=== PATIENT | male | born 1980 | race American Indian/Alaskan Native ===

== ENCOUNTER 2020-06-06 14:24 | Inpatient (IN) | payer OTHER ==
--- NOTE | 2020-06-06 15:40 | Event Note ---
ED Screening Note ED Screening Note: pt presents to the ED with c/o scrotal swelling x1 week +SOB hx of HTN and DM has not taken his meds in 3 months This initial assessment/diagnostic orders/clinical plan/treatment(s) is/are subject to change based on patients health status, clinical progression and re- assessment by fellow clinical providers in the ED. Further treatment and workup at subsequent clinical providers discretion. Patient/guardian urged not to elope from the ED as their condition may be serious if not clinically assessed and managed. 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
[2020-06-06] MEDS ORDERED: ACETAMINOPHEN 325 MG TAB PO ONE (15:41)
--- NOTE | 2020-06-06 16:45 | Ultrasound Report ---
ULTRASOUND SCROTUM INDICATION: severe scrotal swelling. COMPARISON None available. FINDINGS -- RIGHT TESTIS: Size: 3.7 x 2.3 x 2.9 cm. Echotexture: Normal. Color Doppler Flow: Normal. Lesions: None. EPIDIDYMIS: Size: Normal. Echotexture: Normal. Color Doppler Flow: Normal. Lesions: None. Hydrocele: None. Varicocele: None. Additional Findings: None. FINDINGS -- LEFT TESTIS: Size: 3.3 x 1.9 x 2.3 cm. Echotexture: Normal. Color Doppler Flow: Normal. Lesions: None. EPIDIDYMIS: Size: Normal. Echotexture: Normal. Color Doppler Flow: Normal. Lesions: None. Hydrocele: None. Varicocele: None. Additional Findings: None. The scrotal wall is diffusely thickened. In addition: Within the scrotal wall there are complex hypoe choic collections. Midline scrotal collection measures approximately 3.6 x 2.4 cm. Heterogeneous itzel ection lateral to the left testicle measures approximately 5.1 x 1.8 cm. IMPRESSION: 1. No testicular abnormality. 2. Diffuse scrotal wall edema with heterogeneously hypoechoic ill-defined collections. These findings are concerning for phlegmon/developing abscess. Sonographic follow-up is recommended after treatment . Signer Name: Venu Nesbitt MD Signed: 06/06/2020 4:40 PM Workstation Name: [id number]
[2020-06-06 16:57] LABS: Alanine Aminotransferase 157 units/L (7-56); BUN/Creatinine Ratio 8; Basophils % (Auto) 0.4 % (0.0-1.8); Blood Urea Nitrogen 10 mg/dL (9-20); Calcium 8.9 mg/dL (8.4-10.2); Hemolysis Index 0; Lymphocytes # (Auto) 0.6 K/mm3 (1.2-5.4); Lymphocytes % (Auto) 6.6 % (13.4-35.0); Mean Corpuscular HGB Conc 32 % (32-34); Mean Corpuscular Volume 91 fl (84-94); Monocytes # (Auto) 0.6 K/mm3 (0.0-0.8); Monocytes % (Auto) 5.8 % (0.0-7.3); Platelet Count 198 K/mm3 (140-440); Red Blood Count 4.86 M/mm3 (3.65-5.03); Red Cell Distribution Width 14.3 % (13.2-15.2)
--- NOTE | 2020-06-06 17:09 | XRay Report ---
CHEST PA AND LATERAL VIEWS INDICATION: SOB. COMPARISON: None. FINDINGS: Support devices: None. Heart: Within normal limits. Lungs/Pleura: There are rather diffuse predominantly perihilar bilateral pulmonary opacities. No pneu mothorax. IMPRESSION: 1. Rather diffuse predominantly perihilar pulmonary opacities are nonspecific. These could be infecti ous in etiology. Pulmonary edema could have this appearance. Radiographic follow-up is recommended. Signer Name: Venu Nesbitt MD Signed: 06/06/2020 5:05 PM Workstation Name: [id number]
[2020-06-06] MEDS ORDERED: FUROSEMIDE 40 MG/4 ML INJ IV ONE (17:43)
[2020-06-06] MEDS ORDERED: INSULIN REGULAR, HUMAN 100 UNITS/1 ML IV ONE (17:44)
--- NOTE | 2020-06-06 17:47 | Emergency Department Report ---
ED General Adult HPI - General Chief complaint: Urogenital-Male Stated complaint: SWELLING TESTICLES Time Seen by Provider: 06/06/20 15:32 Source: patient Mode of arrival: Wheelchair Limitations: No Limitations - History of Present Illness Initial comments: h/o htn, dm, morbid obesity, non compliant, present to ER with leg swelling, scrotal swelling, sob, easy fatiguability, for 1 week. Symptoms are progressively worsening since to the point where he can no longer ambulates but a couple of steps without getting severely tired and needing to rest. He denies any fever, chills or night sweats. Has not taken any meds for symptoms. -: Gradual, days(s) (7) Location: abdomen, pelvis, genitals, lower extremity Severity scale (0 -10): 9 Consistency: constant Improves with: none Worsens with: movement Associated Symptoms: cough, diaphoresis, shortness of breath, weakness Treatments Prior to Arrival: none - Related Data Allergies Allergy/AdvReac Type Severity Reaction Status Date / Time No Known Allergies Allergy Unverified 06/06/20 15:00 ED Review of Systems ROS: Stated complaint: SWELLING TESTICLES Other details as noted in HPI Comment: All other systems reviewed and negative Respiratory: orthopnea, shortness of breath, SOB with exertion Cardiovascular: dyspnea on exertion Gastrointestinal: nausea Musculoskeletal: denies: back pain Neurological: denies: headache Psychiatric: denies: anxiety ED Past Medical Hx - Past Medical History Hx Hypertension: Yes Hx Diabetes: Yes - Surgical History Past Surgical History?: No - Social History Smoking Status: Never Smoker Substance Use Type: None ED Physical Exam - General Limitations: No Limitations General appearance: lethargic - Head Head exam: Present: atraumatic, normocephalic - Eye Eye exam: Present: normal appearance Pupils: Present: normal accommodation - Neck Neck exam: Present: full ROM - Respiratory Respiratory exam: Present: rales, decreased breath sounds - Cardiovascular Cardiovascular Exam: Present: tachycardia - GI/Abdominal GI/Abdominal exam: Present: soft, normal bowel sounds. Absent: tenderness, guarding, rebound, rigid - exam: Present: scrotal swelling External exam: Present: swelling - Extremities Exam Extremities exam: Present: pedal edema (4 PLUS) - Neurological Exam Neurological exam: Present: alert, oriented X3, CN II-XII intact - Psychiatric Psychiatric exam: Present: normal affect, normal mood - Skin Skin exam: Present: warm ED Course Vital Signs 06/06/20 06/06/20 06/06/20 15:06 15:37 15:39 Temperature 98.1 F 98.1 F 101.6 F H Pulse Rate 113 H 113 H 117 H Respiratory 20 24 24 Rate Blood Pressure 139/95 Blood Pressure 139/95 [Left] O2 Sat by Pulse 82 L 90 Oximetry 06/06/20 06/06/20 06/06/20 18:06 18:16 18:30 Temperature Pulse Rate 110 H 113 H Respiratory 29 H 59 H Rate Blood Pressure Blood Pressure [Left] O2 Sat by Pulse 95 95 90 Oximetry 06/06/20 06/06/20 06/06/20 18:46 19:00 20:00 Temperature Pulse Rate 110 H 110 H 104 H Respiratory Rate Blood Pressure 121/85 Blood Pressure [Left] O2 Sat by Pulse 90 95 99 Oximetry 06/06/20 06/06/20 06/06/20 20:37 21:00 22:00 Temperature Pulse Rate 104 H 102 H Respiratory 18 Rate Blood Pressure 127/81 117/66 Blood Pressure [Left] O2 Sat by Pulse 100 88 95 Oximetry 06/06/20 23:00 Temperature Pulse Rate 98 H Respiratory Rate Blood Pressure 116/71 Blood Pressure [Left] O2 Sat by Pulse 97 Oximetry ED Medical Decision Making - Lab Data Result diagrams: 06/06/20 15:45 06/07/20 00:09 - EKG Data -: EKG Interpreted by Vt EKG shows normal: ST-T waves Rate: tachycardia (RATE 102) - EKG Data When compared to previous EKG there are: no significant change - Radiology Data Radiology results: report reviewed - Medical Decision Making Pt presents with sob, peripheral edema, labs high glucose, hyponatremia, dx: dka, chf exacerbation, needs admission for further txt. started on vancomycin for scrotal swelling, cellulitis, no abscess appreciated on exam. - Differential Diagnosis chf exacerbation, dka, cellulitis, ams, Critical Care Time: Yes Critical care time in (mins) excluding proc time.: 45 Critical care attestation.: If time is entered above; I have spent that time in minutes in the direct care of this critically ill patient, excluding procedure time. Critical Care Time: DKA: INSULIN DRIP STARTED ADMIT TO CCU ED Disposition Clinical Impression: DKA, type 2 Qualifiers: Diabetes mellitus complication detail: without coma Qualified Code(s): E11.10 - Type 2 diabetes mellitus with ketoacidosis without coma Acute exacerbation of CHF (congestive heart failure) Qualifiers: Heart failure type: systolic Qualified Code(s): I50.23 - Acute on chronic systolic (congestive) heart failure Disposition: OP ADMIT IP TO THIS HOSP Is pt being admited?: Yes Does the pt Need Aspirin: Yes Condition: Critical
[2020-06-06] MEDS ORDERED: VANCOMYCIN/NS 1 GM/250 ML 1 GM/250 ML BAG IV ONE (17:50)
[2020-06-06] MEDS ORDERED: ASPIRIN 81 MG TAB CHEW PO ONE (17:56)
[2020-06-06] MEDS ORDERED: DEXTROSE 50% IN WATER (25GM) 50 ML SYRINGE IV PRN (18:04)
[2020-06-06] MEDS ORDERED: INSULIN REGULAR, HUMAN 100 UNITS in SODIUM CHLORIDE 0.9% 99 ML IV SCH ×2 (19:00→23:45)
[2020-06-06 19:38] LABS: BUN/Creatinine Ratio 11; Blood Urea Nitrogen 12 mg/dL (9-20); Calcium 8.6 mg/dL (8.4-10.2); Hemolysis Index 86
[2020-06-06 19:39] LABS: Bacteria,Urine 1+ /HPF (Negative); Bilirubin,Urine NEG (Negative); Blood,Urine MOD (Negative); Color,Urine Yellow (Yellow); Mucus,Urine FEW /HPF; Urobilinogen,Urine < 2.0 mg/dL (<2.0)
[2020-06-06] MEDS: VANCOMYCIN 2,000 MG in SODIUM CHLORIDE 0.9% 500 ML 500 ML IV SCH (19:56)
[2020-06-06 20:12] LABS: BUN/Creatinine Ratio 10; Blood Urea Nitrogen 12 mg/dL (9-20); Calcium 8.4 mg/dL (8.4-10.2); Hemolysis Index 3
--- NOTE | 2020-06-06 23:17 | History and Physical Report ---
History of Present Illness Date of examination: 06/06/20 Date of admission: 06/06/20 18:29 Chief complaint: Swelling of both lower extremities including scrotum Increasing fatigability History of present illness: 29-year-old morbidly obese male with history of hypertension and CHF and diabetes comes in for increasing shortness of breath easy fatigability for 1 week. Patient has swelling of both the lower extremities and the also the swelling is involving the scrotum. Patient also has high blood glucose levels. Patient noncompliant with his medications. Orthopnea present. Patient is morbidly obese. - Past Medical History Hx Hypertension: Yes Hx Diabetes: Yes - Surgical History Past Surgical History?: No - Social History Smoking Status: Never Smoker Substance Use Type: None Family history. Hypertension Review of Systems ROS: Stated complaint: SWELLING TESTICLES Other details as noted in HPI Comment: All other systems reviewed and negative Respiratory: orthopnea, shortness of breath, SOB with exertion Cardiovascular: dyspnea on exertion Gastrointestinal: nausea Medications and Allergies Allergies Allergy/AdvReac Type Severity Reaction Status Date / Time No Known Allergies Allergy Unverified 06/06/20 15:00 Active Meds: Active Medications Dextrose (D50w (25gm) Syringe) 0 ml IV Q30MIN PRN; Protocol PRN Reason: Hypoglycemia Vancomycin HCl 2,000 mg/ (Sodium Chloride) 540 mls @ 250 mls/hr IV Q12H CAROLYN Last Admin: 06/06/20 19:56 Dose: 250 mls/hr Documented by: Insulin Human Regular 100 (units/ Sodium Chloride) 100 mls @ 1 mls/hr IV TITR CAROLYN; Protocol Last Titration: 06/06/20 22:13 Dose: 7 units/hr, 7 mls/hr Documented by: Exam - Constitutional Vitals: Temp Pulse Resp BP Pulse Ox 101.6 F H 104 H 18 121/85 100 06/06/20 15:39 06/06/20 20:00 06/06/20 20:37 06/06/20 20:00 06/06/20 20:37 General appearance: Present: mild distress, well-nourished - EENT Eyes: Present: PERRL ENT: hearing intact, clear oral mucosa - Neck Neck: Present: supple, normal ROM - Respiratory Respiratory effort: normal Respiratory: bilateral: CTA, rales - Cardiovascular Heart rate: 78 Heart Sounds: Present: S1 & S2. Absent: rub, click - Extremities Extremities: pulses symmetrical Extremity abnormal: edema (SEVERE pedal edema) Peripheral Pulses: within normal limits - Abdominal General gastrointestinal: Present: soft, non-tender, non-distended, normal bowel sounds Male genitourinary: Present: normal - Integumentary Integumentary: Present: clear, warm, dry - Musculoskeletal Musculoskeletal: gait normal, strength equal bilaterally - Psychiatric Psychiatric: appropriate mood/affect, intact judgment & insight - Neurologic Neurologic: CNII-XII intact, moves all extremities HEART Score - HEART Score History: Moderately suspicious Risk factors: > 3 risk factors or hx of atherosclerotic disease Troponin: Troponin T < 0.010 ng/mL (0.00-0.029) 06/06/20 15:45 - Critical Actions Critical Actions: >7 pts:50-65% risk of adverse cardiac event. Early invasive measures Results - Labs CBC & Chem 7: 06/06/20 15:45 06/07/20 07:48 Labs: Laboratory Last Values WBC 9.6 K/mm3 (4.5-11.0) 06/06/20 15:45 RBC 4.86 M/mm3 (3.65-5.03) 06/06/20 15:45 Hgb 14.0 gm/dl (11.8-15.2) 06/06/20 15:45 Hct 44.0 % (35.5-45.6) 06/06/20 15:45 MCV 91 fl (84-94) 06/06/20 15:45 MCH 29 pg (28-32) 06/06/20 15:45 MCHC 32 % (32-34) 06/06/20 15:45 RDW 14.3 % (13.2-15.2) 06/06/20 15:45 Plt Count 198 K/mm3 (140-440) 06/06/20 15:45 Lymph % (Auto) 6.6 % (13.4-35.0) L 06/06/20 15:45 Stevens % (Auto) 5.8 % (0.0-7.3) 06/06/20 15:45 Eos % (Auto) 0.0 % (0.0-4.3) 06/06/20 15:45 Baso % (Auto) 0.4 % (0.0-1.8) 06/06/20 15:45 Lymph # 0.6 K/mm3 (1.2-5.4) L 06/06/20 15:45 Stevens # 0.6 K/mm3 (0.0-0.8) 06/06/20 15:45 Eos # 0.0 K/mm3 (0.0-0.4) 06/06/20 15:45 Baso # 0.0 K/mm3 (0.0-0.1) 06/06/20 15:45 Seg Neutrophils % 87.2 % (40.0-70.0) H 06/06/20 15:45 Seg Neutrophils # 8.4 K/mm3 (1.8-7.7) H 06/06/20 15:45 VBG pH 7.300 (7.320-7.420) L 06/06/20 15:45 Sodium 131 mmol/L (137-145) L 06/06/20 19:36 Potassium 4.4 mmol/L (3.6-5.0) 06/06/20 19:36 Chloride 90.7 mmol/L (98-107) L 06/06/20 19:36 Carbon Dioxide 16 mmol/L (22-30) L 06/06/20 19:36 Anion Gap 29 mmol/L 06/06/20 19:36 BUN 12 mg/dL (9-20) 06/06/20 19:36 Creatinine 1.2 mg/dL (0.8-1.5) 06/06/20 19:36 Estimated GFR > 60 ml/min 06/06/20 19:36 BUN/Creatinine Ratio 10 % 06/06/20 19:36 Glucose 558 mg/dL (75-100) H* 06/06/20 19:36 POC Glucose 395 (70-105) H 06/06/20 22:26 Lactic Acid 1.90 mmol/L (0.7-2.0) 06/06/20 19:36 Calcium 8.4 mg/dL (8.4-10.2) 06/06/20 19:36 Phosphorus 2.80 mg/dL (2.5-4.5) 06/06/20 18:16 Magnesium 2.30 mg/dL (1.7-2.3) 06/06/20 18:16 Total Bilirubin 0.80 mg/dL (0.1-1.2) 06/06/20 15:45 AST 151 units/L (5-40) H 06/06/20 15:45 ALT 157 units/L (7-56) H 06/06/20 15:45 Alkaline Phosphatase 117 units/L (35-129) 06/06/20 15:45 Troponin T < 0.010 ng/mL (0.00-0.029) 06/06/20 15:45 NT-Pro-B Natriuret Pep 5086 pg/mL (0-450) H 06/06/20 15:45 Total Protein 8.1 g/dL (6.3-8.2) 06/06/20 15:45 Albumin 3.0 g/dL (3.9-5) L 06/06/20 15:45 Albumin/Globulin Ratio 0.6 % 06/06/20 15:45 Urine Color Yellow (Yellow) 06/06/20 18:42 Urine Turbidity Slightly-cloudy (Clear) 06/06/20 18:42 Urine pH 5.0 (5.0-7.0) 06/06/20 18:42 Ur Specific [place] 1.013 (1.003-1.030) 06/06/20 18:42 Urine Protein 100 mg/dl mg/dL (Negative) 06/06/20 18:42 Urine Glucose (UA) >=500 mg/dL (Negative) 06/06/20 18:42 Urine Ketones 20 mg/dL (Negative) 06/06/20 18:42 Urine Blood Mod (Negative) 06/06/20 18:42 Urine Nitrite Neg (Negative) 06/06/20 18:42 Urine Bilirubin Neg (Negative) 06/06/20 18:42 Urine Urobilinogen < 2.0 mg/dL (<2.0) 06/06/20 18:42 Ur Leukocyte Esterase Sm (Negative) 06/06/20 18:42 Urine WBC (Auto) 57.0 /HPF (0.0-6.0) H 06/06/20 18:42 Urine RBC (Auto) 9.0 /HPF (0.0-6.0) 06/06/20 18:42 U Epithel Cells (Auto) < 1.0 /HPF (0-13.0) 06/06/20 18:42 Urine Bacteria (Auto) 1+ /HPF (Negative) 06/06/20 18:42 Urine Mucus Few /HPF 06/06/20 18:42 Urine Yeast (Budding) 1+ /HPF 06/06/20 18:42 Short CBC 06/06/20 Range/Units 15:45 WBC 9.6 (4.5-11.0) K/mm3 Hgb 14.0 (11.8-15.2) gm/dl Hct 44.0 (35.5-45.6) % Plt Count 198 (140-440) K/mm3 BMP 06/06/20 06/06/20 06/06/20 15:45 18:16 19:36 Sodium 131 L 131 L 131 L Potassium 4.8 5.3 H 4.4 Chloride 89.8 L 90.7 L 90.7 L Carbon Dioxide 16 L 12 L 16 L BUN 10 12 12 Creatinine 1.2 1.1 1.2 Glucose 509 H* 525 H* 558 H* Calcium 8.9 8.6 8.4 06/07/20 06/07/20 06/07/20 00:09 03:19 07:48 Sodium 135 L 131 L 136 L Potassium 4.3 4.0 4.1 Chloride 95.7 L 92.2 L 98.4 Carbon Dioxide 24 D 25 25 BUN 15 15 17 Creatinine 1.3 1.3 1.2 Glucose 419 H 407 H 270 H Calcium 8.3 L 8.5 8.6 Cardiac Enzymes 06/06/20 Range/Units 15:45 Troponin T < 0.010 (0.00-0.029) ng/mL Liver Function 06/06/20 Range/Units 15:45 Total Bilirubin 0.80 (0.1-1.2) mg/dL AST 151 H (5-40) units/L ALT 157 H (7-56) units/L Alkaline Phosphatase 117 (35-129) units/L Albumin 3.0 L (3.9-5) g/dL Urine 06/06/20 Range/Units 18:42 Urine Color Yellow (Yellow) Urine pH 5.0 (5.0-7.0) Ur Specific [place] 1.013 (1.003-1.030) Urine Protein 100 mg/dl (Negative) mg/dL Urine Glucose (UA) >=500 (Negative) mg/dL Microbiology: Microbiology 06/06/20 15:49 Peripheral/Venous Blood Culture - Preliminary Culture in Progress 06/06/20 15:49 Peripheral/Venous Blood Culture - Preliminary Culture in Progress - Imaging and Cardiology EKG: report reviewed Chest x-ray: report reviewed Assessment and Plan Assessment and plan: The high probability OF a clinically significant sudden or life-threatening deterioration of the cardiorespiratory system and endocrine system required my full and direct attention, intervention and postoperative management. The aggregate critical care time was 40 minutes. The time is in addition to time spent performing reported procedures but includes the followin: Data review and interpretation 2: Patient assessment and monitoring of vital signs 3: Documentation 4:: Medication orders and management Advance Directives: Yes (Full code) VTE prophylaxis?: Chemical Plan of care discussed with patient/family: Yes - Patient Problems (1) DKA, type 2 Current Visit: Yes Status: Acute Qualifiers: Diabetes mellitus complication detail: without coma Qualified Code(s): E11. 10 - Type 2 diabetes mellitus with ketoacidosis without coma Plan to address problem: DKA protocol initiated IV insulin Management of electrolytes (2) Acute exacerbation of CHF (congestive heart failure) Current Visit: Yes Status: Acute Qualifiers: Heart failure type: combined systolic and diastolic Qualified Code(s): I50.43 - Acute on chronic combined systolic (congestive) and diastolic (congestive) heart failure Plan to address problem: Patient may have severe pulmonary hypertension causing bilateral leg swelling Cardiology consult Daily weights Intake output Echocardiogram for ejection fraction and valvular abnormalities and pulmonary hypertension (3) Hypertension Current Visit: Yes Status: Chronic Qualifiers: Hypertension type: essential hypertension Qualified Code(s): I10 - Essential (primary) hypertension Plan to address problem: Continue antihypertensives (4) Morbid obesity Current Visit: Yes Status: Chronic Plan to address problem: Patient needs counseling by primary team Bariatric surgery as outpatient (5) DVT prophylaxis Current Visit: Yes Status: Acute Plan to address problem: On heparin and GI prophylaxis
[2020-06-06] MEDS ORDERED: POTASSIUM CHLORIDE 10 MEQ 10 MEQ/100 ML BAG IV SCH (23:45)
[2020-06-07 00:33] LABS: BUN/Creatinine Ratio 12; Blood Urea Nitrogen 15 mg/dL (9-20); Calcium 8.3 mg/dL (8.4-10.2); Hemolysis Index 30
[2020-06-07 04:13] LABS: BUN/Creatinine Ratio 12; Blood Urea Nitrogen 15 mg/dL (9-20); Calcium 8.5 mg/dL (8.4-10.2); Hemolysis Index 117
[2020-06-07 09:02] LABS: BUN/Creatinine Ratio 14; Blood Urea Nitrogen 17 mg/dL (9-20); Calcium 8.6 mg/dL (8.4-10.2); Hemolysis Index 10
[2020-06-07] MEDS ORDERED: MORPHINE 2 MG/1 ML INJ IV PRN (09:34)
[2020-06-07] MEDS ORDERED: MORPHINE 2 MG/1 ML INJ ONE (09:45)
[2020-06-07] MEDS ORDERED: D5W/0.45% NACL/KCL 20 MEQ 20 MEQ/1,000 ML BAG IV ONE (11:10)
[2020-06-07] MEDS: D5W/0.45% NACL/KCL 20 MEQ 20 MEQ/1,000 ML BAG IV SCH (11:11)
--- NOTE | 2020-06-07 11:45 | Consultation ---
History of Present Illness Consult date: 06/07/20 Consult reason: congestive heart failure, shortness of breath History of present illness: The patient is a 39-year-old man with morbid obesity, diabetes, who presented to the hospital with shortness of breath, lower extremity edema and uncontrolled diabetes. His blood sugar on presentation was over 550. Chest x-ray in the emergency room demonstrated bilateral interstitial opacity, questionable infectious or pulmonary edema. Is also notable that he has a fever with a maximum temperature of 101.6 over the last 24 hours. Cardiology consultation was requested for work-up of "congestive heart failure". There is no recorded prior cardiac history, ECG is a mild sinus tachycardia with nonspecific T wave changes. Currently, patient is in the emergency room on facemask oxygen supplement. No complaints of chest pain or palpitations have been reported. Medications and Allergies Allergies Allergy/AdvReac Type Severity Reaction Status Date / Time No Known Allergies Allergy Unverified 06/06/20 15:00 Active Meds: Active Medications Dextrose (D50w (25gm) Syringe) 0 ml IV Q30MIN PRN; Protocol PRN Reason: Hypoglycemia Furosemide (Lasix) 40 mg IV 0600,1800 CAROLYN Vancomycin HCl 2,000 mg/ (Sodium Chloride) 540 mls @ 250 mls/hr IV Q12H CAROLYN Last Admin: 06/06/20 19:56 Dose: 250 mls/hr Documented by: Insulin Human Regular 100 (units/ Sodium Chloride) 100 mls @ 1 mls/hr IV TITR CAROLYN; Protocol Last Titration: 06/07/20 11:01 Dose: 6 units/hr, 6 mls/hr Documented by: Potassium Chloride/Dextrose/Sod Cl (D5w/0.45% Nacl/Kcl 20 Meq) 20 meq in 1,000 mls @ 125 mls/hr IV DIRECT CAROLYN Last Admin: 06/07/20 11:11 Dose: 125 mls/hr Documented by: Morphine Sulfate (Morphine) 2 mg IV Q4H PRN PRN Reason: Pain, Moderate (4-6) Potassium Chloride (K-Dur) 20 meq PO Q12H CAROLYN Review of Systems Cardiovascular: shortness of breath, no chest pain, no orthopnea, no palpitations, no rapid/irregular heart beat, no edema, no syncope, no lightheadedness Physical Examination Vital Signs Temp Pulse Resp BP Pulse Ox 98.1 F 113 H 20 139/95 82 L 07/06/20 15:06 06/06/20 15:06 06/06/20 15:06 06/06/20 15:06 06/06/20 15:06 Narrative exam: Full physical exam is deferred due to patient's potential COVID-19 status. Results 06/06/20 15:45 06/07/20 07:48 Cardiac Enzymes 06/06/20 Range/Units 15:45 AST 151 H (5-40) units/L CBC 06/06/20 Range/Units 15:45 WBC 9.6 (4.5-11.0) K/mm3 RBC 4.86 (3.65-5.03) M/mm3 Hgb 14.0 (11.8-15.2) gm/dl Hct 44.0 (35.5-45.6) % Plt Count 198 (140-440) K/mm3 Lymph # 0.6 L (1.2-5.4) K/mm3 Clinch # 0.6 (0.0-0.8) K/mm3 Eos # 0.0 (0.0-0.4) K/mm3 Baso # 0.0 (0.0-0.1) K/mm3 Comprehensive Metabolic Panel 06/06/20 06/06/20 06/06/20 Range/Units 15:45 18:16 19:36 Sodium 131 L 131 L 131 L (137-145) mmol/L Potassium 4.8 5.3 H 4.4 (3.6-5.0) mmol/L Chloride 89.8 L 90.7 L 90.7 L (98-107) mmol/L Carbon Dioxide 16 L 12 L 16 L (22-30) mmol/L BUN 10 12 12 (9-20) mg/dL Creatinine 1.2 1.1 1.2 (0.8-1.5) mg/dL Glucose 509 H* 525 H* 558 H* (75-100) mg/dL Calcium 8.9 8.6 8.4 (8.4-10.2) mg/dL AST 151 H (5-40) units/L ALT 157 H (7-56) units/L Alkaline Phosphatase 117 (35-129) units/L Total Protein 8.1 (6.3-8.2) g/dL Albumin 3.0 L (3.9-5) g/dL 06/07/20 06/07/20 06/07/20 Range/Units 00:09 03:19 07:48 Sodium 135 L 131 L 136 L (137-145) mmol/L Potassium 4.3 4.0 4.1 (3.6-5.0) mmol/L Chloride 95.7 L 92.2 L 98.4 (98-107) mmol/L Carbon Dioxide 24 D 25 25 (22-30) mmol/L BUN 15 15 17 (9-20) mg/dL Creatinine 1.3 1.3 1.2 (0.8-1.5) mg/dL Glucose 419 H 407 H 270 H (75-100) mg/dL Calcium 8.3 L 8.5 8.6 (8.4-10.2) mg/dL AST (5-40) units/L ALT (7-56) units/L Alkaline Phosphatase (35-129) units/L Total Protein (6.3-8.2) g/dL Albumin (3.9-5) g/dL EKG interpretations - Telemetry EKG Rhythm: Sinus Tachycardia Assessment and Plan - Patient Problems (1) Shortness of breath Current Visit: Yes Status: Acute Plan to address problem: The patient presents with diabetic ketoacidosis, shortness of breath with bilateral interstitial infiltrates. There is also a fever of 101.6. We recommend COVID-19 testing to rule out viral pneumonia. After COVID-19 evaluation, we will proceed with cardiac work-up as indicated including noninvasive LV function assessment.
--- NOTE | 2020-06-07 11:48 | Consultation ---
History of Present Illness Consult date: 06/07/20 Requesting physician: ISABEL SAMPSON Reason for consult: other (DKA) History of present illness: PULMONARY/CCM CONSULT NOTE (Full note dictated ) Please see dictated notes for full details - COVID-19 testing - airborne and contact isolation - LDH. D-Dimer, ferritin, CRP - ID consult - consider systemic steroids - remote telemetry ... further rec's dictated Medications and Allergies Allergies Allergy/AdvReac Type Severity Reaction Status Date / Time No Known Allergies Allergy Unverified 06/06/20 15:00 Active Meds: Active Medications Dextrose (D50w (25gm) Syringe) 0 ml IV Q30MIN PRN; Protocol PRN Reason: Hypoglycemia Furosemide (Lasix) 40 mg IV 0600,1800 CAROLYN Vancomycin HCl 2,000 mg/ (Sodium Chloride) 540 mls @ 250 mls/hr IV Q12H CAROLYN Last Admin: 06/06/20 19:56 Dose: 250 mls/hr Documented by: Insulin Human Regular 100 (units/ Sodium Chloride) 100 mls @ 1 mls/hr IV TITR CAROLYN; Protocol Last Titration: 06/07/20 11:01 Dose: 6 units/hr, 6 mls/hr Documented by: Potassium Chloride/Dextrose/Sod Cl (D5w/0.45% Nacl/Kcl 20 Meq) 20 meq in 1,000 mls @ 125 mls/hr IV DIRECT CAROLYN Last Admin: 06/07/20 11:11 Dose: 125 mls/hr Documented by: Morphine Sulfate (Morphine) 2 mg IV Q4H PRN PRN Reason: Pain, Moderate (4-6) Potassium Chloride (K-Dur) 20 meq PO Q12H CAROLYN Physical Examination Vital signs: Vital Signs Temp Pulse Resp BP Pulse Ox 98.1 F 113 H 20 139/95 82 L 06/06/20 15:06 06/06/20 15:06 06/06/20 15:06 06/06/20 15:06 06/06/20 15:06 Results - Laboratory Findings CBC and BMP: 06/06/20 15:45 06/07/20 07:48 Abnormal lab findings: Abnormal Labs 06/06/20 06/06/20 06/06/20 15:45 15:45 15:45 Lymph % (Auto) 6.6 L Lymph # 0.6 L Seg Neutrophils % 87.2 H Seg Neutrophils # 8.4 H VBG pH 7.300 L Sodium 131 L Potassium Chloride 89.8 L Carbon Dioxide 16 L Glucose 509 H* POC Glucose Hemoglobin A1c Lactic Acid Calcium Phosphorus AST 151 H ALT 157 H NT-Pro-B Natriuret Pep 5086 H Albumin 3.0 L Urine WBC (Auto) 06/06/20 06/06/20 06/06/20 17:02 18:01 18:16 Lymph % (Auto) Lymph # Seg Neutrophils % Seg Neutrophils # VBG pH Sodium Potassium Chloride Carbon Dioxide Glucose POC Glucose 450 H Hemoglobin A1c Lactic Acid 2.20 H* 2.30 H* Calcium Phosphorus AST ALT NT-Pro-B Natriuret Pep Albumin Urine WBC (Auto) 06/06/20 06/06/20 06/06/20 18:16 18:42 19:36 Lymph % (Auto) Lymph # Seg Neutrophils % Seg Neutrophils # VBG pH Sodium 131 L 131 L Potassium 5.3 H Chloride 90.7 L 90.7 L Carbon Dioxide 12 L 16 L Glucose 525 H* 558 H* POC Glucose Hemoglobin A1c Lactic Acid Calcium Phosphorus AST ALT NT-Pro-B Natriuret Pep Albumin Urine WBC (Auto) 57.0 H 06/06/20 06/06/20 06/06/20 21:21 22:26 23:33 Lymph % (Auto) Lymph # Seg Neutrophils % Seg Neutrophils # VBG pH Sodium Potassium Chloride Carbon Dioxide Glucose POC Glucose 411 H 395 H 390 H Hemoglobin A1c Lactic Acid Calcium Phosphorus AST ALT NT-Pro-B Natriuret Pep Albumin Urine WBC (Auto) 06/07/20 06/07/20 06/07/20 00:09 00:09 00:09 Lymph % (Auto) Lymph # Seg Neutrophils % Seg Neutrophils # VBG pH Sodium 135 L Potassium Chloride 95.7 L Carbon Dioxide Glucose 419 H POC Glucose Hemoglobin A1c 17.4 H Lactic Acid 2.30 H* Calcium 8.3 L Phosphorus AST ALT NT-Pro-B Natriuret Pep Albumin Urine WBC (Auto) 06/07/20 06/07/20 06/07/20 00:09 00:48 02:09 Lymph % (Auto) Lymph # Seg Neutrophils % Seg Neutrophils # VBG pH Sodium Potassium Chloride Carbon Dioxide Glucose POC Glucose 335 H 340 H Hemoglobin A1c Lactic Acid Calcium Phosphorus 1.90 L D AST ALT NT-Pro-B Natriuret Pep Albumin Urine WBC (Auto) 06/07/20 06/07/20 06/07/20 02:57 03:19 03:19 Lymph % (Auto) Lymph # Seg Neutrophils % Seg Neutrophils # VBG pH Sodium 131 L Potassium Chloride 92.2 L Carbon Dioxide Glucose 407 H POC Glucose 416 H Hemoglobin A1c Lactic Acid 3.50 H* Calcium Phosphorus AST ALT NT-Pro-B Natriuret Pep Albumin Urine WBC (Auto) 06/07/20 06/07/20 06/07/20 03:56 05:13 06:01 Lymph % (Auto) Lymph # Seg Neutrophils % Seg Neutrophils # VBG pH Sodium Potassium Chloride Carbon Dioxide Glucose POC Glucose 341 H 323 H 299 H Hemoglobin A1c Lactic Acid Calcium Phosphorus AST ALT NT-Pro-B Natriuret Pep Albumin Urine WBC (Auto) 06/07/20 06/07/20 06/07/20 07:07 07:48 07:48 Lymph % (Auto) Lymph # Seg Neutrophils % Seg Neutrophils # VBG pH Sodium 136 L Potassium Chloride Carbon Dioxide Glucose 270 H POC Glucose 276 H Hemoglobin A1c Lactic Acid 2.50 H* Calcium Phosphorus AST ALT NT-Pro-B Natriuret Pep Albumin Urine WBC (Auto) 06/07/20 06/07/20 06/07/20 08:11 09:12 10:11 Lymph % (Auto) Lymph # Seg Neutrophils % Seg Neutrophils # VBG pH Sodium Potassium Chloride Carbon Dioxide Glucose POC Glucose 245 H 208 H 186 H Hemoglobin A1c Lactic Acid Calcium Phosphorus AST ALT NT-Pro-B Natriuret Pep Albumin Urine WBC (Auto) 06/07/20 11:14 Lymph % (Auto) Lymph # Seg Neutrophils % Seg Neutrophils # VBG pH Sodium Potassium Chloride Carbon Dioxide Glucose POC Glucose 189 H Hemoglobin A1c Lactic Acid Calcium Phosphorus AST ALT NT-Pro-B Natriuret Pep Albumin Urine WBC (Auto)
[2020-06-07] MEDS ORDERED: DEXTROSE 50% IN WATER (25GM) 50 ML SYRINGE IV PRN (12:21)
[2020-06-07] MEDS ORDERED: POTASSIUM CHLORIDE ER 20 MEQ TAB PO ONE (14:53)
[2020-06-07] MEDS ORDERED: INSULIN LISPRO 100 UNIT/ML SUB-Q ONE ×3 (14:55→15:00)
--- NOTE | 2020-06-07 15:07 | Consultation ---
History of Present Illness - Reason for Consult Consult date: 06/07/20 COVID PUI Requesting physician: MISBAH GEORGE - History of Present Illness The patient is a 39-year-old male with morbid obesity, diabetes mellitus was admitted to the hospital with leg swelling, shortness of breath. He was noted to be in diabetic ketoacidosis. He has a history of noncompliance. Also with hypoxia and concern for CHF exacerbation. Patient then spiked a fever of 101.6 F, hence was made a COVID PUI. Infectious diseases was consulted. Review of Systems: reviewed in the chart, unable to obtain directly due to PPE shortage and preservation Medications and Allergies Allergies Allergy/AdvReac Type Severity Reaction Status Date / Time No Known Allergies Allergy Unverified 06/06/20 15:00 Active Meds: Active Medications Ascorbic Acid (Vitamin C) 500 mg PO BID CAROLYN Dextrose (D50w (25gm) Syringe) 0 ml IV Q30MIN PRN; Protocol PRN Reason: Hypoglycemia Famotidine (Pepcid) 20 mg PO QDAY CAROLYN Furosemide (Lasix) 40 mg IV 0600,1800 [facility] Heparin Sodium (Porcine) (Heparin) 5,000 unit SUB-Q Q8HR CAROLYN Vancomycin HCl 2,000 mg/ (Sodium Chloride) 540 mls @ 250 mls/hr IV Q12H CAROLYN Last Admin: 06/06/20 19:56 Dose: 250 mls/hr Documented by: Insulin Human Regular 100 (units/ Sodium Chloride) 100 mls @ 1 mls/hr IV TITR CAROLYN; Protocol Last Titration: 06/07/20 13:35 Dose: Infused Documented by: Potassium Chloride/Dextrose/Sod Cl (D5w/0.45% Nacl/Kcl 20 Meq) 20 meq in 1,000 mls @ 125 mls/hr IV DIRECT CAROLYN Last Admin: 06/07/20 11:11 Dose: 125 mls/hr Documented by: Ceftriaxone Sodium (Rocephin/Ns 2 Gm/100 Ml) 2 gm in 100 mls @ 200 mls/hr IV Q24H CAROLYN; Protocol Insulin Human Lispro (Humalog) 0 unit SUB-Q Q6HR CAROLYN; Protocol Morphine Sulfate (Morphine) 2 mg IV Q4H PRN PRN Reason: Pain, Moderate (4-6) Potassium Chloride (K-Dur) 20 meq PO Q12H CAROLYN Zinc Sulfate (Zinc Sulfate) 220 mg PO BID CAROLYN Physical Examination - Physical Exam Narrative exam: Physical Exam (reviewed in chart due to PPE conservation) Constitutional: limited due to PPE conservation strategy Head, Ears, Nose: limited due to PPE conservation strategy Eyes: limited due to PPE conservation strategy Neck: limited due to PPE conservation strategy Oral: limited due to PPE conservation strategy Cardiovascular: limited due to PPE conservation strategy Respiratory: limited due to PPE conservation strategy GI: limited due to PPE conservation strategy Musculoskeletal: limited due to PPE conservation strategy Skin: limited due to PPE conservation strategy Hem/Lymphatic: limited due to PPE conservation strategy Psych: limited due to PPE conservation strategy Neurological: limited due to PPE conservation strategy - Constitutional Vitals: Vital Signs Temp Pulse Resp BP Pulse Ox 101.6 F H 106 H 35 H 110/61 85 06/06/20 15:39 06/07/20 14:00 06/07/20 13:00 06/07/20 14:00 06/07/20 14:00 Temperature -Last 24 Hours Temperature 101.6 F Temperature 98.1 F Results - Labs CBC & Chem 7: 06/06/20 15:45 06/07/20 07:48 Labs: Abnormal lab results 06/06/20 06/06/20 06/06/20 Range/Units 15:45 15:45 15:45 Lymph % (Auto) 6.6 L (13.4-35.0) % Lymph # 0.6 L (1.2-5.4) K/mm3 Seg Neutrophils % 87.2 H (40.0-70.0) % Seg Neutrophils # 8.4 H (1.8-7.7) K/mm3 VBG pH 7.300 L (7.320-7.420) Sodium 131 L (137-145) mmol/L Potassium (3.6-5.0) mmol/L Chloride 89.8 L (98-107) mmol/L Carbon Dioxide 16 L (22-30) mmol/L Glucose 509 H* (75-100) mg/dL POC Glucose (70-105) Hemoglobin A1c (4-6) % Lactic Acid (0.7-2.0) mmol/L Calcium (8.4-10.2) mg/dL Phosphorus (2.5-4.5) mg/dL AST 151 H (5-40) units/L ALT 157 H (7-56) units/L NT-Pro-B Natriuret Pep 5086 H (0-450) pg/mL Albumin 3.0 L (3.9-5) g/dL Urine WBC (Auto) (0.0-6.0) /HPF 06/06/20 06/06/20 06/06/20 Range/Units 17:02 18:01 18:16 Lymph % (Auto) (13.4-35.0) % Lymph # (1.2-5.4) K/mm3 Seg Neutrophils % (40.0-70.0) % Seg Neutrophils # (1.8-7.7) K/mm3 VBG pH (7.320-7.420) Sodium (137-145) mmol/L Potassium (3.6-5.0) mmol/L Chloride (98-107) mmol/L Carbon Dioxide (22-30) mmol/L Glucose (75-100) mg/dL POC Glucose 450 H (70-105) Hemoglobin A1c (4-6) % Lactic Acid 2.20 H* 2.30 H* (0.7-2.0) mmol/L Calcium (8.4-10.2) mg/dL Phosphorus (2.5-4.5) mg/dL AST (5-40) units/L ALT (7-56) units/L NT-Pro-B Natriuret Pep (0-450) pg/mL Albumin (3.9-5) g/dL Urine WBC (Auto) (0.0-6.0) /HPF 06/06/20 06/06/20 06/06/20 Range/Units 18:16 18:42 19:36 Lymph % (Auto) (13.4-35.0) % Lymph # (1.2-5.4) K/mm3 Seg Neutrophils % (40.0-70.0) % Seg Neutrophils # (1.8-7.7) K/mm3 VBG pH (7.320-7.420) Sodium 131 L 131 L (137-145) mmol/L Potassium 5.3 H (3.6-5.0) mmol/L Chloride 90.7 L 90.7 L (98-107) mmol/L Carbon Dioxide 12 L 16 L (22-30) mmol/L Glucose 525 H* 558 H* (75-100) mg/dL POC Glucose (70-105) Hemoglobin A1c (4-6) % Lactic Acid (0.7-2.0) mmol/L Calcium (8.4-10.2) mg/dL Phosphorus (2.5-4.5) mg/dL AST (5-40) units/L ALT (7-56) units/L NT-Pro-B Natriuret Pep (0-450) pg/mL Albumin (3.9-5) g/dL Urine WBC (Auto) 57.0 H (0.0-6.0) /HPF 06/06/20 06/06/20 06/06/20 Range/Units 21:21 22:26 23:33 Lymph % (Auto) (13.4-35.0) % Lymph # (1.2-5.4) K/mm3 Seg Neutrophils % (40.0-70.0) % Seg Neutrophils # (1.8-7.7) K/mm3 VBG pH (7.320-7.420) Sodium (137-145) mmol/L Potassium (3.6-5.0) mmol/L Chloride (98-107) mmol/L Carbon Dioxide (22-30) mmol/L Glucose (75-100) mg/dL POC Glucose 411 H 395 H 390 H (70-105) Hemoglobin A1c (4-6) % Lactic Acid (0.7-2.0) mmol/L Calcium (8.4-10.2) mg/dL Phosphorus (2.5-4.5) mg/dL AST (5-40) units/L ALT (7-56) units/L NT-Pro-B Natriuret Pep (0-450) pg/mL Albumin (3.9-5) g/dL Urine WBC (Auto) (0.0-6.0) /HPF 06/07/20 06/07/20 06/07/20 Range/Units 00:09 00:09 00:09 Lymph % (Auto) (13.4-35.0) % Lymph # (1.2-5.4) K/mm3 Seg Neutrophils % (40.0-70.0) % Seg Neutrophils # (1.8-7.7) K/mm3 VBG pH (7.320-7.420) Sodium 135 L (137-145) mmol/L Potassium (3.6-5.0) mmol/L Chloride 95.7 L (98-107) mmol/L Carbon Dioxide (22-30) mmol/L Glucose 419 H (75-100) mg/dL POC Glucose (70-105) Hemoglobin A1c 17.4 H (4-6) % Lactic Acid 2.30 H* (0.7-2.0) mmol/L Calcium 8.3 L (8.4-10.2) mg/dL Phosphorus (2.5-4.5) mg/dL AST (5-40) units/L ALT (7-56) units/L NT-Pro-B Natriuret Pep (0-450) pg/mL Albumin (3.9-5) g/dL Urine WBC (Auto) (0.0-6.0) /HPF 06/07/20 06/07/20 06/07/20 Range/Units 00:09 00:48 02:09 Lymph % (Auto) (13.4-35.0) % Lymph # (1.2-5.4) K/mm3 Seg Neutrophils % (40.0-70.0) % Seg Neutrophils # (1.8-7.7) K/mm3 VBG pH (7.320-7.420) Sodium (137-145) mmol/L Potassium (3.6-5.0) mmol/L Chloride (98-107) mmol/L Carbon Dioxide (22-30) mmol/L Glucose (75-100) mg/dL POC Glucose 335 H 340 H (70-105) Hemoglobin A1c (4-6) % Lactic Acid (0.7-2.0) mmol/L Calcium (8.4-10.2) mg/dL Phosphorus 1.90 L D (2.5-4.5) mg/dL AST (5-40) units/L ALT (7-56) units/L NT-Pro-B Natriuret Pep (0-450) pg/mL Albumin (3.9-5) g/dL Urine WBC (Auto) (0.0-6.0) /HPF 06/07/20 06/07/20 06/07/20 Range/Units 02:57 03:19 03:19 Lymph % (Auto) (13.4-35.0) % Lymph # (1.2-5.4) K/mm3 Seg Neutrophils % (40.0-70.0) % Seg Neutrophils # (1.8-7.7) K/mm3 VBG pH (7.320-7.420) Sodium 131 L (137-145) mmol/L Potassium (3.6-5.0) mmol/L Chloride 92.2 L (98-107) mmol/L Carbon Dioxide (22-30) mmol/L Glucose 407 H (75-100) mg/dL POC Glucose 416 H (70-105) Hemoglobin A1c (4-6) % Lactic Acid 3.50 H* (0.7-2.0) mmol/L Calcium (8.4-10.2) mg/dL Phosphorus (2.5-4.5) mg/dL AST (5-40) units/L ALT (7-56) units/L NT-Pro-B Natriuret Pep (0-450) pg/mL Albumin (3.9-5) g/dL Urine WBC (Auto) (0.0-6.0) /HPF 06/07/20 06/07/20 06/07/20 Range/Units 03:56 05:13 06:01 Lymph % (Auto) (13.4-35.0) % Lymph # (1.2-5.4) K/mm3 Seg Neutrophils % (40.0-70.0) % Seg Neutrophils # (1.8-7.7) K/mm3 VBG pH (7.320-7.420) Sodium (137-145) mmol/L Potassium (3.6-5.0) mmol/L Chloride (98-107) mmol/L Carbon Dioxide (22-30) mmol/L Glucose (75-100) mg/dL POC Glucose 341 H 323 H 299 H (70-105) Hemoglobin A1c (4-6) % Lactic Acid (0.7-2.0) mmol/L Calcium (8.4-10.2) mg/dL Phosphorus (2.5-4.5) mg/dL AST (5-40) units/L ALT (7-56) units/L NT-Pro-B Natriuret Pep (0-450) pg/mL Albumin (3.9-5) g/dL Urine WBC (Auto) (0.0-6.0) /HPF 07/06/2006/07/20 06/07/20 Range/Units 07:07 07:48 07:48 Lymph % (Auto) (13.4-35.0) % Lymph # (1.2-5.4) K/mm3 Seg Neutrophils % (40.0-70.0) % Seg Neutrophils # (1.8-7.7) K/mm3 VBG pH (7.320-7.420) Sodium 136 L (137-145) mmol/L Potassium (3.6-5.0) mmol/L Chloride (98-107) mmol/L Carbon Dioxide (22-30) mmol/L Glucose 270 H (75-100) mg/dL POC Glucose 276 H (70-105) Hemoglobin A1c (4-6) % Lactic Acid 2.50 H* (0.7-2.0) mmol/L Calcium (8.4-10.2) mg/dL Phosphorus (2.5-4.5) mg/dL AST (5-40) units/L ALT (7-56) units/L NT-Pro-B Natriuret Pep (0-450) pg/mL Albumin (3.9-5) g/dL Urine WBC (Auto) (0.0-6.0) /HPF 06/07/20 06/07/20 06/07/20 Range/Units 08:11 09:12 10:11 Lymph % (Auto) (13.4-35.0) % Lymph # (1.2-5.4) K/mm3 Seg Neutrophils % (40.0-70.0) % Seg Neutrophils # (1.8-7.7) K/mm3 VBG pH (7.320-7.420) Sodium (137-145) mmol/L Potassium (3.6-5.0) mmol/L Chloride (98-107) mmol/L Carbon Dioxide (22-30) mmol/L Glucose (75-100) mg/dL POC Glucose 245 H 208 H 186 H (70-105) Hemoglobin A1c (4-6) % Lactic Acid (0.7-2.0) mmol/L Calcium (8.4-10.2) mg/dL Phosphorus (2.5-4.5) mg/dL AST (5-40) units/L ALT (7-56) units/L NT-Pro-B Natriuret Pep (0-450) pg/mL Albumin (3.9-5) g/dL Urine WBC (Auto) (0.0-6.0) /HPF 06/07/20 06/07/20 06/07/20 Range/Units 11:14 13:40 14:50 Lymph % (Auto) (13.4-35.0) % Lymph # (1.2-5.4) K/mm3 Seg Neutrophils % (40.0-70.0) % Seg Neutrophils # (1.8-7.7) K/mm3 VBG pH (7.320-7.420) Sodium (137-145) mmol/L Potassium (3.6-5.0) mmol/L Chloride (98-107) mmol/L Carbon Dioxide (22-30) mmol/L Glucose (75-100) mg/dL POC Glucose 189 H 223 H 194 H (70-105) Hemoglobin A1c (4-6) % Lactic Acid (0.7-2.0) mmol/L Calcium (8.4-10.2) mg/dL Phosphorus (2.5-4.5) mg/dL AST (5-40) units/L ALT (7-56) units/L NT-Pro-B Natriuret Pep (0-450) pg/mL Albumin (3.9-5) g/dL Urine WBC (Auto) (0.0-6.0) /HPF - Imaging and Cardiology Chest x-ray: report reviewed, image reviewed Assessment and Plan Cultures: Blood culture: in process A/P: #Fever, bilateral pneumonia: #Acute hypoxic respiratory failure: #Congestive heart failure #DKA #Morbid obesity Recs: Agree with COVID PUI, if positive, would start steroids Also check COVID related inflammatory markers Follow-up blood cultures Empiric ceftriaxone and azithromycin ordered Mahin Golden MD, FACP [facility] ([facility] C: [phone] O: [phone] F: [phone]
--- NOTE | 2020-06-07 15:09 | Consultation ---
PULMONARY CRITICAL CARE CONSULTATION NOTE CONSULTING PHYSICIAN: Dr. Sagastume. REASON FOR CONSULTATION: Diabetic ketoacidosis. CHIEF COMPLAINT AND HISTORY OF PRESENT ILLNESS: The patient is a now 39-year-old morbidly obese -Serbian male with past medical history significant amongst other things for diagnoses of CHF and diabetes, came in with increased shortness of breath, easy fatigability, it has been going on about a week. He complained of increasing swelling to lower extremities and swelling of the scrotum, admits to being out of his medications for about a month. In the ER, he was evaluated and diagnosed with diabetic ketoacidosis. We are asked to assist with management and transferred to the intensive care unit. When I stopped by to see him, he remained on an insulin drip going at about 5 units per hour at that time. However, he was also desaturating into the mid 80s. He denied nausea, vomiting, or overt aspiration. He did admit to some chest pain, felt like there might be a little pleuritic component to it. Denied fevers or chills. Denied sick contacts. Denied contact with anybody with known COVID-19 infection. Denied travel out of the [facility]. This really is much of the history of presentation as I have. PAST MEDICAL HISTORY: Again, significant for hypertension, diabetes, morbid obesity, congestive heart failure. PAST SURGICAL HISTORY: He had denied. MEDICATIONS: He was on at the time I stopped by to see him were reviewed, pertinent medications include the following: Lasix 40 mg IV b.i.d., insulin drip was going at 5 units per hour, morphine sulfate 2 mg IV q.4 hours p.r.n. moderate pain, potassium chloride 20 mEq p.o. q.12 hours, vancomycin 2 g IV q.12 hours. ALLERGIES: No known drug allergies. DIET: Morbidly obese. Denies significant weight loss or gain preceding few weeks to months. FAMILY AND SOCIAL HISTORY: Lives in the community. Denies alcohol, tobacco, or illicit drug use or abuse. Family history is otherwise unknown. REVIEW OF SYSTEMS: No loss of consciousness. No new onset seizures. No new onset focal weakness. Denies gross hematochezia or melena. Denies gross hematuria or dysuria. Denied hematemesis, denied hemoptysis. He denied with periods of unexplained sadness and/or elation as may be consistent with psychiatric type disorders. He denies heat or cold intolerance. He denies polydipsia or polyuria. Complete 13-system review of systems obtained. Pertinent positives and/or negatives as in body of history above, otherwise noncontributory. PHYSICAL EXAMINATION: VITAL SIGNS: At presentation, he was afebrile, temperature 98.1 degrees Fahrenheit, pulse of 113, respiratory rate of 20, blood pressure 139/95, O2 sats were 86% at the time I saw him and that seemed to be on a 28% Ventimask. GENERAL: Morbidly obese young -Serbian male. Normocephalic, atraumatic, talking to me with mildly increased respiratory effort at rest. HEAD, EYES, EARS, NOSE AND THROAT: Anicteric. No conjunctival erythema. Oropharynx is moist. Mallampati #4 oropharynx. No gross jugular venous distention. Large neck circumference. Grossly, there were no palpable lymph nodes in the supraclavicular or submandibular lymph node chains. LUNGS: Auscultation of both lung root, actually revealed scattered rhonchi, no active wheezing. HEART: Heart sounds 1 and 2 are heard at the time of my evaluation, regular in rate and rhythm without overt rubs or murmurs. ABDOMEN: Soft, full, protuberant. Bowel sounds are positive, nontender, no palpable hepatosplenomegaly. EXTREMITIES: Without overt digital clubbing or cyanosis. He has about 1+ bipedal pitting edema. Pedal pulses were about 2+ bilaterally. NEUROLOGIC: Pupils are equal, round, about 4 mm, reactive to light. Extraocular muscle movements were intact. He moved all 4 extremities spontaneously. SKIN: Poor turgor. He had a stasis dermatitis type rash to the lower extremities; however, without overt cellulitis or rash in the areas I examined. Please see the registered nurse and wound care nurses' notes for full description of his screen. PSYCHIATRIC: Mood was normal. Affect was appropriate. LABORATORY DATA: From my review, admission white cell count 9600, hemoglobin 14.0, hematocrit 44.0, platelet count 198. Venous blood gas showed a pH of 7.30. Serum sodium was 131, potassium 4.8, chloride 90, bicarbonate 16, BUN 10, creatinine 1.2, glucose was 509. Lactic acid within normal limits. Phosphorus and mag within normal limits. AST elevated at 151, ALT up at 157. BNP was elevated at 5086. Urinalysis showed moderate blood, small leukocyte esterase, 57 white cells per high power field. His lactic acid level is up to 2.5 this morning, actually trending down, it go to a high of 3.5. The anion gap has closed at this point. Two sets of blood cultures, no growth to date. Chest x-ray has been reviewed, which shows essentially gross cardiomegaly, mild interstitial edema. I cannot rule out a small left pleural effusion, no gross pneumothorax, no gross bony fractures that I can see, but he also had some perihilar infiltrates. He had an ultrasound of the testicles also and no testicular abnormality reported. ASSESSMENT: We have a young gentleman here in with what appears to be diabetic ketoacidosis, but as always the answer is what is causing this presentation. From an Endocrine standpoint, we will keep him on the insulin drip. We will follow the DKA protocol. He seems like he is a candidate for transitioning to long-acting insulin at this point with sliding scale insulin to go along. His serum glucose should be targeted for about 140 to 180 mg/dL acutely. I am more bothered about the overall presentation. Since he has been in the Emergency Room, he has had a T-max of about 101.6. He is complaining of some chest pain. He has pulmonary infiltrates bilaterally. It certainly could well be a pulmonary edema, but he is obese. He has risk factors for coronavirus infection and I think we need to rule him out for coronavirus. I will order a coronavirus PCR test. I will recommend airborne and contact isolation in the short-time. We will continue gentle diuresis. I will begin vitamin C and zinc supplementation. Infectious Disease consultation will be placed to see if he will benefit from initiation of systemic steroids and further anti-diego virus therapy. In the meantime, he will be placed on GI prophylaxis as well as DVT prophylaxis. Oxygen will be weaned to keep sats greater than or equal to about 92% empirically. Bilevel positive airway pressure ventilation therapy will be offered on a p.r.n. basis. In the meantime, we will go with high flow nasal cannula via the Vapotherm system. Flu and pneumonia vaccination will be addressed per protocol. He is critically ill on life-sustain interventions including the IV insulin therapy. I should mention bilateral lower extremity Dopplers will also be ordered plus or minus for the venosus thromboembolic disorder workup. A D-dimer level will be ordered. A serum ferritin will be ordered. LDH will be ordered and other inflammatory markers as well as a CRP and procalcitonin and trended as necessary to aid in management. Thank you for the consult. We will follow along and will make further recommendations as picture progresses/becomes clearer. He should be watched closely and if he is transferred to the floor, needs to be on telemetry. JOB# [id number] HEVER/LYN
[2020-06-07] MEDS: INSULIN LISPRO 100 UNIT/ML SUB-Q SCH ×2 (15:20→18:41)
[2020-06-07] MEDS: POTASSIUM CHLORIDE ER 20 MEQ TAB PO SCH ×2 (15:20→22:06)
[2020-06-07] MEDS: VANCOMYCIN 2,000 MG in SODIUM CHLORIDE 0.9% 500 ML 500 ML IV SCH (15:20)
[2020-06-07 15:26] LABS: Calcium 8.6 mg/dL (8.4-10.2)
--- NOTE | 2020-06-07 15:46 | Vascular Lab Report ---
DUPLEX DOPPLER LOWER EXTREMITY VEINS, BILATERAL INDICATION / CLINICAL INFORMATION: swelling. TECHNIQUE: Duplex doppler imaging was performed through the veins of both lower extremities using venous win amy and other maneuvers. COMPARISON: None available. FINDINGS: RIGHT COMMON FEMORAL VEIN: Negative. RIGHT FEMORAL VEIN: Negative. RIGHT POPLITEAL VEIN: Negative. RIGHT CALF VEINS: Negative. LEFT COMMON FEMORAL VEIN: Negative. LEFT FEMORAL VEIN: Negative. LEFT POPLITEAL VEIN: Negative. LEFT CALF VEINS: Negative. ADDITIONAL FINDINGS: None. IMPRESSION: 1. No sonographic evidence for DVT in either lower extremity. Signer Name: Robert Ruiz MD Signed: 06/07/2020 3:41 PM Workstation Name: [id number]
[2020-06-07] MEDS: HEPARIN 5,000 UNIT/1 ML VIAL SUB-Q SCH ×2 (17:48→22:07)
[2020-06-07] MEDS: FUROSEMIDE 40 MG/4 ML INJ IV SCH (17:48)
[2020-06-07] MEDS: AZITHROMYCIN 250 MG TAB PO SCH (17:48)
[2020-06-07 20:34] LABS: Calcium 8.2 mg/dL (8.4-10.2)
--- NOTE | 2020-06-07 20:44 | Progress Note ---
Assessment and Plan - Patient Problems (1) Suspected 2019 novel coronavirus infection Current Visit: Yes Status: Acute Plan to address problem: Infectious disease consulted, COVID-19 protocol initiated. Coronavirus PCR is pending. (2) Urinary tract infection Current Visit: Yes Status: Acute Qualifiers: Encounter type: initial encounter Plan to address problem: IV antibiotic therapy, supportive care, repeat CBC. (3) Uncontrolled diabetes mellitus Current Visit: Yes Status: Acute Plan to address problem: Sliding scale insulin therapy, Accu-Chek, consistent carbohydrate diet, hypoglycemia protocol (4) Obesity hypoventilation syndrome Current Visit: Yes Status: Acute Plan to address problem: Supplemental oxygen, nebulizer therapy, noninvasive positive pressure ventilation as clinically indicated, outpatient sleep study, pulmonary toilet, prone positioning while in bed, early ambulation, out of bed to chair 3 times daily and PRN. (5) DVT prophylaxis Current Visit: Yes Status: Acute Plan to address problem: SCD to bilateral lower extremities while in bed, prophylactic heparin History Interval history: 39 YO Male HD #2 with UTI, Obesity Hypoventilation Syndrome, Uncontrolled DM, MO, COVID PUI. Pt is lethargic today. Patient resting in bed. Patient acknowledges persistent shortness of breath. Patient denies pain. Hospitalist Physical - Constitutional Vitals: Temp Pulse Resp BP Pulse Ox 101.6 F H 113 H 35 H 100/65 93 06/06/20 15:39 06/07/20 15:00 06/07/20 13:00 06/07/20 15:00 06/07/20 15:00 General appearance: Present: mild distress, well-nourished, obese - EENT Eyes: Present: PERRL, EOM intact - Neck Neck: Present: supple - Respiratory Respiratory effort: labored, accessory muscle use Respiratory: bilateral: diminished - Cardiovascular Rhythm: regular Heart Sounds: Present: S1 & S2 - Extremities Extremities: no ischemia - Abdominal General gastrointestinal: soft, non-tender, non-distended - Integumentary Integumentary: Present: clear, dry (He has a very) - Psychiatric Psychiatric: appropriate mood/affect, cooperative - Neurologic Neurologic: CNII-XII intact (Okay I have no idea of what her numbers about) HEART Score - HEART Score Risk factors: > 3 risk factors or hx of atherosclerotic disease Troponin: Troponin T < 0.010 ng/mL (0.00-0.029) 06/06/20 15:45 - Critical Actions Critical Actions: >7 pts:50-65% risk of adverse cardiac event. Early invasive measures Results - Labs CBC & Chem 7: 06/06/20 15:45 06/07/20 23:22 Labs: Laboratory Last Values WBC 9.6 K/mm3 (4.5-11.0) 06/06/20 15:45 RBC 4.86 M/mm3 (3.65-5.03) 06/06/20 15:45 Hgb 14.0 gm/dl (11.8-15.2) 06/06/20 15:45 Hct 44.0 % (35.5-45.6) 06/06/20 15:45 MCV 91 fl (84-94) 06/06/20 15:45 MCH 29 pg (28-32) 06/06/20 15:45 MCHC 32 % (32-34) 06/06/20 15:45 RDW 14.3 % (13.2-15.2) 06/06/20 15:45 Plt Count 198 K/mm3 (140-440) 06/06/20 15:45 Lymph % (Auto) 6.6 % (13.4-35.0) L 06/06/20 15:45 [place] % (Auto) 5.8 % (0.0-7.3) 06/06/20 15:45 Eos % (Auto) 0.0 % (0.0-4.3) 06/06/20 15:45 Baso % (Auto) 0.4 % (0.0-1.8) 06/06/20 15:45 Lymph # 0.6 K/mm3 (1.2-5.4) L 06/06/20 15:45 [place] # 0.6 K/mm3 (0.0-0.8) 06/06/20 15:45 Eos # 0.0 K/mm3 (0.0-0.4) 06/06/20 15:45 Baso # 0.0 K/mm3 (0.0-0.1) 06/06/20 15:45 Seg Neutrophils % 87.2 % (40.0-70.0) H 06/06/20 15:45 Seg Neutrophils # 8.4 K/mm3 (1.8-7.7) H 06/06/20 15:45 D-Dimer 975.20 ng/mlDDU (0-234) H 06/07/20 14:53 VBG pH 7.300 (7.320-7.420) L 06/06/20 15:45 Sodium 137 mmol/L (137-145) 06/07/20 14:53 Potassium 4.1 mmol/L (3.6-5.0) 06/07/20 14:53 Chloride 100.6 mmol/L (98-107) 06/07/20 14:53 Carbon Dioxide 25 mmol/L (22-30) 06/07/20 14:53 Anion Gap 16 mmol/L 06/07/20 14:53 BUN 20 mg/dL (9-20) 06/07/20 14:53 Creatinine 1.6 mg/dL (0.8-1.5) H 06/07/20 14:53 Estimated GFR 45 ml/min 06/07/20 19:44 BUN/Creatinine Ratio 13 % 06/07/20 19:44 Glucose 192 mg/dL (75-100) H 06/07/20 14:53 POC Glucose 309 (70-105) H 06/07/20 18:18 Hemoglobin A1c 17.4 % (4-6) H 06/07/20 00:09 Lactic Acid 2.20 mmol/L (0.7-2.0) H* 06/07/20 14:53 Calcium 8.6 mg/dL (8.4-10.2) 06/07/20 14:53 Phosphorus 1.90 mg/dL (2.5-4.5) L D 06/07/20 00:09 Magnesium 2.20 mg/dL (1.7-2.3) 06/07/20 00:09 Total Bilirubin 0.80 mg/dL (0.1-1.2) 06/06/20 15:45 AST 151 units/L (5-40) H 06/06/20 15:45 ALT 157 units/L (7-56) H 06/06/20 15:45 Alkaline Phosphatase 117 units/L (35-129) 06/06/20 15:45 Lactate Dehydrogenase 517 units/L (91-180) H 06/07/20 14:53 Troponin T < 0.010 ng/mL (0.00-0.029) 06/06/20 15:45 C-Reactive Protein 46.00 mg/dL (0.00-1.30) H 06/07/20 14:53 NT-Pro-B Natriuret Pep 5086 pg/mL (0-450) H 06/06/20 15:45 Total Protein 8.1 g/dL (6.3-8.2) 06/06/20 15:45 Albumin 3.0 g/dL (3.9-5) L 06/06/20 15:45 Albumin/Globulin Ratio 0.6 % 06/06/20 15:45 Urine Color Yellow (Yellow) 06/06/20 18:42 Urine Turbidity Slightly-cloudy (Clear) 06/06/20 18:42 Urine pH 5.0 (5.0-7.0) 06/06/20 18:42 Ur Specific [place] 1.013 (1.003-1.030) 06/06/20 18:42 Urine Protein 100 mg/dl mg/dL (Negative) 06/06/20 18:42 Urine Glucose (UA) >=500 mg/dL (Negative) 06/06/20 18:42 Urine Ketones 20 mg/dL (Negative) 06/06/20 18:42 Urine Blood Mod (Negative) 06/06/20 18:42 Urine Nitrite Neg (Negative) 06/06/20 18:42 Urine Bilirubin Neg (Negative) 06/06/20 18:42 Urine Urobilinogen < 2.0 mg/dL (<2.0) 06/06/20 18:42 Ur Leukocyte Esterase Sm (Negative) 06/06/20 18:42 Urine WBC (Auto) 57.0 /HPF (0.0-6.0) H 06/06/20 18:42 Urine RBC (Auto) 9.0 /HPF (0.0-6.0) 06/06/20 18:42 U Epithel Cells (Auto) < 1.0 /HPF (0-13.0) 06/06/20 18:42 Urine Bacteria (Auto) 1+ /HPF (Negative) 06/06/20 18:42 Urine Mucus Few /HPF 06/06/20 18:42 Urine Yeast (Budding) 1+ /HPF 06/06/20 18:42 Microbiology: Microbiology 06/06/20 15:49 Peripheral/Venous Blood Culture - Preliminary NO GROWTH AFTER 24 HOURS 06/06/20 15:49 Peripheral/Venous Blood Culture - Preliminary NO GROWTH AFTER 24 HOURS Active Medications - Current Medications Current Medications: Generic Name Dose Route Start Last Admin Trade Name Freq PRN Reason Stop Dose Admin Ascorbic Acid 500 mg 06/07/20 22:00 Vitamin C PO BID CAROLYN Azithromycin 500 mg 06/07/20 16:00 06/07/20 17:48 Zithromax PO 500 mg QDAY CAROLYN Administration Dextrose 0 ml 06/06/20 18:04 D50w (25gm) Syringe IV Q30MIN PRN Hypoglycemia Protocol Famotidine 20 mg 06/08/20 10:00 Pepcid PO QDAY CAROLYN Furosemide 40 mg 06/07/20 18:00 06/07/20 17:48 Lasix IV 40 mg 0600,1800 CAROLYN Administration Heparin Sodium (Porcine) 5,000 unit 06/07/20 15:00 06/07/20 17:48 Heparin SUB-Q 5,000 unit Q8HR CAROLYN Administration Insulin Human Regular 100 100 mls @ 1 mls/hr 06/06/20 23:45 06/07/20 13:35 units/ Sodium Chloride IV Infused TITR CAROLYN Titration Protocol 1 UNITS/HR Potassium Chloride/Dextrose/Sod Cl 20 meq in 1,000 mls @ 125 mls/hr 06/06/20 23:45 06/07/20 11:11 D5w/0.45% Nacl/Kcl 20 Meq IV 125 mls/hr DIRECT CAROLYN Administration Ceftriaxone Sodium 2 gm in 100 mls @ 200 mls/hr 06/07/20 15:00 Rocephin/Ns 2 Gm/100 Ml IV Q24H CAROLYN Protocol Insulin Human Lispro 0 unit 06/07/20 12:30 06/07/20 18:41 Humalog SUB-Q 12 unit Q6HR CAROLYN Administration Protocol Morphine Sulfate 2 mg 06/07/20 09:34 Morphine IV Q4H PRN Pain, Moderate (4-6) Potassium Chloride 20 meq 06/07/20 10:00 06/07/20 15:20 K-Dur PO 20 meq Q12H CAROLYN Administration Zinc Sulfate 220 mg 06/07/20 22:00 Zinc Sulfate PO BID CAROLYN Nutrition/Malnutrition Assess - Dietary Evaluation Nutrition/Malnutrition Findings: Nutrition Notes Start: 06/07/20 08:57 Freq: Status: Active Protocol: Document 06/07/20 08:57 LM (Rec: 06/07/20 08:58 LM [id number]) Nutrition Notes Need for Assessment generated from: MD Order Initial or Follow up Brief Note Current Diagnosis Diabetes,Hypertension,Heart Failure Other Pertinent Diagnosis DKA Labs/Tests POC glu 245 A1C 17.4 Subjective/Other Information MD consult for DM education. Pt in ED. Nutrition Intervention Follow-Up By: 06/08/20 Additional Comments F/U for DM diet education
[2020-06-07] MEDS: ZINC SULFATE 220 MG CAP PO SCH (22:06)
[2020-06-07] MEDS: ASCORBIC ACID 500 MG TAB PO SCH (22:07)
[2020-06-08] MEDS: D5W/0.45% NACL/KCL 20 MEQ 20 MEQ/1,000 ML BAG IV SCH (01:11)
[2020-06-08] MEDS: INSULIN LISPRO 100 UNIT/ML SUB-Q SCH ×5 (01:11→23:31)
[2020-06-08] MEDS ORDERED: SODIUM CHLORIDE 0.9% 500 ML 500 ML IV ONE (06:16)
[2020-06-08] MEDS: SODIUM CHLORIDE 0.9% 1000 ML 1,000 ML IV SCH ×3 (06:25→23:24)
[2020-06-08] MEDS: FUROSEMIDE 40 MG/4 ML INJ IV SCH ×2 (06:26→17:25)
[2020-06-08] MEDS: HEPARIN 5,000 UNIT/1 ML VIAL SUB-Q SCH ×3 (06:26→23:15)
[2020-06-08] MEDS ORDERED: INSULIN LISPRO 100 UNIT/ML SUB-Q ONE ×5 (10:00)
[2020-06-08] MEDS: FAMOTIDINE 20 MG TAB PO SCH (10:17)
[2020-06-08] MEDS: ASCORBIC ACID 500 MG TAB PO SCH ×2 (10:17→23:15)
[2020-06-08] MEDS: ZINC SULFATE 220 MG CAP PO SCH ×2 (10:17→23:16)
[2020-06-08] MEDS: AZITHROMYCIN 250 MG TAB PO SCH (10:18)
--- NOTE | 2020-06-08 11:50 | Progress Note ---
Assessment and Plan Shortness of breath with bilateral interstitial infiltrates and fever Diabetic ketoacidosis Acute renal failure An echocardiogram showed a severely decreased systolic function, ejection fraction 15-20%. The duration of this cardiomyopathy is uncertain. Recommendations COVID-19 testing to rule out viral pneumonia. Sodium and fluid restriction. Medical therapy for dilated cardiomyopathy. Subjective Date of service: 06/08/20 Interval history: No cardiac issues reported. Still with fever Objective Vital Signs Temp Pulse Resp BP Pulse Ox 06/08/20 04:42 100.3 F H 16 06/08/20 04:38 100.3 F H 120 H 16 129/29 84 06/07/20 22:25 97.6 F 116 H 16 122/75 85 06/07/20 21:17 93 06/07/20 18:05 98.0 F 108 H 22 111/71 90 06/07/20 16:21 100/65 06/07/20 16:17 23 L 100/65 06/07/20 15:31 111 H 38 H 100/65 87 06/07/20 15:00 113 H 100/65 93 06/07/20 14:00 106 H 110/61 85 06/07/20 13:00 109 H 35 H 116/73 92 06/07/20 12:00 106 H 37 H 104/62 90 - Physical Examination Narrative exam: Deferred due to coronavirus isolation protocol - Labs and Meds Cardiac Enzymes 06/07/20 Range/Units 14:53 Lactate Dehydrogenase 517 H (91-180) units/L Comprehensive Metabolic Panel 06/07/20 06/07/20 06/07/20 Range/Units 14:53 19:44 23:22 Sodium 137 133 L 131 L (137-145) mmol/L Potassium 4.1 4.3 5.5 H D (3.6-5.0) mmol/L Chloride 100.6 95.5 L 92.6 L (98-107) mmol/L Carbon Dioxide 25 20 L 21 L (22-30) mmol/L BUN 20 25 H 28 H (9-20) mg/dL Creatinine 1.6 H 2.0 H 2.3 H (0.8-1.5) mg/dL Glucose 192 H 379 H 494 H (75-100) mg/dL Calcium 8.6 8.2 L 8.0 L (8.4-10.2) mg/dL - Imaging and Cardiology EKG: report reviewed
--- NOTE | 2020-06-08 11:55 | Progress Note ---
Assessment and Plan - Patient Problems (1) Suspected 2019 novel coronavirus infection Current Visit: Yes Status: Acute Plan to address problem: Infectious disease consulted, COVID-19 protocol initiated. Coronavirus PCR is pending. (2) CHF (congestive heart failure) Current Visit: Yes Status: Acute Qualifiers: Heart failure type: systolic Heart failure chronicity: acute Qualified Code(s): I50.21 - Acute systolic (congestive) heart failure Plan to address problem: Echocardiogram reveals ejection fraction of 15%, cardiology team consulted, strict I's/O, daily weight, monitor urine output every shift, afterload reduction, supportive care. (3) Urinary tract infection Current Visit: Yes Status: Acute Qualifiers: Encounter type: initial encounter Plan to address problem: IV antibiotic therapy, supportive care, repeat CBC. (4) Uncontrolled diabetes mellitus Current Visit: Yes Status: Acute Plan to address problem: Sliding scale insulin therapy, Accu-Chek, consistent carbohydrate diet, hypoglycemia protocol (5) Obesity hypoventilation syndrome Current Visit: Yes Status: Acute Plan to address problem: Supplemental oxygen, nebulizer therapy, noninvasive positive pressure ventilation as clinically indicated, outpatient sleep study, pulmonary toilet, prone positioning while in bed, early ambulation, out of bed to chair 3 times daily and PRN. (6) DVT prophylaxis Current Visit: Yes Status: Acute Plan to address problem: SCD to bilateral lower extremities while in bed, prophylactic heparin History Interval history: 39 YO Male HD #3 with UTI, Obesity Hypoventilation Syndrome, Uncontrolled DM, MO, COVID PUI.Systolic CHF. Echo reveals EF of 15%. Pt is lying in bed. Patient is moving all extremities well. Patient acknowledges persistent shortness of breath. Patient denies pain. No reported nursing events. Hospitalist Physical - Constitutional Vitals: Temp Pulse Resp BP Pulse Ox 100.3 F H 120 H 16 129/29 84 06/08/20 04:42 06/08/20 04:38 06/08/20 04:42 06/08/20 04:38 06/08/20 04:38 General appearance: Present: mild distress, well-nourished, obese - EENT Eyes: Present: PERRL ENT: hearing intact - Neck Neck: Present: supple - Respiratory Respiratory: bilateral: diminished - Cardiovascular Rhythm: regular Heart Sounds: Present: S1 & S2 - Extremities Extremity abnormal: edema Peripheral Pulses: within normal limits - Abdominal General gastrointestinal: soft, non-tender, non-distended - Integumentary Integumentary: Present: clear, dry - Psychiatric Psychiatric: appropriate mood/affect, cooperative - Neurologic Neurologic: CNII-XII intact HEART Score - HEART Score Risk factors: > 3 risk factors or hx of atherosclerotic disease Troponin: Troponin T < 0.010 ng/mL (0.00-0.029) 06/06/20 15:45 - Critical Actions Critical Actions: >7 pts:50-65% risk of adverse cardiac event. Early invasive measures Results - Labs CBC & Chem 7: 06/06/20 15:45 06/07/20 23:22 Labs: Laboratory Last Values WBC 9.6 K/mm3 (4.5-11.0) 06/06/20 15:45 RBC 4.86 M/mm3 (3.65-5.03) 06/06/20 15:45 Hgb 14.0 gm/dl (11.8-15.2) 06/06/20 15:45 Hct 44.0 % (35.5-45.6) 06/06/20 15:45 MCV 91 fl (84-94) 06/06/20 15:45 MCH 29 pg (28-32) 06/06/20 15:45 MCHC 32 % (32-34) 06/06/20 15:45 RDW 14.3 % (13.2-15.2) 06/06/20 15:45 Plt Count 198 K/mm3 (140-440) 06/06/20 15:45 Lymph % (Auto) 6.6 % (13.4-35.0) L 06/06/20 15:45 [place] % (Auto) 5.8 % (0.0-7.3) 06/06/20 15:45 Eos % (Auto) 0.0 % (0.0-4.3) 06/06/20 15:45 Baso % (Auto) 0.4 % (0.0-1.8) 06/06/20 15:45 Lymph # 0.6 K/mm3 (1.2-5.4) L 06/06/20 15:45 [place] # 0.6 K/mm3 (0.0-0.8) 06/06/20 15:45 Eos # 0.0 K/mm3 (0.0-0.4) 06/06/20 15:45 Baso # 0.0 K/mm3 (0.0-0.1) 06/06/20 15:45 Seg Neutrophils % 87.2 % (40.0-70.0) H 06/06/20 15:45 Seg Neutrophils # 8.4 K/mm3 (1.8-7.7) H 06/06/20 15:45 D-Dimer 975.20 ng/mlDDU (0-234) H 06/07/20 14:53 VBG pH 7.300 (7.320-7.420) L 06/06/20 15:45 Sodium 131 mmol/L (137-145) L 06/07/20 23:22 Potassium 5.5 mmol/L (3.6-5.0) H D 06/07/20 23:22 Chloride 92.6 mmol/L (98-107) L 06/07/20 23:22 Carbon Dioxide 21 mmol/L (22-30) L 06/07/20 23:22 Anion Gap 23 mmol/L 06/07/20 23:22 BUN 28 mg/dL (9-20) H 06/07/20 23:22 Creatinine 2.3 mg/dL (0.8-1.5) H 06/07/20 23:22 Estimated GFR 38 ml/min 06/07/20 23:22 BUN/Creatinine Ratio 12 % 06/07/20 23:22 Glucose 494 mg/dL (75-100) H 06/07/20 23:22 POC Glucose 389 (70-105) H 06/08/20 10:56 Hemoglobin A1c 17.4 % (4-6) H 06/07/20 00:09 Lactic Acid 2.20 mmol/L (0.7-2.0) H* 06/07/20 14:53 Calcium 8.0 mg/dL (8.4-10.2) L 06/07/20 23:22 Phosphorus 1.90 mg/dL (2.5-4.5) L D 06/07/20 00:09 Magnesium 2.20 mg/dL (1.7-2.3) 06/07/20 00:09 Total Bilirubin 0.80 mg/dL (0.1-1.2) 06/06/20 15:45 AST 151 units/L (5-40) H 06/06/20 15:45 ALT 157 units/L (7-56) H 06/06/20 15:45 Alkaline Phosphatase 117 units/L (35-129) 06/06/20 15:45 Lactate Dehydrogenase 517 units/L (91-180) H 06/07/20 14:53 Troponin T < 0.010 ng/mL (0.00-0.029) 06/06/20 15:45 C-Reactive Protein 46.00 mg/dL (0.00-1.30) H 06/07/20 14:53 NT-Pro-B Natriuret Pep 5086 pg/mL (0-450) H 06/06/20 15:45 Total Protein 8.1 g/dL (6.3-8.2) 06/06/20 15:45 Albumin 3.0 g/dL (3.9-5) L 06/06/20 15:45 Albumin/Globulin Ratio 0.6 % 06/06/20 15:45 Procalcitonin 5.49 ng/mL (<0.15) 06/07/20 14:53 Urine Color Yellow (Yellow) 06/06/20 18:42 Urine Turbidity Slightly-cloudy (Clear) 06/06/20 18:42 Urine pH 5.0 (5.0-7.0) 06/06/20 18:42 Ur Specific [place] 1.013 (1.003-1.030) 06/06/20 18:42 Urine Protein 100 mg/dl mg/dL (Negative) 06/06/20 18:42 Urine Glucose (UA) >=500 mg/dL (Negative) 06/06/20 18:42 Urine Ketones 20 mg/dL (Negative) 06/06/20 18:42 Urine Blood Mod (Negative) 06/06/20 18:42 Urine Nitrite Neg (Negative) 06/06/20 18:42 Urine Bilirubin Neg (Negative) 06/06/20 18:42 Urine Urobilinogen < 2.0 mg/dL (<2.0) 06/06/20 18:42 Ur Leukocyte Esterase Sm (Negative) 06/06/20 18:42 Urine WBC (Auto) 57.0 /HPF (0.0-6.0) H 06/06/20 18:42 Urine RBC (Auto) 9.0 /HPF (0.0-6.0) 06/06/20 18:42 U Epithel Cells (Auto) < 1.0 /HPF (0-13.0) 06/06/20 18:42 Urine Bacteria (Auto) 1+ /HPF (Negative) 06/06/20 18:42 Urine Mucus Few /HPF 06/06/20 18:42 Urine Yeast (Budding) 1+ /HPF 06/06/20 18:42 Microbiology: Microbiology 06/06/20 18:42 Urine,Clean Catch Urine Culture - Preliminary 06/06/20 15:49 Peripheral/Venous Blood Culture - Preliminary NO GROWTH AFTER 24 HOURS 06/06/20 15:49 Peripheral/Venous Blood Culture - Preliminary NO GROWTH AFTER 24 HOURS - Diagnostic Impressions Diagnostic Impressions: Echocardiogram 06/07/20 09:27 Transthoracic Echocardiogram Indication: SOB BP: 111/75 HR: 108 Conclusions *The left ventricular chamber size is severely dilated. *Mild concentric left ventricular hypertrophy is observed. *Global left ventricular systolic function is severely decreased. *The estimated ejection fraction is 15-20%. *The left atrium is moderately dilated. *There is mild to moderate mitral regurgitation. *There is trace-mild tricuspid regurgitation. *There is evidence of borderline pulmonary hypertension. Findings Left Ventricle: The left ventricular chamber size is severely dilated. Mild concentric left ventricular hypertrophy is observed. Global left ventricular systolic function is severely decreased. The estimated ejection fraction is 15-20%. Left Atrium: The left atrium is moderately dilated. Right Ventricle: The right ventricle is slightly dilated. The right ventricular global systolic function is normal. Right Atrium: The right atrium is mildly dilated. Aortic Valve: The aortic valve is trileaflet. The aortic valve leaflets are mildly thickened. There is no evidence of aortic regurgitation. There is no evidence of aortic stenosis. Mitral Valve: The mitral valve leaflets are mildly thickened. There is mild to moderate mitral regurgitation. There is no evidence of mitral stenosis. Tricuspid Valve: There is trace tricuspid regurgitation. The right ventricular systolic pressure is calculated at 25 mmHg. There is evidence of borderline pulmonary hypertension. Pulmonic Valve: There is mild pulmonic regurgitation. Pericardium: There is no pericardial effusion. Aorta: There is no dilatation of the ascending aorta. There is no dilatation of the aortic root. Venous: The inferior vena cava appears normal in size. Measurements Chambers 2D Name Value Normal Range IVSd (2D) 1.29 cm (0.6 - 1.1) LVPWd (2D) 1.26 cm (0.6 - 1.1) LVIDd (2D) 6.03 cm (3.7 - 5.6) LVIDs (2D) 5.02 cm (2 - 3.8) LV FS (2D) 16.83 % - EF Teichholz (2D) 34.6 % - Ao root diameter (2D) 3.06 cm (2 - 3.7) Volumes/Mass Name Value Normal Range LA ESV SP 4CH (A/L) 56.08 ml - LA ESV SP 2CH (A/L) 57.68 ml - LA ESV BP (A/L) 58.34 ml - LA ESV BP (A/L) index 20.19 ml/m2 - LA ESV SP 4CH (MOD) 50.86 ml - LA ESV SP 2CH (MOD) 55.46 ml - LA ESV BP (MOD) 54.34 ml - LA ESV BP (MOD) index 18.8 ml/m2 - Diastolic/Systolic Function Name Value Normal Range MV E-wave Vmax 0.64 m/sec - MV deceleration time 166.65 msec - MV A-wave Vmax 0.56 m/sec - MV E:A ratio 1.15 ratio - Aortic Valve Name Value Normal Range AV Vmax 1.37 m/sec - AV VTI 17.93 cm - AV peak gradient 7.55 mmHg - AV mean gradient 4.66 mmHg - LVOT diameter 2.06 cm - LVOT Vmax 1.24 m/sec - LVOT VTI 16.7 cm - LVOT peak gradient 6.17 mmHg - LVOT mean gradient 3.55 mmHg - SV LVOT 55.69 ml - CLAUDINE (continuity Vmax) 3.02 cm2 - CLAUDINE (continuity VTI) 3.11 cm2 - Ascending Ao 3.12 cm - Mitral Valve Name Value Normal Range MR Vmax 2.69 m/sec - Tricuspid Valve Name Value Normal Range TR Vmax 2.35 m/sec - TR peak gradient 22 mmHg - RAP 3 mmHg - RVSP 25 mmHg - IVC diameter 1.87 cm (1.2 - 2.3) Pulmonic Valve/Qp:Qs Name Value Normal Range PV Vmax 1.15 m/sec - PV peak gradient 5.32 mmHg - MO end-diastolic Vmax 1.19 m/sec - PV acceleration time 125.59 msec - [place]/IV: Voiding Method Indwelling Catheter IV Catheter Type [Right Peripheral IV Forearm] Active Medications - Current Medications Current Medications: Generic Name Dose Route Start Last Admin Trade Name Freq PRN Reason Stop Dose Admin Ascorbic Acid 500 mg 06/07/20 22:00 06/08/20 10:17 Vitamin C PO 500 mg BID CAROLYN Administration Azithromycin 500 mg 06/07/20 16:00 06/08/20 10:18 Zithromax PO 500 mg QDAY CAROLYN Administration Dextrose 0 ml 06/06/20 18:04 D50w (25gm) Syringe IV Q30MIN PRN Hypoglycemia Protocol Famotidine 20 mg 06/08/20 10:00 06/08/20 10:17 Pepcid PO 20 mg QDAY CAROLYN Administration Furosemide 40 mg 06/07/20 18:00 06/08/20 06:26 Lasix IV 40 mg 0600,1800 CAROLYN Administration Heparin Sodium (Porcine) 5,000 unit 06/07/20 15:00 06/08/20 06:26 Heparin SUB-Q 5,000 unit Q8HR CAROLYN Administration Ceftriaxone Sodium 2 gm in 100 mls @ 200 mls/hr 06/07/20 15:00 Rocephin/Ns 2 Gm/100 Ml IV Q24H CAROLYN Protocol Sodium Chloride 1,000 mls @ 125 mls/hr 06/08/20 06:30 06/08/20 06:25 Nacl 0.9% 1000 Ml IV 125 mls/hr DIRECT CAROLYN Administration Insulin Human Lispro 0 unit 06/07/20 12:30 06/08/20 06:59 Humalog SUB-Q 15 unit Q6HR CAROLYN Administration Protocol Morphine Sulfate 2 mg 06/07/20 09:34 06/08/20 06:26 Morphine IV 2 mg Q4H PRN Administration Pain, Moderate (4-6) Zinc Sulfate 220 mg 06/07/20 22:00 06/08/20 10:17 Zinc Sulfate PO 220 mg BID CAROLYN Administration Nutrition/Malnutrition Assess - Dietary Evaluation Nutrition/Malnutrition Findings: Nutrition Notes Start: 06/07/20 08:57 Freq: Status: Active Protocol: Document 06/08/20 11:37 LP (Rec: 06/08/20 11:45 LP [id number]) Nutrition Notes Initial or Follow up Brief Note Subjective/Other Information Pt did not answer phone. Pt noted with venti mask. Nutrition Intervention Follow-Up By: 06/09/20 Additional Comments Follow for diet education
--- NOTE | 2020-06-08 12:58 | Progress Note ---
Assessment and Plan 9-year-old morbidly obese male with history of hypertension and CHF and diabetes comes in for increasing shortness of breath easy fatigability for 1 week. Patient has swelling of both the lower extremities and the also the swelling is involving the scrotum. Patient also has high blood glucose levels. Patient noncompliant with his medications. Orthopnea present. Patient is morbidly obese. Patient sleepy and not able to give history. Denies smoking,alcohol or drug abuse. Patient not using his O2. He is on room air. chest xray 06/06/20 reported There are rather diffuse predominantly perihilar bilateral pulmonary opacities. No pneumothorax. Venous doppler studies 06/07/20 No sonographic evidence for DVT in either lower extremity. - Patient Problems (1) Obesity hypoventilation syndrome Current Visit: Yes Status: Acute Plan to address problem: BIPAP during night time and PRN for sleepiness during day time O2 2 litres via nasal canula when he is not on BIPAP. Recommend to loose weight. ABGs on room air. (2) Suspected 2019 novel coronavirus infection Current Visit: Yes Status: Acute Plan to address problem: COVID 19 test result still pending. (3) Acute exacerbation of CHF (congestive heart failure) Current Visit: Yes Status: Acute Qualifiers: Heart failure type: combined systolic and diastolic Qualified Code(s): I50.43 - Acute on chronic combined systolic (congestive) and diastolic (congestive) heart failure Plan to address problem: Management as per cardiology. (4) DKA, type 2 Current Visit: Yes Status: Acute Qualifiers: Diabetes mellitus complication detail: without coma Qualified Code(s): E11.10 - Type 2 diabetes mellitus with ketoacidosis without coma Plan to address problem: Management as per primary care. (5) Hypertension Current Visit: Yes Status: Chronic Qualifiers: Hypertension type: essential hypertension Qualified Code(s): I10 - Essential (primary) hypertension Plan to address problem: Management as per primary care. (6) Morbid obesity Current Visit: Yes Status: Chronic Plan to address problem: BIPAP during night time and PRN for sleepiness during day time O2 2 litres via nasal canula when he is not on BIPAP. Recommend to loose weight. ABGs on room air. Subjective Date of service: 06/08/20 Interval history: 29-year-old morbidly obese male with history of hypertension and CHF and diabetes comes in for increasing shortness of breath easy fatigability for 1 week. Patient has swelling of both the lower extremities and the also the swelling is involving the scrotum. Patient also has high blood glucose levels. Patient noncompliant with his medications. Orthopnea present. Patient is morbidly obese. Patient sleepy and not able to give history. Denies smoking,alcohol or drug abuse. Patient not using his O2. He is on room air. O2 saturation 90%. chest xray 06/06/20 reported There are rather diffuse predominantly perihilar bilateral pulmonary opacities. No pneumothorax. Venous doppler studies 06/07/20 No sonographic evidence for DVT in either lower extremity. Objective Vital Signs - 12hr 06/08/20 06/08/20 04:38 04:42 Temperature 100.3 F H 100.3 F H Pulse Rate 120 H Respiratory 16 16 Rate Blood Pressure 129/29 O2 Sat by Pulse 84 Oximetry Constitutional: no acute distress, asleep, other (Morbidly Obese.) Eyes: non-icteric ENT: oropharynx moist Neck: supple, no lymphadenopathy Effort: mildly labored Ascultation: Bilateral: diminished breath sounds Cardiovascular: regular rate and rhythm Gastrointestinal: normoactive bowel sounds, soft, non-tender Integumentary: other (Stasis dermatitis both lower legs.) Extremities: edema Neurologic: unable to assess Psychiatric: other (Patient sleepy.) CBC and BMP: 06/06/20 15:45 06/07/20 23:22 ABG, PT/INR, D-dimer: PT/INR, D-dimer D-Dimer 975.20 ng/mlDDU (0-234) H 06/07/20 14:53 Abnormal lab findings: Abnormal Labs 06/06/20 06/06/20 06/06/20 15:45 15:45 15:45 Lymph % (Auto) 6.6 L Lymph # 0.6 L Seg Neutrophils % 87.2 H Seg Neutrophils # 8.4 H D-Dimer VBG pH 7.300 L Sodium 131 L Potassium Chloride 89.8 L Carbon Dioxide 16 L BUN Creatinine Glucose 509 H* POC Glucose Hemoglobin A1c Lactic Acid Calcium Phosphorus AST 151 H ALT 157 H Lactate Dehydrogenase C-Reactive Protein NT-Pro-B Natriuret Pep 5086 H Albumin 3.0 L Urine WBC (Auto) 06/06/20 06/06/2020 17:02 18:01 18:16 Lymph % (Auto) Lymph # Seg Neutrophils % Seg Neutrophils # D-Dimer VBG pH Sodium Potassium Chloride Carbon Dioxide BUN Creatinine Glucose POC Glucose 450 H Hemoglobin A1c Lactic Acid 2.20 H* 2.30 H* Calcium Phosphorus AST ALT Lactate Dehydrogenase C-Reactive Protein NT-Pro-B Natriuret Pep Albumin Urine WBC (Auto) 06/06/20 06/06/20 06/06/20 18:16 18:42 19:36 Lymph % (Auto) Lymph # Seg Neutrophils % Seg Neutrophils # D-Dimer VBG pH Sodium 131 L 131 L Potassium 5.3 H Chloride 90.7 L 90.7 L Carbon Dioxide 12 L 16 L BUN Creatinine Glucose 525 H* 558 H* POC Glucose Hemoglobin A1c Lactic Acid Calcium Phosphorus AST ALT Lactate Dehydrogenase C-Reactive Protein NT-Pro-B Natriuret Pep Albumin Urine WBC (Auto) 57.0 H 06/06/20 06/06/20 06/06/20 21:21 22:26 23:33 Lymph % (Auto) Lymph # Seg Neutrophils % Seg Neutrophils # D-Dimer VBG pH Sodium Potassium Chloride Carbon Dioxide BUN Creatinine Glucose POC Glucose 411 H 395 H 390 H Hemoglobin A1c Lactic Acid Calcium Phosphorus AST ALT Lactate Dehydrogenase C-Reactive Protein NT-Pro-B Natriuret Pep Albumin Urine WBC (Auto) 06/07/20 06/07/20 06/07/20 00:09 00:09 00:09 Lymph % (Auto) Lymph # Seg Neutrophils % Seg Neutrophils # D-Dimer VBG pH Sodium 135 L Potassium Chloride 95.7 L Carbon Dioxide BUN Creatinine Glucose 419 H POC Glucose Hemoglobin A1c 17.4 H Lactic Acid 2.30 H* Calcium 8.3 L Phosphorus AST ALT Lactate Dehydrogenase C-Reactive Protein NT-Pro-B Natriuret Pep Albumin Urine WBC (Auto) 06/07/20 06/07/20 06/07/20 00:09 00:48 02:09 Lymph % (Auto) Lymph # Seg Neutrophils % Seg Neutrophils # D-Dimer VBG pH Sodium Potassium Chloride Carbon Dioxide BUN Creatinine Glucose POC Glucose 335 H 340 H Hemoglobin A1c Lactic Acid Calcium Phosphorus 1.90 L D AST ALT Lactate Dehydrogenase C-Reactive Protein NT-Pro-B Natriuret Pep Albumin Urine WBC (Auto) 06/07/20 06/07/20 06/07/20 02:57 03:19 03:19 Lymph % (Auto) Lymph # Seg Neutrophils % Seg Neutrophils # D-Dimer VBG pH Sodium 131 L Potassium Chloride 92.2 L Carbon Dioxide BUN Creatinine Glucose 407 H POC Glucose 416 H Hemoglobin A1c Lactic Acid 3.50 H* Calcium Phosphorus AST ALT Lactate Dehydrogenase C-Reactive Protein NT-Pro-B Natriuret Pep Albumin Urine WBC (Auto) 06/07/20 06/07/20 06/07/20 03:56 05:13 06:01 Lymph % (Auto) Lymph # Seg Neutrophils % Seg Neutrophils # D-Dimer VBG pH Sodium Potassium Chloride Carbon Dioxide BUN Creatinine Glucose POC Glucose 341 H 323 H 299 H Hemoglobin A1c Lactic Acid Calcium Phosphorus AST ALT Lactate Dehydrogenase C-Reactive Protein NT-Pro-B Natriuret Pep Albumin Urine WBC (Auto) 06/07/20 06/07/20 06/07/20 07:07 07:48 07:48 Lymph % (Auto) Lymph # Seg Neutrophils % Seg Neutrophils # D-Dimer VBG pH Sodium 136 L Potassium Chloride Carbon Dioxide BUN Creatinine Glucose 270 H POC Glucose 276 H Hemoglobin A1c Lactic Acid 2.50 H* Calcium Phosphorus AST ALT Lactate Dehydrogenase C-Reactive Protein NT-Pro-B Natriuret Pep Albumin Urine WBC (Auto) 06/07/20 06/07/20 06/07/20 08:11 09:12 10:11 Lymph % (Auto) Lymph # Seg Neutrophils % Seg Neutrophils # D-Dimer VBG pH Sodium Potassium Chloride Carbon Dioxide BUN Creatinine Glucose POC Glucose 245 H 208 H 186 H Hemoglobin A1c Lactic Acid Calcium Phosphorus AST ALT Lactate Dehydrogenase C-Reactive Protein NT-Pro-B Natriuret Pep Albumin Urine WBC (Auto) 06/07/20 06/07/20 06/07/20 11:14 13:40 14:50 Lymph % (Auto) Lymph # Seg Neutrophils % Seg Neutrophils # D-Dimer VBG pH Sodium Potassium Chloride Carbon Dioxide BUN Creatinine Glucose POC Glucose 189 H 223 H 194 H Hemoglobin A1c Lactic Acid Calcium Phosphorus AST ALT Lactate Dehydrogenase C-Reactive Protein NT-Pro-B Natriuret Pep Albumin Urine WBC (Auto) 06/07/20 06/07/20 06/07/20 14:53 14:53 14:53 Lymph % (Auto) Lymph # Seg Neutrophils % Seg Neutrophils # D-Dimer 975.20 H VBG pH Sodium Potassium Chloride Carbon Dioxide BUN Creatinine 1.6 H Glucose 192 H POC Glucose Hemoglobin A1c Lactic Acid 2.20 H* Calcium Phosphorus AST ALT Lactate Dehydrogenase C-Reactive Protein NT-Pro-B Natriuret Pep Albumin Urine WBC (Auto) 06/07/20 06/07/20 06/07/20 14:53 18:18 19:44 Lymph % (Auto) Lymph # Seg Neutrophils % Seg Neutrophils # D-Dimer VBG pH Sodium 133 L Potassium Chloride 95.5 L Carbon Dioxide 20 L BUN 25 H Creatinine 2.0 H Glucose 379 H POC Glucose 309 H Hemoglobin A1c Lactic Acid Calcium 8.2 L Phosphorus AST ALT Lactate Dehydrogenase 517 H C-Reactive Protein 46.00 H NT-Pro-B Natriuret Pep Albumin Urine WBC (Auto) 06/07/20 06/07/20 06/08/20 22:46 23:22 06:08 Lymph % (Auto) Lymph # Seg Neutrophils % Seg Neutrophils # D-Dimer VBG pH Sodium 131 L Potassium 5.5 H D Chloride 92.6 L Carbon Dioxide 21 L BUN 28 H Creatinine 2.3 H Glucose 494 H POC Glucose 368 H 437 H Hemoglobin A1c Lactic Acid Calcium 8.0 L Phosphorus AST ALT Lactate Dehydrogenase C-Reactive Protein NT-Pro-B Natriuret Pep Albumin Urine WBC (Auto) 06/08/20 10:56 Lymph % (Auto) Lymph # Seg Neutrophils % Seg Neutrophils # D-Dimer VBG pH Sodium Potassium Chloride Carbon Dioxide BUN Creatinine Glucose POC Glucose 389 H Hemoglobin A1c Lactic Acid Calcium Phosphorus AST ALT Lactate Dehydrogenase C-Reactive Protein NT-Pro-B Natriuret Pep Albumin Urine WBC (Auto) Chest x-ray: report reviewed, image reviewed Prior PFT's, U/S of legs: report reviewed, image reviewed Additional Studies: CHEST PA AND LATERAL VIEWS 06/06/20 INDICATION: SOB. COMPARISON: None. FINDINGS: Support devices: None. Heart: Within normal limits. Lungs/Pleura: There are rather diffuse predominantly perihilar bilateral pulmonary opacities. No pneumothorax. IMPRESSION: 1. Rather diffuse predominantly perihilar pulmonary opacities are nonspecific. These could be infectious in etiology. Pulmonary edema could have this appearance. Radiographic follow-up is recommended. DUPLEX DOPPLER LOWER EXTREMITY VEINS, BILATERAL 06/07/20 INDICATION / CLINICAL INFORMATION: swelling. TECHNIQUE: Duplex doppler imaging was performed through the veins of both lower extremities using venous compression and other maneuvers. COMPARISON: None available. FINDINGS: RIGHT COMMON FEMORAL VEIN: Negative. RIGHT FEMORAL VEIN: Negative. RIGHT POPLITEAL VEIN: Negative. RIGHT CALF VEINS: Negative. LEFT COMMON FEMORAL VEIN: Negative. LEFT FEMORAL VEIN: Negative. LEFT POPLITEAL VEIN: Negative. LEFT CALF VEINS: Negative. ADDITIONAL FINDINGS: None. IMPRESSION: 1. No sonographic evidence for DVT in either lower extremity.
[2020-06-08] MEDS: ASPIRIN EC 81 MG TAB PO SCH (12:59)
[2020-06-08] MEDS: carvediloL 6.25 MG TAB PO SCH (12:59)
--- NOTE | 2020-06-08 14:45 | Progress Note ---
Assessment and Plan Cultures: Blood culture: no growth A/P: #Fever, bilateral pneumonia: #Acute hypoxic respiratory failure: #Congestive heart failure #DKA #Morbid obesity Recs: Agree with AMAN PUPatricio, test results still pending, since he is on oxygen, would start steroids PO Dexamethasone 8 mg daily Also check COVID related inflammatory markers Follow-up blood cultures continue Empiric ceftriaxone and azithromycin Mahin Golden MD, FACP [facility] C: [phone] O: [phone] F: [phone] Subjective Date of service: 06/08/20 Interval history: Febrile. Patient on 3 L oxygen. COVID-19 test is still pending Objective - Exam Narrative Exam: Physical Exam (reviewed in chart due to PPE conservation) Constitutional: limited due to PPE conservation strategy Head, Ears, Nose: limited due to PPE conservation strategy Eyes: limited due to PPE conservation strategy Neck: limited due to PPE conservation strategy Oral: limited due to PPE conservation strategy Cardiovascular: limited due to PPE conservation strategy Respiratory: limited due to PPE conservation strategy GI: limited due to PPE conservation strategy Musculoskeletal: limited due to PPE conservation strategy Skin: limited due to PPE conservation strategy Hem/Lymphatic: limited due to PPE conservation strategy Psych: limited due to PPE conservation strategy Neurological: limited due to PPE conservation strategy - Constitutional Vitals: Vital Signs Temp Pulse Resp BP Pulse Ox 98.5 F 107 H 24 117/68 90 06/08/20 10:48 06/08/20 10:48 06/08/20 10:48 06/08/20 10:48 06/08/20 10:48 Temperature -Last 24 Hours Temperature 98.5 F Temperature 100.3 F Temperature 100.3 F Temperature 97.6 F Temperature 98.0 F - Labs CBC & Chem 7: 06/06/20 15:45 06/07/20 23:22 Labs: Abnormal lab results 06/07/20 06/07/20 06/07/20 Range/Units 14:53 14:53 14:53 D-Dimer 975.20 H (0-234) ng/mlDDU Sodium (137-145) mmol/L Potassium (3.6-5.0) mmol/L Chloride (98-107) mmol/L Carbon Dioxide (22-30) mmol/L BUN (9-20) mg/dL Creatinine 1.6 H (0.8-1.5) mg/dL Glucose 192 H (75-100) mg/dL POC Glucose (70-105) Lactic Acid 2.20 H* (0.7-2.0) mmol/L Calcium (8.4-10.2) mg/dL Lactate Dehydrogenase (91-180) units/L C-Reactive Protein (0.00-1.30) mg/dL 06/07/20 06/07/20 06/07/20 Range/Units 14:53 18:18 19:44 D-Dimer (0-234) ng/mlDDU Sodium 133 L (137-145) mmol/L Potassium (3.6-5.0) mmol/L Chloride 95.5 L (98-107) mmol/L Carbon Dioxide 20 L (22-30) mmol/L BUN 25 H (9-20) mg/dL Creatinine 2.0 H (0.8-1.5) mg/dL Glucose 379 H (75-100) mg/dL POC Glucose 309 H (70-105) Lactic Acid (0.7-2.0) mmol/L Calcium 8.2 L (8.4-10.2) mg/dL Lactate Dehydrogenase 517 H (91-180) units/L C-Reactive Protein 46.00 H (0.00-1.30) mg/dL 06/07/20 06/07/20 06/08/20 Range/Units 22:46 23:22 06:08 D-Dimer (0-234) ng/mlDDU Sodium 131 L (137-145) mmol/L Potassium 5.5 H D (3.6-5.0) mmol/L Chloride 92.6 L (98-107) mmol/L Carbon Dioxide 21 L (22-30) mmol/L BUN 28 H (9-20) mg/dL Creatinine 2.3 H (0.8-1.5) mg/dL Glucose 494 H (75-100) mg/dL POC Glucose 368 H 437 H (70-105) Lactic Acid (0.7-2.0) mmol/L Calcium 8.0 L (8.4-10.2) mg/dL Lactate Dehydrogenase (91-180) units/L C-Reactive Protein (0.00-1.30) mg/dL 06/08/20 Range/Units 10:56 D-Dimer (0-234) ng/mlDDU Sodium (137-145) mmol/L Potassium (3.6-5.0) mmol/L Chloride (98-107) mmol/L Carbon Dioxide (22-30) mmol/L BUN (9-20) mg/dL Creatinine (0.8-1.5) mg/dL Glucose (75-100) mg/dL POC Glucose 389 H (70-105) Lactic Acid (0.7-2.0) mmol/L Calcium (8.4-10.2) mg/dL Lactate Dehydrogenase (91-180) units/L C-Reactive Protein (0.00-1.30) mg/dL
[2020-06-08] MEDS: ISOSORBIDE DINITRATE 20 MG TAB PO SCH (17:08)
[2020-06-08] MEDS: DEXAMETHASONE 4 MG TAB PO SCH (17:08)
[2020-06-08] MEDS: cefTRIAXone/NS 2 GM/100 ML 2 GM/100 ML BAG IV SCH ×2 (17:25→18:41)
[2020-06-08] MEDS: ACETAMINOPHEN 325 MG TAB PO PRN (18:20)
[2020-06-09] MEDS: hydrALAZINE 25 MG TAB PO SCH ×3 (06:35→22:27)
[2020-06-09] MEDS: carvediloL 6.25 MG TAB PO SCH ×3 (06:35→22:26)
[2020-06-09] MEDS: ISOSORBIDE DINITRATE 20 MG TAB PO SCH ×3 (06:36→22:26)
[2020-06-09] MEDS: INSULIN LISPRO 100 UNIT/ML SUB-Q SCH ×3 (06:38→18:32)
[2020-06-09] MEDS: HEPARIN 5,000 UNIT/1 ML VIAL SUB-Q SCH ×3 (06:38→22:25)
[2020-06-09] MEDS: FUROSEMIDE 40 MG/4 ML INJ IV SCH ×2 (06:40→18:33)
[2020-06-09] MEDS: ACETAMINOPHEN 325 MG TAB PO PRN ×2 (07:56→22:27)
--- NOTE | 2020-06-09 09:45 | Progress Note ---
Assessment and Plan Systolic heart failure An echocardiogram showed a severely decreased systolic function, ejection fraction 15-20%. The duration of this cardiomyopathy is uncertain. COVID 19 viral pneumonia Diabetic ketoacidosis Acute renal failure Recommendations Sodium and fluid restriction. Continue medical therapy for dilated cardiomyopathy as tolerated. Subjective Date of service: 06/09/20 Interval history: No cardiac issues reported. Stable sinus rhythm on telemetry. Objective Vital Signs Temp Pulse Pulse Resp Resp BP Pulse Ox 06/09/20 09:31 94 06/09/20 06:24 78 06/09/20 05:45 98.2 F 20 120/80 95 06/09/20 04:00 94 06/08/20 22:27 99.3 F 96 H 20 103/73 93 06/08/20 22:00 110 H 30 H 18 93 06/08/20 20:37 98.2 F 97 H 36 H 118/69 91 06/08/20 16:58 101.3 F H 112 H 24 148/89 91 06/08/20 11:16 92 06/08/20 10:48 98.5 F 107 H 24 117/68 90 - Physical Examination Narrative exam: Deferred due to coronavirus isolation protocol
[2020-06-09] MEDS ORDERED: INSULIN LISPRO 100 UNIT/ML SUB-Q ONE ×3 (10:00→12:30)
[2020-06-09] MEDS ORDERED: SPIRONOLACTONE 25 MG TAB PO SCH (10:00)
[2020-06-09] MEDS: ASCORBIC ACID 500 MG TAB PO SCH ×2 (10:11→22:25)
[2020-06-09] MEDS: ASPIRIN EC 81 MG TAB PO SCH (10:11)
[2020-06-09] MEDS: ZINC SULFATE 220 MG CAP PO SCH ×2 (10:16→22:25)
[2020-06-09] MEDS: FAMOTIDINE 20 MG TAB PO SCH (10:16)
[2020-06-09] MEDS: DEXAMETHASONE 4 MG TAB PO SCH (10:37)
[2020-06-09] MEDS ORDERED: DEXTROSE 50% IN WATER (25GM) 50 ML SYRINGE IV PRN (11:57)
--- NOTE | 2020-06-09 11:59 | Progress Note ---
Assessment and Plan - Patient Problems (1) Suspected 2019 novel coronavirus infection Current Visit: Yes Status: Acute Plan to address problem: Infectious disease consulted, COVID-19 protocol initiated. Coronavirus Positive . (2) CHF (congestive heart failure) Current Visit: Yes Status: Acute Qualifiers: Heart failure type: systolic Heart failure chronicity: acute Qualified Code(s): I50.21 - Acute systolic (congestive) heart failure Plan to address problem: Echocardiogram reveals ejection fraction of 15%, cardiology team consulted, strict I's/O, daily weight, monitor urine output every shift, afterload reduction, supportive care. (3) Urinary tract infection Current Visit: Yes Status: Acute Qualifiers: Encounter type: initial encounter Plan to address problem: IV antibiotic therapy, supportive care, repeat CBC. (4) Uncontrolled diabetes mellitus Current Visit: Yes Status: Acute Plan to address problem: Sliding scale insulin therapy, Accu-Chek, consistent carbohydrate diet, hypoglycemia protocol (5) Obesity hypoventilation syndrome Current Visit: Yes Status: Acute Plan to address problem: Supplemental oxygen, nebulizer therapy, noninvasive positive pressure ventilation as clinically indicated, outpatient sleep study, pulmonary toilet, prone positioning while in bed, early ambulation, out of bed to chair 3 times daily and PRN. (6) DVT prophylaxis Current Visit: Yes Status: Acute Plan to address problem: SCD to bilateral lower extremities while in bed, prophylactic heparin History Interval history: 39 YO Male HD #4 with UTI, Obesity Hypoventilation Syndrome, Uncontrolled DM, MO, COVID 19.Systolic CHF. Echo reveals EF of 15%. Pt is lying in bed. Patient is moving all extremities well. Patient acknowledges persistent shortness of breath. Patient denies pain. No reported nursing events. Hospitalist Physical - Constitutional Vitals: Temp Pulse Resp BP Pulse Ox 98.2 F 78 20 120/80 94 06/09/20 05:45 06/09/20 06:24 06/09/20 05:45 06/09/20 05:45 06/09/20 09:31 General appearance: Present: mild distress, well-nourished, obese - EENT Eyes: Present: PERRL, EOM intact - Neck Neck: Present: supple - Respiratory Respiratory effort: labored Respiratory: bilateral: diminished, rhonchi - Cardiovascular Rhythm: regular Heart Sounds: Present: S1 & S2 - Extremities Extremities: no ischemia Peripheral Pulses: within normal limits - Abdominal General gastrointestinal: soft, non-tender, non-distended - Integumentary Integumentary: Present: clear, warm - Psychiatric Psychiatric: appropriate mood/affect, cooperative - Neurologic Neurologic: CNII-XII intact HEART Score - HEART Score Risk factors: > 3 risk factors or hx of atherosclerotic disease Troponin: Troponin T < 0.010 ng/mL (0.00-0.029) 06/06/20 15:45 - Critical Actions Critical Actions: >7 pts:50-65% risk of adverse cardiac event. Early invasive measures Results - Labs CBC & Chem 7: 06/06/20 15:45 06/07/20 23:22 Labs: Laboratory Last Values WBC 9.6 K/mm3 (4.5-11.0) 06/06/20 15:45 RBC 4.86 M/mm3 (3.65-5.03) 06/06/20 15:45 Hgb 14.0 gm/dl (11.8-15.2) 06/06/20 15:45 Hct 44.0 % (35.5-45.6) 06/06/20 15:45 MCV 91 fl (84-94) 06/06/20 15:45 MCH 29 pg (28-32) 06/06/20 15:45 MCHC 32 % (32-34) 06/06/20 15:45 RDW 14.3 % (13.2-15.2) 06/06/20 15:45 Plt Count 198 K/mm3 (140-440) 06/06/20 15:45 Lymph % (Auto) 6.6 % (13.4-35.0) L 06/06/20 15:45 [place] % (Auto) 5.8 % (0.0-7.3) 06/06/20 15:45 Eos % (Auto) 0.0 % (0.0-4.3) 06/06/20 15:45 Baso % (Auto) 0.4 % (0.0-1.8) 06/06/20 15:45 Lymph # 0.6 K/mm3 (1.2-5.4) L 06/06/20 15:45 [place] # 0.6 K/mm3 (0.0-0.8) 06/06/20 15:45 Eos # 0.0 K/mm3 (0.0-0.4) 06/06/20 15:45 Baso # 0.0 K/mm3 (0.0-0.1) 06/06/20 15:45 Seg Neutrophils % 87.2 % (40.0-70.0) H 06/06/20 15:45 Seg Neutrophils # 8.4 K/mm3 (1.8-7.7) H 06/06/20 15:45 D-Dimer 975.20 ng/mlDDU (0-234) H 06/07/20 14:53 VBG pH 7.300 (7.320-7.420) L 06/06/20 15:45 Sodium 131 mmol/L (137-145) L 06/07/20 23:22 Potassium 5.5 mmol/L (3.6-5.0) H D 06/07/20 23:22 Chloride 92.6 mmol/L (98-107) L 06/07/20 23:22 Carbon Dioxide 21 mmol/L (22-30) L 06/07/20 23:22 Anion Gap 23 mmol/L 06/07/20 23:22 BUN 28 mg/dL (9-20) H 06/07/20 23:22 Creatinine 2.3 mg/dL (0.8-1.5) H 06/07/20 23:22 Estimated GFR 38 ml/min 06/07/20 23:22 BUN/Creatinine Ratio 12 % 06/07/20 23:22 Glucose 494 mg/dL (75-100) H 06/07/20 23:22 POC Glucose 455 (70-105) H 06/09/20 05:57 Hemoglobin A1c 17.4 % (4-6) H 06/07/20 00:09 Lactic Acid 2.20 mmol/L (0.7-2.0) H* 06/07/20 14:53 Calcium 8.0 mg/dL (8.4-10.2) L 06/07/20 23:22 Phosphorus 1.90 mg/dL (2.5-4.5) L D 06/07/20 00:09 Magnesium 2.20 mg/dL (1.7-2.3) 06/07/20 00:09 Ferritin > 2000.0 ng/mL (13.0-400.0) H 06/07/20 14:53 Total Bilirubin 0.80 mg/dL (0.1-1.2) 06/06/20 15:45 AST 151 units/L (5-40) H 06/06/20 15:45 ALT 157 units/L (7-56) H 06/06/20 15:45 Alkaline Phosphatase 117 units/L (35-129) 06/06/20 15:45 Lactate Dehydrogenase 517 units/L (91-180) H 06/07/20 14:53 Troponin T < 0.010 ng/mL (0.00-0.029) 06/06/20 15:45 C-Reactive Protein 46.00 mg/dL (0.00-1.30) H 06/07/20 14:53 NT-Pro-B Natriuret Pep 5086 pg/mL (0-450) H 06/06/20 15:45 Total Protein 8.1 g/dL (6.3-8.2) 06/06/20 15:45 Albumin 3.0 g/dL (3.9-5) L 06/06/20 15:45 Albumin/Globulin Ratio 0.6 % 06/06/20 15:45 Procalcitonin 5.49 ng/mL (<0.15) 06/07/20 14:53 Urine Color Yellow (Yellow) 06/06/20 18:42 Urine Turbidity Slightly-cloudy (Clear) 06/06/20 18:42 Urine pH 5.0 (5.0-7.0) 06/06/20 18:42 Ur Specific [place] 1.013 (1.003-1.030) 06/06/20 18:42 Urine Protein 100 mg/dl mg/dL (Negative) 06/06/20 18:42 Urine Glucose (UA) >=500 mg/dL (Negative) 06/06/20 18:42 Urine Ketones 20 mg/dL (Negative) 06/06/20 18:42 Urine Blood Mod (Negative) 06/06/20 18:42 Urine Nitrite Neg (Negative) 06/06/20 18:42 Urine Bilirubin Neg (Negative) 06/06/20 18:42 Urine Urobilinogen < 2.0 mg/dL (<2.0) 06/06/20 18:42 Ur Leukocyte Esterase Sm (Negative) 06/06/20 18:42 Urine WBC (Auto) 57.0 /HPF (0.0-6.0) H 06/06/20 18:42 Urine RBC (Auto) 9.0 /HPF (0.0-6.0) 06/06/20 18:42 U Epithel Cells (Auto) < 1.0 /HPF (0-13.0) 06/06/20 18:42 Urine Bacteria (Auto) 1+ /HPF (Negative) 06/06/20 18:42 Urine Mucus Few /HPF 06/06/20 18:42 Urine Yeast (Budding) 1+ /HPF 06/06/20 18:42 Coronavirus (PCR) Positive (Negative) A 06/07/20 Unknown Microbiology: Microbiology 06/06/20 18:42 Urine,Clean Catch Urine Culture - Final 06/06/20 15:49 Peripheral/Venous Blood Culture - Preliminary NO GROWTH AFTER 48 HOURS 06/06/20 15:49 Peripheral/Venous Blood Culture - Preliminary NO GROWTH AFTER 48 HOURS - Diagnostic Impressions Diagnostic Impressions: Echocardiogram 06/07/20 09:27 Transthoracic Echocardiogram Indication: SOB BP: 111/75 HR: 108 Conclusions *The left ventricular chamber size is severely dilated. *Mild concentric left ventricular hypertrophy is observed. *Global left ventricular systolic function is severely decreased. *The estimated ejection fraction is 15-20%. *The left atrium is moderately dilated. *There is mild to moderate mitral regurgitation. *There is trace-mild tricuspid regurgitation. *There is evidence of borderline pulmonary hypertension. Findings Left Ventricle: The left ventricular chamber size is severely dilated. Mild concentric left ventricular hypertrophy is observed. Global left ventricular systolic function is severely decreased. The estimated ejection fraction is 15-20%. Left Atrium: The left atrium is moderately dilated. Right Ventricle: The right ventricle is slightly dilated. The right ventricular global systolic function is normal. Right Atrium: The right atrium is mildly dilated. Aortic Valve: The aortic valve is trileaflet. The aortic valve leaflets are mildly thickened. There is no evidence of aortic regurgitation. There is no evidence of aortic stenosis. Mitral Valve: The mitral valve leaflets are mildly thickened. There is mild to moderate mitral regurgitation. There is no evidence of mitral stenosis. Tricuspid Valve: There is trace tricuspid regurgitation. The right ventricular systolic pressure is calculated at 25 mmHg. There is evidence of borderline pulmonary hypertension. Pulmonic Valve: There is mild pulmonic regurgitation. Pericardium: There is no pericardial effusion. Aorta: There is no dilatation of the ascending aorta. There is no dilatation of the aortic root. Venous: The inferior vena cava appears normal in size. Measurements Chambers 2D Name Value Normal Range IVSd (2D) 1.29 cm (0.6 - 1.1) LVPWd (2D) 1.26 cm (0.6 - 1.1) LVIDd (2D) 6.03 cm (3.7 - 5.6) LVIDs (2D) 5.02 cm (2 - 3.8) LV FS (2D) 16.83 % - EF Teichholz (2D) 34.6 % - Ao root diameter (2D) 3.06 cm (2 - 3.7) Volumes/Mass Name Value Normal Range LA ESV SP 4CH (A/L) 56.08 ml - LA ESV SP 2CH (A/L) 57.68 ml - LA ESV BP (A/L) 58.34 ml - LA ESV BP (A/L) index 20.19 ml/m2 - LA ESV SP 4CH (MOD) 50.86 ml - LA ESV SP 2CH (MOD) 55.46 ml - LA ESV BP (MOD) 54.34 ml - LA ESV BP (MOD) index 18.8 ml/m2 - Diastolic/Systolic Function Name Value Normal Range MV E-wave Vmax 0.64 m/sec - MV deceleration time 166.65 msec - MV A-wave Vmax 0.56 m/sec - MV E:A ratio 1.15 ratio - Aortic Valve Name Value Normal Range AV Vmax 1.37 m/sec - AV VTI 17.93 cm - AV peak gradient 7.55 mmHg - AV mean gradient 4.66 mmHg - LVOT diameter 2.06 cm - LVOT Vmax 1.24 m/sec - LVOT VTI 16.7 cm - LVOT peak gradient 6.17 mmHg - LVOT mean gradient 3.55 mmHg - SV LVOT 55.69 ml - CLAUDINE (continuity Vmax) 3.02 cm2 - CLAUDINE (continuity VTI) 3.11 cm2 - Ascending Ao 3.12 cm - Mitral Valve Name Value Normal Range MR Vmax 2.69 m/sec - Tricuspid Valve Name Value Normal Range TR Vmax 2.35 m/sec - TR peak gradient 22 mmHg - RAP 3 mmHg - RVSP 25 mmHg - IVC diameter 1.87 cm (1.2 - 2.3) Pulmonic Valve/Qp:Qs Name Value Normal Range PV Vmax 1.15 m/sec - PV peak gradient 5.32 mmHg - CO end-diastolic Vmax 1.19 m/sec - PV acceleration time 125.59 msec - Le[place]/IV: Voiding Method Indwelling Catheter IV Catheter Type [Right Peripheral IV Forearm] Active Medications - Current Medications Current Medications: Generic Name Dose Route Start Last Admin Trade Name Freq PRN Reason Stop Dose Admin Acetaminophen 650 mg 06/08/20 18:13 06/09/20 07:56 Tylenol PO 650 mg Q6H PRN Administration Pain, Mild (1-3) Ascorbic Acid 500 mg 06/07/20 22:00 06/09/20 10:11 Vitamin C PO 500 mg BID CAROLYN Administration Aspirin 81 mg 06/08/20 13:00 06/09/20 10:11 Halfprin Ec PO 81 mg QDAY CAROLYN Administration Azithromycin 500 mg 06/07/20 16:00 06/08/20 10:18 Zithromax PO 500 mg QDAY CAROLYN Administration Carvedilol 6.25 mg 06/08/20 12:00 06/09/20 06:35 Coreg PO Not Given BID CAROLYN Dexamethasone 8 mg 06/08/20 15:00 06/08/20 17:08 Decadron PO 8 mg DAILY CAROLYN Administration Dextrose 0 ml 06/06/20 18:04 D50w (25gm) Syringe IV Q30MIN PRN Hypoglycemia Protocol Famotidine 20 mg 06/08/20 10:00 06/09/20 10:16 Pepcid PO 20 mg QDAY CAROLYN Administration Furosemide 40 mg 06/07/20 18:00 06/09/20 06:40 Lasix IV 40 mg 0600,1800 CAROLYN Administration Heparin Sodium (Porcine) 5,000 unit 06/07/20 15:00 06/09/20 06:38 Heparin SUB-Q 5,000 unit Q8HR CAROLYN Administration Hydralazine HCl 25 mg 06/08/20 22:00 06/09/20 06:35 Apresoline PO Not Given Q12HR CAROLYN Ceftriaxone Sodium 2 gm in 100 mls @ 200 mls/hr 06/07/20 15:00 06/08/20 18:41 Rocephin/Ns 2 Gm/100 Ml IV 200 mls/hr Q24H CAROLYN Administration Protocol Sodium Chloride 1,000 mls @ 125 mls/hr 06/08/20 06:30 06/08/20 23:24 Nacl 0.9% 1000 Ml IV 125 mls/hr DIRECT CAROLYN Administration Insulin Human Lispro 0 unit 06/07/20 12:30 06/09/20 06:38 Humalog SUB-Q 15 unit Q6HR CAROLYN Administration Protocol Isosorbide Dinitrate 20 mg 06/08/20 13:00 06/09/20 06:36 Isordil PO Not Given BID CAROLYN Morphine Sulfate 2 mg 06/07/20 09:34 06/08/20 06:26 Morphine IV 2 mg Q4H PRN Administration Pain, Moderate (4-6) Zinc Sulfate 220 mg 06/07/20 22:00 06/09/20 10:16 Zinc Sulfate PO 220 mg BID CAROLYN Administration Nutrition/Malnutrition Assess - Dietary Evaluation Nutrition/Malnutrition Findings: Nutrition Notes Start: 06/07/20 08:57 Freq: Status: Active Protocol: Document 06/08/20 11:37 LP (Rec: 06/08/20 11:45 LP [id number]) Nutrition Notes Initial or Follow up Brief Note Subjective/Other Information Pt did not answer phone. Pt noted with venti mask. Nutrition Intervention Follow-Up By: 06/09/20 Additional Comments Follow for diet education
[2020-06-09] MEDS: SODIUM CHLORIDE 0.9% 1000 ML 1,000 ML IV SCH ×2 (12:38→22:30)
--- NOTE | 2020-06-09 13:21 | Progress Note ---
Assessment and Plan Acute hypoxemic respiratory failure COVID infection Fevers, bilateral Pneumonia Acute on chronic systolic heart failure, left ventricular ejection fraction 15 to 20%. Morbid obesity Type 2 DM with hyperglycemia NA -ABG in am, CXR in am - Wean supplemental oxygen for target O2 sats > 92% - Awake Proning per facility protocol and Lateral decubitus positioning -Fluid conservative measures as tolerated by hemodynamics and renal function - Bronchodilators with pulmonary hygiene per RT - Accuchecks with glycemic control per SSI (Target blood glucose of 140-180 mg/dL; avoid hypoglycemia) - Avoid benzodiazepines, reduce the possibility of delirium - prn analgesia per CPOT score - Maintenance of sleep-wake cycle, avoid delirium -Avoid nephrotoxins, closely monitor renal function --Empiric antibiotics( Ceftriaxone and Azithromycin for CAP ) -Heart failure measures - Stress ulcer & VTE prophylaxis ( Heparin, Famotidine) - Mobility protocol, off loading and skin assessment for pressure ulcer prevention - Monitor hemodynamics closely -Supportive transfusions as indicated to keep HgB >7g/dL -Home oxygen evaluation -Out patient evaluation for sleep apnea -Life style modifications and weight loss COVID SPECIFIC INTERVENTIONS -Airborne, contact isolation for COVID per facility protocols -Patient has renal impairment butGFR >30 ,trial of Remdesivir while monitoring closely for toxicities - On IV dexamethsone initiated yesterday -Markers also significantly elevated and with high flow oxygen, Actemra ordered by ID service - Continue to trend inflammatory markers per facility protocol -Start weight based Enoxaparin -Continue all supportive care -Contact tracing and testing of his contacts Life threatening condition- COVID 19 infection with acute hypoxemic respiratory failure Mortality/Morbidity- High secondary to comorbid conditions Complexity of medical decision making- High CONDITION: CRITICAL PROGNOSIS: GUARDED CODE STATUS: FULL CODE The high probability of a clinically significant, sudden or life-threatening deterioration of the [respiratory & cardiovascular, renal] system(s) required my full and direct attention, intervention and personal management. The aggregate critical care time was [31] minutes without overlap. Time includes spent on; [x] Data Review and interpretation [x] Patient assessment and monitoring of vital signs [x] Documentation [x] Medication orders and management Subjective Date of service: 06/09/20 Interval history: Follow up for acute hypoxemic respiratory failure; COVID infection; Bilateral Pneumonia; Morbid obesity Seen and examined. Vitals, labs, medications, chart and imaging reviewed. Respiratory and nursing staff consulted. On going shortness of breath, no chest pain, no diarrhea or vomiting. Had fevers yesterday, none today Objective Vital Signs - 12hr 06/09/20 06/09/20 06/09/20 04:00 05:45 06:24 Temperature 98.2 F Pulse Rate 78 Respiratory 20 Rate Blood Pressure 120/80 O2 Sat by Pulse 94 95 Oximetry 06/09/20 09:31 Temperature Pulse Rate Respiratory Rate Blood Pressure O2 Sat by Pulse 94 Oximetry Constitutional: asleep, other (Morbidly Obese on high flow oxygen in mild distress) Eyes: non-icteric ENT: oropharynx moist Neck: supple, no lymphadenopathy Effort: mildly labored Ascultation: Bilateral: diminished breath sounds, rales (basilar) Cardiovascular: regular rate and rhythm Gastrointestinal: normoactive bowel sounds, soft, non-tender, non-distended, other (León catheter in place, drainig clear urine) Integumentary: other (Stasis dermatitis both lower legs.) Extremities: edema, other (hyperpigmentation opf lower extremities) Neurologic: normal mental status, non-focal exam, pupils equal and round, unable to assess Psychiatric: anxious CBC and BMP: 06/06/20 15:45 06/10/20 10:27 ABG, PT/INR, D-dimer: PT/INR, D-dimer D-Dimer 975.20 ng/mlDDU (0-234) H 06/07/20 14:53 Abnormal lab findings: Abnormal Labs 06/06/20 06/06/20 06/06/20 15:45 15:45 15:45 Lymph % (Auto) 6.6 L Lymph # 0.6 L Seg Neutrophils % 87.2 H Seg Neutrophils # 8.4 H D-Dimer VBG pH 7.300 L Sodium 131 L Potassium Chloride 89.8 L Carbon Dioxide 16 L BUN Creatinine Glucose 509 H* POC Glucose Hemoglobin A1c Lactic Acid Calcium Phosphorus Ferritin AST 151 H ALT 157 H Lactate Dehydrogenase C-Reactive Protein NT-Pro-B Natriuret Pep 5086 H Albumin 3.0 L Urine WBC (Auto) Coronavirus (PCR) 06/06/20 06/06/20 06/06/20 17:02 18:01 18:16 Lymph % (Auto) Lymph # Seg Neutrophils % Seg Neutrophils # D-Dimer VBG pH Sodium Potassium Chloride Carbon Dioxide BUN Creatinine Glucose POC Glucose 450 H Hemoglobin A1c Lactic Acid 2.20 H* 2.30 H* Calcium Phosphorus Ferritin AST ALT Lactate Dehydrogenase C-Reactive Protein NT-Pro-B Natriuret Pep Albumin Urine WBC (Auto) Coronavirus (PCR) 06/06/20 06/06/20 06/06/20 18:16 18:42 19:36 Lymph % (Auto) Lymph # Seg Neutrophils % Seg Neutrophils # D-Dimer VBG pH Sodium 131 L 131 L Potassium 5.3 H Chloride 90.7 L 90.7 L Carbon Dioxide 12 L 16 L BUN Creatinine Glucose 525 H* 558 H* POC Glucose Hemoglobin A1c Lactic Acid Calcium Phosphorus Ferritin AST ALT Lactate Dehydrogenase C-Reactive Protein NT-Pro-B Natriuret Pep Albumin Urine WBC (Auto) 57.0 H Coronavirus (PCR) 06/06/20 06/06/20 06/06/20 21:21 22:26 23:33 Lymph % (Auto) Lymph # Seg Neutrophils % Seg Neutrophils # D-Dimer VBG pH Sodium Potassium Chloride Carbon Dioxide BUN Creatinine Glucose POC Glucose 411 H 395 H 390 H Hemoglobin A1c Lactic Acid Calcium Phosphorus Ferritin AST ALT Lactate Dehydrogenase C-Reactive Protein NT-Pro-B Natriuret Pep Albumin Urine WBC (Auto) Coronavirus (PCR) 06/07/20 06/07/20 06/07/20 00:09 00:09 00:09 Lymph % (Auto) Lymph # Seg Neutrophils % Seg Neutrophils # D-Dimer VBG pH Sodium 135 L Potassium Chloride 95.7 L Carbon Dioxide BUN Creatinine Glucose 419 H POC Glucose Hemoglobin A1c 17.4 H Lactic Acid 2.30 H* Calcium 8.3 L Phosphorus Ferritin AST ALT Lactate Dehydrogenase C-Reactive Protein NT-Pro-B Natriuret Pep Albumin Urine WBC (Auto) Coronavirus (PCR) 06/07/20 06/07/20 06/07/20 00:09 00:48 02:09 Lymph % (Auto) Lymph # Seg Neutrophils % Seg Neutrophils # D-Dimer VBG pH Sodium Potassium Chloride Carbon Dioxide BUN Creatinine Glucose POC Glucose 335 H 340 H Hemoglobin A1c Lactic Acid Calcium Phosphorus 1.90 L D Ferritin AST ALT Lactate Dehydrogenase C-Reactive Protein NT-Pro-B Natriuret Pep Albumin Urine WBC (Auto) Coronavirus (PCR) 06/07/20 06/07/20 06/07/20 02:57 03:19 03:19 Lymph % (Auto) Lymph # Seg Neutrophils % Seg Neutrophils # D-Dimer VBG pH Sodium 131 L Potassium Chloride 92.2 L Carbon Dioxide BUN Creatinine Glucose 407 H POC Glucose 416 H Hemoglobin A1c Lactic Acid 3.50 H* Calcium Phosphorus Ferritin AST ALT Lactate Dehydrogenase C-Reactive Protein NT-Pro-B Natriuret Pep Albumin Urine WBC (Auto) Coronavirus (PCR) 06/07/20 06/07/20 06/07/20 03:56 05:13 06:01 Lymph % (Auto) Lymph # Seg Neutrophils % Seg Neutrophils # D-Dimer VBG pH Sodium Potassium Chloride Carbon Dioxide BUN Creatinine Glucose POC Glucose 341 H 323 H 299 H Hemoglobin A1c Lactic Acid Calcium Phosphorus Ferritin AST ALT Lactate Dehydrogenase C-Reactive Protein NT-Pro-B Natriuret Pep Albumin Urine WBC (Auto) Coronavirus (PCR) 06/07/20 06/07/20 06/07/20 07:07 07:48 07:48 Lymph % (Auto) Lymph # Seg Neutrophils % Seg Neutrophils # D-Dimer VBG pH Sodium 136 L Potassium Chloride Carbon Dioxide BUN Creatinine Glucose 270 H POC Glucose 276 H Hemoglobin A1c Lactic Acid 2.50 H* Calcium Phosphorus Ferritin AST ALT Lactate Dehydrogenase C-Reactive Protein NT-Pro-B Natriuret Pep Albumin Urine WBC (Auto) Coronavirus (PCR) 06/07/20 06/07/20 06/07/20 08:11 09:12 10:11 Lymph % (Auto) Lymph # Seg Neutrophils % Seg Neutrophils # D-Dimer VBG pH Sodium Potassium Chloride Carbon Dioxide BUN Creatinine Glucose POC Glucose 245 H 208 H 186 H Hemoglobin A1c Lactic Acid Calcium Phosphorus Ferritin AST ALT Lactate Dehydrogenase C-Reactive Protein NT-Pro-B Natriuret Pep Albumin Urine WBC (Auto) Coronavirus (PCR) 06/07/20 06/07/20 06/07/20 11:14 13:40 14:50 Lymph % (Auto) Lymph # Seg Neutrophils % Seg Neutrophils # D-Dimer VBG pH Sodium Potassium Chloride Carbon Dioxide BUN Creatinine Glucose POC Glucose 189 H 223 H 194 H Hemoglobin A1c Lactic Acid Calcium Phosphorus Ferritin AST ALT Lactate Dehydrogenase C-Reactive Protein NT-Pro-B Natriuret Pep Albumin Urine WBC (Auto) Coronavirus (PCR) 06/07/20 06/07/20 06/07/20 14:53 14:53 14:53 Lymph % (Auto) Lymph # Seg Neutrophils % Seg Neutrophils # D-Dimer 975.20 H VBG pH Sodium Potassium Chloride Carbon Dioxide BUN Creatinine 1.6 H Glucose 192 H POC Glucose Hemoglobin A1c Lactic Acid 2.20 H* Calcium Phosphorus Ferritin AST ALT Lactate Dehydrogenase C-Reactive Protein NT-Pro-B Natriuret Pep Albumin Urine WBC (Auto) Coronavirus (PCR) 06/07/20 06/07/20 06/07/20 14:53 14:53 18:18 Lymph % (Auto) Lymph # Seg Neutrophils % Seg Neutrophils # D-Dimer VBG pH Sodium Potassium Chloride Carbon Dioxide BUN Creatinine Glucose POC Glucose 309 H Hemoglobin A1c Lactic Acid Calcium Phosphorus Ferritin > 2000.0 H AST ALT Lactate Dehydrogenase 517 H C-Reactive Protein 46.00 H NT-Pro-B Natriuret Pep Albumin Urine WBC (Auto) Coronavirus (PCR) 06/07/20 06/07/20 06/07/20 19:44 22:46 23:22 Lymph % (Auto) Lymph # Seg Neutrophils % Seg Neutrophils # D-Dimer VBG pH Sodium 133 L 131 L Potassium 5.5 H D Chloride 95.5 L 92.6 L Carbon Dioxide 20 L 21 L BUN 25 H 28 H Creatinine 2.0 H 2.3 H Glucose 379 H 494 H POC Glucose 368 H Hemoglobin A1c Lactic Acid Calcium 8.2 L 8.0 L Phosphorus Ferritin AST ALT Lactate Dehydrogenase C-Reactive Protein NT-Pro-B Natriuret Pep Albumin Urine WBC (Auto) Coronavirus (PCR) 06/07/20 06/08/20 06/08/20 Unknown 06:08 10:56 Lymph % (Auto) Lymph # Seg Neutrophils % Seg Neutrophils # D-Dimer VBG pH Sodium Potassium Chloride Carbon Dioxide BUN Creatinine Glucose POC Glucose 437 H 389 H Hemoglobin A1c Lactic Acid Calcium Phosphorus Ferritin AST ALT Lactate Dehydrogenase C-Reactive Protein NT-Pro-B Natriuret Pep Albumin Urine WBC (Auto) Coronavirus (PCR) Positive A 06/08/20 06/08/20 06/08/20 17:07 20:37 22:46 Lymph % (Auto) Lymph # Seg Neutrophils % Seg Neutrophils # D-Dimer VBG pH Sodium Potassium Chloride Carbon Dioxide BUN Creatinine Glucose POC Glucose 395 H 394 H 394 H Hemoglobin A1c Lactic Acid Calcium Phosphorus Ferritin AST ALT Lactate Dehydrogenase C-Reactive Protein NT-Pro-B Natriuret Pep Albumin Urine WBC (Auto) Coronavirus (PCR) 06/09/20 06/09/20 05:57 11:42 Lymph % (Auto) Lymph # Seg Neutrophils % Seg Neutrophils # D-Dimer VBG pH Sodium Potassium Chloride Carbon Dioxide BUN Creatinine Glucose POC Glucose 455 H 396 H Hemoglobin A1c Lactic Acid Calcium Phosphorus Ferritin AST ALT Lactate Dehydrogenase C-Reactive Protein NT-Pro-B Natriuret Pep Albumin Urine WBC (Auto) Coronavirus (PCR)
[2020-06-09] MEDS: AZITHROMYCIN 250 MG TAB PO SCH (13:23)
[2020-06-09] MEDS: cefTRIAXone/NS 2 GM/100 ML 2 GM/100 ML BAG IV SCH (16:18)
--- NOTE | 2020-06-09 16:39 | Progress Note ---
Assessment and Plan Cultures: Blood culture: no growth COVID-19: Positive A/P: 39-year-old male with morbid obesity, diabetes mellitus: #Fever, bilateral pneumonia: secondary to COVID #Acute hypoxic respiratory failure: #Congestive heart failure #DKA #Morbid obesity Recs: Creatinine now elevated, but EGFR is 38, will start IV Remdesivir, might have to stop if creatinine continues to increase Markers also significantly elevated and with high flow oxygen, will order Actemra Continue steroids Tight glycemic control monitor COVID related inflammatory biomarkers continue Empiric ceftriaxone and azithromycin Mahin Golden MD, FACP [facility] ([facility] C: [phone] O: [phone] F: [phone] Subjective Date of service: 06/09/20 Interval history: Fever yesterday. On high flow oxygen. COVID-19 test is positive. Glucose significantly elevated. Objective - Exam Narrative Exam: Physical Exam (reviewed in chart due to PPE conservation) Constitutional: limited due to PPE conservation strategy Head, Ears, Nose: limited due to PPE conservation strategy Eyes: limited due to PPE conservation strategy Neck: limited due to PPE conservation strategy Oral: limited due to PPE conservation strategy Cardiovascular: limited due to PPE conservation strategy Respiratory: limited due to PPE conservation strategy GI: limited due to PPE conservation strategy Musculoskeletal: limited due to PPE conservation strategy Skin: limited due to PPE conservation strategy Hem/Lymphatic: limited due to PPE conservation strategy Psych: limited due to PPE conservation strategy Neurological: limited due to PPE conservation strategy - Constitutional Vitals: Vital Signs Temp Pulse Resp BP Pulse Ox 98.2 F 71 24 156/63 93 06/09/20 11:30 06/09/20 13:20 06/09/20 11:30 06/09/20 13:20 06/09/20 11:30 Temperature -Last 24 Hours Temperature 98.2 F Temperature 98.2 F Temperature 99.3 F Temperature 98.2 F Temperature 101.3 F - Labs CBC & Chem 7: 06/06/20 15:45 06/07/20 23:22 Labs: Abnormal lab results 06/07/20 06/08/20 06/08/20 Range/Units 14:53 17:07 20:37 POC Glucose 395 H 394 H (70-105) Ferritin > 2000.0 H (13.0-400.0) ng/mL 06/08/20 06/09/20 06/09/20 Range/Units 22:46 05:57 11:42 POC Glucose 394 H 455 H 396 H (70-105) Ferritin (13.0-400.0) ng/mL
[2020-06-09] MEDS ORDERED: TOCILIZUMAB 800 MG in SODIUM CHLORIDE 0.9% 100 ML IV ONE (16:41)
[2020-06-09] MEDS ORDERED: REMDESIVIR 200 MG in SODIUM CHLORIDE 0.9% 250ML 250 ML IV ONE (16:41)
[2020-06-09] MEDS ORDERED: TOCILIZUMAB 400 MG in SODIUM CHLORIDE 0.9% 100 ML IV ONE (17:00)
[2020-06-09] MEDS: SODIUM CHLORIDE 0.9% 50 ML IVPB IV SCH (22:06)
[2020-06-10] MEDS ORDERED: INSULIN LISPRO 100 UNIT/ML SUB-Q ONE ×4 (00:07)
[2020-06-10] MEDS: INSULIN LISPRO 100 UNIT/ML SUB-Q SCH ×4 (00:07→18:25)
[2020-06-10] MEDS: FUROSEMIDE 40 MG/4 ML INJ IV SCH ×2 (06:36→18:49)
[2020-06-10] MEDS: HEPARIN 5,000 UNIT/1 ML VIAL SUB-Q SCH ×3 (06:37→22:38)
[2020-06-10] MEDS: ISOSORBIDE DINITRATE 20 MG TAB PO SCH ×2 (10:17→22:38)
[2020-06-10] MEDS: DEXAMETHASONE 4 MG TAB PO SCH (10:17)
[2020-06-10] MEDS: FAMOTIDINE 20 MG TAB PO SCH (10:18)
[2020-06-10] MEDS: hydrALAZINE 25 MG TAB PO SCH ×2 (10:18→22:38)
[2020-06-10] MEDS: carvediloL 6.25 MG TAB PO SCH ×2 (10:18→22:39)
[2020-06-10] MEDS: AZITHROMYCIN 250 MG TAB PO SCH (10:18)
[2020-06-10] MEDS: ASPIRIN EC 81 MG TAB PO SCH (10:18)
[2020-06-10] MEDS: ZINC SULFATE 220 MG CAP PO SCH ×2 (10:18→22:39)
[2020-06-10] MEDS: ASCORBIC ACID 500 MG TAB PO SCH ×2 (10:18→22:38)
[2020-06-10] MEDS: SODIUM CHLORIDE 0.9% 1000 ML 1,000 ML IV SCH (10:28)
--- NOTE | 2020-06-10 10:28 | Progress Note ---
Assessment and Plan Systolic heart failure An echocardiogram showed a severely decreased systolic function, ejection fraction 15-20%. The duration of this cardiomyopathy is uncertain. COVID 19 viral pneumonia Diabetic ketoacidosis Acute renal failure Recommendations: Sodium and fluid restriction. Continue medical therapy for acute on chronic dilated cardiomyopathy as tolerated. Subjective Date of service: 06/10/20 Interval history: No cardiac issues reported. Stable sinus rhythm on telemetry. Objective Vital Signs Temp Pulse Resp Resp BP Pulse Ox 06/10/20 08:53 91 06/10/20 05:03 97.4 F L 84 20 115/75 94 06/10/20 02:43 81 06/09/20 23:27 20 06/09/20 22:27 20 06/09/20 22:26 88 110/69 06/09/20 22:00 20 06/09/20 21:32 99.0 F 89 20 119/77 92 06/09/20 17:25 98.9 F 88 24 110/69 86 06/09/20 16:00 89 06/09/20 13:20 71 156/63 06/09/20 13:19 71 156/63 06/09/20 11:30 98.2 F 99 H 24 126/89 93 - Physical Examination Narrative exam: Deferred due to coronavirus isolation protocol - Imaging and Cardiology EKG: report reviewed
[2020-06-10 11:38] LABS: Calcium 8.1 mg/dL (8.4-10.2)
[2020-06-10] MEDS ORDERED: INSULIN GLARGINE 100 UNITS/ML SUB-Q ONE (12:00)
--- NOTE | 2020-06-10 12:01 | Progress Note ---
Assessment and Plan Acute hypoxemic respiratory failure COVID infection Fevers, bilateral Pneumonia Acute on chronic systolic heart failure, left ventricular ejection fraction 15 to 20%. Morbid obesity Type 2 DM with hyperglycemia NA -ABG in am, CXR in am - Wean supplemental oxygen for target O2 sats > 92% - Awake Proning per facility protocol and Lateral decubitus positioning -Fluid conservative measures as tolerated by hemodynamics and renal function - Bronchodilators with pulmonary hygiene per RT - Accuchecks with glycemic control per SSI (Target blood glucose of 140-180 mg/dL; avoid hypoglycemia) - Avoid benzodiazepines, reduce the possibility of delirium - prn analgesia per CPOT score - Maintenance of sleep-wake cycle, avoid delirium -Avoid nephrotoxins, closely monitor renal function --Empiric antibiotics( Ceftriaxone and Azithromycin for CAP ) -Heart failure measures - Stress ulcer & VTE prophylaxis ( Heparin, Famotidine) - Mobility protocol, off loading and skin assessment for pressure ulcer prevention - Monitor hemodynamics closely -Supportive transfusions as indicated to keep HgB >7g/dL -Home oxygen evaluation -Out patient evaluation for sleep apnea -Life style modifications and weight loss COVID SPECIFIC INTERVENTIONS -Airborne, contact isolation for COVID per facility protocols -Patient has renal impairment butGFR >30 ,trial of Remdesivir while monitoring closely for toxicities - On IV dexamethsone initiated yesterday -Markers also significantly elevated and with high flow oxygen, Actemra ordered by ID service - Continue to trend inflammatory markers per facility protocol -Start weight based Enoxaparin -Continue all supportive care -Contact tracing and testing of his contacts Life threatening condition- COVID 19 infection with acute hypoxemic respiratory failure Mortality/Morbidity- High secondary to comorbid conditions Complexity of medical decision making- High CONDITION: CRITICAL PROGNOSIS: GUARDED CODE STATUS: FULL CODE The high probability of a clinically significant, sudden or life-threatening deterioration of the [respiratory & cardiovascular, renal] system(s) required my full and direct attention, intervention and personal management. The aggregate critical care time was [31] minutes without overlap. Time includes spent on; [x] Data Review and interpretation [x] Patient assessment and monitoring of vital signs [x] Documentation [x] Medication orders and management Subjective Date of service: 06/10/20 Interval history: Follow up for acute hypoxemic respiratory failure; COVID infection; Bilateral Pneumonia; Morbid obesity Seen and examined. Vitals, labs, medications, chart and imaging reviewed. Respiratory and nursing staff consulted. On going shortness of breath, no chest pain, no diarrhea or vomiting. Wants to go home. On supplemental oxygen via a Venturi mask at 50% Objective Vital Signs - 12hr 06/10/20 06/10/20 06/10/20 02:43 05:03 08:53 Temperature 97.4 F L Pulse Rate 81 84 Respiratory 20 Rate Blood Pressure 115/75 O2 Sat by Pulse 94 91 Oximetry 06/10/20 11:29 Temperature 97.3 F L Pulse Rate 90 Respiratory 22 Rate Blood Pressure 96/51 O2 Sat by Pulse 91 Oximetry Constitutional: alert, other (Morbidly Obese on oxygen via venturi mask in mild distress) Eyes: non-icteric ENT: oropharynx moist Neck: supple, no lymphadenopathy Effort: mildly labored Ascultation: Bilateral: diminished breath sounds, rales (basilar) Cardiovascular: regular rate and rhythm Gastrointestinal: normoactive bowel sounds, soft, non-tender, non-distended, other (León catheter in place, drainig clear urine) Integumentary: other (Stasis dermatitis both lower legs.) Extremities: edema, other (hyperpigmentation opf lower extremities) Neurologic: normal mental status, non-focal exam, pupils equal and round, unable to assess Psychiatric: anxious CBC and BMP: 06/06/20 15:45 06/10/20 10:27 ABG, PT/INR, D-dimer: PT/INR, D-dimer D-Dimer 975.20 ng/mlDDU (0-234) H 06/07/20 14:53 Abnormal lab findings: Abnormal Labs 06/06/20 06/06/20 06/06/20 15:45 15:45 15:45 Lymph % (Auto) 6.6 L Lymph # 0.6 L Seg Neutrophils % 87.2 H Seg Neutrophils # 8.4 H D-Dimer VBG pH 7.300 L Sodium 131 L Potassium Chloride 89.8 L Carbon Dioxide 16 L BUN Creatinine Glucose 509 H* POC Glucose Hemoglobin A1c Lactic Acid Calcium Phosphorus Ferritin AST 151 H ALT 157 H Lactate Dehydrogenase C-Reactive Protein NT-Pro-B Natriuret Pep 5086 H Albumin 3.0 L Urine WBC (Auto) Coronavirus (PCR) 06/06/20 06/06/20 06/06/20 17:02 18:01 18:16 Lymph % (Auto) Lymph # Seg Neutrophils % Seg Neutrophils # D-Dimer VBG pH Sodium Potassium Chloride Carbon Dioxide BUN Creatinine Glucose POC Glucose 450 H Hemoglobin A1c Lactic Acid 2.20 H* 2.30 H* Calcium Phosphorus Ferritin AST ALT Lactate Dehydrogenase C-Reactive Protein NT-Pro-B Natriuret Pep Albumin Urine WBC (Auto) Coronavirus (PCR) 06/06/20 06/06/20 06/06/20 18:16 18:42 19:36 Lymph % (Auto) Lymph # Seg Neutrophils % Seg Neutrophils # D-Dimer VBG pH Sodium 131 L 131 L Potassium 5.3 H Chloride 90.7 L 90.7 L Carbon Dioxide 12 L 16 L BUN Creatinine Glucose 525 H* 558 H* POC Glucose Hemoglobin A1c Lactic Acid Calcium Phosphorus Ferritin AST ALT Lactate Dehydrogenase C-Reactive Protein NT-Pro-B Natriuret Pep Albumin Urine WBC (Auto) 57.0 H Coronavirus (PCR) 06/06/20 06/06/20 06/06/20 21:21 22:26 23:33 Lymph % (Auto) Lymph # Seg Neutrophils % Seg Neutrophils # D-Dimer VBG pH Sodium Potassium Chloride Carbon Dioxide BUN Creatinine Glucose POC Glucose 411 H 395 H 390 H Hemoglobin A1c Lactic Acid Calcium Phosphorus Ferritin AST ALT Lactate Dehydrogenase C-Reactive Protein NT-Pro-B Natriuret Pep Albumin Urine WBC (Auto) Coronavirus (PCR) 06/07/20 06/07/20 06/07/20 00:09 00:09 00:09 Lymph % (Auto) Lymph # Seg Neutrophils % Seg Neutrophils # D-Dimer VBG pH Sodium 135 L Potassium Chloride 95.7 L Carbon Dioxide BUN Creatinine Glucose 419 H POC Glucose Hemoglobin A1c 17.4 H Lactic Acid 2.30 H* Calcium 8.3 L Phosphorus Ferritin AST ALT Lactate Dehydrogenase C-Reactive Protein NT-Pro-B Natriuret Pep Albumin Urine WBC (Auto) Coronavirus (PCR) 06/07/20 06/07/20 06/07/20 00:09 00:48 02:09 Lymph % (Auto) Lymph # Seg Neutrophils % Seg Neutrophils # D-Dimer VBG pH Sodium Potassium Chloride Carbon Dioxide BUN Creatinine Glucose POC Glucose 335 H 340 H Hemoglobin A1c Lactic Acid Calcium Phosphorus 1.90 L D Ferritin AST ALT Lactate Dehydrogenase C-Reactive Protein NT-Pro-B Natriuret Pep Albumin Urine WBC (Auto) Coronavirus (PCR) 06/07/20 06/07/20 06/07/20 02:57 03:19 03:19 Lymph % (Auto) Lymph # Seg Neutrophils % Seg Neutrophils # D-Dimer VBG pH Sodium 131 L Potassium Chloride 92.2 L Carbon Dioxide BUN Creatinine Glucose 407 H POC Glucose 416 H Hemoglobin A1c Lactic Acid 3.50 H* Calcium Phosphorus Ferritin AST ALT Lactate Dehydrogenase C-Reactive Protein NT-Pro-B Natriuret Pep Albumin Urine WBC (Auto) Coronavirus (PCR) 06/07/20 06/07/20 06/07/20 03:56 05:13 06:01 Lymph % (Auto) Lymph # Seg Neutrophils % Seg Neutrophils # D-Dimer VBG pH Sodium Potassium Chloride Carbon Dioxide BUN Creatinine Glucose POC Glucose 341 H 323 H 299 H Hemoglobin A1c Lactic Acid Calcium Phosphorus Ferritin AST ALT Lactate Dehydrogenase C-Reactive Protein NT-Pro-B Natriuret Pep Albumin Urine WBC (Auto) Coronavirus (PCR) 06/07/20 06/07/20 06/07/20 07:07 07:48 07:48 Lymph % (Auto) Lymph # Seg Neutrophils % Seg Neutrophils # D-Dimer VBG pH Sodium 136 L Potassium Chloride Carbon Dioxide BUN Creatinine Glucose 270 H POC Glucose 276 H Hemoglobin A1c Lactic Acid 2.50 H* Calcium Phosphorus Ferritin AST ALT Lactate Dehydrogenase C-Reactive Protein NT-Pro-B Natriuret Pep Albumin Urine WBC (Auto) Coronavirus (PCR) 06/07/20 06/07/20 06/07/20 08:11 09:12 10:11 Lymph % (Auto) Lymph # Seg Neutrophils % Seg Neutrophils # D-Dimer VBG pH Sodium Potassium Chloride Carbon Dioxide BUN Creatinine Glucose POC Glucose 245 H 208 H 186 H Hemoglobin A1c Lactic Acid Calcium Phosphorus Ferritin AST ALT Lactate Dehydrogenase C-Reactive Protein NT-Pro-B Natriuret Pep Albumin Urine WBC (Auto) Coronavirus (PCR) 06/07/20 06/07/20 06/07/20 11:14 13:40 14:50 Lymph % (Auto) Lymph # Seg Neutrophils % Seg Neutrophils # D-Dimer VBG pH Sodium Potassium Chloride Carbon Dioxide BUN Creatinine Glucose POC Glucose 189 H 223 H 194 H Hemoglobin A1c Lactic Acid Calcium Phosphorus Ferritin AST ALT Lactate Dehydrogenase C-Reactive Protein NT-Pro-B Natriuret Pep Albumin Urine WBC (Auto) Coronavirus (PCR) 06/07/20 06/07/20 06/07/20 14:53 14:53 14:53 Lymph % (Auto) Lymph # Seg Neutrophils % Seg Neutrophils # D-Dimer 975.20 H VBG pH Sodium Potassium Chloride Carbon Dioxide BUN Creatinine 1.6 H Glucose 192 H POC Glucose Hemoglobin A1c Lactic Acid 2.20 H* Calcium Phosphorus Ferritin AST ALT Lactate Dehydrogenase C-Reactive Protein NT-Pro-B Natriuret Pep Albumin Urine WBC (Auto) Coronavirus (PCR) 06/07/20 06/07/20 06/07/20 14:53 14:53 18:18 Lymph % (Auto) Lymph # Seg Neutrophils % Seg Neutrophils # D-Dimer VBG pH Sodium Potassium Chloride Carbon Dioxide BUN Creatinine Glucose POC Glucose 309 H Hemoglobin A1c Lactic Acid Calcium Phosphorus Ferritin > 2000.0 H AST ALT Lactate Dehydrogenase 517 H C-Reactive Protein 46.00 H NT-Pro-B Natriuret Pep Albumin Urine WBC (Auto) Coronavirus (PCR) 06/07/20 06/07/20 06/07/20 19:44 22:46 23:22 Lymph % (Auto) Lymph # Seg Neutrophils % Seg Neutrophils # D-Dimer VBG pH Sodium 133 L 131 L Potassium 5.5 H D Chloride 95.5 L 92.6 L Carbon Dioxide 20 L 21 L BUN 25 H 28 H Creatinine 2.0 H 2.3 H Glucose 379 H 494 H POC Glucose 368 H Hemoglobin A1c Lactic Acid Calcium 8.2 L 8.0 L Phosphorus Ferritin AST ALT Lactate Dehydrogenase C-Reactive Protein NT-Pro-B Natriuret Pep Albumin Urine WBC (Auto) Coronavirus (PCR) 06/07/20 06/08/20 06/08/20 Unknown 06:08 10:56 Lymph % (Auto) Lymph # Seg Neutrophils % Seg Neutrophils # D-Dimer VBG pH Sodium Potassium Chloride Carbon Dioxide BUN Creatinine Glucose POC Glucose 437 H 389 H Hemoglobin A1c Lactic Acid Calcium Phosphorus Ferritin AST ALT Lactate Dehydrogenase C-Reactive Protein NT-Pro-B Natriuret Pep Albumin Urine WBC (Auto) Coronavirus (PCR) Positive A 06/08/20 06/08/20 06/08/20 17:07 20:37 22:46 Lymph % (Auto) Lymph # Seg Neutrophils % Seg Neutrophils # D-Dimer VBG pH Sodium Potassium Chloride Carbon Dioxide BUN Creatinine Glucose POC Glucose 395 H 394 H 394 H Hemoglobin A1c Lactic Acid Calcium Phosphorus Ferritin AST ALT Lactate Dehydrogenase C-Reactive Protein NT-Pro-B Natriuret Pep Albumin Urine WBC (Auto) Coronavirus (PCR) 06/09/20 06/09/20 06/09/20 05:57 11:42 17:32 Lymph % (Auto) Lymph # Seg Neutrophils % Seg Neutrophils # D-Dimer VBG pH Sodium Potassium Chloride Carbon Dioxide BUN Creatinine Glucose POC Glucose 455 H 396 H 457 H Hemoglobin A1c Lactic Acid Calcium Phosphorus Ferritin AST ALT Lactate Dehydrogenase C-Reactive Protein NT-Pro-B Natriuret Pep Albumin Urine WBC (Auto) Coronavirus (PCR) 06/09/20 06/10/20 06/10/20 23:50 05:20 10:27 Lymph % (Auto) Lymph # Seg Neutrophils % Seg Neutrophils # D-Dimer VBG pH Sodium 130 L Potassium Chloride Carbon Dioxide 17 L BUN 55 H Creatinine 2.7 H Glucose 452 H POC Glucose 428 H 405 H Hemoglobin A1c Lactic Acid Calcium 8.1 L Phosphorus Ferritin AST ALT Lactate Dehydrogenase C-Reactive Protein NT-Pro-B Natriuret Pep Albumin Urine WBC (Auto) Coronavirus (PCR) Allied health notes reviewed: RT
--- NOTE | 2020-06-10 13:01 | XRay Report ---
CHEST 1 VIEW INDICATION / CLINICAL INFORMATION: Acute hypoxemic resp failure; COVID pneumonia. COMPARISON: 06/06/2020 FINDINGS: SUPPORT DEVICES: None. HEART / MEDIASTINUM: Unchanged LUNGS / PLEURA: Bilateral pulmonary opacities mildly improved.. No pneumothorax. ADDITIONAL FINDINGS: No significant additional findings. IMPRESSION: 1. Mild improvement in bilateral pulmonary opacities. Signer Name: Seamus Oviedo MD Signed: 06/10/2020 12:57 PM Workstation Name: [id number]
--- NOTE | 2020-06-10 13:23 | Progress Note ---
Assessment and Plan - Patient Problems (1) Suspected 2019 novel coronavirus infection Current Visit: Yes Status: Acute Plan to address problem: Infectious disease consulted, COVID-19 protocol initiated. Coronavirus Positive . (2) CHF (congestive heart failure) Current Visit: Yes Status: Acute Qualifiers: Heart failure type: systolic Heart failure chronicity: acute Qualified Code(s): I50.21 - Acute systolic (congestive) heart failure Plan to address problem: Echocardiogram reveals ejection fraction of 15%, cardiology team consulted, strict I's/O, daily weight, monitor urine output every shift, afterload reduction, supportive care. (3) Urinary tract infection Current Visit: Yes Status: Acute Qualifiers: Encounter type: initial encounter Plan to address problem: IV antibiotic therapy, supportive care, repeat CBC. (4) Uncontrolled diabetes mellitus Current Visit: Yes Status: Acute Plan to address problem: Sliding scale insulin therapy, Accu-Chek, consistent carbohydrate diet, hypoglycemia protocol, Lantus QHS (5) Excoriation Current Visit: Yes Status: Acute Plan to address problem: Perineum: wound care consulted, absorbtive dressing as per wound care. Home Health/Wound care at discharge. (6) Obesity hypoventilation syndrome Current Visit: Yes Status: Acute Plan to address problem: Supplemental oxygen, nebulizer therapy, noninvasive positive pressure ventilation as clinically indicated, outpatient sleep study, pulmonary toilet, prone positioning while in bed, early ambulation, out of bed to chair 3 times daily and PRN. (7) DVT prophylaxis Current Visit: Yes Status: Acute Plan to address problem: SCD to bilateral lower extremities while in bed, prophylactic heparin History Interval history: 39 YO Male HD #4 with UTI, Obesity Hypoventilation Syndrome, Uncontrolled DM, MO, COVID 19, Systolic CHF, Excoriation of skin to perineum. Echo reveals EF of 15%. Pt is lying in bed. Patient is moving all extremities well. Patient acknowledges persistent shortness of breath. Patient denies pain. No reported nursing events. wound care daily. Hospitalist Physical - Constitutional Vitals: Temp Pulse Resp BP Pulse Ox 97.3 F L 90 22 96/51 91 06/10/20 11:29 06/10/20 11:29 06/10/20 11:29 06/10/20 11:29 06/10/20 11:29 General appearance: Present: mild distress, well-nourished, obese - EENT Eyes: Present: PERRL - Neck Neck: Present: supple - Respiratory Respiratory: bilateral: diminished - Cardiovascular Rhythm: regular Heart Sounds: Present: S1 & S2 - Extremities Extremities: no ischemia Extremity abnormal: edema - Abdominal General gastrointestinal: soft, non-tender, non-distended - Integumentary Integumentary: Present: dry, erythema (Scrotal excoriation, wound care consulted, recommend absorptive dressing daily.) - Psychiatric Psychiatric: appropriate mood/affect, cooperative - Neurologic Neurologic: CNII-XII intact HEART Score - HEART Score Risk factors: > 3 risk factors or hx of atherosclerotic disease Troponin: Troponin T < 0.010 ng/mL (0.00-0.029) 06/06/20 15:45 - Critical Actions Critical Actions: >7 pts:50-65% risk of adverse cardiac event. Early invasive measures Results - Labs CBC & Chem 7: 06/06/20 15:45 06/10/20 10:27 Labs: Laboratory Last Values WBC 9.6 K/mm3 (4.5-11.0) 06/06/20 15:45 RBC 4.86 M/mm3 (3.65-5.03) 06/06/20 15:45 Hgb 14.0 gm/dl (11.8-15.2) 06/06/20 15:45 Hct 44.0 % (35.5-45.6) 06/06/20 15:45 MCV 91 fl (84-94) 06/06/20 15:45 MCH 29 pg (28-32) 06/06/20 15:45 MCHC 32 % (32-34) 06/06/20 15:45 RDW 14.3 % (13.2-15.2) 06/06/20 15:45 Plt Count 198 K/mm3 (140-440) 06/06/20 15:45 Lymph % (Auto) 6.6 % (13.4-35.0) L 06/06/20 15:45 Haskell % (Auto) 5.8 % (0.0-7.3) 06/06/20 15:45 Eos % (Auto) 0.0 % (0.0-4.3) 06/06/20 15:45 Baso % (Auto) 0.4 % (0.0-1.8) 06/06/20 15:45 Lymph # 0.6 K/mm3 (1.2-5.4) L 06/06/20 15:45 Haskell # 0.6 K/mm3 (0.0-0.8) 06/06/20 15:45 Eos # 0.0 K/mm3 (0.0-0.4) 06/06/20 15:45 Baso # 0.0 K/mm3 (0.0-0.1) 06/06/20 15:45 Seg Neutrophils % 87.2 % (40.0-70.0) H 06/06/20 15:45 Seg Neutrophils # 8.4 K/mm3 (1.8-7.7) H 06/06/20 15:45 D-Dimer 975.20 ng/mlDDU (0-234) H 06/07/20 14:53 VBG pH 7.300 (7.320-7.420) L 06/06/20 15:45 Sodium 130 mmol/L (137-145) L 06/10/20 10:27 Potassium 4.5 mmol/L (3.6-5.0) 06/10/20 10:27 Chloride 99.5 mmol/L (98-107) 06/10/20 10:27 Carbon Dioxide 17 mmol/L (22-30) L 06/10/20 10:27 Anion Gap 18 mmol/L 06/10/20 10:27 BUN 55 mg/dL (9-20) H 06/10/20 10:27 Creatinine 2.7 mg/dL (0.8-1.5) H 06/10/20 10:27 Estimated GFR 32 ml/min 06/10/20 10:27 BUN/Creatinine Ratio 20 % 06/10/20 10:27 Glucose 452 mg/dL (75-100) H 06/10/20 10:27 POC Glucose 391 (70-105) H 06/10/20 11:49 Hemoglobin A1c 17.4 % (4-6) H 06/07/20 00:09 Lactic Acid 2.20 mmol/L (0.7-2.0) H* 06/07/20 14:53 Calcium 8.1 mg/dL (8.4-10.2) L 06/10/20 10:27 Phosphorus 1.90 mg/dL (2.5-4.5) L D 06/07/20 00:09 Magnesium 2.20 mg/dL (1.7-2.3) 06/07/20 00:09 Ferritin > 2000.0 ng/mL (13.0-400.0) H 06/07/20 14:53 Total Bilirubin 0.80 mg/dL (0.1-1.2) 06/06/20 15:45 AST 151 units/L (5-40) H 06/06/20 15:45 ALT 157 units/L (7-56) H 06/06/20 15:45 Alkaline Phosphatase 117 units/L (35-129) 06/06/20 15:45 Lactate Dehydrogenase 517 units/L (91-180) H 06/07/20 14:53 Troponin T < 0.010 ng/mL (0.00-0.029) 06/06/20 15:45 C-Reactive Protein 46.00 mg/dL (0.00-1.30) H 06/07/20 14:53 NT-Pro-B Natriuret Pep 5086 pg/mL (0-450) H 06/06/20 15:45 Total Protein 8.1 g/dL (6.3-8.2) 06/06/20 15:45 Albumin 3.0 g/dL (3.9-5) L 06/06/20 15:45 Albumin/Globulin Ratio 0.6 % 06/06/20 15:45 Procalcitonin 5.49 ng/mL (<0.15) 06/07/20 14:53 Urine Color Yellow (Yellow) 06/06/20 18:42 Urine Turbidity Slightly-cloudy (Clear) 06/06/20 18:42 Urine pH 5.0 (5.0-7.0) 06/06/20 18:42 Ur Specific [place] 1.013 (1.003-1.030) 06/06/20 18:42 Urine Protein 100 mg/dl mg/dL (Negative) 06/06/20 18:42 Urine Glucose (UA) >=500 mg/dL (Negative) 06/06/20 18:42 Urine Ketones 20 mg/dL (Negative) 06/06/20 18:42 Urine Blood Mod (Negative) 06/06/20 18:42 Urine Nitrite Neg (Negative) 06/06/20 18:42 Urine Bilirubin Neg (Negative) 06/06/20 18:42 Urine Urobilinogen < 2.0 mg/dL (<2.0) 06/06/20 18:42 Ur Leukocyte Esterase Sm (Negative) 06/06/20 18:42 Urine WBC (Auto) 57.0 /HPF (0.0-6.0) H 06/06/20 18:42 Urine RBC (Auto) 9.0 /HPF (0.0-6.0) 06/06/20 18:42 U Epithel Cells (Auto) < 1.0 /HPF (0-13.0) 06/06/20 18:42 Urine Bacteria (Auto) 1+ /HPF (Negative) 06/06/20 18:42 Urine Mucus Few /HPF 06/06/20 18:42 Urine Yeast (Budding) 1+ /HPF 06/06/20 18:42 Coronavirus (PCR) Positive (Negative) A 06/07/20 Unknown Microbiology: Microbiology 06/06/20 15:49 Peripheral/Venous Blood Culture - Preliminary NO GROWTH AFTER 72 HOURS 06/06/20 15:49 Peripheral/Venous Blood Culture - Preliminary NO GROWTH AFTER 72 HOURS - Diagnostic Impressions Diagnostic Impressions: Echocardiogram 06/07/20 09:27 Transthoracic Echocardiogram Indication: SOB BP: 111/75 HR: 108 Conclusions *The left ventricular chamber size is severely dilated. *Mild concentric left ventricular hypertrophy is observed. *Global left ventricular systolic function is severely decreased. *The estimated ejection fraction is 15-20%. *The left atrium is moderately dilated. *There is mild to moderate mitral regurgitation. *There is trace-mild tricuspid regurgitation. *There is evidence of borderline pulmonary hypertension. Findings Left Ventricle: The left ventricular chamber size is severely dilated. Mild concentric left ventricular hypertrophy is observed. Global left ventricular systolic function is severely decreased. The estimated ejection fraction is 15-20%. Left Atrium: The left atrium is moderately dilated. Right Ventricle: The right ventricle is slightly dilated. The right ventricular global systolic function is normal. Right Atrium: The right atrium is mildly dilated. Aortic Valve: The aortic valve is trileaflet. The aortic valve leaflets are mildly thickened. There is no evidence of aortic regurgitation. There is no evidence of aortic stenosis. Mitral Valve: The mitral valve leaflets are mildly thickened. There is mild to moderate mitral regurgitation. There is no evidence of mitral stenosis. Tricuspid Valve: There is trace tricuspid regurgitation. The right ventricular systolic pressure is calculated at 25 mmHg. There is evidence of borderline pulmonary hypertension. Pulmonic Valve: There is mild pulmonic regurgitation. Pericardium: There is no pericardial effusion. Aorta: There is no dilatation of the ascending aorta. There is no dilatation of the aortic root. Venous: The inferior vena cava appears normal in size. Measurements Chambers 2D Name Value Normal Range IVSd (2D) 1.29 cm (0.6 - 1.1) LVPWd (2D) 1.26 cm (0.6 - 1.1) LVIDd (2D) 6.03 cm (3.7 - 5.6) LVIDs (2D) 5.02 cm (2 - 3.8) LV FS (2D) 16.83 % - EF Teichholz (2D) 34.6 % - Ao root diameter (2D) 3.06 cm (2 - 3.7) Volumes/Mass Name Value Normal Range LA ESV SP 4CH (A/L) 56.08 ml - LA ESV SP 2CH (A/L) 57.68 ml - LA ESV BP (A/L) 58.34 ml - LA ESV BP (A/L) index 20.19 ml/m2 - LA ESV SP 4CH (MOD) 50.86 ml - LA ESV SP 2CH (MOD) 55.46 ml - LA ESV BP (MOD) 54.34 ml - LA ESV BP (MOD) index 18.8 ml/m2 - Diastolic/Systolic Function Name Value Normal Range MV E-wave Vmax 0.64 m/sec - MV deceleration time 166.65 msec - MV A-wave Vmax 0.56 m/sec - MV E:A ratio 1.15 ratio - Aortic Valve Name Value Normal Range AV Vmax 1.37 m/sec - AV VTI 17.93 cm - AV peak gradient 7.55 mmHg - AV mean gradient 4.66 mmHg - LVOT diameter 2.06 cm - LVOT Vmax 1.24 m/sec - LVOT VTI 16.7 cm - LVOT peak gradient 6.17 mmHg - LVOT mean gradient 3.55 mmHg - SV LVOT 55.69 ml - CLAUDINE (continuity Vmax) 3.02 cm2 - CLAUDINE (continuity VTI) 3.11 cm2 - Ascending Ao 3.12 cm - Mitral Valve Name Value Normal Range MR Vmax 2.69 m/sec - Tricuspid Valve Name Value Normal Range TR Vmax 2.35 m/sec - TR peak gradient 22 mmHg - RAP 3 mmHg - RVSP 25 mmHg - IVC diameter 1.87 cm (1.2 - 2.3) Pulmonic Valve/Qp:Qs Name Value Normal Range PV Vmax 1.15 m/sec - PV peak gradient 5.32 mmHg - NH end-diastolic Vmax 1.19 m/sec - PV acceleration time 125.59 msec - León/IV: Voiding Method Indwelling Catheter IV Catheter Type [Left Hand] Peripheral IV IV Catheter Type [Right INT / Saline Lock Forearm] Active Medications - Current Medications Current Medications: Generic Name Dose Route Start Last Admin Trade Name Freq PRN Reason Stop Dose Admin Acetaminophen 650 mg 06/08/20 18:13 06/09/20 22:27 Tylenol PO 650 mg Q6H PRN Administration Pain, Mild (1-3) Ascorbic Acid 500 mg 06/07/20 22:00 06/10/20 10:18 Vitamin C PO 500 mg BID CAROLYN Administration Aspirin 81 mg 06/08/20 13:00 06/10/20 10:18 Halfprin Ec PO 81 mg QDAY CAROLYN Administration Azithromycin 500 mg 06/07/20 16:00 06/10/20 10:18 Zithromax PO 500 mg QDAY CAROLYN Administration Carvedilol 6.25 mg 06/08/20 12:00 06/10/20 10:18 Coreg PO 6.25 mg BID CAROLYN Administration Dexamethasone 8 mg 06/08/20 15:00 06/10/20 10:17 Decadron PO 8 mg DAILY CAROLYN Administration Dextrose 50 ml 06/09/20 11:57 D50w (25gm) Syringe IV Q30MIN PRN Hypoglycemia Protocol Famotidine 20 mg 06/08/20 10:00 06/10/20 10:18 Pepcid PO 20 mg QDAY CAROLYN Administration Furosemide 40 mg 06/07/20 18:00 06/10/20 06:36 Lasix IV 40 mg 0600,1800 CAROLYN Administration Heparin Sodium (Porcine) 5,000 unit 06/07/20 15:00 06/10/20 06:37 Heparin SUB-Q 5,000 unit Q8HR CAROLYN Administration Hydralazine HCl 25 mg 06/08/20 22:00 06/10/20 10:18 Apresoline PO 25 mg Q12HR CAROLYN Administration Ceftriaxone Sodium 2 gm in 100 mls @ 200 mls/hr 06/07/20 15:00 06/09/20 16:55 Rocephin/Ns 2 Gm/100 Ml IV Infused Q24H CAROLYN Infusion Protocol Sodium Chloride 1,000 mls @ 125 mls/hr 06/08/20 06:30 06/10/20 10:28 Nacl 0.9% 1000 Ml IV 125 mls/hr DIRECT CAROLYN Administration REMDESIVIR 100 mg/ Sodium 250 mls @ 500 mls/hr 06/10/20 17:00 Chloride IV 06/13/20 17:29 Q24H CAROLYN Insulin Glargine 10 units 06/10/20 22:00 Lantus SUB-Q QHS CAROLYN Insulin Human Lispro 0 unit 06/07/20 12:30 06/10/20 06:36 Humalog SUB-Q 17 unit Q6HR CAROLYN Administration Protocol Isosorbide Dinitrate 20 mg 06/08/20 13:00 06/10/20 10:17 Isordil PO 20 mg BID CAROLYN Administration Morphine Sulfate 2 mg 06/07/20 09:34 06/08/20 06:26 Morphine IV 2 mg Q4H PRN Administration Pain, Moderate (4-6) Sodium Chloride 50 ml 06/09/20 17:00 06/09/20 22:06 Nacl 0.9% IV 06/13/20 17:01 50 ml Q24H CAROLYN Administration Zinc Sulfate 220 mg 06/07/20 22:00 06/10/20 10:18 Zinc Sulfate PO 220 mg BID CAROLYN Administration Nutrition/Malnutrition Assess - Dietary Evaluation Nutrition/Malnutrition Findings: Nutrition Notes Start: 06/07/20 08:57 Freq: Status: Active Protocol: Document 06/09/20 14:17 LM (Rec: 06/09/20 14:40 LM [email or web address]) Nutrition Notes Initial or Follow up Brief Note Current Diagnosis Acute Kidney Injury,Diabetes, Hypertension,Heart Failure Other Pertinent Diagnosis DKA, COVID-19 Current Diet consistent CHO Labs/Tests POC glu 396 Pertinent Medications Lasix Vitamin C Humalog Height 6 ft 1 in Weight 168.5 kg [place] Body Weight (kg) 83.63 BMI 49.0 Subjective/Other Information Pt stated he is eating well and unaware of wt loss. Provided pt with DM diet education. Pt is on fluid/Na restriction. Pt with 75% intakes in chart. #1 Nutrition Diagnosis Food and nutrition-related knowledge deficit Etiology pt with limited prior DM diet education As Evidenced by Signs and Symptoms POC glu 396 Nutrition Intervention Teaching Recipient Patient Learning Readiness Good Teaching Methods Discussion,Handout Response to Teaching Verbalize understanding, Reinforcement needed Education Handouts Provided Carbohydrate Counting for People with DM Barriers to Learning No Barriers RD phone number provided Yes Patient aware of follow up options Yes Revisit per MD consult or patient Sign Off request:
[2020-06-10] MEDS: cefTRIAXone/NS 2 GM/100 ML 2 GM/100 ML BAG IV SCH (15:47)
[2020-06-10] MEDS: REMDESIVIR 100 MG in SODIUM CHLORIDE 0.9% 250ML 250 ML IV SCH (17:05)
[2020-06-10] MEDS: SODIUM CHLORIDE 0.9% 50 ML IVPB IV SCH (18:00)
--- NOTE | 2020-06-10 18:04 | Progress Note ---
Assessment and Plan Cultures: Blood culture: no growth COVID-19: Positive A/P: 39-year-old male with morbid obesity, diabetes mellitus: #Fever, bilateral pneumonia: secondary to COVID: s/p Actemra 06/09/2020 #Acute hypoxic respiratory failure: oxygen being weaned #Congestive heart failure #DKA #Morbid obesity #NA: monitor creatinine. Recs: Creatinine now elevated, but EGFR is 32, will contine IV Remdesivir D2 of 5, might have to stop if creatinine continues to increase Continue steroids x 10 days Tight glycemic control monitor COVID related inflammatory biomarkers continue empiric ceftriaxone and azithromycin for now Mahin Golden MD, FACP [facility] C: [phone] O: [phone] F: [phone] Subjective Date of service: 06/10/20 Interval history: No fever. Oxygen being weaned. Objective - Exam Narrative Exam: Physical Exam (reviewed in chart due to PPE conservation) Constitutional: limited due to PPE conservation strategy Head, Ears, Nose: limited due to PPE conservation strategy Eyes: limited due to PPE conservation strategy Neck: limited due to PPE conservation strategy Oral: limited due to PPE conservation strategy Cardiovascular: limited due to PPE conservation strategy Respiratory: limited due to PPE conservation strategy GI: limited due to PPE conservation strategy Musculoskeletal: limited due to PPE conservation strategy Skin: limited due to PPE conservation strategy Hem/Lymphatic: limited due to PPE conservation strategy Psych: limited due to PPE conservation strategy Neurological: limited due to PPE conservation strategy - Constitutional Vitals: Vital Signs Temp Pulse Resp BP Pulse Ox 97.3 F L 90 22 96/51 91 06/10/20 11:29 06/10/20 11:29 06/10/20 11:29 06/10/20 11:29 06/10/20 11:29 Temperature -Last 24 Hours Temperature 97.3 F Temperature 97.4 F Temperature 99.0 F - Labs CBC & Chem 7: 06/06/20 15:45 06/10/20 10:27 Labs: Abnormal lab results 06/09/20 06/09/20 06/10/20 Range/Units 17:32 23:50 05:20 Sodium (137-145) mmol/L Carbon Dioxide (22-30) mmol/L BUN (9-20) mg/dL Creatinine (0.8-1.5) mg/dL Glucose (75-100) mg/dL POC Glucose 457 H 428 H 405 H (70-105) Calcium (8.4-10.2) mg/dL 06/10/20 06/10/20 06/10/20 Range/Units 10:27 11:49 16:25 Sodium 130 L (137-145) mmol/L Carbon Dioxide 17 L (22-30) mmol/L BUN 55 H (9-20) mg/dL Creatinine 2.7 H (0.8-1.5) mg/dL Glucose 452 H (75-100) mg/dL POC Glucose 391 H 432 H (70-105) Calcium 8.1 L (8.4-10.2) mg/dL
[2020-06-10] MEDS: INSULIN GLARGINE 100 UNITS/ML SUB-Q SCH (22:50)
[2020-06-11] MEDS ORDERED: INSULIN LISPRO 100 UNIT/ML SUB-Q ONE ×4 (00:04)
[2020-06-11] MEDS: INSULIN LISPRO 100 UNIT/ML SUB-Q SCH ×5 (00:04→23:55)
[2020-06-11] MEDS: FUROSEMIDE 40 MG/4 ML INJ IV SCH ×2 (05:26→18:01)
[2020-06-11] MEDS: HEPARIN 5,000 UNIT/1 ML VIAL SUB-Q SCH ×3 (05:26→21:45)
--- NOTE | 2020-06-11 09:08 | Progress Note ---
Assessment and Plan 1. Chronic combined systolic and diastolic heart failure 2. Dilated cardiomyopathy 3. Type 2 diabetes mellitus with complicating diabetic ketoacidosis 4. Acute renal failure 5. Essential hypertension 6. COVID-19 positive Plan Monitor input and output closely patient currently in a negative fluid balance management of COVID 19 viral infection as per infectious disease and hospitalist. Subjective Date of service: 06/18/20 Interval history: No cardiac symptoms Objective Vital Signs Temp Pulse Pulse Resp BP BP Pulse Ox 06/11/20 05:29 98.6 F 20 121/76 93 06/11/20 03:34 80 90 06/11/20 02:02 98.4 F 80 20 108/66 88 06/10/20 23:18 88 108/66 83 L 06/10/20 22:38 86 135/89 06/10/20 22:00 80 20 88 06/10/20 16:08 98.9 F 70 121/57 96 06/10/20 11:29 97.3 F L 90 22 96/51 91 - Physical Examination General: Appears Well, No Apparent Distress HEENT: Positive: Normocephaly, Mucus Membranes Moist Neck: Positive: neck supple. Negative: JVD/HJR Cardiac: Positive: Regular Rate, S1/S2, S3, PMI, Dilated, Laterally Displaced Lungs: Positive: Rhonchi Neuro: Positive: Grossly Intact Abdomen: Positive: Unremarkable, Active Bowel Sounds Extremities: Absent: edema - Labs and Meds Comprehensive Metabolic Panel 06/10/20 Range/Units 10:27 Sodium 130 L (137-145) mmol/L Potassium 4.5 (3.6-5.0) mmol/L Chloride 99.5 (98-107) mmol/L Carbon Dioxide 17 L (22-30) mmol/L BUN 55 H (9-20) mg/dL Creatinine 2.7 H (0.8-1.5) mg/dL Glucose 452 H (75-100) mg/dL Calcium 8.1 L (8.4-10.2) mg/dL - Imaging and Cardiology EKG: report reviewed - Allied health notes Allied health notes reviewed: RT
[2020-06-11] MEDS: ASPIRIN EC 81 MG TAB PO SCH (10:22)
[2020-06-11] MEDS: FAMOTIDINE 20 MG TAB PO SCH (10:22)
[2020-06-11] MEDS: DEXAMETHASONE 4 MG TAB PO SCH (10:22)
[2020-06-11] MEDS: hydrALAZINE 25 MG TAB PO SCH ×2 (10:23→22:36)
[2020-06-11] MEDS: AZITHROMYCIN 250 MG TAB PO SCH (10:23)
[2020-06-11] MEDS: carvediloL 6.25 MG TAB PO SCH ×2 (10:24→22:35)
[2020-06-11] MEDS: ZINC SULFATE 220 MG CAP PO SCH ×2 (10:25→21:45)
[2020-06-11] MEDS: ASCORBIC ACID 500 MG TAB PO SCH ×2 (10:25→21:45)
[2020-06-11] MEDS: ISOSORBIDE DINITRATE 20 MG TAB PO SCH ×2 (10:25→22:35)
--- NOTE | 2020-06-11 11:10 | Progress Note ---
Assessment and Plan - Patient Problems (1) Pneumonia due to 2019-nCoV Current Visit: Yes Status: Acute Plan to address problem: -ID consult and recommendations appreciated - s/p Acetemra 06/09 - On Remdesiver day 2, azithromycin and cefepime - On IV Decadron day 03/11 - At risk for decompensation 2/2 of OHS and noncompliance with supplemental oxygen - Supplemental oxygen for SpO2> 95 - Prone to sleep - PRN dounebs - Pulmonary hygiene - Continue supportive care (2) Acute exacerbation of CHF (congestive heart failure) Current Visit: Yes Status: Acute Qualifiers: Heart failure type: combined systolic and diastolic Qualified Code(s): I50.43 - Acute on chronic combined systolic (congestive) and diastolic (congestive) heart failure Plan to address problem: - Cardiology following - EF 15% - Continue management per cardiology team - Receiving Coreg, Lasix, Hydralazine, and Isordil - Continue supportive care - Cardiac diet with fluid restriction (3) Obesity hypoventilation syndrome Current Visit: Yes Status: Acute Plan to address problem: - Supplemental oxygen to optimize SP02 - Pulmonary hygiene - NIPPV use if needed (4) Excoriation Current Visit: Yes Status: Acute Plan to address problem: - Wound care following - Wound care per nursing (5) Urinary tract infection Current Visit: Yes Status: Acute Qualifiers: Indwelling urinary catheter type: indwelling urethral catheter Encounter type: initial encounter Plan to address problem: - IV antibiotics - remove kendall and place condom catheter as excoriation is on scrotum and not penile shaft (6) Uncontrolled diabetes mellitus Current Visit: Yes Status: Acute Plan to address problem: - SSI and Lantus but remains hyperglycemic - Change Lantus to 7 Units BID - In light of steroids, infection and stressors may be multifactored (7) Hypertension Current Visit: Yes Status: Chronic Qualifiers: Hypertension type: essential hypertension Qualified Code(s): I10 - Adelina goodman (primary) hypertension Plan to address problem: - Continue management with antihypertensives - Cardiology following - BP monitoring per protocol (8) Morbid obesity Current Visit: Yes Status: Chronic Plan to address problem: - Cardiac diet - Nutrition and physical activity counseling (9) DVT prophylaxis Current Visit: Yes Status: Acute Plan to address problem: - Subq Heparin - SCDS while in bed History Interval history: Patient continues to be hyperglycemic despite changes in long acting insulin. He continues to be noncompliant with supplemental oxygen via venturi mask and proning to sleep. He states he is still experiencing SOB at rest and exertion. Hospitalist Physical - Constitutional Vitals: Temp Pulse Resp BP Pulse Ox 98.6 F 77 20 102/65 90 06/11/20 05:29 06/11/20 10:25 06/11/20 09:26 06/11/20 10:25 06/11/20 09:26 General appearance: Present: mild distress, well-nourished, obese - EENT Eyes: Present: PERRL ENT: hearing intact - Neck Neck: Present: normal ROM - Respiratory Respiratory effort: labored Respiratory: bilateral: diminished - Cardiovascular Rhythm: regular - Extremities Extremities: pulses intact, pulses symmetrical, No edema - Abdominal General gastrointestinal: soft, non-tender - Integumentary Integumentary: Present: warm, dry - Psychiatric Psychiatric: depressed - Neurologic Neurologic: moves all extremities - Allied Health Allied health notes reviewed: nursing HEART Score - HEART Score Risk factors: > 3 risk factors or hx of atherosclerotic disease Troponin: Troponin T < 0.010 ng/mL (0.00-0.029) 06/06/20 15:45 - Critical Actions Critical Actions: >7 pts:50-65% risk of adverse cardiac event. Early invasive measures Results - Labs CBC & Chem 7: 06/06/20 15:45 06/10/20 10:27 Labs: Laboratory Last Values WBC 9.6 K/mm3 (4.5-11.0) 06/06/20 15:45 RBC 4.86 M/mm3 (3.65-5.03) 06/06/20 15:45 Hgb 14.0 gm/dl (11.8-15.2) 06/06/20 15:45 Hct 44.0 % (35.5-45.6) 06/06/20 15:45 MCV 91 fl (84-94) 06/06/20 15:45 MCH 29 pg (28-32) 06/06/20 15:45 MCHC 32 % (32-34) 06/06/20 15:45 RDW 14.3 % (13.2-15.2) 06/06/20 15:45 Plt Count 198 K/mm3 (140-440) 06/06/20 15:45 Lymph % (Auto) 6.6 % (13.4-35.0) L 06/06/20 15:45 [place] % (Auto) 5.8 % (0.0-7.3) 06/06/20 15:45 Eos % (Auto) 0.0 % (0.0-4.3) 06/06/20 15:45 Baso % (Auto) 0.4 % (0.0-1.8) 06/06/20 15:45 Lymph # 0.6 K/mm3 (1.2-5.4) L 06/06/20 15:45 [place] # 0.6 K/mm3 (0.0-0.8) 06/06/20 15:45 Eos # 0.0 K/mm3 (0.0-0.4) 06/06/20 15:45 Baso # 0.0 K/mm3 (0.0-0.1) 06/06/20 15:45 Seg Neutrophils % 87.2 % (40.0-70.0) H 06/06/20 15:45 Seg Neutrophils # 8.4 K/mm3 (1.8-7.7) H 06/06/20 15:45 D-Dimer 975.20 ng/mlDDU (0-234) H 06/07/20 14:53 VBG pH 7.300 (7.320-7.420) L 06/06/20 15:45 Sodium 130 mmol/L (137-145) L 06/10/20 10:27 Potassium 4.5 mmol/L (3.6-5.0) 06/10/20 10:27 Chloride 99.5 mmol/L (98-107) 06/10/20 10:27 Carbon Dioxide 17 mmol/L (22-30) L 06/10/20 10:27 Anion Gap 18 mmol/L 06/10/20 10:27 BUN 55 mg/dL (9-20) H 06/10/20 10:27 Creatinine 2.7 mg/dL (0.8-1.5) H 06/10/20 10:27 Estimated GFR 32 ml/min 06/10/20 10:27 BUN/Creatinine Ratio 20 % 06/10/20 10:27 Glucose 452 mg/dL (75-100) H 06/10/20 10:27 POC Glucose 438 (70-105) H 06/11/20 06:39 Hemoglobin A1c 17.4 % (4-6) H 06/07/20 00:09 Lactic Acid 2.20 mmol/L (0.7-2.0) H* 06/07/20 14:53 Calcium 8.1 mg/dL (8.4-10.2) L 06/10/20 10:27 Phosphorus 1.90 mg/dL (2.5-4.5) L D 06/07/20 00:09 Magnesium 2.20 mg/dL (1.7-2.3) 06/07/20 00:09 Ferritin > 2000.0 ng/mL (13.0-400.0) H 06/07/20 14:53 Total Bilirubin 0.80 mg/dL (0.1-1.2) 06/06/20 15:45 AST 151 units/L (5-40) H 06/06/20 15:45 ALT 157 units/L (7-56) H 06/06/20 15:45 Alkaline Phosphatase 117 units/L (35-129) 06/06/20 15:45 Lactate Dehydrogenase 517 units/L (91-180) H 06/07/20 14:53 Troponin T < 0.010 ng/mL (0.00-0.029) 06/06/20 15:45 C-Reactive Protein 46.00 mg/dL (0.00-1.30) H 06/07/20 14:53 NT-Pro-B Natriuret Pep 5086 pg/mL (0-450) H 06/06/20 15:45 Total Protein 8.1 g/dL (6.3-8.2) 06/06/20 15:45 Albumin 3.0 g/dL (3.9-5) L 06/06/20 15:45 Albumin/Globulin Ratio 0.6 % 06/06/20 15:45 Procalcitonin 5.49 ng/mL (<0.15) 06/07/20 14:53 Urine Color Yellow (Yellow) 06/06/20 18:42 Urine Turbidity Slightly-cloudy (Clear) 06/06/20 18:42 Urine pH 5.0 (5.0-7.0) 06/06/20 18:42 Ur Specific [place] 1.013 (1.003-1.030) 06/06/20 18:42 Urine Protein 100 mg/dl mg/dL (Negative) 06/06/20 18:42 Urine Glucose (UA) >=500 mg/dL (Negative) 06/06/20 18:42 Urine Ketones 20 mg/dL (Negative) 06/06/20 18:42 Urine Blood Mod (Negative) 06/06/20 18:42 Urine Nitrite Neg (Negative) 06/06/20 18:42 Urine Bilirubin Neg (Negative) 06/06/20 18:42 Urine Urobilinogen < 2.0 mg/dL (<2.0) 06/06/20 18:42 Ur Leukocyte Esterase Sm (Negative) 06/06/20 18:42 Urine WBC (Auto) 57.0 /HPF (0.0-6.0) H 06/06/20 18:42 Urine RBC (Auto) 9.0 /HPF (0.0-6.0) 06/06/20 18:42 U Epithel Cells (Auto) < 1.0 /HPF (0-13.0) 06/06/20 18:42 Urine Bacteria (Auto) 1+ /HPF (Negative) 06/06/20 18:42 Urine Mucus Few /HPF 06/06/20 18:42 Urine Yeast (Budding) 1+ /HPF 06/06/20 18:42 Coronavirus (PCR) Positive (Negative) A 06/07/20 Unknown Microbiology: Microbiology 06/06/20 15:49 Peripheral/Venous Blood Culture - Preliminary NO GROWTH AFTER 4 DAYS 06/06/20 15:49 Peripheral/Venous Blood Culture - Preliminary NO GROWTH AFTER 4 DAYS - Diagnostic Impressions Diagnostic Impressions: Echocardiogram 06/07/20 09:27 Transthoracic Echocardiogram Indication: SOB BP: 111/75 HR: 108 Conclusions *The left ventricular chamber size is severely dilated. *Mild concentric left ventricular hypertrophy is observed. *Global left ventricular systolic function is severely decreased. *The estimated ejection fraction is 15-20%. *The left atrium is moderately dilated. *There is mild to moderate mitral regurgitation. *There is trace-mild tricuspid regurgitation. *There is evidence of borderline pulmonary hypertension. Findings Left Ventricle: The left ventricular chamber size is severely dilated. Mild concentric left ventricular hypertrophy is observed. Global left ventricular systolic function is severely decreased. The estimated ejection fraction is 15-20%. Left Atrium: The left atrium is moderately dilated. Right Ventricle: The right ventricle is slightly dilated. The right ventricular global systolic function is normal. Right Atrium: The right atrium is mildly dilated. Aortic Valve: The aortic valve is trileaflet. The aortic valve leaflets are mildly thickened. There is no evidence of aortic regurgitation. There is no evidence of aortic stenosis. Mitral Valve: The mitral valve leaflets are mildly thickened. There is mild to moderate mitral regurgitation. There is no evidence of mitral stenosis. Tricuspid Valve: There is trace tricuspid regurgitation. The right ventricular systolic pressure is calculated at 25 mmHg. There is evidence of borderline pulmonary hypertension. Pulmonic Valve: There is mild pulmonic regurgitation. Pericardium: There is no pericardial effusion. Aorta: There is no dilatation of the ascending aorta. There is no dilatation of the aortic root. Venous: The inferior vena cava appears normal in size. Measurements Chambers 2D Name Value Normal Range IVSd (2D) 1.29 cm (0.6 - 1.1) LVPWd (2D) 1.26 cm (0.6 - 1.1) LVIDd (2D) 6.03 cm (3.7 - 5.6) LVIDs (2D) 5.02 cm (2 - 3.8) LV FS (2D) 16.83 % - EF Teichholz (2D) 34.6 % - Ao root diameter (2D) 3.06 cm (2 - 3.7) Volumes/Mass Name Value Normal Range LA ESV SP 4CH (A/L) 56.08 ml - LA ESV SP 2CH (A/L) 57.68 ml - LA ESV BP (A/L) 58.34 ml - LA ESV BP (A/L) index 20.19 ml/m2 - LA ESV SP 4CH (MOD) 50.86 ml - LA ESV SP 2CH (MOD) 55.46 ml - LA ESV BP (MOD) 54.34 ml - LA ESV BP (MOD) index 18.8 ml/m2 - Diastolic/Systolic Function Name Value Normal Range MV E-wave Vmax 0.64 m/sec - MV deceleration time 166.65 msec - MV A-wave Vmax 0.56 m/sec - MV E:A ratio 1.15 ratio - Aortic Valve Name Value Normal Range AV Vmax 1.37 m/sec - AV VTI 17.93 cm - AV peak gradient 7.55 mmHg - AV mean gradient 4.66 mmHg - LVOT diameter 2.06 cm - LVOT Vmax 1.24 m/sec - LVOT VTI 16.7 cm - LVOT peak gradient 6.17 mmHg - LVOT mean gradient 3.55 mmHg - SV LVOT 55.69 ml - CLAUDINE (continuity Vmax) 3.02 cm2 - CLAUDINE (continuity VTI) 3.11 cm2 - Ascending Ao 3.12 cm - Mitral Valve Name Value Normal Range MR Vmax 2.69 m/sec - Tricuspid Valve Name Value Normal Range TR Vmax 2.35 m/sec - TR peak gradient 22 mmHg - RAP 3 mmHg - RVSP 25 mmHg - IVC diameter 1.87 cm (1.2 - 2.3) Pulmonic Valve/Qp:Qs Name Value Normal Range PV Vmax 1.15 m/sec - PV peak gradient 5.32 mmHg - NC end-diastolic Vmax 1.19 m/sec - PV acceleration time 125.59 msec - Kendall/IV: Voiding Method Condom Catheter IV Catheter Type [Right Hand] INT / Saline Lock IV Catheter Type [Left Hand] Peripheral IV IV Catheter Type [Right INT / Saline Lock Forearm] Active Medications - Current Medications Current Medications: Generic Name Dose Route Start Last Admin Trade Name [place] PRN Reason Stop Dose Admin Acetaminophen 650 mg 06/08/20 18:13 06/09/20 22:27 Tylenol PO 650 mg Q6H PRN Administration Pain, Mild (1-3) Ascorbic Acid 500 mg 06/07/20 22:00 06/11/20 10:25 Vitamin C PO 500 mg BID CAROLYN Administration Aspirin 81 mg 06/08/20 13:00 06/11/20 10:22 Halfprin Ec PO 81 mg QDAY CAROLYN Administration Azithromycin 500 mg 06/07/20 16:00 06/11/20 10:23 Zithromax PO 500 mg QDAY CAROLYN Administration Carvedilol 6.25 mg 06/08/20 12:00 06/11/20 10:24 Coreg PO Not Given BID CAROLYN Dexamethasone 8 mg 06/08/20 15:00 06/11/20 10:22 Decadron PO 8 mg DAILY CAROLYN Administration Dextrose 50 ml 06/09/20 11:57 D50w (25gm) Syringe IV Q30MIN PRN Hypoglycemia Protocol Famotidine 20 mg 06/08/20 10:00 06/11/20 10:22 Pepcid PO 20 mg QDAY CAROLYN Administration Furosemide 40 mg 06/07/20 18:00 06/11/20 05:26 Lasix IV 40 mg 0600,1800 CAROLYN Administration Heparin Sodium (Porcine) 5,000 unit 06/07/20 15:00 06/11/20 05:26 Heparin SUB-Q 5,000 unit Q8HR CAROLYN Administration Hydralazine HCl 25 mg 06/08/20 22:00 06/11/20 10:23 Apresoline PO Not Given Q12HR CAROLYN Ceftriaxone Sodium 2 gm in 100 mls @ 200 mls/hr 06/07/20 15:00 06/10/20 15:47 Rocephin/Ns 2 Gm/100 Ml IV 200 mls/hr Q24H CAROLYN Administration Protocol Sodium Chloride 1,000 mls @ 125 mls/hr 06/08/20 06:30 06/10/20 10:28 Nacl 0.9% 1000 Ml IV 125 mls/hr DIRECT CAROLYN Administration REMDESIVIR 100 mg/ Sodium 250 mls @ 500 mls/hr 06/10/20 17:00 06/10/20 17:05 Chloride IV 06/13/20 17:29 500 mls/hr Q24H CAROLYN Administration Insulin Glargine 10 units 06/10/20 22:00 06/10/20 22:50 Lantus SUB-Q 10 units QHS CAROLYN Administration Insulin Human Lispro 0 unit 06/07/20 12:30 06/11/20 06:28 Humalog SUB-Q 17 unit Q6HR CAROLYN Administration Protocol Isosorbide Dinitrate 20 mg 06/08/20 13:00 06/11/20 10:25 Isordil PO Not Given BID CAROLYN Morphine Sulfate 2 mg 06/07/20 09:34 06/08/20 06:26 Morphine IV 2 mg Q4H PRN Administration Pain, Moderate (4-6) Sodium Chloride 50 ml 06/09/20 17:00 06/10/20 18:00 Nacl 0.9% IV 06/13/20 17:01 50 ml Q24H CAROLYN Administration Zinc Sulfate 220 mg 06/07/20 22:00 06/10/20 22:39 Zinc Sulfate PO 220 mg BID CAROLYN Administration Nutrition/Malnutrition Assess - Dietary Evaluation Nutrition/Malnutrition Findings: Nutrition Notes Start: 06/07/20 08:57 Freq: Status: Active Protocol: Document 06/09/20 14:17 LM (Rec: 06/09/20 14:40 LM [id number]) Nutrition Notes Initial or Follow up Brief Note Current Diagnosis Acute Kidney Injury,Diabetes, Hypertension,Heart Failure Other Pertinent Diagnosis DKA, COVID-19 Current Diet consistent CHO Labs/Tests POC glu 396 Pertinent Medications Lasix Vitamin C Humalog Height 6 ft 1 in Weight 168.5 kg [place] Body Weight (kg) 83.63 BMI 49.0 Subjective/Other Information Pt stated he is eating well and unaware of wt loss. Provided pt with DM diet education. Pt is on fluid/Na restriction. Pt with 75% intakes in chart. #1 Nutrition Diagnosis Food and nutrition-related knowledge deficit Etiology pt with limited prior DM diet education As Evidenced by Signs and Symptoms POC glu 396 Nutrition Intervention Teaching Recipient Patient Learning Readiness Good Teaching Methods Discussion,Handout Response to Teaching Verbalize understanding, Reinforcement needed Education Handouts Provided Carbohydrate Counting for People with DM Barriers to Learning No Barriers RD phone number provided Yes Patient aware of follow up options Yes Revisit per MD consult or patient Sign Off request:
--- NOTE | 2020-06-11 12:14 | Progress Note ---
Assessment and Plan - Patient Problems (1) Suspected 2019 novel coronavirus infection Current Visit: Yes Status: Acute Plan to address problem: Infectious disease consulted, COVID-19 protocol initiated. Coronavirus Positive, Remdesivir Day 3 of 5 . (2) CHF (congestive heart failure) Current Visit: Yes Status: Acute Qualifiers: Heart failure type: systolic Heart failure chronicity: acute Qualified Code(s): I50.21 - Acute systolic (congestive) heart failure Plan to address problem: Echocardiogram reveals ejection fraction of 15%, cardiology team consulted, strict I's/O, daily weight, monitor urine output every shift, afterload reduction, supportive care. (3) Urinary tract infection Current Visit: Yes Status: Acute Qualifiers: Encounter type: initial encounter Plan to address problem: IV antibiotic therapy, supportive care, repeat CBC. (4) Uncontrolled diabetes mellitus Current Visit: Yes Status: Acute Plan to address problem: Sliding scale insulin therapy, Accu-Chek, consistent carbohydrate diet, hypoglycemia protocol, Lantus QHS (5) Excoriation Current Visit: Yes Status: Acute Plan to address problem: Perineum: wound care consulted, absorbtive dressing as per wound care. Home Health/Wound care at discharge. (6) Obesity hypoventilation syndrome Current Visit: Yes Status: Acute Plan to address problem: Supplemental oxygen, nebulizer therapy, noninvasive positive pressure ventilation as clinically indicated, outpatient sleep study, pulmonary toilet, prone positioning while in bed, early ambulation, out of bed to chair 3 times daily and PRN. (7) DVT prophylaxis Current Visit: Yes Status: Acute Plan to address problem: SCD to bilateral lower extremities while in bed, prophylactic heparin History Interval history: 39 YO Male HD #5 with UTI, Obesity Hypoventilation Syndrome, Uncontrolled DM, [place] , COVID 19 on Remdesivir Day 3 of 5, Systolic CHF, Excoriation of skin to perineum. Echo reveals EF of 15%. Pt is lying in bed. Patient is moving all extremities well. Patient acknowledges persistent shortness of breath. Patient denies pain. No reported nursing events. wound care daily. Hospitalist Physical - Constitutional Vitals: Temp Pulse Resp BP Pulse Ox 98.6 F 77 20 102/65 90 06/11/20 05:29 06/11/20 10:25 06/11/20 09:26 06/11/20 10:25 06/11/20 09:26 General appearance: Present: mild distress, well-nourished, obese - EENT Eyes: Present: PERRL, EOM intact ENT: hearing intact - Neck Neck: Present: supple - Respiratory Respiratory effort: labored Respiratory: bilateral: diminished - Cardiovascular Rhythm: regular Heart Sounds: Present: S1 & S2 - Extremities Extremities: no ischemia Peripheral Pulses: within normal limits - Abdominal General gastrointestinal: soft, non-tender, non-distended - Integumentary Integumentary: Present: clear, dry - Psychiatric Psychiatric: appropriate mood/affect, cooperative - Neurologic Neurologic: CNII-XII intact HEART Score - HEART Score Risk factors: > 3 risk factors or hx of atherosclerotic disease Troponin: Troponin T < 0.010 ng/mL (0.00-0.029) 06/06/20 15:45 - Critical Actions Critical Actions: >7 pts:50-65% risk of adverse cardiac event. Early invasive measures Results - Labs CBC & Chem 7: 06/06/20 15:45 06/10/20 10:27 Labs: Laboratory Last Values WBC 9.6 K/mm3 (4.5-11.0) 06/06/20 15:45 RBC 4.86 M/mm3 (3.65-5.03) 06/06/20 15:45 Hgb 14.0 gm/dl (11.8-15.2) 06/06/20 15:45 Hct 44.0 % (35.5-45.6) 06/06/20 15:45 MCV 91 fl (84-94) 06/06/20 15:45 MCH 29 pg (28-32) 06/06/20 15:45 MCHC 32 % (32-34) 06/06/20 15:45 RDW 14.3 % (13.2-15.2) 06/06/20 15:45 Plt Count 198 K/mm3 (140-440) 06/06/20 15:45 Lymph % (Auto) 6.6 % (13.4-35.0) L 06/06/20 15:45 [place] % (Auto) 5.8 % (0.0-7.3) 06/06/20 15:45 Eos % (Auto) 0.0 % (0.0-4.3) 06/06/20 15:45 Baso % (Auto) 0.4 % (0.0-1.8) 06/06/20 15:45 Lymph # 0.6 K/mm3 (1.2-5.4) L 06/06/20 15:45 [place]iken # 0.6 K/mm3 (0.0-0.8) 06/06/20 15:45 Eos # 0.0 K/mm3 (0.0-0.4) 06/06/20 15:45 Baso # 0.0 K/mm3 (0.0-0.1) 06/06/20 15:45 Seg Neutrophils % 87.2 % (40.0-70.0) H 06/06/20 15:45 Seg Neutrophils # 8.4 K/mm3 (1.8-7.7) H 06/06/20 15:45 D-Dimer 975.20 ng/mlDDU (0-234) H 06/07/20 14:53 VBG pH 7.300 (7.320-7.420) L 06/06/20 15:45 Sodium 130 mmol/L (137-145) L 06/10/20 10:27 Potassium 4.5 mmol/L (3.6-5.0) 06/10/20 10:27 Chloride 99.5 mmol/L (98-107) 06/10/20 10:27 Carbon Dioxide 17 mmol/L (22-30) L 06/10/20 10:27 Anion Gap 18 mmol/L 06/10/20 10:27 BUN 55 mg/dL (9-20) H 06/10/20 10:27 Creatinine 2.7 mg/dL (0.8-1.5) H 06/10/20 10:27 Estimated GFR 32 ml/min 06/10/20 10:27 BUN/Creatinine Ratio 20 % 06/10/20 10:27 Glucose 452 mg/dL (75-100) H 06/10/20 10:27 POC Glucose 338 (70-105) H 06/11/20 11:35 Hemoglobin A1c 17.4 % (4-6) H 06/07/20 00:09 Lactic Acid 2.20 mmol/L (0.7-2.0) H* 06/07/20 14:53 Calcium 8.1 mg/dL (8.4-10.2) L 06/10/20 10:27 Phosphorus 1.90 mg/dL (2.5-4.5) L D 06/07/20 00:09 Magnesium 2.20 mg/dL (1.7-2.3) 06/07/20 00:09 Ferritin > 2000.0 ng/mL (13.0-400.0) H 06/07/20 14:53 Total Bilirubin 0.80 mg/dL (0.1-1.2) 06/06/20 15:45 AST 151 units/L (5-40) H 06/06/20 15:45 ALT 157 units/L (7-56) H 06/06/20 15:45 Alkaline Phosphatase 117 units/L (35-129) 06/06/20 15:45 Lactate Dehydrogenase 517 units/L (91-180) H 06/07/20 14:53 Troponin T < 0.010 ng/mL (0.00-0.029) 06/06/20 15:45 C-Reactive Protein 46.00 mg/dL (0.00-1.30) H 06/07/20 14:53 NT-Pro-B Natriuret Pep 5086 pg/mL (0-450) H 06/06/20 15:45 Total Protein 8.1 g/dL (6.3-8.2) 06/06/20 15:45 Albumin 3.0 g/dL (3.9-5) L 06/06/20 15:45 Albumin/Globulin Ratio 0.6 % 06/06/20 15:45 Procalcitonin 5.49 ng/mL (<0.15) 06/07/20 14:53 Urine Color Yellow (Yellow) 06/06/20 18:42 Urine Turbidity Slightly-cloudy (Clear) 06/06/20 18:42 Urine pH 5.0 (5.0-7.0) 06/06/20 18:42 Ur Specific Roxana 1.013 (1.003-1.030) 06/06/20 18:42 Urine Protein 100 mg/dl mg/dL (Negative) 06/06/20 18:42 Urine Glucose (UA) >=500 mg/dL (Negative) 06/06/20 18:42 Urine Ketones 20 mg/dL (Negative) 06/06/20 18:42 Urine Blood Mod (Negative) 06/06/20 18:42 Urine Nitrite Neg (Negative) 06/06/20 18:42 Urine Bilirubin Neg (Negative) 06/06/20 18:42 Urine Urobilinogen < 2.0 mg/dL (<2.0) 06/06/20 18:42 Ur Leukocyte Esterase Sm (Negative) 06/06/20 18:42 Urine WBC (Auto) 57.0 /HPF (0.0-6.0) H 06/06/20 18:42 Urine RBC (Auto) 9.0 /HPF (0.0-6.0) 06/06/20 18:42 U Epithel Cells (Auto) < 1.0 /HPF (0-13.0) 06/06/20 18:42 Urine Bacteria (Auto) 1+ /HPF (Negative) 06/06/20 18:42 Urine Mucus Few /HPF 06/06/20 18:42 Urine Yeast (Budding) 1+ /HPF 06/06/20 18:42 Coronavirus (PCR) Positive (Negative) A 06/07/20 Unknown Microbiology: Microbiology 06/06/20 15:49 Peripheral/Venous Blood Culture - Preliminary NO GROWTH AFTER 4 DAYS 06/06/20 15:49 Peripheral/Venous Blood Culture - Preliminary NO GROWTH AFTER 4 DAYS - Diagnostic Impressions Diagnostic Impressions: Echocardiogram 06/07/20 09:27 Transthoracic Echocardiogram Indication: SOB BP: 111/75 HR: 108 Conclusions *The left ventricular chamber size is severely dilated. *Mild concentric left ventricular hypertrophy is observed. *Global left ventricular systolic function is severely decreased. *The estimated ejection fraction is 15-20%. *The left atrium is moderately dilated. *There is mild to moderate mitral regurgitation. *There is trace-mild tricuspid regurgitation. *There is evidence of borderline pulmonary hypertension. Findings Left Ventricle: The left ventricular chamber size is severely dilated. Mild concentric left ventricular hypertrophy is observed. Global left ventricular systolic function is severely decreased. The estimated ejection fraction is 15-20%. Left Atrium: The left atrium is moderately dilated. Right Ventricle: The right ventricle is slightly dilated. The right ventricular global systolic function is normal. Right Atrium: The right atrium is mildly dilated. Aortic Valve: The aortic valve is trileaflet. The aortic valve leaflets are mildly thickened. There is no evidence of aortic regurgitation. There is no evidence of aortic stenosis. Mitral Valve: The mitral valve leaflets are mildly thickened. There is mild to moderate mitral regurgitation. There is no evidence of mitral stenosis. Tricuspid Valve: There is trace tricuspid regurgitation. The right ventricular systolic pressure is calculated at 25 mmHg. There is evidence of borderline pulmonary hypertension. Pulmonic Valve: There is mild pulmonic regurgitation. Pericardium: There is no pericardial effusion. Aorta: There is no dilatation of the ascending aorta. There is no dilatation of the aortic root. Venous: The inferior vena cava appears normal in size. Measurements Chambers 2D Name Value Normal Range IVSd (2D) 1.29 cm (0.6 - 1.1) LVPWd (2D) 1.26 cm (0.6 - 1.1) LVIDd (2D) 6.03 cm (3.7 - 5.6) LVIDs (2D) 5.02 cm (2 - 3.8) LV FS (2D) 16.83 % - EF Teichholz (2D) 34.6 % - Ao root diameter (2D) 3.06 cm (2 - 3.7) Volumes/Mass Name Value Normal Range LA ESV SP 4CH (A/L) 56.08 ml - LA ESV SP 2CH (A/L) 57.68 ml - LA ESV BP (A/L) 58.34 ml - LA ESV BP (A/L) index 20.19 ml/m2 - LA ESV SP 4CH (MOD) 50.86 ml - LA ESV SP 2CH (MOD) 55.46 ml - LA ESV BP (MOD) 54.34 ml - LA ESV BP (MOD) index 18.8 ml/m2 - Diastolic/Systolic Function Name Value Normal Range MV E-wave Vmax 0.64 m/sec - MV deceleration time 166.65 msec - MV A-wave Vmax 0.56 m/sec - MV E:A ratio 1.15 ratio - Aortic Valve Name Value Normal Range AV Vmax 1.37 m/sec - AV VTI 17.93 cm - AV peak gradient 7.55 mmHg - AV mean gradient 4.66 mmHg - LVOT diameter 2.06 cm - LVOT Vmax 1.24 m/sec - LVOT VTI 16.7 cm - LVOT peak gradient 6.17 mmHg - LVOT mean gradient 3.55 mmHg - SV LVOT 55.69 ml - CLAUDINE (continuity Vmax) 3.02 cm2 - CLAUDINE (continuity VTI) 3.11 cm2 - Ascending Ao 3.12 cm - Mitral Valve Name Value Normal Range MR Vmax 2.69 m/sec - Tricuspid Valve Name Value Normal Range TR Vmax 2.35 m/sec - TR peak gradient 22 mmHg - RAP 3 mmHg - RVSP 25 mmHg - IVC diameter 1.87 cm (1.2 - 2.3) Pulmonic Valve/Qp:Qs Name Value Normal Range PV Vmax 1.15 m/sec - PV peak gradient 5.32 mmHg - IL end-diastolic Vmax 1.19 m/sec - PV acceleration time 125.59 msec - León/IV: Voiding Method Condom Catheter IV Catheter Type [Right Hand] INT / Saline Lock IV Catheter Type [Left Hand] Peripheral IV IV Catheter Type [Right INT / Saline Lock Forearm] Active Medications - Current Medications Current Medications: Generic Name Dose Route Start Last Admin Trade Name Freq PRN Reason Stop Dose Admin Acetaminophen 650 mg 06/08/20 18:13 06/09/20 22:27 Tylenol PO 650 mg Q6H PRN Administration Pain, Mild (1-3) Ascorbic Acid 500 mg 06/07/20 22:00 06/11/20 10:25 Vitamin C PO 500 mg BID CAROLYN Administration Aspirin 81 mg 06/08/20 13:00 06/11/20 10:22 Halfprin Ec PO 81 mg QDAY CAROLYN Administration Azithromycin 500 mg 06/07/20 16:00 06/11/20 10:23 Zithromax PO 500 mg QDAY CAROLYN Administration Carvedilol 6.25 mg 06/08/20 12:00 06/11/20 10:24 Coreg PO Not Given BID CAROLYN Dexamethasone 8 mg 06/08/20 15:00 06/11/20 10:22 Decadron PO 8 mg DAILY CAROLYN Administration Dextrose 50 ml 06/09/20 11:57 D50w (25gm) Syringe IV Q30MIN PRN Hypoglycemia Protocol Famotidine 20 mg 06/08/20 10:00 06/11/20 10:22 Pepcid PO 20 mg QDAY CAROLYN Administration Furosemide 40 mg 06/07/20 18:00 06/11/20 05:26 Lasix IV 40 mg 0600,1800 CAROLYN Administration Heparin Sodium (Porcine) 5,000 unit 06/07/20 15:00 06/11/20 05:26 Heparin SUB-Q 5,000 unit Q8HR CAROLYN Administration Hydralazine HCl 25 mg 06/08/20 22:00 06/11/20 10:23 Apresoline PO Not Given Q12HR CAROLYN Ceftriaxone Sodium 2 gm in 100 mls @ 200 mls/hr 06/07/20 15:00 06/10/20 15:47 Rocephin/Ns 2 Gm/100 Ml IV 200 mls/hr Q24H CAROLYN Administration Protocol Sodium Chloride 1,000 mls @ 125 mls/hr 06/08/20 06:30 06/10/20 10:28 Nacl 0.9% 1000 Ml IV 125 mls/hr DIRECT CAROLYN Administration REMDESIVIR 100 mg/ Sodium 250 mls @ 500 mls/hr 06/10/20 17:00 06/10/20 17:05 Chloride IV 06/13/20 17:29 500 mls/hr Q24H CAROLYN Administration Insulin Glargine 10 units 06/10/20 22:00 06/10/20 22:50 Lantus SUB-Q 10 units QHS CAROLYN Administration Insulin Human Lispro 0 unit 06/07/20 12:30 06/11/20 06:28 Humalog SUB-Q 17 unit Q6HR CAROLYN Administration Protocol Isosorbide Dinitrate 20 mg 06/08/20 13:00 06/11/20 10:25 Isordil PO Not Given BID CAROLYN Morphine Sulfate 2 mg 06/07/20 09:34 06/08/20 06:26 Morphine IV 2 mg Q4H PRN Administration Pain, Moderate (4-6) Sodium Chloride 50 ml 06/09/20 17:00 06/10/20 18:00 Nacl 0.9% IV 06/13/20 17:01 50 ml Q24H CAROLYN Administration Zinc Sulfate 220 mg 06/07/20 22:00 06/10/20 22:39 Zinc Sulfate PO 220 mg BID CAROLYN Administration Nutrition/Malnutrition Assess - Dietary Evaluation Nutrition/Malnutrition Findings: Nutrition Notes Start: 06/07/20 08: 57 Freq: Status: Active Protocol: Document 06/09/20 14:17 LM (Rec: 06/09/20 14:40 LM [id number]) Nutrition Notes Initial or Follow up Brief Note Current Diagnosis Acute Kidney Injury,Diabetes, Hypertension,Heart Failure Other Pertinent Diagnosis DKA, COVID-19 Current Diet consistent CHO Labs/Tests POC glu 396 Pertinent Medications Lasix Vitamin C Humalog Height 6 ft 1 in Weight 168.5 kg [place] Body Weight (kg) 83.63 BMI 49.0 Subjective/Other Information Pt stated he is eating well and unaware of wt loss. Provided pt with DM diet education. Pt is on fluid/Na restriction. Pt with 75% intakes in chart. #1 Nutrition Diagnosis Food and nutrition-related knowledge deficit Etiology pt with limited prior DM diet education As Evidenced by Signs and Symptoms POC glu 396 Nutrition Intervention Teaching Recipient Patient Learning Readiness Good Teaching Methods Discussion,Handout Response to Teaching Verbalize understanding, Reinforcement needed Education Handouts Provided Carbohydrate Counting for People with DM Barriers to Learning No Barriers RD phone number provided Yes Patient aware of follow up options Yes Revisit per MD consult or patient Sign Off request:
--- NOTE | 2020-06-11 15:11 | Progress Note ---
Assessment and Plan Cultures: Blood culture: no growth COVID-19: Positive A/P: 39-year-old male with morbid obesity, diabetes mellitus: #Fever, bilateral pneumonia: secondary to COVID: s/p Actemra 06/09/2020 #Acute hypoxic respiratory failure: oxygen being weaned #Congestive heart failure #DKA #Morbid obesity #NA: monitor creatinine. Recs: no labs done today, will continue IV Remdesivir D3 of 5, might have to stop if creatinine continues to increase Continue steroids x 10 days Tight glycemic control monitor COVID related inflammatory biomarkers abx discontinued Mahin Golden MD, FACP [facility] C: [phone] O: [phone] F: [phone] Subjective Date of service: 06/11/20 Interval history: No fever. Oxygen slowly being weaned. Objective - Exam Narrative Exam: Physical Exam (reviewed in chart due to PPE conservation) Constitutional: limited due to PPE conservation strategy Head, Ears, Nose: limited due to PPE conservation strategy Eyes: limited due to PPE conservation strategy Neck: limited due to PPE conservation strategy Oral: limited due to PPE conservation strategy Cardiovascular: limited due to PPE conservation strategy Respiratory: limited due to PPE conservation strategy GI: limited due to PPE conservation strategy Musculoskeletal: limited due to PPE conservation strategy Skin: limited due to PPE conservation strategy Hem/Lymphatic: limited due to PPE conservation strategy Psych: limited due to PPE conservation strategy Neurological: limited due to PPE conservation strategy - Constitutional Vitals: Vital Signs Temp Pulse Resp BP Pulse Ox 98.9 F 92 H 24 120/75 89 06/11/20 11:19 06/11/20 11:19 06/11/20 11:19 06/11/20 11:19 06/11/20 11:19 Temperature -Last 24 Hours Temperature 98.9 F Temperature 98.6 F Temperature 98.4 F Temperature 98.9 F - Labs CBC & Chem 7: 06/06/20 15:45 06/10/20 10:27 Labs: Abnormal lab results 06/10/20 06/10/20 06/10/20 Range/Units 16:25 23:02 23:30 POC Glucose 432 H 414 H 402 H (70-105) 06/11/20 06/11/20 Range/Units 06:39 11:35 POC Glucose 438 H 338 H (70-105)
[2020-06-11] MEDS: cefTRIAXone/NS 2 GM/100 ML 2 GM/100 ML BAG IV SCH (16:29)
[2020-06-11] MEDS: SODIUM CHLORIDE 0.9% 50 ML IVPB IV SCH (17:08)
[2020-06-11] MEDS: REMDESIVIR 100 MG in SODIUM CHLORIDE 0.9% 250ML 250 ML IV SCH (17:08)
--- NOTE | 2020-06-11 20:20 | Progress Note ---
Assessment and Plan 9-year-old morbidly obese male with history of hypertension and CHF and diabetes comes in for increasing shortness of breath easy fatigability for 1 week. Patient has swelling of both the lower extremities and the also the swelling is involving the scrotum. Patient also has high blood glucose levels. Patient noncompliant with his medications. Orthopnea present. Patient is morbidly obese. Patient sleepy and not able to give history. Denies smoking,alcohol or drug abuse. Patient not using his O2. He is on room air. chest xray 06/06/20 reported There are rather diffuse predominantly perihilar bilateral pulmonary opacities. No pneumothorax. Venous doppler studies 06/07/20 No sonographic evidence for DVT in either lower extremity. Patient is on venturi mask ,FIO2 50% and O2 saturation running 91%. Patient colleen ing his O2 mask off on. Recommend to keep O2 all the time. Patient COVID positive. Patient afebrile, No leukocytosis. Patient is on REMDESVIR, Dexamethasone, S/C Heparin and Fmotidine. - Patient Problems (1) COVID-19 virus infection Current Visit: Yes Status: Acute Plan to address problem: Patient is on REMDESVIR, Dexamethasone, S/C Heparin and Fmotidine. Management as per infectious diseases. Patient is on Vapotherm and BIPAP. (2) Pneumonia due to 2019-nCoV Current Visit: Yes Status: Acute Plan to address problem: Patient is on REMDESVIR, Dexamethasone, S/C Heparin and Fmotidine. Management as per infectious diseases. Patient is on Vapotherm and BIPAP. (3) Obesity hypoventilation syndrome Current Visit: Yes Status: Acute Plan to address problem: BIPAP during night time and PRN for sleepiness during day time Vapotherm when he is not on BIPAP. Recommend to loose weight. ABGs on room air. (4) Acute exacerbation of CHF (congestive heart failure) Current Visit: Yes Status: Acute Qualifiers: Heart failure type: combined systolic and diastolic Qualified Code(s): I50.43 - Acute on chronic combined systolic (congestive) and diastolic (congestive) heart failure Plan to address problem: Management as per cardiology. (5) DKA, type 2 Current Visit: Yes Status: Acute Qualifiers: Diabetes mellitus complication detail: without coma Qualified Code(s): E11.10 - Type 2 diabetes mellitus with ketoacidosis without coma Plan to address problem: Management as per primary care. (6) Hypertension Current Visit: Yes Status: Chronic Qualifiers: Hypertension type: essential hypertension Qualified Code(s): I10 - Essential (primary) hypertension Plan to address problem: Management as per primary care. (7) Morbid obesity Current Visit: Yes Status: Chronic Plan to address problem: BIPAP during night time and PRN for sleepiness during day time Vaotherm FIO2 50%. Recommend to loose weight. ABGs on room air. Subjective Date of service: 06/11/20 Interval history: 29-year-old morbidly obese male with history of hypertension and CHF and diabetes comes in for increasing shortness of breath easy fatigability for 1 week. Patient has swelling of both the lower extremities and the also the swelling is involving the scrotum. Patient also has high blood glucose levels. Patient noncompliant with his medications. Orthopnea present. Patient is morbidly obese. Patient sleepy and not able to give history. Denies smoking,alcohol or drug abuse. Patient not using his O2. He is on room air. O2 saturation 90%. chest xray 06/06/20 reported There are rather diffuse predominantly perihilar bilateral pulmonary opacities. No pneumothorax. Venous doppler studies 06/07/20 No sonographic evidence for DVT in either lower extremity. Patient is on venturi mask ,FIO2 50% and O2 saturation running 91%. Patient taking his O2 mask off on. Recommend to keep O2 all the time. Patient COVID positive. Patient afebrile, No leukocytosis. Patient is on REMDESVIR, Dexamethasone, S/C Heparin and Fmotidine. Objective Vital Signs - 12hr 06/11/20 06/11/20 06/11/20 09:26 10:00 10:23 Temperature Pulse Rate 77 Respiratory 20 Rate Blood Pressure 102/65 O2 Sat by Pulse 90 95 Oximetry 06/11/20 06/11/20 06/11/20 10:24 10:25 11:19 Temperature 98.9 F Pulse Rate 77 77 92 H Respiratory 24 Rate Blood Pressure 102/65 102/65 120/75 O2 Sat by Pulse 89 Oximetry 06/11/20 17:09 Temperature 98.5 F Pulse Rate 91 H Respiratory 26 H Rate Blood Pressure 146/96 O2 Sat by Pulse 90 Oximetry Constitutional: no acute distress, alert, other (Morbidly Obese.) Eyes: non-icteric ENT: oropharynx moist Neck: supple, no lymphadenopathy Effort: mildly labored Ascultation: Bilateral: diminished breath sounds, rales (basilar) Cardiovascular: regular rate and rhythm Gastrointestinal: normoactive bowel sounds, soft, non-tender, non-distended, other (León catheter in place, drainig clear urine) Integumentary: other (Stasis dermatitis both lower legs.) Extremities: edema, other (hyperpigmentation opf lower extremities) Neurologic: normal mental status, non-focal exam, pupils equal and round, unable to assess Psychiatric: anxious CBC and BMP: 06/06/20 15:45 06/10/20 10:27 ABG, PT/INR, D-dimer: PT/INR, D-dimer D-Dimer 975.20 ng/mlDDU (0-234) H 06/07/20 14:53 Abnormal lab findings: Abnormal Labs 06/06/20 06/06/20 06/06/20 15:45 15:45 15:45 Lymph % (Auto) 6.6 L Lymph # 0.6 L Seg Neutrophils % 87.2 H Seg Neutrophils # 8.4 H D-Dimer VBG pH 7.300 L Sodium 131 L Potassium Chloride 89.8 L Carbon Dioxide 16 L BUN Creatinine Glucose 509 H* POC Glucose Hemoglobin A1c Lactic Acid Calcium Phosphorus Ferritin AST 151 H ALT 157 H Lactate Dehydrogenase C-Reactive Protein NT-Pro-B Natriuret Pep 5086 H Albumin 3.0 L Urine WBC (Auto) Coronavirus (PCR) 06/06/20 06/06/20 06/06/20 17:02 18:01 18:16 Lymph % (Auto) Lymph # Seg Neutrophils % Seg Neutrophils # D-Dimer VBG pH Sodium Potassium Chloride Carbon Dioxide BUN Creatinine Glucose POC Glucose 450 H Hemoglobin A1c Lactic Acid 2.20 H* 2.30 H* Calcium Phosphorus Ferritin AST ALT Lactate Dehydrogenase C-Reactive Protein NT-Pro-B Natriuret Pep Albumin Urine WBC (Auto) Coronavirus (PCR) 06/06/20 06/06/20 06/06/20 18:16 18:42 19:36 Lymph % (Auto) Lymph # Seg Neutrophils % Seg Neutrophils # D-Dimer VBG pH Sodium 131 L 131 L Potassium 5.3 H Chloride 90.7 L 90.7 L Carbon Dioxide 12 L 16 L BUN Creatinine Glucose 525 H* 558 H* POC Glucose Hemoglobin A1c Lactic Acid Calcium Phosphorus Ferritin AST ALT Lactate Dehydrogenase C-Reactive Protein NT-Pro-B Natriuret Pep Albumin Urine WBC (Auto) 57.0 H Coronavirus (PCR) 06/06/20 06/06/20 06/06/20 21:21 22:26 23:33 Lymph % (Auto) Lymph # Seg Neutrophils % Seg Neutrophils # D-Dimer VBG pH Sodium Potassium Chloride Carbon Dioxide BUN Creatinine Glucose POC Glucose 411 H 395 H 390 H Hemoglobin A1c Lactic Acid Calcium Phosphorus Ferritin AST ALT Lactate Dehydrogenase C-Reactive Protein NT-Pro-B Natriuret Pep Albumin Urine WBC (Auto) Coronavirus (PCR) 06/07/20 06/07/20 06/07/20 00:09 00:09 00:09 Lymph % (Auto) Lymph # Seg Neutrophils % Seg Neutrophils # D-Dimer VBG pH Sodium 135 L Potassium Chloride 95.7 L Carbon Dioxide BUN Creatinine Glucose 419 H POC Glucose Hemoglobin A1c 17.4 H Lactic Acid 2.30 H* Calcium 8.3 L Phosphorus Ferritin AST ALT Lactate Dehydrogenase C-Reactive Protein NT-Pro-B Natriuret Pep Albumin Urine WBC (Auto) Coronavirus (PCR) 06/07/20 06/07/20 06/07/20 00:09 00:48 02:09 Lymph % (Auto) Lymph # Seg Neutrophils % Seg Neutrophils # D-Dimer VBG pH Sodium Potassium Chloride Carbon Dioxide BUN Creatinine Glucose POC Glucose 335 H 340 H Hemoglobin A1c Lactic Acid Calcium Phosphorus 1.90 L D Ferritin AST ALT Lactate Dehydrogenase C-Reactive Protein NT-Pro-B Natriuret Pep Albumin Urine WBC (Auto) Coronavirus (PCR) 06/07/20 06/07/20 06/07/20 02:57 03:19 03:19 Lymph % (Auto) Lymph # Seg Neutrophils % Seg Neutrophils # D-Dimer VBG pH Sodium 131 L Potassium Chloride 92.2 L Carbon Dioxide BUN Creatinine Glucose 407 H POC Glucose 416 H Hemoglobin A1c Lactic Acid 3.50 H* Calcium Phosphorus Ferritin AST ALT Lactate Dehydrogenase C-Reactive Protein NT-Pro-B Natriuret Pep Albumin Urine WBC (Auto) Coronavirus (PCR) 06/07/20 06/07/20 06/07/20 03:56 05:13 06:01 Lymph % (Auto) Lymph # Seg Neutrophils % Seg Neutrophils # D-Dimer VBG pH Sodium Potassium Chloride Carbon Dioxide BUN Creatinine Glucose POC Glucose 341 H 323 H 299 H Hemoglobin A1c Lactic Acid Calcium Phosphorus Ferritin AST ALT Lactate Dehydrogenase C-Reactive Protein NT-Pro-B Natriuret Pep Albumin Urine WBC (Auto) Coronavirus (PCR) 06/07/20 06/07/20 06/07/20 07:07 07:48 07:48 Lymph % (Auto) Lymph # Seg Neutrophils % Seg Neutrophils # D-Dimer VBG pH Sodium 136 L Potassium Chloride Carbon Dioxide BUN Creatinine Glucose 270 H POC Glucose 276 H Hemoglobin A1c Lactic Acid 2.50 H* Calcium Phosphorus Ferritin AST ALT Lactate Dehydrogenase C-Reactive Protein NT-Pro-B Natriuret Pep Albumin Urine WBC (Auto) Coronavirus (PCR) 06/07/20 06/07/20 06/07/20 08:11 09:12 10:11 Lymph % (Auto) Lymph # Seg Neutrophils % Seg Neutrophils # D-Dimer VBG pH Sodium Potassium Chloride Carbon Dioxide BUN Creatinine Glucose POC Glucose 245 H 208 H 186 H Hemoglobin A1c Lactic Acid Calcium Phosphorus Ferritin AST ALT Lactate Dehydrogenase C-Reactive Protein NT-Pro-B Natriuret Pep Albumin Urine WBC (Auto) Coronavirus (PCR) 06/07/20 06/07/20 06/07/20 11:14 13:40 14:50 Lymph % (Auto) Lymph # Seg Neutrophils % Seg Neutrophils # D-Dimer VBG pH Sodium Potassium Chloride Carbon Dioxide BUN Creatinine Glucose POC Glucose 189 H 223 H 194 H Hemoglobin A1c Lactic Acid Calcium Phosphorus Ferritin AST ALT Lactate Dehydrogenase C-Reactive Protein NT-Pro-B Natriuret Pep Albumin Urine WBC (Auto) Coronavirus (PCR) 06/07/20 06/07/20 06/07/20 14:53 14:53 14:53 Lymph % (Auto) Lymph # Seg Neutrophils % Seg Neutrophils # D-Dimer 975.20 H VBG pH Sodium Potassium Chloride Carbon Dioxide BUN Creatinine 1.6 H Glucose 192 H POC Glucose Hemoglobin A1c Lactic Acid 2.20 H* Calcium Phosphorus Ferritin AST ALT Lactate Dehydrogenase C-Reactive Protein NT-Pro-B Natriuret Pep Albumin Urine WBC (Auto) Coronavirus (PCR) 06/07/20 06/07/20 06/07/20 14:53 14:53 18:18 Lymph % (Auto) Lymph # Seg Neutrophils % Seg Neutrophils # D-Dimer VBG pH Sodium Potassium Chloride Carbon Dioxide BUN Creatinine Glucose POC Glucose 309 H Hemoglobin A1c Lactic Acid Calcium Phosphorus Ferritin > 2000.0 H AST ALT Lactate Dehydrogenase 517 H C-Reactive Protein 46.00 H NT-Pro-B Natriuret Pep Albumin Urine WBC (Auto) Coronavirus (PCR) 06/07/20 06/07/20 06/07/20 19:44 22:46 23:22 Lymph % (Auto) Lymph # Seg Neutrophils % Seg Neutrophils # D-Dimer VBG pH Sodium 133 L 131 L Potassium 5.5 H D Chloride 95.5 L 92.6 L Carbon Dioxide 20 L 21 L BUN 25 H 28 H Creatinine 2.0 H 2.3 H Glucose 379 H 494 H POC Glucose 368 H Hemoglobin A1c Lactic Acid Calcium 8.2 L 8.0 L Phosphorus Ferritin AST ALT Lactate Dehydrogenase C-Reactive Protein NT-Pro-B Natriuret Pep Albumin Urine WBC (Auto) Coronavirus (PCR) 06/07/20 06/08/20 06/08/20 Unknown 06:08 10:56 Lymph % (Auto) Lymph # Seg Neutrophils % Seg Neutrophils # D-Dimer VBG pH Sodium Potassium Chloride Carbon Dioxide BUN Creatinine Glucose POC Glucose 437 H 389 H Hemoglobin A1c Lactic Acid Calcium Phosphorus Ferritin AST ALT Lactate Dehydrogenase C-Reactive Protein NT-Pro-B Natriuret Pep Albumin Urine WBC (Auto) Coronavirus (PCR) Positive A 06/08/20 06/08/20 06/08/20 17:07 20:37 22:46 Lymph % (Auto) Lymph # Seg Neutrophils % Seg Neutrophils # D-Dimer VBG pH Sodium Potassium Chloride Carbon Dioxide BUN Creatinine Glucose POC Glucose 395 H 394 H 394 H Hemoglobin A1c Lactic Acid Calcium Phosphorus Ferritin AST ALT Lactate Dehydrogenase C-Reactive Protein NT-Pro-B Natriuret Pep Albumin Urine WBC (Auto) Coronavirus (PCR) 06/09/20 06/09/20 06/09/20 05:57 11:42 17:32 Lymph % (Auto) Lymph # Seg Neutrophils % Seg Neutrophils # D-Dimer VBG pH Sodium Potassium Chloride Carbon Dioxide BUN Creatinine Glucose POC Glucose 455 H 396 H 457 H Hemoglobin A1c Lactic Acid Calcium Phosphorus Ferritin AST ALT Lactate Dehydrogenase C-Reactive Protein NT-Pro-B Natriuret Pep Albumin Urine WBC (Auto) Coronavirus (PCR) 06/09/20 06/10/20 06/10/20 23:50 05:20 10:27 Lymph % (Auto) Lymph # Seg Neutrophils % Seg Neutrophils # D-Dimer VBG pH Sodium 130 L Potassium Chloride Carbon Dioxide 17 L BUN 55 H Creatinine 2.7 H Glucose 452 H POC Glucose 428 H 405 H Hemoglobin A1c Lactic Acid Calcium 8.1 L Phosphorus Ferritin AST ALT Lactate Dehydrogenase C-Reactive Protein NT-Pro-B Natriuret Pep Albumin Urine WBC (Auto) Coronavirus (PCR) 06/10/20 06/10/20 06/10/20 11:49 16:25 23:02 Lymph % (Auto) Lymph # Seg Neutrophils % Seg Neutrophils # D-Dimer VBG pH Sodium Potassium Chloride Carbon Dioxide BUN Creatinine Glucose POC Glucose 391 H 432 H 414 H Hemoglobin A1c Lactic Acid Calcium Phosphorus Ferritin AST ALT Lactate Dehydrogenase C-Reactive Protein NT-Pro-B Natriuret Pep Albumin Urine WBC (Auto) Coronavirus (PCR) 06/10/20 06/11/20 06/11/20 23:30 06:39 11:35 Lymph % (Auto) Lymph # Seg Neutrophils % Seg Neutrophils # D-Dimer VBG pH Sodium Potassium Chloride Carbon Dioxide BUN Creatinine Glucose POC Glucose 402 H 438 H 338 H Hemoglobin A1c Lactic Acid Calcium Phosphorus Ferritin AST ALT Lactate Dehydrogenase C-Reactive Protein NT-Pro-B Natriuret Pep Albumin Urine WBC (Auto) Coronavirus (PCR) 06/11/20 17:23 Lymph % (Auto) Lymph # Seg Neutrophils % Seg Neutrophils # D-Dimer VBG pH Sodium Potassium Chloride Carbon Dioxide BUN Creatinine Glucose POC Glucose 376 H Hemoglobin A1c Lactic Acid Calcium Phosphorus Ferritin AST ALT Lactate Dehydrogenase C-Reactive Protein NT-Pro-B Natriuret Pep Albumin Urine WBC (Auto) Coronavirus (PCR) Chest x-ray: report reviewed, image reviewed Additional Studies: CHEST 1 VIEW 06/10/20 INDICATION / CLINICAL INFORMATION: Acute hypoxemic resp failure; COVID pneumonia. COMPARISON: 06/06/2020 FINDINGS: SUPPORT DEVICES: None. HEART / MEDIASTINUM: Unchanged LUNGS / PLEURA: Bilateral pulmonary opacities mildly improved.. No pneumothorax. ADDITIONAL FINDINGS: No significant additional findings. IMPRESSION: 1. Mild improvement in bilateral pulmonary opacities. Allied health notes reviewed: RT
[2020-06-11] MEDS: INSULIN GLARGINE 100 UNITS/ML SUB-Q SCH (23:38)
[2020-06-12] MEDS: INSULIN GLARGINE 100 UNITS/ML SUB-Q SCH
[2020-06-12] MEDS: HEPARIN 5,000 UNIT/1 ML VIAL SUB-Q SCH ×3 (05:17→23:20)
[2020-06-12] MEDS: FUROSEMIDE 40 MG/4 ML INJ IV SCH ×2 (05:17→17:29)
[2020-06-12] MEDS: SODIUM CHLORIDE 0.9% 1000 ML 1,000 ML IV SCH (05:25)
[2020-06-12] MEDS: INSULIN LISPRO 100 UNIT/ML SUB-Q SCH ×3 (06:07→17:26)
[2020-06-12] MEDS ORDERED: INSULIN LISPRO 100 UNIT/ML SUB-Q ONE ×3 (06:07)
[2020-06-12 07:25] LABS: Hemoglobin 14.5 gm/dl (11.8-15.2); Mean Corpuscular HGB Conc 33 % (32-34); Mean Corpuscular Volume 87 fl (84-94); Platelet Count 386 K/mm3 (140-440); Red Blood Count 5.06 M/mm3 (3.65-5.03)
[2020-06-12 07:44] LABS: Albumin 2.1 g/dL (3.9-5); Calcium 8.2 mg/dL (8.4-10.2)
[2020-06-12 10:18] LABS: Band Neutrophils # (Manual) 0.5 K/mm3; Basophils % (Manual) 0 % (0.0-1.8); Eosinophils % (Manual) 0 % (0.0-4.3); Total Cells Counted 100
--- NOTE | 2020-06-12 10:18 | Progress Note ---
Assessment and Plan 1. Chronic combined systolic and diastolic heart failure 2. Dilated cardiomyopathy 3. Type 2 diabetes mellitus with complicating diabetic ketoacidosis 4. Acute renal failure 5. Essential hypertension 6. COVID-19 positive Plan Monitor input and output closely patient currently in a negative fluid balance management of COVID 19 viral infection as per infectious disease and hospitalist. Subjective Date of service: 06/12/20 Interval history: No cardiac symptoms Objective Vital Signs Temp Pulse Pulse Resp BP Pulse Ox 06/12/20 09:45 91 06/12/20 07:48 87 06/11/20 22:36 88 131/91 06/11/20 22:35 88 131/91 06/11/20 21:23 86 88 06/11/20 21:21 88 131/91 84 06/11/20 21:11 91 06/11/20 20:00 98.4 F 22 06/11/20 17:09 98.5 F 91 H 26 H 146/96 90 06/11/20 11:19 98.9 F 92 H 24 120/75 89 06/11/20 10:25 77 102/65 06/11/20 10:24 77 102/65 06/11/20 10:23 77 102/65 - Physical Examination General: Appears Well, No Apparent Distress HEENT: Positive: Normocephaly, Mucus Membranes Moist Neck: Positive: neck supple. Negative: JVD/HJR Cardiac: Positive: Regular Rate, S1/S2, PMI, Laterally Displaced. Negative: S3, S4 Lungs: Positive: clear to auscultation, No Wheeze, Rales, Rhonchi Neuro: Positive: Grossly Intact Abdomen: Positive: Unremarkable, Active Bowel Sounds Extremities: Absent: edema - Labs and Meds Cardiac Enzymes 06/12/20 Range/Units 05:27 AST 31 (5-40) units/L CBC 06/12/20 Range/Units 05:27 WBC 25.4 H (4.5-11.0) K/mm3 RBC 5.06 H (3.65-5.03) M/mm3 Hgb 14.5 (11.8-15.2) gm/dl Hct 44.0 (35.5-45.6) % Plt Count 386 (140-440) K/mm3 Comprehensive Metabolic Panel 06/12/20 Range/Units 05:27 Sodium 134 L (137-145) mmol/L Potassium 4.4 (3.6-5.0) mmol/L Chloride 101.6 (98-107) mmol/L Carbon Dioxide 16 L (22-30) mmol/L BUN 69 H (9-20) mg/dL Creatinine 2.7 H (0.8-1.5) mg/dL Glucose 375 H (75-100) mg/dL Calcium 8.2 L (8.4-10.2) mg/dL AST 31 (5-40) units/L ALT 35 (7-56) units/L Alkaline Phosphatase 116 (35-129) units/L Total Protein 7.1 (6.3-8.2) g/dL Albumin 2.1 L (3.9-5) g/dL - Imaging and Cardiology EKG: report reviewed - Allied health notes Allied health notes reviewed: RT
[2020-06-12 10:19] LABS: Large Platelets Few; Platelet Estimate Consistent w Auto; RBC Morphology Normal
--- NOTE | 2020-06-12 10:20 | Progress Note ---
Assessment and Plan - Patient Problems (1) Pneumonia due to 2019-nCoV Current Visit: Yes Status: Acute Plan to address problem: - Weaned from Ventimask to NC - S/P Actenra 06/09 - On Remdisavir day 03/06, Dexamethasone day 04/10 - ID following - Trend inflammatory markers, LFT - Prone to sleep - Supplemental oxygenation as needed - Continuous SP02 monitoring - Pulmonary hygiene - Contact and Droplet isolation - OOB TID and prn (2) Acidosis Current Visit: Yes Status: Acute Plan to address problem: -multifactorial (3) Acute exacerbation of CHF (congestive heart failure) Current Visit: Yes Status: Acute Qualifiers: Heart failure type: combined systolic and diastolic Qualified Code(s): I50.43 - Acute on chronic combined systolic (congestive) and diastolic (congestive) heart failure Plan to address problem: - Cardiology following - Continue management with afterload reduction - Strict I/O - BP monitoring per protocol - MIVF discontinued - Daily weights (4) NA (acute kidney injury) Current Visit: Yes Status: Acute Plan to address problem: - f/u outpatient nephrology -Trend BMP - Avoid nephrotoxic medications (5) Obesity hypoventilation syndrome Current Visit: Yes Status: Acute Plan to address problem: - Morbid obesity, weight loss counseling provided - Supplemental oxygenation as needed (6) Leukocytosis Current Visit: Yes Status: Acute Plan to address problem: - trend CBC - multifactory r/t COVID PNA and steroid use (7) Excoriation Current Visit: Yes Status: Acute Plan to address problem: - Wound care consulted - Wound care per nursing (8) Urinary tract infection Current Visit: Yes Status: Acute Qualifiers: Encounter type: initial encounter Plan to address problem: - León cath removed 06/12 - Trend CBC (9) Uncontrolled diabetes mellitus Current Visit: Yes Status: Acute Plan to address problem: - Lantus dosing changed to BID and increased to 7 units - Carb controlled diet - Blood glucose q 6 - SSI (10) Hypertension Current Visit: Yes Status: Chronic Qualifiers: Hypertension type: essential hypertension Qualified Code(s): I10 - Essential (primary) hypertension Plan to address problem: - Continue current regimen of antihypertensives - BP monitoring per protocol (11) Morbid obesity Current Visit: Yes Status: Chronic Plan to address problem: - weight loss counseling provided - carb controlled diet (12) DVT prophylaxis Current Visit: Yes Status: Acute Plan to address problem: - SCDs while in bed - Subq heparin History Interval history: 39 YO Male HD #6 with UTI ,MARLEN, uncontrolled DM, morbid obesity, COVID 19 on Remdesivir Day 4/ and steriods s/p Actemra, Systolic CHF with EF of 15%, and excoriation of skin to the perineum. Patient is awake today. He is still experiences SOB at rest but states he feels much better today. He was able to be weaned to 3L NF. RN instructed to perform a home oxygen evaluation. Patient wants to go home. Educated on importance of prone ventilation when possible. Hospitalist Physical - Constitutional Vitals: Temp Pulse Resp BP Pulse Ox 98.4 F 87 22 131/91 91 06/11/20 20:00 06/12/20 07:48 06/11/20 20:00 06/11/20 22:36 06/12/20 09:45 General appearance: Present: mild distress, well-nourished, obese - EENT Eyes: Present: PERRL, EOM intact ENT: hearing intact - Neck Neck: Present: normal ROM - Respiratory Respiratory effort: labored - Cardiovascular Rhythm: regular - Extremities Extremities: no ischemia, pulses intact, pulses symmetrical - Abdominal General gastrointestinal: soft, non-tender - Integumentary Integumentary: Present: warm, dry - Psychiatric Psychiatric: appropriate mood/affect - Neurologic Neurologic: moves all extremities - Allied Health Allied health notes reviewed: nursing HEART Score - HEART Score Risk factors: > 3 risk factors or hx of atherosclerotic disease Troponin: Troponin T < 0.010 ng/mL (0.00-0.029) 06/06/20 15:45 - Critical Actions Critical Actions: >7 pts:50-65% risk of adverse cardiac event. Early invasive measures Results - Labs CBC & Chem 7: 06/12/20 05:27 06/12/20 05:27 Labs: Laboratory Last Values WBC 25.4 K/mm3 (4.5-11.0) H 06/12/20 05:27 RBC 5.06 M/mm3 (3.65-5.03) H 06/12/20 05:27 Hgb 14.5 gm/dl (11.8-15.2) 06/12/20 05:27 Hct 44.0 % (35.5-45.6) 06/12/20 05:27 MCV 87 fl (84-94) 06/12/20 05:27 MCH 29 pg (28-32) 06/12/20 05:27 MCHC 33 % (32-34) 06/12/20 05:27 RDW 15.0 % (13.2-15.2) 06/12/20 05:27 Plt Count 386 K/mm3 (140-440) 06/12/20 05:27 Lymph % (Auto) 6.6 % (13.4-35.0) L 06/06/20 15:45 [place] % (Auto) 5.8 % (0.0-7.3) 06/06/20 15:45 Eos % (Auto) 0.0 % (0.0-4.3) 06/06/20 15:45 Baso % (Auto) 0.4 % (0.0-1.8) 06/06/20 15:45 Lymph # 0.6 K/mm3 (1.2-5.4) L 06/06/20 15:45 [place] # 0.6 K/mm3 (0.0-0.8) 06/06/20 15:45 Eos # 0.0 K/mm3 (0.0-0.4) 06/06/20 15:45 Baso # 0.0 K/mm3 (0.0-0.1) 06/06/20 15:45 Add Manual Diff Complete 06/12/20 05:27 Total Counted 100 06/12/20 05:27 Seg Neutrophils % [employer] Machine Operator 06/12/20 05:27 Seg Neuts % (Manual) 84.0 % (40.0-70.0) H 06/12/20 05:27 Band Neutrophils % 2.0 % 06/12/20 05:27 Lymphocytes % (Manual) 9.0 % (13.4-35.0) L 06/12/20 05:27 Reactive Lymphs % (Man) 1.0 % 06/12/20 05:27 Monocytes % (Manual) 3.0 % (0.0-7.3) 06/12/20 05:27 Eosinophils % (Manual) 0 % (0.0-4.3) 06/12/20 05:27 Basophils % (Manual) 0 % (0.0-1.8) 06/12/20 05:27 Metamyelocytes % 1.0 % 06/12/20 05:27 Myelocytes % 0 % 06/12/20 05:27 Promyelocytes % 0 % 06/12/20 05:27 Blast Cells % 0 % 06/12/20 05:27 Nucleated RBC % Not Reportable 06/12/20 05:27 Seg Neutrophils # 8.4 K/mm3 (1.8-7.7) H 06/06/20 15:45 Seg Neutrophils # Man 21.3 K/mm3 (1.8-7.7) H 06/12/20 05:27 Band Neutrophils # 0.5 K/mm3 06/12/20 05:27 Lymphocytes # (Manual) 2.3 K/mm3 (1.2-5.4) 06/12/20 05:27 Abs React Lymphs (Man) 0.3 K/mm3 06/12/20 05:27 Monocytes # (Manual) 0.8 K/mm3 (0.0-0.8) 06/12/20 05:27 Eosinophils # (Manual) 0.0 K/mm3 (0.0-0.4) 06/12/20 05:27 Basophils # (Manual) 0.0 K/mm3 (0.0-0.1) 06/12/20 05:27 Metamyelocytes # 0.3 K/mm3 06/12/20 05:27 Myelocytes # 0.0 K/mm3 06/12/20 05:27 Promyelocytes # 0.0 K/mm3 06/12/20 05:27 Blast Cells # 0.0 K/mm3 06/12/20 05:27 WBC Morphology Not Reportable 06/12/20 05:27 WBC Morphology TNR 06/12/20 05:27 Hypersegmented Neuts Not Reportable 06/12/20 05:27 Hyposegmented Neuts Not Reportable 06/12/20 05:27 Hypogranular Neuts Not Reportable 06/12/20 05:27 Smudge Cells Not Reportable 06/12/20 05:27 Toxic Granulation Not Reportable 06/12/20 05:27 Toxic Vacuolation Not Reportable 06/12/20 05:27 Dohle Bodies Not Reportable 06/12/20 05:27 Pelger-Huet Anomaly Not Reportable 06/12/20 05:27 Jabari Rods Not Reportable 06/12/20 05:27 Platelet Estimate Consistent w auto 06/12/20 05:27 Clumped Platelets Not Reportable 06/12/20 05:27 Plt Clumps, EDTA Not Reportable 06/12/20 05:27 Large Platelets Few 06/12/20 05:27 Giant Platelets Not Reportable 06/12/20 05:27 Platelet Satelliting Not Reportable 06/12/20 05:27 Plt Morphology Comment Not Reportable 06/12/20 05:27 RBC Morphology Normal 06/12/20 05:27 Dimorphic RBCs Not Reportable 06/12/20 05:27 Polychromasia Not Reportable 06/12/20 05:27 Hypochromasia Not Reportable 06/12/20 05:27 Poikilocytosis Not Reportable 06/12/20 05:27 Anisocytosis Not Reportable 06/12/20 05:27 Microcytosis Not Reportable 06/12/20 05:27 Macrocytosis Not Reportable 06/12/20 05:27 Spherocytes Not Reportable 06/12/20 05:27 Pappenheimer Bodies Not Reportable 06/12/20 05:27 Sickle Cells Not Reportable 06/12/20 05:27 Target Cells Not Reportable 06/12/20 05:27 Tear Drop Cells Not Reportable 06/12/20 05:27 Ovalocytes Not Reportable 06/12/20 05:27 Helmet Cells Not Reportable 06/12/20 05:27 [place] Bodies Not Reportable 06/12/20 05:27 [place] Rings Not Reportable 06/12/20 05:27 Tavares Cells Not Reportable 06/12/20 05:27 Bite Cells Not Reportable 06/12/20 05:27 Crenated Cell Not Reportable 06/12/20 05:27 Elliptocytes Not Reportable 06/12/20 05:27 Acanthocytes (Spur) Not Reportable 06/12/20 05:27 Rouleaux Not Reportable 06/12/20 05:27 Hemoglobin C Crystals Not Reportable 06/12/20 05:27 Schistocytes Not Reportable 06/12/20 05:27 Malaria parasites Not Reportable 06/12/20 05:27 Chris Bodies Not Reportable 06/12/20 05:27 Hem Pathologist Commnt No 06/12/20 05:27 D-Dimer 975.20 ng/mlDDU (0-234) H 06/07/20 14:53 VBG pH 7.300 (7.320-7.420) L 06/06/20 15:45 Sodium 134 mmol/L (137-145) L 06/12/20 05:27 Potassium 4.4 mmol/L (3.6-5.0) 06/12/20 05:27 Chloride 101.6 mmol/L (98-107) 06/12/20 05:27 Carbon Dioxide 16 mmol/L (22-30) L 06/12/20 05:27 Anion Gap 21 mmol/L 06/12/20 05:27 BUN 69 mg/dL (9-20) H 06/12/20 05:27 Creatinine 2.7 mg/dL (0.8-1.5) H 06/12/20 05:27 Estimated GFR 32 ml/min 06/12/20 05:27 BUN/Creatinine Ratio 26 % 06/12/20 05:27 Glucose 375 mg/dL (75-100) H 06/12/20 05:27 POC Glucose 328 (70-105) H 06/12/20 05:25 Hemoglobin A1c 17.4 % (4-6) H 06/07/20 00:09 Lactic Acid 2.20 mmol/L (0.7-2.0) H* 06/07/20 14:53 Calcium 8.2 mg/dL (8.4-10.2) L 06/12/20 05:27 Phosphorus 1.90 mg/dL (2.5-4.5) L D 06/07/20 00:09 Magnesium 2.20 mg/dL (1.7-2.3) 06/07/20 00:09 Ferritin > 2000.0 ng/mL (13.0-400.0) H 06/07/20 14:53 Total Bilirubin 0.70 mg/dL (0.1-1.2) 06/12/20 05:27 AST 31 units/L (5-40) 06/12/20 05:27 ALT 35 units/L (7-56) 06/12/20 05:27 Alkaline Phosphatase 116 units/L (35-129) 06/12/20 05:27 Lactate Dehydrogenase 517 units/L (91-180) H 06/07/20 14:53 Troponin T < 0.010 ng/mL (0.00-0.029) 06/06/20 15:45 C-Reactive Protein 46.00 mg/dL (0.00-1.30) H 06/07/20 14:53 NT-Pro-B Natriuret Pep 5086 pg/mL (0-450) H 06/06/20 15:45 Total Protein 7.1 g/dL (6.3-8.2) 06/12/20 05:27 Albumin 2.1 g/dL (3.9-5) L 06/12/20 05:27 Albumin/Globulin Ratio 0.4 % 06/12/20 05:27 Procalcitonin 5.49 ng/mL (<0.15) 06/07/20 14:53 Urine Color Yellow (Yellow) 06/06/20 18:42 Urine Turbidity Slightly-cloudy (Clear) 06/06/20 18:42 Urine pH 5.0 (5.0-7.0) 06/06/20 18:42 Ur Specific [place] 1.013 (1.003-1.030) 06/06/20 18:42 Urine Protein 100 mg/dl mg/dL (Negative) 06/06/20 18:42 Urine Glucose (UA) >=500 mg/dL (Negative) 06/06/20 18:42 Urine Ketones 20 mg/dL (Negative) 06/06/20 18:42 Urine Blood Mod (Negative) 06/06/20 18:42 Urine Nitrite Neg (Negative) 06/06/20 18:42 Urine Bilirubin Neg (Negative) 06/06/20 18:42 Urine Urobilinogen < 2.0 mg/dL (<2.0) 06/06/20 18:42 Ur Leukocyte Esterase Sm (Negative) 06/06/20 18:42 Urine WBC (Auto) 57.0 /HPF (0.0-6.0) H 06/06/20 18:42 Urine RBC (Auto) 9.0 /HPF (0.0-6.0) 06/06/20 18:42 U Epithel Cells (Auto) < 1.0 /HPF (0-13.0) 06/06/20 18:42 Urine Bacteria (Auto) 1+ /HPF (Negative) 06/06/20 18:42 Urine Mucus Few /HPF 06/06/20 18:42 Urine Yeast (Budding) 1+ /HPF 06/06/20 18:42 Coronavirus (PCR) Positive (Negative) A 06/07/20 Unknown Microbiology: Microbiology 06/06/20 15:49 Peripheral/Venous Blood Culture - Final NO GROWTH AFTER 5 DAYS 06/06/20 15:49 Peripheral/Venous Blood Culture - Final NO GROWTH AFTER 5 DAYS - Diagnostic Impressions Diagnostic Impressions: Echocardiogram 06/07/20 09:27 Transthoracic Echocardiogram Indication: SOB BP: 111/75 HR: 108 Conclusions *The left ventricular chamber size is severely dilated. *Mild concentric left ventricular hypertrophy is observed. *Global left ventricular systolic function is severely decreased. *The estimated ejection fraction is 15-20%. *The left atrium is moderately dilated. *There is mild to moderate mitral regurgitation. *There is trace-mild tricuspid regurgitation. *There is evidence of borderline pulmonary hypertension. Findings Left Ventricle: The left ventricular chamber size is severely dilated. Mild concentric left ventricular hypertrophy is observed. Global left ventricular systolic function is severely decreased. The estimated ejection fraction is 15-20%. Left Atrium: The left atrium is moderately dilated. Right Ventricle: The right ventricle is slightly dilated. The right ventricular global systolic function is normal. Right Atrium: The right atrium is mildly dilated. Aortic Valve: The aortic valve is trileaflet. The aortic valve leaflets are mildly thickened. There is no evidence of aortic regurgitation. There is no evidence of aortic stenosis. Mitral Valve: The mitral valve leaflets are mildly thickened. There is mild to moderate mitral regurgitation. There is no evidence of mitral stenosis. Tricuspid Valve: There is trace tricuspid regurgitation. The right ventricular systolic pressure is calculated at 25 mmHg. There is evidence of borderline pulmonary hypertension. Pulmonic Valve: There is mild pulmonic regurgitation. Pericardium: There is no pericardial effusion. Aorta: There is no dilatation of the ascending aorta. There is no dilatation of the aortic root. Venous: The inferior vena cava appears normal in size. Measurements Chambers 2D Name Value Normal Range IVSd (2D) 1.29 cm (0.6 - 1.1) LVPWd (2D) 1.26 cm (0.6 - 1.1) LVIDd (2D) 6.03 cm (3.7 - 5.6) LVIDs (2D) 5.02 cm (2 - 3.8) LV FS (2D) 16.83 % - EF Teichholz (2D) 34.6 % - Ao root diameter (2D) 3.06 cm (2 - 3.7) Volumes/Mass Name Value Normal Range LA ESV SP 4CH (A/L) 56.08 ml - LA ESV SP 2CH (A/L) 57.68 ml - LA ESV BP (A/L) 58.34 ml - LA ESV BP (A/L) index 20.19 ml/m2 - LA ESV SP 4CH (MOD) 50.86 ml - LA ESV SP 2CH (MOD) 55.46 ml - LA ESV BP (MOD) 54.34 ml - LA ESV BP (MOD) index 18.8 ml/m2 - Diastolic/Systolic Function Name Value Normal Range MV E-wave Vmax 0.64 m/sec - MV deceleration time 166.65 msec - MV A-wave Vmax 0.56 m/sec - MV E:A ratio 1.15 ratio - Aortic Valve Name Value Normal Range AV Vmax 1.37 m/sec - AV VTI 17.93 cm - AV peak gradient 7.55 mmHg - AV mean gradient 4.66 mmHg - LVOT diameter 2.06 cm - LVOT Vmax 1.24 m/sec - LVOT VTI 16.7 cm - LVOT peak gradient 6.17 mmHg - LVOT mean gradient 3.55 mmHg - SV LVOT 55.69 ml - CLAUDINE (continuity Vmax) 3.02 cm2 - CLAUDINE (continuity VTI) 3.11 cm2 - Ascending Ao 3.12 cm - Mitral Valve Name Value Normal Range MR Vmax 2.69 m/sec - Tricuspid Valve Name Value Normal Range TR Vmax 2.35 m/sec - TR peak gradient 22 mmHg - RAP 3 mmHg - RVSP 25 mmHg - IVC diameter 1.87 cm (1.2 - 2.3) Pulmonic Valve/Qp:Qs Name Value Normal Range PV Vmax 1.15 m/sec - PV peak gradient 5.32 mmHg - MS end-diastolic Vmax 1.19 m/sec - PV acceleration time 125.59 msec - [place]/IV: Voiding Method Condom Catheter IV Catheter Type [Right Hand] INT / Saline Lock IV Catheter Type [Left Hand] Peripheral IV IV Catheter Type [Right INT / Saline Lock Forearm] Active Medications - Current Medications Current Medications: Generic Name Dose Route Start Last Admin Trade Name Freq PRN Reason Stop Dose Admin Acetaminophen 650 mg 06/08/20 18:13 06/09/20 22:27 Tylenol PO 650 mg Q6H PRN Administration Pain, Mild (1-3) Ascorbic Acid 500 mg 06/07/20 22:00 06/11/20 21:45 Vitamin C PO 500 mg BID CAROLYN Administration Aspirin 81 mg 06/08/20 13:00 06/11/20 10:22 Halfprin Ec PO 81 mg QDAY CAROLYN Administration Carvedilol 6.25 mg 06/08/20 12:00 06/11/20 22:35 Coreg PO 6.25 mg BID CAROLYN Administration Dexamethasone 8 mg 06/08/20 15:00 06/11/20 10:22 Decadron PO 8 mg DAILY CAROLYN Administration Dextrose 50 ml 06/09/20 11:57 D50w (25gm) Syringe IV Q30MIN PRN Hypoglycemia Protocol Famotidine 20 mg 06/08/20 10:00 06/11/20 10:22 Pepcid PO 20 mg QDAY CAROLYN Administration Furosemide 40 mg 06/07/20 18:00 06/12/20 05:17 Lasix IV 40 mg 0600,1800 CAROLYN Administration Heparin Sodium (Porcine) 5,000 unit 06/07/20 15:00 06/12/20 05:17 Heparin SUB-Q 5,000 unit Q8HR CAROLYN Administration Hydralazine HCl 25 mg 06/08/20 22:00 06/11/20 22:36 Apresoline PO 25 mg Q12HR CAROLYN Administration Sodium Chloride 1,000 mls @ 125 mls/hr 06/08/20 06:30 06/12/20 05:25 Nacl 0.9% 1000 Ml IV 125 mls/hr DIRECT CAROLYN Administration REMDESIVIR 100 mg/ Sodium 250 mls @ 500 mls/hr 06/10/20 17:00 06/11/20 17:40 Chloride IV 06/13/20 17:29 Infused Q24H CAROLYN Infusion Insulin Glargine 10 units 06/10/20 22:00 06/11/20 23:38 Lantus SUB-Q 10 units QHS CAROLYN Administration Insulin Human Lispro 0 unit 06/07/20 12:30 06/12/20 06:07 Humalog SUB-Q 14 unit Q6HR CAROLYN Administration Protocol Isosorbide Dinitrate 20 mg 06/08/20 13:00 06/11/20 22:35 Isordil PO 20 mg BID CAROLYN Administration Morphine Sulfate 2 mg 06/07/20 09:34 06/08/20 06:26 Morphine IV 2 mg Q4H PRN Administration Pain, Moderate (4-6) Sodium Chloride 50 ml 06/09/20 17:00 06/11/20 17:08 Nacl 0.9% IV 06/13/20 17:01 50 ml Q24H CAROLYN Administration Zinc Sulfate 220 mg 06/07/20 22:00 06/11/20 21:45 Zinc Sulfate PO 220 mg BID CAROLYN Administration Nutrition/Malnutrition Assess - Dietary Evaluation Nutrition/Malnutrition Findings: Nutrition Notes Start: 06/07/20 08:57 Freq: Status: Active Protocol: Document 06/09/20 14:17 LM (Rec: 06/09/20 14:40 LM [id number]) Nutrition Notes Initial or Follow up Brief Note Current Diagnosis Acute Kidney Injury,Diabetes, Hypertension,Heart Failure Other Pertinent Diagnosis DKA, COVID-19 Current Diet consistent CHO Labs/Tests POC glu 396 Pertinent Medications Lasix Vitamin C Humalog Height 6 ft 1 in Weight 168.5 kg [place] Body Weight (kg) 83.63 BMI 49.0 Subjective/Other Information Pt stated he is eating well and unaware of wt loss. Provided pt with DM diet education. Pt is on fluid/Na restriction. Pt with 75% intakes in chart. #1 Nutrition Diagnosis Food and nutrition-related knowledge deficit Etiology pt with limited prior DM diet education As Evidenced by Signs and Symptoms POC glu 396 Nutrition Intervention Teaching Recipient Patient Learning Readiness Good Teaching Methods Discussion,Handout Response to Teaching Verbalize understanding, Reinforcement needed Education Handouts Provided Carbohydrate Counting for People with DM Barriers to Learning No Barriers RD phone number provided Yes Patient aware of follow up options Yes Revisit per MD consult or patient Sign Off request:
[2020-06-12] MEDS: ASCORBIC ACID 500 MG TAB PO SCH ×2 (10:23→23:15)
[2020-06-12] MEDS: DEXAMETHASONE 4 MG TAB PO SCH (10:23)
[2020-06-12] MEDS: FAMOTIDINE 20 MG TAB PO SCH (10:23)
[2020-06-12] MEDS: ASPIRIN EC 81 MG TAB PO SCH (10:23)
[2020-06-12] MEDS: ZINC SULFATE 220 MG CAP PO SCH ×2 (10:23→23:20)
[2020-06-12] MEDS: carvediloL 6.25 MG TAB PO SCH ×2 (10:24→23:15)
[2020-06-12] MEDS: ISOSORBIDE DINITRATE 20 MG TAB PO SCH ×2 (10:25→23:20)
[2020-06-12] MEDS: hydrALAZINE 25 MG TAB PO SCH ×2 (10:26→23:15)
--- NOTE | 2020-06-12 13:41 | Progress Note ---
Assessment and Plan Patient alert, awake and walking in the room. Patient on High flow O2, 8 litres via nasal canula. O2 saturation 92%. Some times he takes down O2. O2 saturation dropping to low 80s. Recommend to keep O2 all the time. Slight shortness of haven ath at rest. Patient COVID 19 positive.Patient afebrile but has leukocytosis. Patient is on REMDESIVIR, dexamethasone, S/C heaprin and famotidine. - Patient Problems (1) COVID-19 virus infection Current Visit: Yes Status: Acute Plan to address problem: Patient is on REMDESVIR, Dexamethasone, S/C Heparin and Fmotidine. Management as per infectious diseases. Patient is on High flow O2 8 litres. (2) Pneumonia due to 2019-nCoV Current Visit: Yes Status: Acute Plan to address problem: Patient is on REMDESVIR, Dexamethasone, S/C Heparin and Fmotidine. Management as per infectious diseases. Patient is on High flow O2 8 litres. (3) Obesity hypoventilation syndrome Current Visit: Yes Status: Acute Plan to address problem: BIPAP during night time and PRN for sleepiness during day time Vapotherm when he is not on BIPAP. Recommend to loose weight. ABGs on room air. (4) Acute exacerbation of CHF (congestive heart failure) Current Visit: Yes Status: Acute Qualifiers: Heart failure type: combined systolic and diastolic Qualified Code(s): I50.43 - Acute on chronic combined systolic (congestive) and diastolic (congestive) heart failure Plan to address problem: Management as per cardiology. (5) DKA, type 2 Current Visit: Yes Status: Acute Qualifiers: Diabetes mellitus complication detail: without coma Qualified Code(s): E11.10 - Type 2 diabetes mellitus with ketoacidosis without coma Plan to address problem: Management as per primary care. (6) Hypertension Current Visit: Yes Status: Chronic Qualifiers: Hypertension type: essential hypertension Qualified Code(s): I10 - Essential (primary) hypertension Plan to address problem: Management as per primary care. (7) Morbid obesity Current Visit: Yes Status: Chronic Plan to address problem: BIPAP during night time and PRN for sleepiness during day time Vaotherm FIO2 50%. Recommend to loose weight. ABGs on room air. Subjective Date of service: 06/12/20 Interval history: Patient alert, awake and walking in the room. Patient on High flow O2, 8 litres via nasal canula. O2 saturation 92%. Some times he takes down O2. O2 saturation dropping to low 80s. Recommend to keep O2 all the time. Slight shortness of breath at rest. Patient COVID 19 positive.Patient afebrile but has leukocytosis. Patient is on REMDESIVIR, dexamethasone, S/C heaprin and famotidine. Objective Vital Signs - 12hr 06/12/20 06/12/20 06/12/20 07:48 09:45 10:24 Temperature Pulse Rate 86 Pulse Rate [ 87 From Monitor] Respiratory Rate Blood Pressure 142/90 O2 Sat by Pulse 91 Oximetry 06/12/20 06/12/20 06/12/20 10:25 10:26 13:06 Temperature 98.1 F Pulse Rate 72 72 142 H Pulse Rate [ From Monitor] Respiratory 32 H Rate Blood Pressure 142/90 142/90 105/72 O2 Sat by Pulse 87 Oximetry Constitutional: no acute distress, alert, other (Morbidly Obese. Walking around in the room.) Eyes: non-icteric ENT: oropharynx moist Neck: supple, no lymphadenopathy Effort: mildly labored Ascultation: Bilateral: diminished breath sounds, rales (basilar) Cardiovascular: regular rate and rhythm Gastrointestinal: normoactive bowel sounds, soft, non-tender, non-distended, other (León catheter in place, drainig clear urine) Integumentary: other (Stasis dermatitis both lower legs.) Extremities: edema, other (hyperpigmentation opf lower extremities) Neurologic: normal mental status, non-focal exam, pupils equal and round, unable to assess Psychiatric: anxious CBC and BMP: 06/12/20 05:27 06/12/20 05:27 ABG, PT/INR, D-dimer: PT/INR, D-dimer D-Dimer 975.20 ng/mlDDU (0-234) H 06/07/20 14:53 Abnormal lab findings: Abnormal Labs 06/06/20 06/06/20 06/06/20 15:45 15:45 15:45 WBC RBC Lymph % (Auto) 6.6 L Lymph # 0.6 L Seg Neutrophils % 87.2 H Seg Neuts % (Manual) Lymphocytes % (Manual) Seg Neutrophils # 8.4 H Seg Neutrophils # Man D-Dimer VBG pH 7.300 L Sodium 131 L Potassium Chloride 89.8 L Carbon Dioxide 16 L BUN Creatinine Glucose 509 H* POC Glucose Hemoglobin A1c Lactic Acid Calcium Phosphorus Ferritin AST 151 H ALT 157 H Lactate Dehydrogenase C-Reactive Protein NT-Pro-B Natriuret Pep 5086 H Albumin 3.0 L Urine WBC (Auto) Coronavirus (PCR) 06/06/20 06/06/20 06/06/20 17:02 18:01 18:16 WBC RBC Lymph % (Auto) Lymph # Seg Neutrophils % Seg Neuts % (Manual) Lymphocytes % (Manual) Seg Neutrophils # Seg Neutrophils # Man D-Dimer VBG pH Sodium Potassium Chloride Carbon Dioxide BUN Creatinine Glucose POC Glucose 450 H Hemoglobin A1c Lactic Acid 2.20 H* 2.30 H* Calcium Phosphorus Ferritin AST ALT Lactate Dehydrogenase C-Reactive Protein NT-Pro-B Natriuret Pep Albumin Urine WBC (Auto) Coronavirus (PCR) 06/06/20 06/06/20 06/06/20 18:16 18:42 19:36 WBC RBC Lymph % (Auto) Lymph # Seg Neutrophils % Seg Neuts % (Manual) Lymphocytes % (Manual) Seg Neutrophils # Seg Neutrophils # Man D-Dimer VBG pH Sodium 131 L 131 L Potassium 5.3 H Chloride 90.7 L 90.7 L Carbon Dioxide 12 L 16 L BUN Creatinine Glucose 525 H* 558 H* POC Glucose Hemoglobin A1c Lactic Acid Calcium Phosphorus Ferritin AST ALT Lactate Dehydrogenase C-Reactive Protein NT-Pro-B Natriuret Pep Albumin Urine WBC (Auto) 57.0 H Coronavirus (PCR) 06/06/20 06/06/20 06/06/20 21:21 22:26 23:33 WBC RBC Lymph % (Auto) Lymph # Seg Neutrophils % Seg Neuts % (Manual) Lymphocytes % (Manual) Seg Neutrophils # Seg Neutrophils # Man D-Dimer VBG pH Sodium Potassium Chloride Carbon Dioxide BUN Creatinine Glucose POC Glucose 411 H 395 H 390 H Hemoglobin A1c Lactic Acid Calcium Phosphorus Ferritin AST ALT Lactate Dehydrogenase C-Reactive Protein NT-Pro-B Natriuret Pep Albumin Urine WBC (Auto) Coronavirus (PCR) 06/07/20 06/07/20 06/07/20 00:09 00:09 00:09 WBC RBC Lymph % (Auto) Lymph # Seg Neutrophils % Seg Neuts % (Manual) Lymphocytes % (Manual) Seg Neutrophils # Seg Neutrophils # Man D-Dimer VBG pH Sodium 135 L Potassium Chloride 95.7 L Carbon Dioxide BUN Creatinine Glucose 419 H POC Glucose Hemoglobin A1c 17.4 H Lactic Acid 2.30 H* Calcium 8.3 L Phosphorus Ferritin AST ALT Lactate Dehydrogenase C-Reactive Protein NT-Pro-B Natriuret Pep Albumin Urine WBC (Auto) Coronavirus (PCR) 06/07/20 06/07/20 06/07/20 00:09 00:48 02:09 WBC RBC Lymph % (Auto) Lymph # Seg Neutrophils % Seg Neuts % (Manual) Lymphocytes % (Manual) Seg Neutrophils # Seg Neutrophils # Man D-Dimer VBG pH Sodium Potassium Chloride Carbon Dioxide BUN Creatinine Glucose POC Glucose 335 H 340 H Hemoglobin A1c Lactic Acid Calcium Phosphorus 1.90 L D Ferritin AST ALT Lactate Dehydrogenase C-Reactive Protein NT-Pro-B Natriuret Pep Albumin Urine WBC (Auto) Coronavirus (PCR) 06/07/20 06/07/20 06/07/20 02:57 03:19 03:19 WBC RBC Lymph % (Auto) Lymph # Seg Neutrophils % Seg Neuts % (Manual) Lymphocytes % (Manual) Seg Neutrophils # Seg Neutrophils # [place] D-Dimer VBG pH Sodium 131 L Potassium Chloride 92.2 L Carbon Dioxide BUN Creatinine Glucose 407 H POC Glucose 416 H Hemoglobin A1c Lactic Acid 3.50 H* Calcium Phosphorus Ferritin AST ALT Lactate Dehydrogenase C-Reactive Protein NT-Pro-B Natriuret Pep Albumin Urine WBC (Auto) Coronavirus (PCR) 06/07/20 06/07/20 06/07/20 03:56 05:13 06:01 WBC RBC Lymph % (Auto) Lymph # Seg Neutrophils % Seg Neuts % (Manual) Lymphocytes % (Manual) Seg Neutrophils # Seg Neutrophils # Man D-Dimer VBG pH Sodium Potassium Chloride Carbon Dioxide BUN Creatinine Glucose POC Glucose 341 H 323 H 299 H Hemoglobin A1c Lactic Acid Calcium Phosphorus Ferritin AST ALT Lactate Dehydrogenase C-Reactive Protein NT-Pro-B Natriuret Pep Albumin Urine WBC (Auto) Coronavirus (PCR) 06/07/20 06/07/20 06/07/20 07:07 07:48 07:48 WBC RBC Lymph % (Auto) Lymph # Seg Neutrophils % Seg Neuts % (Manual) Lymphocytes % (Manual) Seg Neutrophils # Seg Neutrophils # Man D-Dimer VBG pH Sodium 136 L Potassium Chloride Carbon Dioxide BUN Creatinine Glucose 270 H POC Glucose 276 H Hemoglobin A1c Lactic Acid 2.50 H* Calcium Phosphorus Ferritin AST ALT Lactate Dehydrogenase C-Reactive Protein NT-Pro-B Natriuret Pep Albumin Urine WBC (Auto) Coronavirus (PCR) 06/07/20 06/07/20 06/07/20 08:11 09:12 10:11 WBC RBC Lymph % (Auto) Lymph # Seg Neutrophils % Seg Neuts % (Manual) Lymphocytes % (Manual) Seg Neutrophils # Seg Neutrophils # Man D-Dimer VBG pH Sodium Potassium Chloride Carbon Dioxide BUN Creatinine Glucose POC Glucose 245 H 208 H 186 H Hemoglobin A1c Lactic Acid Calcium Phosphorus Ferritin AST ALT Lactate Dehydrogenase C-Reactive Protein NT-Pro-B Natriuret Pep Albumin Urine WBC (Auto) Coronavirus (PCR) 06/07/20 06/07/20 06/07/20 11:14 13:40 14:50 WBC RBC Lymph % (Auto) Lymph # Seg Neutrophils % Seg Neuts % (Manual) Lymphocytes % (Manual) Seg Neutrophils # Seg Neutrophils # Man D-Dimer VBG pH Sodium Potassium Chloride Carbon Dioxide BUN Creatinine Glucose POC Glucose 189 H 223 H 194 H Hemoglobin A1c Lactic Acid Calcium Phosphorus Ferritin AST ALT Lactate Dehydrogenase C-Reactive Protein NT-Pro-B Natriuret Pep Albumin Urine WBC (Auto) Coronavirus (PCR) 06/07/20 06/07/20 06/07/20 14:53 14:53 14:53 WBC RBC Lymph % (Auto) Lymph # Seg Neutrophils % Seg Neuts % (Manual) Lymphocytes % (Manual) Seg Neutrophils # Seg Neutrophils # Man D-Dimer 975.20 H VBG pH Sodium Potassium Chloride Carbon Dioxide BUN Creatinine 1.6 H Glucose 192 H POC Glucose Hemoglobin A1c Lactic Acid 2.20 H* Calcium Phosphorus Ferritin AST ALT Lactate Dehydrogenase C-Reactive Protein NT-Pro-B Natriuret Pep Albumin Urine WBC (Auto) Coronavirus (PCR) 06/07/20 06/07/20 06/07/20 14:53 14:53 18:18 WBC RBC Lymph % (Auto) Lymph # Seg Neutrophils % Seg Neuts % (Manual) Lymphocytes % (Manual) Seg Neutrophils # Seg Neutrophils # Man D-Dimer VBG pH Sodium Potassium Chloride Carbon Dioxide BUN Creatinine Glucose POC Glucose 309 H Hemoglobin A1c Lactic Acid Calcium Phosphorus Ferritin > 2000.0 H AST ALT Lactate Dehydrogenase 517 H C-Reactive Protein 46.00 H NT-Pro-B Natriuret Pep Albumin Urine WBC (Auto) Coronavirus (PCR) 06/07/20 06/07/20 06/07/20 19:44 22:46 23:22 WBC RBC Lymph % (Auto) Lymph # Seg Neutrophils % Seg Neuts % (Manual) Lymphocytes % (Manual) Seg Neutrophils # Seg Neutrophils # Man D-Dimer VBG pH Sodium 133 L 131 L Potassium 5.5 H D Chloride 95.5 L 92.6 L Carbon Dioxide 20 L 21 L BUN 25 H 28 H Creatinine 2.0 H 2.3 H Glucose 379 H 494 H POC Glucose 368 H Hemoglobin A1c Lactic Acid Calcium 8.2 L 8.0 L Phosphorus Ferritin AST ALT Lactate Dehydrogenase C-Reactive Protein NT-Pro-B Natriuret Pep Albumin Urine WBC (Auto) Coronavirus (PCR) 06/07/20 06/08/20 06/08/20 Unknown 06:08 10:56 WBC RBC Lymph % (Auto) Lymph # Seg Neutrophils % Seg Neuts % (Manual) Lymphocytes % (Manual) Seg Neutrophils # Seg Neutrophils # Man D-Dimer VBG pH Sodium Potassium Chloride Carbon Dioxide BUN Creatinine Glucose POC Glucose 437 H 389 H Hemoglobin A1c Lactic Acid Calcium Phosphorus Ferritin AST ALT Lactate Dehydrogenase C-Reactive Protein NT-Pro-B Natriuret Pep Albumin Urine WBC (Auto) Coronavirus (PCR) Positive A 06/08/20 06/08/20 06/08/20 17:07 20:37 22:46 WBC RBC Lymph % (Auto) Lymph # Seg Neutrophils % Seg Neuts % (Manual) Lymphocytes % (Manual) Seg Neutrophils # Seg Neutrophils # Man D-Dimer VBG pH Sodium Potassium Chloride Carbon Dioxide BUN Creatinine Glucose POC Glucose 395 H 394 H 394 H Hemoglobin A1c Lactic Acid Calcium Phosphorus Ferritin AST ALT Lactate Dehydrogenase C-Reactive Protein NT-Pro-B Natriuret Pep Albumin Urine WBC (Auto) Coronavirus (PCR) 06/09/20 06/09/20 06/09/20 05:57 11:42 17:32 WBC RBC Lymph % (Auto) Lymph # Seg Neutrophils % Seg Neuts % (Manual) Lymphocytes % (Manual) Seg Neutrophils # Seg Neutrophils # Man D-Dimer VBG pH Sodium Potassium Chloride Carbon Dioxide BUN Creatinine Glucose POC Glucose 455 H 396 H 457 H Hemoglobin A1c Lactic Acid Calcium Phosphorus Ferritin AST ALT Lactate Dehydrogenase C-Reactive Protein NT-Pro-B Natriuret Pep Albumin Urine WBC (Auto) Coronavirus (PCR) 06/09/20 06/10/20 06/10/20 23:50 05:20 10:27 WBC RBC Lymph % (Auto) Lymph # Seg Neutrophils % Seg Neuts % (Manual) Lymphocytes % (Manual) Seg Neutrophils # Seg Neutrophils # Man D-Dimer VBG pH Sodium 130 L Potassium Chloride Carbon Dioxide 17 L BUN 55 H Creatinine 2.7 H Glucose 452 H POC Glucose 428 H 405 H Hemoglobin A1c Lactic Acid Calcium 8.1 L Phosphorus Ferritin AST ALT Lactate Dehydrogenase C-Reactive Protein NT-Pro-B Natriuret Pep Albumin Urine WBC (Auto) Coronavirus (PCR) 06/10/20 06/10/20 06/10/20 11:49 16:25 23:02 WBC RBC Lymph % (Auto) Lymph # Seg Neutrophils % Seg Neuts % (Manual) Lymphocytes % (Manual) Seg Neutrophils # Seg Neutrophils # Man D-Dimer VBG pH Sodium Potassium Chloride Carbon Dioxide BUN Creatinine Glucose POC Glucose 391 H 432 H 414 H Hemoglobin A1c Lactic Acid Calcium Phosphorus Ferritin AST ALT Lactate Dehydrogenase C-Reactive Protein NT-Pro-B Natriuret Pep Albumin Urine WBC (Auto) Coronavirus (PCR) 06/10/20 06/11/20 06/11/20 23:30 06:39 11:35 WBC RBC Lymph % (Auto) Lymph # Seg Neutrophils % Seg Neuts % (Manual) Lymphocytes % (Manual) Seg Neutrophils # Seg Neutrophils # Man D-Dimer VBG pH Sodium Potassium Chloride Carbon Dioxide BUN Creatinine Glucose POC Glucose 402 H 438 H 338 H Hemoglobin A1c Lactic Acid Calcium Phosphorus Ferritin AST ALT Lactate Dehydrogenase C-Reactive Protein NT-Pro-B Natriuret Pep Albumin Urine WBC (Auto) Coronavirus (PCR) 06/11/20 06/11/20 06/12/20 17:23 23:39 05:25 WBC RBC Lymph % (Auto) Lymph # Seg Neutrophils % Seg Neuts % (Manual) Lymphocytes % (Manual) Seg Neutrophils # Seg Neutrophils # Man D-Dimer VBG pH Sodium Potassium Chloride Carbon Dioxide BUN Creatinine Glucose POC Glucose 376 H 427 H 328 H Hemoglobin A1c Lactic Acid Calcium Phosphorus Ferritin AST ALT Lactate Dehydrogenase C-Reactive Protein NT-Pro-B Natriuret Pep Albumin Urine WBC (Auto) Coronavirus (PCR) 06/12/20 06/12/20 06/12/20 05:27 05:27 11:29 WBC 25.4 H RBC 5.06 H Lymph % (Auto) Lymph # Seg Neutrophils % Seg Neuts % (Manual) 84.0 H Lymphocytes % (Manual) 9.0 L Seg Neutrophils # Seg Neutrophils # Man 21.3 H D-Dimer VBG pH Sodium 134 L Potassium Chloride Carbon Dioxide 16 L BUN 69 H Creatinine 2.7 H Glucose 375 H POC Glucose 379 H Hemoglobin A1c Lactic Acid Calcium 8.2 L Phosphorus Ferritin AST ALT Lactate Dehydrogenase C-Reactive Protein NT-Pro-B Natriuret Pep Albumin 2.1 L Urine WBC (Auto) Coronavirus (PCR) Allied health notes reviewed: RT
[2020-06-12] MEDS: REMDESIVIR 100 MG in SODIUM CHLORIDE 0.9% 250ML 250 ML IV SCH (17:28)
[2020-06-12] MEDS: SODIUM CHLORIDE 0.9% 50 ML IVPB IV SCH (18:22)
--- NOTE | 2020-06-12 20:34 | Progress Note ---
Assessment and Plan - Patient Problems (1) Suspected 2019 novel coronavirus infection Current Visit: Yes Status: Deleted Plan to address problem: Infectious disease consulted, COVID-19 protocol initiated. Coronavirus Positive, Remdesivir Day 4 of 5 . (2) CHF (congestive heart failure) Current Visit: Yes Status: Acute Qualifiers: Heart failure type: systolic Heart failure chronicity: acute Qualified Code(s): I50.21 - Acute systolic (congestive) heart failure Plan to address problem: Echocardiogram reveals ejection fraction of 15%, cardiology team consulted, strict I's/O, daily weight, monitor urine output every shift, afterload reduction, supportive care. (3) Urinary tract infection Current Visit: Yes Status: Acute Qualifiers: Encounter type: initial encounter Plan to address problem: IV antibiotic therapy, supportive care, repeat CBC. (4) Uncontrolled diabetes mellitus Current Visit: Yes Status: Acute Plan to address problem: Sliding scale insulin therapy, Accu-Chek, consistent carbohydrate diet, hypoglycemia protocol, Lantus QHS (5) Excoriation Current Visit: Yes Status: Acute Plan to address problem: Perineum: wound care consulted, absorbtive dressing as per wound care. Home Health/Wound care at discharge. (6) Obesity hypoventilation syndrome Current Visit: Yes Status: Acute Plan to address problem: Supplemental oxygen, nebulizer therapy, noninvasive positive pressure ventilation as clinically indicated, outpatient sleep study, pulmonary toilet, prone positioning while in bed, early ambulation, out of bed to chair 3 times daily and PRN. (7) DVT prophylaxis Current Visit: Yes Status: Acute Plan to address problem: SCD to bilateral lower extremities while in bed, prophylactic heparin History Interval history: 39 YO Male HD #6 with UTI, Obesity Hypoventilation Syndrome, Uncontrolled DM, [place], COVID 19 on Remdesivir Day 4 of 5, Systolic CHF, Excoriation of skin to perineum. Echo reveals EF of 15%. Pt is lying in bed. Patient is moving all extremities well. Patient acknowledges persistent shortness of breath. Patient denies pain. No reported nursing events. wound care daily. D/C Planning in AM. Hospitalist Physical - Constitutional Vitals: Temp Pulse Resp BP Pulse Ox 98.1 F 142 H 32 H 105/72 87 06/12/20 13:06/12/20 13:06/12/20 13:06/12/20 13:06 06/12/20 13:06 General appearance: Present: mild distress, well-nourished, obese - EENT Eyes: Present: PERRL - Neck Neck: Present: supple - Respiratory Respiratory effort: normal Respiratory: bilateral: diminished - Cardiovascular Rhythm: regular Heart Sounds: Present: S1 & S2 - Extremities Extremity abnormal: edema Peripheral Pulses: within normal limits - Abdominal General gastrointestinal: soft, non-tender, non-distended - Integumentary Integumentary: Present: clear, dry - Psychiatric Psychiatric: appropriate mood/affect, cooperative - Neurologic Neurologic: CNII-XII intact HEART Score - HEART Score Risk factors: > 3 risk factors or hx of atherosclerotic disease Troponin: Troponin T < 0.010 ng/mL (0.00-0.029) 06/06/20 15:45 - Critical Actions Critical Actions: >7 pts:50-65% risk of adverse cardiac event. Early invasive measures Results - Labs CBC & Chem 7: 06/12/20 05:27 06/12/20 05:27 Labs: Laboratory Last Values WBC 25.4 K/mm3 (4.5-11.0) H 06/12/20 05:27 RBC 5.06 M/mm3 (3.65-5.03) H 06/12/20 05:27 Hgb 14.5 gm/dl (11.8-15.2) 06/12/20 05:27 Hct 44.0 % (35.5-45.6) 06/12/20 05:27 MCV 87 fl (84-94) 06/12/20 05:27 MCH 29 pg (28-32) 06/12/20 05:27 MCHC 33 % (32-34) 06/12/20 05:27 RDW 15.0 % (13.2-15.2) 06/12/20 05:27 Plt Count 386 K/mm3 (140-440) 06/12/20 05:27 Lymph % (Auto) 6.6 % (13.4-35.0) L 06/06/20 15:45 Rogers % (Auto) 5.8 % (0.0-7.3) 06/06/20 15:45 Eos % (Auto) 0.0 % (0.0-4.3) 06/06/20 15:45 Baso % (Auto) 0.4 % (0.0-1.8) 06/06/20 15:45 Lymph # 0.6 K/mm3 (1.2-5.4) L 06/06/20 15:45 Rogers # 0.6 K/mm3 (0.0-0.8) 06/06/20 15:45 Eos # 0.0 K/mm3 (0.0-0.4) 06/06/20 15:45 Baso # 0.0 K/mm3 (0.0-0.1) 06/06/20 15:45 Add Manual Diff Complete 06/12/20 05:27 Total Counted 100 06/12/20 05:27 Seg Neutrophils % Small Business Representative 06/12/20 05:27 Seg Neuts % (Manual) 84.0 % (40.0-70.0) H 06/12/20 05:27 Band Neutrophils % 2.0 % 06/12/20 05:27 Lymphocytes % (Manual) 9.0 % (13.4-35.0) L 06/12/20 05:27 Reactive Lymphs % (Man) 1.0 % 06/12/20 05:27 Monocytes % (Manual) 3.0 % (0.0-7.3) 06/12/20 05:27 Eosinophils % (Manual) 0 % (0.0-4.3) 06/12/20 05:27 Basophils % (Manual) 0 % (0.0-1.8) 06/12/20 05:27 Metamyelocytes % 1.0 % 06/12/20 05:27 Myelocytes % 0 % 06/12/20 05:27 Promyelocytes % 0 % 06/12/20 05:27 Blast Cells % 0 % 06/12/20 05:27 Nucleated RBC % Not Reportable 06/12/20 05:27 Seg Neutrophils # 8.4 K/mm3 (1.8-7.7) H 06/06/20 15:45 Seg Neutrophils # Man 21.3 K/mm3 (1.8-7.7) H 06/12/20 05:27 Band Neutrophils # 0.5 K/mm3 06/12/20 05:27 Lymphocytes # (Manual) 2.3 K/mm3 (1.2-5.4) 06/12/20 05:27 Abs React Lymphs (Man) 0.3 K/mm3 07/12/20 05:27 Monocytes # (Manual) 0.8 K/mm3 (0.0-0.8) 06/12/20 05:27 Eosinophils # (Manual) 0.0 K/mm3 (0.0-0.4) 06/12/20 05:27 Basophils # (Manual) 0.0 K/mm3 (0.0-0.1) 06/12/20 05:27 Metamyelocytes # 0.3 K/mm3 06/12/20 05:27 Myelocytes # 0.0 K/mm3 06/12/20 05:27 Promyelocytes # 0.0 K/mm3 06/12/20 05:27 Blast Cells # 0.0 K/mm3 06/12/20 05:27 WBC Morphology Not Reportable 06/12/20 05:27 WBC Morphology TNR 06/12/20 05:27 Hypersegmented Neuts Not Reportable 06/12/20 05:27 Hyposegmented Neuts Not Reportable 06/12/20 05:27 Hypogranular Neuts Not Reportable 06/12/20 05:27 Smudge Cells Not Reportable 06/12/20 05:27 Toxic Granulation Not Reportable 06/12/20 05:27 Toxic Vacuolation Not Reportable 06/12/20 05:27 Dohle Bodies Not Reportable 06/12/20 05:27 Pelger-Huet Anomaly Not Reportable 06/12/20 05:27 Jabari Rods Not Reportable 06/12/20 05:27 Platelet Estimate Consistent w auto 06/12/20 05:27 Clumped Platelets Not Reportable 06/12/20 05:27 Plt Clumps, EDTA Not Reportable 06/12/20 05:27 Large Platelets Few 06/12/20 05:27 Giant Platelets Not Reportable 06/12/20 05:27 Platelet Satelliting Not Reportable 06/12/20 05:27 Plt Morphology Comment Not Reportable 06/12/20 05:27 RBC Morphology Normal 06/12/20 05:27 Dimorphic RBCs Not Reportable 06/12/20 05:27 Polychromasia Not Reportable 06/12/20 05:27 Hypochromasia Not Reportable 06/12/20 05:27 Poikilocytosis Not Reportable 06/12/20 05:27 Anisocytosis Not Reportable 06/12/20 05:27 Microcytosis Not Reportable 06/12/20 05:27 Macrocytosis Not Reportable 06/12/20 05:27 Spherocytes Not Reportable 06/12/20 05:27 Pappenheimer Bodies Not Reportable 06/12/20 05:27 Sickle Cells Not Reportable 06/12/20 05:27 Target Cells Not Reportable 06/12/20 05:27 Tear Drop Cells Not Reportable 06/12/20 05:27 Ovalocytes Not Reportable 06/12/20 05:27 Helmet Cells Not Reportable 06/12/20 05:27 [place] Bodies Not Reportable 06/12/20 05:27 [place] Rings Not Reportable 06/12/20 05:27 [place] Cells Not Reportable 06/12/20 05:27 Bite Cells Not Reportable 06/12/20 05:27 Crenated Cell Not Reportable 06/12/20 05:27 Elliptocytes Not Reportable 06/12/20 05:27 Acanthocytes (Spur) Not Reportable 06/12/20 05:27 Rouleaux Not Reportable 06/12/20 05:27 Hemoglobin C Crystals Not Reportable 06/12/20 05:27 Schistocytes Not Reportable 06/12/20 05:27 Malaria parasites Not Reportable 06/12/20 05:27 Chris Bodies Not Reportable 06/12/20 05:27 Hem Pathologist Commnt No 06/12/20 05:27 D-Dimer 975.20 ng/mlDDU (0-234) H 06/07/20 14:53 VBG pH 7.300 (7.320-7.420) L 06/06/20 15:45 Sodium 134 mmol/L (137-145) L 06/12/20 05:27 Potassium 4.4 mmol/L (3.6-5.0) 06/12/20 05:27 Chloride 101.6 mmol/L (98-107) 06/12/20 05:27 Carbon Dioxide 16 mmol/L (22-30) L 06/12/20 05:27 Anion Gap 21 mmol/L 06/12/20 05:27 BUN 69 mg/dL (9-20) H 06/12/20 05:27 Creatinine 2.7 mg/dL (0.8-1.5) H 06/12/20 05:27 Estimated GFR 32 ml/min 06/12/20 05:27 BUN/Creatinine Ratio 26 % 06/12/20 05:27 Glucose 375 mg/dL (75-100) H 06/12/20 05:27 POC Glucose 387 (70-105) H 06/12/20 17:04 Hemoglobin A1c 17.4 % (4-6) H 06/07/20 00:09 Lactic Acid 2.20 mmol/L (0.7-2.0) H* 06/07/20 14:53 Calcium 8.2 mg/dL (8.4-10.2) L 06/12/20 05:27 Phosphorus 1.90 mg/dL (2.5-4.5) L D 06/07/20 00:09 Magnesium 2.20 mg/dL (1.7-2.3) 06/07/20 00:09 Ferritin > 2000.0 ng/mL (13.0-400.0) H 06/07/20 14:53 Total Bilirubin 0.70 mg/dL (0.1-1.2) 06/12/20 05:27 AST 31 units/L (5-40) 06/12/20 05:27 ALT 35 units/L (7-56) 06/12/20 05:27 Alkaline Phosphatase 116 units/L (35-129) 06/12/20 05:27 Lactate Dehydrogenase 517 units/L (91-180) H 06/07/20 14:53 Troponin T < 0.010 ng/mL (0.00-0.029) 06/06/20 15:45 C-Reactive Protein 46.00 mg/dL (0.00-1.30) H 06/07/20 14:53 NT-Pro-B Natriuret Pep 5086 pg/mL (0-450) H 06/06/20 15:45 Total Protein 7.1 g/dL (6.3-8.2) 06/12/20 05:27 Albumin 2.1 g/dL (3.9-5) L 06/12/20 05:27 Albumin/Globulin Ratio 0.4 % 06/12/20 05:27 Procalcitonin 5.49 ng/mL (<0.15) 06/07/20 14:53 Urine Color Yellow (Yellow) 06/06/20 18:42 Urine Turbidity Slightly-cloudy (Clear) 06/06/20 18:42 Urine pH 5.0 (5.0-7.0) 06/06/20 18:42 Ur Specific [place] 1.013 (1.003-1.030) 06/06/20 18:42 Urine Protein 100 mg/dl mg/dL (Negative) 06/06/20 18:42 Urine Glucose (UA) >=500 mg/dL (Negative) 06/06/20 18:42 Urine Ketones 20 mg/dL (Negative) 06/06/20 18:42 Urine Blood Mod (Negative) 06/06/20 18:42 Urine Nitrite Neg (Negative) 06/06/20 18:42 Urine Bilirubin Neg (Negative) 06/06/20 18:42 Urine Urobilinogen < 2.0 mg/dL (<2.0) 06/06/20 18:42 Ur Leukocyte Esterase Sm (Negative) 06/06/20 18:42 Urine WBC (Auto) 57.0 /HPF (0.0-6.0) H 06/06/20 18:42 Urine RBC (Auto) 9.0 /HPF (0.0-6.0) 06/06/20 18:42 U Epithel Cells (Auto) < 1.0 /HPF (0-13.0) 06/06/20 18:42 Urine Bacteria (Auto) 1+ /HPF (Negative) 06/06/20 18:42 Urine Mucus Few /HPF 06/06/20 18:42 Urine Yeast (Budding) 1+ /HPF 06/06/20 18:42 Coronavirus (PCR) Positive (Negative) A 06/07/20 Unknown Microbiology: Microbiology 06/06/20 15:49 Peripheral/Venous Blood Culture - Final NO GROWTH AFTER 5 DAYS 06/06/20 15:49 Peripheral/Venous Blood Culture - Final NO GROWTH AFTER 5 DAYS - Diagnostic Impressions Diagnostic Impressions: Echocardiogram 06/07/20 09:27 Transthoracic Echocardiogram Indication: SOB BP: 111/75 HR: 108 Conclusions *The left ventricular chamber size is severely dilated. *Mild concentric left ventricular hypertrophy is observed. *Global left ventricular systolic function is severely decreased. *The estimated ejection fraction is 15-20%. *The left atrium is moderately dilated. *There is mild to moderate mitral regurgitation. *There is trace-mild tricuspid regurgitation. *There is evidence of borderline pulmonary hypertension. Findings Left Ventricle: The left ventricular chamber size is severely dilated. Mild concentric left ventricular hypertrophy is observed. Global left ventricular systolic function is severely decreased. The estimated ejection fraction is 15-20%. Left Atrium: The left atrium is moderately dilated. Right Ventricle: The right ventricle is slightly dilated. The right ventricular global systolic function is normal. Right Atrium: The right atrium is mildly dilated. Aortic Valve: The aortic valve is trileaflet. The aortic valve leaflets are mildly thickened. There is no evidence of aortic regurgitation. There is no evidence of aortic stenosis. Mitral Valve: The mitral valve leaflets are mildly thickened. There is mild to moderate mitral regurgitation. There is no evidence of mitral stenosis. Tricuspid Valve: There is trace tricuspid regurgitation. The right ventricular systolic pressure is calculated at 25 mmHg. There is evidence of borderline pulmonary hypertension. Pulmonic Valve: There is mild pulmonic regurgitation. Pericardium: There is no pericardial effusion. Aorta: There is no dilatation of the ascending aorta. There is no dilatation of the aortic root. Venous: The inferior vena cava appears normal in size. Measurements Chambers 2D Name Value Normal Range IVSd (2D) 1.29 cm (0.6 - 1.1) LVPWd (2D) 1.26 cm (0.6 - 1.1) LVIDd (2D) 6.03 cm (3.7 - 5.6) LVIDs (2D) 5.02 cm (2 - 3.8) LV FS (2D) 16.83 % - EF Teichholz (2D) 34.6 % - Ao root diameter (2D) 3.06 cm (2 - 3.7) Volumes/Mass Name Value Normal Range LA ESV SP 4CH (A/L) 56.08 ml - LA ESV SP 2CH (A/L) 57.68 ml - LA ESV BP (A/L) 58.34 ml - LA ESV BP (A/L) index 20.19 ml/m2 - LA ESV SP 4CH (MOD) 50.86 ml - LA ESV SP 2CH (MOD) 55.46 ml - LA ESV BP (MOD) 54.34 ml - LA ESV BP (MOD) index 18.8 ml/m2 - Diastolic/Systolic Function Name Value Normal Range MV E-wave Vmax 0.64 m/sec - MV deceleration time 166.65 msec - MV A-wave Vmax 0.56 m/sec - MV E:A ratio 1.15 ratio - Aortic Valve Name Value Normal Range AV Vmax 1.37 m/sec - AV VTI 17.93 cm - AV peak gradient 7.55 mmHg - AV mean gradient 4.66 mmHg - LVOT diameter 2.06 cm - LVOT Vmax 1.24 m/sec - LVOT VTI 16.7 cm - LVOT peak gradient 6.17 mmHg - LVOT mean gradient 3.55 mmHg - SV LVOT 55.69 ml - CLAUDINE (continuity Vmax) 3.02 cm2 - CLAUDINE (continuity VTI) 3.11 cm2 - Ascending Ao 3.12 cm - Mitral Valve Name Value Normal Range MR Vmax 2.69 m/sec - Tricuspid Valve Name Value Normal Range TR Vmax 2.35 m/sec - TR peak gradient 22 mmHg - RAP 3 mmHg - RVSP 25 mmHg - IVC diameter 1.87 cm (1.2 - 2.3) Pulmonic Valve/Qp:Qs Name Value Normal Range PV Vmax 1.15 m/sec - PV peak gradient 5.32 mmHg - NE end-diastolic Vmax 1.19 m/sec - PV acceleration time 125.59 msec - [place]/IV: Voiding Method Condom Catheter IV Catheter Type [Right Hand] INT / Saline Lock IV Catheter Type [Left Hand] Peripheral IV IV Catheter Type [Right INT / Saline Lock Forearm] Active Medications - Current Medications Current Medications: Generic Name Dose Route Start Last Admin Trade Name Freq PRN Reason Stop Dose Admin Acetaminophen 650 mg 06/08/20 18:13 06/09/20 22:27 Tylenol PO 650 mg Q6H PRN Administration Pain, Mild (1-3) Ascorbic Acid 500 mg 06/07/20 22:00 06/12/20 10:23 Vitamin C PO 500 mg BID CAROLYN Administration Aspirin 81 mg 06/08/20 13:00 06/12/20 10:23 Halfprin Ec PO 81 mg QDAY CAROLYN Administration Carvedilol 6.25 mg 06/08/20 12:00 06/12/20 10:24 Coreg PO 6.25 mg BID CAROLYN Administration Dexamethasone 8 mg 06/08/20 15:00 06/12/20 10:23 Decadron PO 8 mg DAILY CAROLYN Administration Dextrose 50 ml 07/09/20 11:57 D50w (25gm) Syringe IV Q30MIN PRN Hypoglycemia Protocol Famotidine 20 mg 06/08/20 10:00 06/12/20 10:23 Pepcid PO 20 mg QDAY CAROLYN Administration Furosemide 40 mg 06/07/20 18:00 06/12/20 17:29 Lasix IV 40 mg 0600,1800 CAROLYN Administration Heparin Sodium (Porcine) 5,000 unit 06/07/20 15:00 06/12/20 15:18 Heparin SUB-Q 5,000 unit Q8HR CAROLYN Administration Hydralazine HCl 25 mg 06/08/20 22:00 06/12/20 10:26 Apresoline PO 25 mg Q12HR CAROLYN Administration REMDESIVIR 100 mg/ Sodium 250 mls @ 500 mls/hr 06/10/20 17:00 06/12/20 18:21 Chloride IV 06/13/20 17:29 Infused Q24H CAROLYN Infusion Insulin Glargine 10 units 06/10/20 22:00 06/11/20 23:38 Lantus SUB-Q 10 units QHS CAROLYN Administration Insulin Human Lispro 0 unit 06/07/20 12:30 06/12/20 17:26 Humalog SUB-Q 17 unit Q6HR CAROLYN Administration Protocol Isosorbide Dinitrate 20 mg 06/08/20 13:00 06/12/20 10:25 Isordil PO 20 mg BID CAROLYN Administration Morphine Sulfate 2 mg 06/07/20 09:34 06/08/20 06:26 Morphine IV 2 mg Q4H PRN Administration Pain, Moderate (4-6) Sodium Chloride 50 ml 06/09/20 17:00 06/12/20 18:22 Nacl 0.9% IV 06/13/20 17:01 50 ml Q24H CAROLYN Administration Zinc Sulfate 220 mg 06/07/20 22:00 06/12/20 10:23 Zinc Sulfate PO 220 mg BID CAROLYN Administration Nutrition/Malnutrition Assess - Dietary Evaluation Nutrition/Malnutrition Findings: Nutrition Notes Start: 06/07/20 08:57 Freq: Status: Active Protocol: Document 06/09/20 14:17 LM (Rec: 06/09/20 14:40 LM [id number]) Nutrition Notes Initial or Follow up Brief Note Current Diagnosis Acute Kidney Injury,Diabetes, Hypertension,Heart Failure Other Pertinent Diagnosis DKA, COVID-19 Current Diet consistent CHO Labs/Tests POC glu 396 Pertinent Medications Lasix Vitamin C Humalog Height 6 ft 1 in Weight 168.5 kg [place] Body Weight (kg) 83.63 BMI 49.0 Subjective/Other Information Pt stated he is eating well and unaware of wt loss. Provided pt with DM diet education. Pt is on fluid/Na restriction. Pt with 75% intakes in chart. #1 Nutrition Diagnosis Food and nutrition-related knowledge deficit Etiology pt with limited prior DM diet education As Evidenced by Signs and Symptoms POC glu 396 Nutrition Intervention Teaching Recipient Patient Learning Readiness Good Teaching Methods Discussion,Handout Response to Teaching Verbalize understanding, Reinforcement needed Education Handouts Provided Carbohydrate Counting for People with DM Barriers to Learning No Barriers RD phone number provided Yes Patient aware of follow up options Yes Revisit per MD consult or patient Sign Off request:
[2020-06-13] MEDS ORDERED: INSULIN LISPRO 100 UNIT/ML SUB-Q ONE ×5 (00:02→19:00)
[2020-06-13] MEDS: INSULIN LISPRO 100 UNIT/ML SUB-Q SCH ×6 (02:45→23:48)
[2020-06-13 04:50] LABS: Hematocrit 45.5 % (35.5-45.6); Hemoglobin 15.1 gm/dl (11.8-15.2); Mean Corpuscular HGB Conc 33 % (32-34); Mean Corpuscular Volume 87 fl (84-94); Platelet Count 349 K/mm3 (140-440); Red Blood Count 5.23 M/mm3 (3.65-5.03); Red Cell Distribution Width 15.1 % (13.2-15.2)
[2020-06-13] MEDS: HEPARIN 5,000 UNIT/1 ML VIAL SUB-Q SCH ×3 (06:13→21:23)
[2020-06-13] MEDS: FUROSEMIDE 40 MG/4 ML INJ IV SCH ×2 (06:14→18:09)
[2020-06-13 06:16] LABS: Basophils % (Manual) 0 % (0.0-1.8); Eosinophils % (Manual) 0 % (0.0-4.3); Platelet Estimate Consistent w Auto; Total Cells Counted 100
[2020-06-13 10:19] LABS: Albumin 2.5 g/dL (3.9-5); Calcium 8.1 mg/dL (8.4-10.2)
[2020-06-13] MEDS: ZINC SULFATE 220 MG CAP PO SCH ×2 (11:30→21:22)
[2020-06-13] MEDS: ASCORBIC ACID 500 MG TAB PO SCH ×2 (11:31→21:22)
[2020-06-13] MEDS: DEXAMETHASONE 4 MG TAB PO SCH (11:31)
[2020-06-13] MEDS: carvediloL 6.25 MG TAB PO SCH ×2 (11:31→21:22)
[2020-06-13] MEDS: ASPIRIN EC 81 MG TAB PO SCH (11:31)
[2020-06-13] MEDS: FAMOTIDINE 20 MG TAB PO SCH (11:31)
[2020-06-13] MEDS: ISOSORBIDE DINITRATE 20 MG TAB PO SCH ×2 (11:31→21:22)
[2020-06-13] MEDS: hydrALAZINE 25 MG TAB PO SCH ×2 (11:31→21:22)
--- NOTE | 2020-06-13 12:16 | Progress Note ---
Assessment and Plan Systolic heart failure An echocardiogram showed a severely decreased systolic function, ejection fraction 15-20%. The duration of this cardiomyopathy is uncertain. COVID 19 viral pneumonia Diabetic ketoacidosis Acute renal failure Recommendations: Sodium and fluid restriction. Continue medical therapy for acute on chronic dilated cardiomyopathy as tolerated. Subjective Date of service: 06/13/20 Interval history: No cardiac issues reported. Stable sinus rhythm on telemetry. Objective Vital Signs Temp Pulse Resp BP Pulse Ox 06/13/20 10:00 94 06/13/20 05:32 98.7 F 57 L 20 141/96 96 06/12/20 22:52 97.6 F 76 20 130/92 92 06/12/20 22:10 90 06/12/20 20:35 76 06/12/20 16:52 97.9 F 83 24 149/81 89 06/12/20 13:06 98.1 F 142 H 32 H 105/72 87 - Physical Examination Narrative exam: Deferred due to coronavirus isolation protocol - Labs and Meds Cardiac Enzymes 06/13/20 06/13/20 Range/Units 03:59 09:19 AST 39 (5-40) units/L Lactate Dehydrogenase 479 H (91-180) units/L CBC 06/13/20 Range/Units 03:59 WBC 23.7 H (4.5-11.0) K/mm3 RBC 5.23 H (3.65-5.03) M/mm3 Hgb 15.1 (11.8-15.2) gm/dl Hct 45.5 (35.5-45.6) % Plt Count 349 (140-440) K/mm3 Comprehensive Metabolic Panel 06/13/20 Range/Units 09:19 Sodium 129 L (137-145) mmol/L Potassium 5.0 (3.6-5.0) mmol/L Chloride 94.3 L (98-107) mmol/L Carbon Dioxide 17 L (22-30) mmol/L BUN 65 H (9-20) mg/dL Creatinine 2.6 H (0.8-1.5) mg/dL Glucose 375 H (75-100) mg/dL Calcium 8.1 L (8.4-10.2) mg/dL AST 39 (5-40) units/L ALT 33 (7-56) units/L Alkaline Phosphatase 115 (35-129) units/L Total Protein 6.7 (6.3-8.2) g/dL Albumin 2.5 L (3.9-5) g/dL - Allied health notes Allied health notes reviewed: RT
--- NOTE | 2020-06-13 13:30 | Progress Note ---
Assessment and Plan - Patient Problems (1) Suspected 2019 novel coronavirus infection Current Visit: Yes Status: Deleted Plan to address problem: Infectious disease consulted, COVID-19 protocol initiated. Coronavirus Positive, Remdesivir Day 5 of 5 . (2) CHF (congestive heart failure) Current Visit: Yes Status: Acute Qualifiers: Heart failure type: systolic Heart failure chronicity: acute Qualified Code(s): I50.21 - Acute systolic (congestive) heart failure Plan to address problem: Echocardiogram reveals ejection fraction of 15%, cardiology team consulted, strict I's/O, daily weight, monitor urine output every shift, afterload reduction, supportive care. (3) Urinary tract infection Current Visit: Yes Status: Acute Qualifiers: Encounter type: initial encounter Plan to address problem: IV antibiotic therapy, supportive care, repeat CBC. (4) Uncontrolled diabetes mellitus Current Visit: Yes Status: Acute Plan to address problem: Sliding scale insulin therapy, Accu-Chek, consistent carbohydrate diet, hypoglycemia protocol, Lantus QHS (5) Excoriation Current Visit: Yes Status: Acute Plan to address problem: Perineum: wound care consulted, absorbtive dressing as per wound care. Home Health/Wound care at discharge. (6) Obesity hypoventilation syndrome Current Visit: Yes Status: Acute Plan to address problem: Supplemental oxygen, nebulizer therapy, noninvasive positive pressure ventilation as clinically indicated, outpatient sleep study, pulmonary toilet, prone positioning while in bed, early ambulation, out of bed to chair 3 times daily and PRN. (7) DVT prophylaxis Current Visit: Yes Status: Acute Plan to address problem: SCD to bilateral lower extremities while in bed, prophylactic heparin History Interval history: 39 YO Male HD #6 with UTI, Obesity Hypoventilation Syndrome, Uncontrolled DM, [place], COVID 19 on Remdesivir Day 5 of 5, Systolic CHF, Excoriation of skin to perineum. Echo reveals EF of 15%. Pt is lying in bed. Patient is moving all extremities well. Patient states that he is feeling better today. Patient denies pain. Patient sitting in bed. No reported nursing events. wound care daily. D/C Planning in AM. Hospitalist Physical - Constitutional Vitals: Temp Pulse Resp BP Pulse Ox 98.1 F 86 20 126/78 90 06/13/20 11:12 06/13/20 11:12 06/13/20 11:12 06/13/20 11:12 06/13/20 11:12 General appearance: Present: mild distress, well-nourished, obese - EENT Eyes: Present: PERRL, EOM intact - Respiratory Respiratory effort: normal Respiratory: bilateral: diminished - Cardiovascular Rhythm: regular Heart Sounds: Present: S1 & S2 - Extremities Extremities: no ischemia Peripheral Pulses: within normal limits - Abdominal General gastrointestinal: soft, non-tender, non-distended - Integumentary Integumentary: Present: clear, warm, dry - Psychiatric Psychiatric: appropriate mood/affect, cooperative - Neurologic Neurologic: CNII-XII intact HEART Score - HEART Score Risk factors: > 3 risk factors or hx of atherosclerotic disease Troponin: Troponin T < 0.010 ng/mL (0.00-0.029) 06/06/20 15:45 - Critical Actions Critical Actions: >7 pts:50-65% risk of adverse cardiac event. Early invasive measures Results - Labs CBC & Chem 7: 06/13/20 03:59 06/13/20 09:19 Labs: Laboratory Last Values WBC 23.7 K/mm3 (4.5-11.0) H 06/13/20 03:59 RBC 5.23 M/mm3 (3.65-5.03) H 06/13/20 03:59 Hgb 15.1 gm/dl (11.8-15.2) 06/13/20 03:59 Hct 45.5 % (35.5-45.6) 06/13/20 03:59 MCV 87 fl (84-94) 06/13/20 03:59 MCH 29 pg (28-32) 06/13/20 03:59 MCHC 33 % (32-34) 06/13/20 03:59 RDW 15.1 % (13.2-15.2) 06/13/20 03:59 Plt Count 349 K/mm3 (140-440) 06/13/20 03:59 Lymph % (Auto) 6.6 % (13.4-35.0) L 06/06/20 15:45 [place] % (Auto) 5.8 % (0.0-7.3) 06/06/20 15:45 Eos % (Auto) 0.0 % (0.0-4.3) 06/06/20 15:45 Baso % (Auto) 0.4 % (0.0-1.8) 06/06/20 15:45 Lymph # 0.6 K/mm3 (1.2-5.4) L 06/06/20 15:45 [place] # 0.6 K/mm3 (0.0-0.8) 06/06/20 15:45 Eos # 0.0 K/mm3 (0.0-0.4) 06/06/20 15:45 Baso # 0.0 K/mm3 (0.0-0.1) 06/06/20 15:45 Add Manual Diff Complete 06/13/20 03:59 Total Counted 100 06/13/20 03:59 Seg Neutrophils % Highway Research Engineer 06/13/20 03:59 Seg Neuts % (Manual) 94.0 % (40.0-70.0) H 06/13/20 03:59 Band Neutrophils % 0 % 06/13/20 03:59 Lymphocytes % (Manual) 3.0 % (13.4-35.0) L 06/13/20 03:59 Reactive Lymphs % (Man) 0 % 06/13/20 03:59 Monocytes % (Manual) 3.0 % (0.0-7.3) 06/13/20 03:59 Eosinophils % (Manual) 0 % (0.0-4.3) 06/13/20 03:59 Basophils % (Manual) 0 % (0.0-1.8) 06/13/20 03:59 Metamyelocytes % 0 % 06/13/20 03:59 Myelocytes % 0 % 06/13/20 03:59 Promyelocytes % 0 % 06/13/20 03:59 Blast Cells % 0 % 06/13/20 03:59 Nucleated RBC % Not Reportable 06/13/20 03:59 Seg Neutrophils # 8.4 K/mm3 (1.8-7.7) H 06/06/20 15:45 Seg Neutrophils # Man 22.3 K/mm3 (1.8-7.7) H 06/13/20 03:59 Band Neutrophils # 0.0 K/mm3 06/13/20 03:59 Lymphocytes # (Manual) 0.7 K/mm3 (1.2-5.4) L 06/13/20 03:59 Abs React Lymphs (Man) 0.0 K/mm3 06/13/20 03:59 Monocytes # (Manual) 0.7 K/mm3 (0.0-0.8) 06/13/20 03:59 Eosinophils # (Manual) 0.0 K/mm3 (0.0-0.4) 06/13/20 03:59 Basophils # (Manual) 0.0 K/mm3 (0.0-0.1) 06/13/20 03:59 Metamyelocytes # 0.0 K/mm3 06/13/20 03:59 Myelocytes # 0.0 K/mm3 06/13/20 03:59 Promyelocytes # 0.0 K/mm3 06/13/20 03:59 Blast Cells # 0.0 K/mm3 06/13/20 03:59 WBC Morphology Not Reportable 06/13/20 03:59 Hypersegmented Neuts Not Reportable 06/13/20 03:59 Hyposegmented Neuts Not Reportable 06/13/20 03:59 Hypogranular Neuts Not Reportable 06/13/20 03:59 Smudge Cells Not Reportable 06/13/20 03:59 Toxic Granulation Not Reportable 06/13/20 03:59 Toxic Vacuolation Not Reportable 06/13/20 03:59 Dohle Bodies Not Reportable 06/13/20 03:59 Pelger-Huet Anomaly Not Reportable 06/13/20 03:59 Jabari Rods Not Reportable 06/13/20 03:59 Platelet Estimate Consistent w auto 06/13/20 03:59 Clumped Platelets Not Reportable 06/13/20 03:59 Plt Clumps, EDTA Not Reportable 06/13/20 03:59 Large Platelets Not Reportable 06/13/20 03:59 Giant Platelets Not Reportable 06/13/20 03:59 Platelet Satelliting Not Reportable 06/13/20 03:59 Plt Morphology Comment Not Reportable 06/13/20 03:59 RBC Morphology Not Reportable 06/13/20 03:59 Dimorphic RBCs Not Reportable 06/13/20 03:59 Polychromasia Not Reportable 06/13/20 03:59 Hypochromasia Not Reportable 06/13/20 03:59 Poikilocytosis Not Reportable 06/13/20 03:59 Anisocytosis Not Reportable 06/13/20 03:59 Microcytosis Not Reportable 06/13/20 03:59 Macrocytosis Not Reportable 06/13/20 03:59 Spherocytes Not Reportable 06/13/20 03:59 Pappenheimer Bodies Not Reportable 06/13/20 03:59 Sickle Cells Not Reportable 06/13/20 03:59 Target Cells Not Reportable 06/13/20 03:59 Tear Drop Cells Not Reportable 06/13/20 03:59 Ovalocytes Not Reportable 06/13/20 03:59 Helmet Cells Not Reportable 06/13/20 03:59 Campbell-Bonsall Bodies Not Reportable 06/13/20 03:59 Cabery Rings Not Reportable 06/13/20 03:59 Tavares Cells Not Reportable 06/13/20 03:59 Bite Cells Not Reportable 06/13/20 03:59 Crenated Cell Not Reportable 06/13/20 03:59 Elliptocytes Not Reportable 06/13/20 03:59 Acanthocytes (Spur) Not Reportable 06/13/20 03:59 Rouleaux Not Reportable 06/13/20 03:59 Hemoglobin C Crystals Not Reportable 06/13/20 03:59 Schistocytes Not Reportable 06/13/20 03:59 Malaria parasites Not Reportable 06/13/20 03:59 Chris Bodies Not Reportable 06/13/20 03:59 Hem Pathologist Commnt No 06/13/20 03:59 D-Dimer 975.20 ng/mlDDU (0-234) H 06/07/20 14:53 VBG pH 7.300 (7.320-7.420) L 06/06/20 15:45 Sodium 129 mmol/L (137-145) L 06/13/20 09:19 Potassium 5.0 mmol/L (3.6-5.0) 06/13/20 09:19 Chloride 94.3 mmol/L (98-107) L 06/13/20 09:19 Carbon Dioxide 17 mmol/L (22-30) L 06/13/20 09:19 Anion Gap 23 mmol/L 06/13/20 09:19 BUN 65 mg/dL (9-20) H 06/13/20 09:19 Creatinine 2.6 mg/dL (0.8-1.5) H 06/13/20 09:19 Estimated GFR 33 ml/min 06/13/20 09:19 BUN/Creatinine Ratio 25 % 06/13/20 09:19 Glucose 375 mg/dL (75-100) H 06/13/20 09:19 POC Glucose 327 (70-105) H 06/13/20 12:21 Hemoglobin A1c 17.4 % (4-6) H 06/07/20 00:09 Lactic Acid 2.20 mmol/L (0.7-2.0) H* 06/07/20 14:53 Calcium 8.1 mg/dL (8.4-10.2) L 06/13/20 09:19 Phosphorus 1.90 mg/dL (2.5-4.5) L D 06/07/20 00:09 Magnesium 2.20 mg/dL (1.7-2.3) 06/07/20 00:09 Ferritin > 2000.0 ng/mL (13.0-400.0) H 06/07/20 14:53 Total Bilirubin 0.90 mg/dL (0.1-1.2) 06/13/20 09:19 AST 39 units/L (5-40) 06/13/20 09:19 ALT 33 units/L (7-56) 06/13/20 09:19 Alkaline Phosphatase 115 units/L (35-129) 06/13/20 09:19 Lactate Dehydrogenase 479 units/L (91-180) H 06/13/20 03:59 Troponin T < 0.010 ng/mL (0.00-0.029) 06/06/20 15:45 C-Reactive Protein 46.00 mg/dL (0.00-1.30) H 06/07/20 14:53 NT-Pro-B Natriuret Pep 5086 pg/mL (0-450) H 06/06/20 15:45 Total Protein 6.7 g/dL (6.3-8.2) 06/13/20 09:19 Albumin 2.5 g/dL (3.9-5) L 06/13/20 09:19 Albumin/Globulin Ratio 0.6 % 06/13/20 09:19 Procalcitonin 5.49 ng/mL (<0.15) 06/07/20 14:53 Urine Color Yellow (Yellow) 06/06/20 18:42 Urine Turbidity Slightly-cloudy (Clear) 06/06/20 18:42 Urine pH 5.0 (5.0-7.0) 06/06/20 18:42 Ur Specific Mallie 1.013 (1.003-1.030) 06/06/20 18:42 Urine Protein 100 mg/dl mg/dL (Negative) 06/06/20 18:42 Urine Glucose (UA) >=500 mg/dL (Negative) 06/06/20 18:42 Urine Ketones 20 mg/dL (Negative) 06/06/20 18:42 Urine Blood Mod (Negative) 06/06/20 18:42 Urine Nitrite Neg (Negative) 06/06/20 18:42 Urine Bilirubin Neg (Negative) 06/06/20 18:42 Urine Urobilinogen < 2.0 mg/dL (<2.0) 06/06/20 18:42 Ur Leukocyte Esterase Sm (Negative) 06/06/20 18:42 Urine WBC (Auto) 57.0 /HPF (0.0-6.0) H 06/06/20 18:42 Urine RBC (Auto) 9.0 /HPF (0.0-6.0) 06/06/20 18:42 U Epithel Cells (Auto) < 1.0 /HPF (0-13.0) 06/06/20 18:42 Urine Bacteria (Auto) 1+ /HPF (Negative) 06/06/20 18:42 Urine Mucus Few /HPF 06/06/20 18:42 Urine Yeast (Budding) 1+ /HPF 06/06/20 18:42 Coronavirus (PCR) Positive (Negative) A 06/07/20 Unknown - Diagnostic Impressions Diagnostic Impressions: Echocardiogram 06/07/20 09:27 Transthoracic Echocardiogram Indication: SOB BP: 111/75 HR: 108 Conclusions *The left ventricular chamber size is severely dilated. *Mild concentric left ventricular hypertrophy is observed. *Global left ventricular systolic function is severely decreased. *The estimated ejection fraction is 15-20%. *The left atrium is moderately dilated. *There is mild to moderate mitral regurgitation. *There is trace-mild tricuspid regurgitation. *There is evidence of borderline pulmonary hypertension. Findings Left Ventricle: The left ventricular chamber size is severely dilated. Mild concentric left ventricular hypertrophy is observed. Global left ventricular systolic function is severely decreased. The estimated ejection fraction is 15-20%. Left Atrium: The left atrium is moderately dilated. Right Ventricle: The right ventricle is slightly dilated. The right ventricular global systolic function is normal. Right Atrium: The right atrium is mildly dilated. Aortic Valve: The aortic valve is trileaflet. The aortic valve leaflets are mildly thickened. There is no evidence of aortic regurgitation. There is no evidence of aortic stenosis. Mitral Valve: The mitral valve leaflets are mildly thickened. There is mild to moderate mitral regurgitation. There is no evidence of mitral stenosis. Tricuspid Valve: There is trace tricuspid regurgitation. The right ventricular systolic pressure is calculated at 25 mmHg. There is evidence of borderline pulmonary hypertension. Pulmonic Valve: There is mild pulmonic regurgitation. Pericardium: There is no pericardial effusion. Aorta: There is no dilatation of the ascending aorta. There is no dilatation of the aortic root. Venous: The inferior vena cava appears normal in size. Measurements Chambers 2D Name Value Normal Range IVSd (2D) 1.29 cm (0.6 - 1.1) LVPWd (2D) 1.26 cm (0.6 - 1.1) LVIDd (2D) 6.03 cm (3.7 - 5.6) LVIDs (2D) 5.02 cm (2 - 3.8) LV FS (2D) 16.83 % - EF Teichholz (2D) 34.6 % - Ao root diameter (2D) 3.06 cm (2 - 3.7) Volumes/Mass Name Value Normal Range LA ESV SP 4CH (A/L) 56.08 ml - LA ESV SP 2CH (A/L) 57.68 ml - LA ESV BP (A/L) 58.34 ml - LA ESV BP (A/L) index 20.19 ml/m2 - LA ESV SP 4CH (MOD) 50.86 ml - LA ESV SP 2CH (MOD) 55.46 ml - LA ESV BP (MOD) 54.34 ml - LA ESV BP (MOD) index 18.8 ml/m2 - Diastolic/Systolic Function Name Value Normal Range MV E-wave Vmax 0.64 m/sec - MV deceleration time 166.65 msec - MV A-wave Vmax 0.56 m/sec - MV E:A ratio 1.15 ratio - Aortic Valve Name Value Normal Range AV Vmax 1.37 m/sec - AV VTI 17.93 cm - AV peak gradient 7.55 mmHg - AV mean gradient 4.66 mmHg - LVOT diameter 2.06 cm - LVOT Vmax 1.24 m/sec - LVOT VTI 16.7 cm - LVOT peak gradient 6.17 mmHg - LVOT mean gradient 3.55 mmHg - SV LVOT 55.69 ml - CLAUDINE (continuity Vmax) 3.02 cm2 - CLAUDINE (continuity VTI) 3.11 cm2 - Ascending Ao 3.12 cm - Mitral Valve Name Value Normal Range MR Vmax 2.69 m/sec - Tricuspid Valve Name Value Normal Range TR Vmax 2.35 m/sec - TR peak gradient 22 mmHg - RAP 3 mmHg - RVSP 25 mmHg - IVC diameter 1.87 cm (1.2 - 2.3) Pulmonic Valve/Qp:Qs Name Value Normal Range PV Vmax 1.15 m/sec - PV peak gradient 5.32 mmHg - HI end-diastolic Vmax 1.19 m/sec - PV acceleration time 125.59 msec - León/IV: Voiding Method Condom Catheter IV Catheter Type [Right Hand] INT / Saline Lock IV Catheter Type [Left Hand] Peripheral IV IV Catheter Type [Right INT / Saline Lock Forearm] Active Medications - Current Medications Current Medications: Generic Name Dose Route Start Last Admin Trade Name Shubhamq PRN Reason Stop Dose Admin Acetaminophen 650 mg 06/08/20 18:13 06/09/20 22:27 Tylenol PO 650 mg Q6H PRN Administration Pain, Mild (1-3) Ascorbic Acid 500 mg 06/07/20 22:00 06/13/20 11:31 Vitamin C PO 500 mg BID CAROLYN Administration Aspirin 81 mg 06/08/20 13:00 06/13/20 11:31 Halfprin Ec PO 81 mg QDAY CAROLYN Administration Carvedilol 6.25 mg 06/08/20 12:00 06/13/20 11:31 Coreg PO 6.25 mg BID CAROLYN Administration Dexamethasone 8 mg 06/08/20 15:00 06/13/20 11:31 Decadron PO 06/17/20 10:01 8 mg DAILY CAROLYN Administration Dextrose 50 ml 06/09/20 11:57 D50w (25gm) Syringe IV Q30MIN PRN Hypoglycemia Protocol Famotidine 20 mg 06/08/20 10:00 06/13/20 11:31 Pepcid PO 20 mg QDAY CAROLYN Administration Furosemide 40 mg 06/07/20 18:00 06/13/20 06:14 Lasix IV 40 mg 0600,1800 CAROLYN Administration Heparin Sodium (Porcine) 5,000 unit 06/07/20 15:00 06/13/20 13:12 Heparin SUB-Q 5,000 unit Q8HR CAROLYN Administration Hydralazine HCl 25 mg 06/08/20 22:00 06/13/20 11:31 Apresoline PO 25 mg Q12HR CARLOYN Administration REMDESIVIR 100 mg/ Sodium 250 mls @ 500 mls/hr 06/10/20 17:00 06/12/20 18:21 Chloride IV 06/13/20 17:29 Infused Q24H CAROLYN Infusion Insulin Glargine 10 units 06/10/20 22:00 06/12/20 00:00 Lantus SUB-Q 10 units QHS CAROLYN Administration Insulin Human Lispro 0 unit 06/07/20 12:30 06/13/20 13:11 Humalog SUB-Q 14 unit Q6HR CAROLYN Administration Protocol Isosorbide Dinitrate 20 mg 06/08/20 13:00 06/13/20 11:31 Isordil PO 20 mg BID CAROLYN Administration Morphine Sulfate 2 mg 06/07/20 09:34 06/08/20 06:26 Morphine IV 2 mg Q4H PRN Administration Pain, Moderate (4-6) Sodium Chloride 50 ml 06/09/20 17:00 06/12/20 18:22 Nacl 0.9% IV 06/13/20 17:01 50 ml Q24H CRAOLYN Administration Zinc Sulfate 220 mg 06/07/20 22:00 06/13/20 11:30 Zinc Sulfate PO 220 mg BID CAROLYN Administration Nutrition/Malnutrition Assess - Dietary Evaluation Nutrition/Malnutrition Findings: Nutrition Notes Start: 06/07/20 08:57 Freq: Status: Active Protocol: Document 06/09/20 14:17 LM (Rec: 06/09/20 14:40 LM [id number]) Nutrition Notes Initial or Follow up Brief Note Current Diagnosis Acute Kidney Injury,Diabetes, Hypertension,Heart Failure Other Pertinent Diagnosis DKA, COVID-19 Current Diet consistent CHO Labs/Tests POC glu 396 Pertinent Medications Lasix Vitamin C Humalog Height 6 ft 1 in Weight 168.5 kg [place] Body Weight (kg) 83.63 BMI 49.0 Subjective/Other Information Pt stated he is eating well and unaware of wt loss. Provided pt with DM diet education. Pt is on fluid/Na restriction. Pt with 75% intakes in chart. #1 Nutrition Diagnosis Food and nutrition-related knowledge deficit Etiology pt with limited prior DM diet education As Evidenced by Signs and Symptoms POC glu 396 Nutrition Intervention Teaching Recipient Patient Learning Readiness Good Teaching Methods Discussion,Handout Response to Teaching Verbalize understanding, Reinforcement needed Education Handouts Provided Carbohydrate Counting for People with DM Barriers to Learning No Barriers RD phone number provided Yes Patient aware of follow up options Yes Revisit per MD consult or patient Sign Off request:
--- NOTE | 2020-06-13 13:43 | Progress Note ---
Assessment and Plan Patient alert, awake . Patient on O2, 4 litres via nasal canula. O2 saturation 90%. Some times he takes down O2. O2 saturation dropping to low 80s. Recommend to keep O2 all the time. Slight shortness of breath at rest. Patient COVID 19 po sitive.Patient afebrile but has leukocytosis. Patient is on REMDESIVIR, dexamethasone, S/C heaprin and famotidine. - Patient Problems (1) COVID-19 virus infection Current Visit: Yes Status: Acute Plan to address problem: Patient is on REMDESVIR, Dexamethasone, S/C Heparin and Fmotidine. Management as per infectious diseases. Patient is on O2 4 litres. (2) Pneumonia due to 2019-nCoV Current Visit: Yes Status: Acute Plan to address problem: Patient is on REMDESVIR, Dexamethasone, S/C Heparin and Fmotidine. Management as per infectious diseases. Patient is on O2 4 litres. (3) Obesity hypoventilation syndrome Current Visit: Yes Status: Acute Plan to address problem: BIPAP during night time and PRN for sleepiness during day time Vapotherm when he is not on BIPAP. Recommend to loose weight. ABGs on room air. 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 (5) DKA, type 2 Current Visit: Yes Status: Acute Qualifiers: Diabetes mellitus complication detail: without coma Qualified Code(s): E11.10 - Type 2 diabetes mellitus with ketoacidosis without coma Plan to address problem: Management as per primary care. (6) Hypertension Current Visit: Yes Status: Chronic Qualifiers: Hypertension type: essential hypertension Qualified Code(s): I10 - Essential (primary) hypertension Plan to address problem: Management as per primary care. (7) Morbid obesity Current Visit: Yes Status: Chronic Plan to address problem: BIPAP during night time and PRN for sleepiness during day time O2 4 litres o2. Recommend to loose weight. ABGs on room air. Subjective Date of service: 06/13/20 Interval history: Patient alert, awake . Patient on O2, 4 litres via nasal canula. O2 saturation 90%. Some times he takes down O2. O2 saturation dropping to low 80s. Recommend to keep O2 all the time. Slight shortness of breath at rest. Patient COVID 19 positive.Patient afebrile but has leukocytosis. Patient is on REMDESIVIR, dexamethasone, S/C heaprin and famotidine. Objective Vital Signs - 12hr 06/13/20 06/13/20 06/13/20 05:32 10:00 11:12 Temperature 98.7 F 98.1 F Pulse Rate 57 L 86 Respiratory 20 20 Rate Blood Pressure 141/96 126/78 O2 Sat by Pulse 96 94 90 Oximetry Constitutional: no acute distress, alert, other (Morbidly Obese. ) Eyes: non-icteric ENT: oropharynx moist Neck: supple, no lymphadenopathy Effort: mildly labored Ascultation: Bilateral: diminished breath sounds, rales (basilar) Cardiovascular: regular rate and rhythm Gastrointestinal: normoactive bowel sounds, soft, non-tender, non-distended, other (León catheter in place, drainig clear urine) Integumentary: other (Stasis dermatitis both lower legs.) Extremities: edema, other (hyperpigmentation opf lower extremities) Neurologic: normal mental status, non-focal exam, pupils equal and round, unable to assess Psychiatric: anxious CBC and BMP: 06/13/20 03:59 06/13/20 09:19 ABG, PT/INR, D-dimer: PT/INR, D-dimer D-Dimer 975.20 ng/mlDDU (0-234) H 06/07/20 14:53 Abnormal lab findings: Abnormal Labs 06/06/20 06/06/20 06/06/20 15:45 15:45 15:45 WBC RBC Lymph % (Auto) 6.6 L Lymph # 0.6 L Seg Neutrophils % 87.2 H Seg Neuts % (Manual) Lymphocytes % (Manual) Seg Neutrophils # 8.4 H Seg Neutrophils # Man Lymphocytes # (Manual) D-Dimer VBG pH 7.300 L Sodium 131 L Potassium Chloride 89.8 L Carbon Dioxide 16 L BUN Creatinine Glucose 509 H* POC Glucose Hemoglobin A1c Lactic Acid Calcium Phosphorus Ferritin AST 151 H ALT 157 H Lactate Dehydrogenase C-Reactive Protein NT-Pro-B Natriuret Pep 5086 H Albumin 3.0 L Urine WBC (Auto) Coronavirus (PCR) 06/06/20 06/06/20 06/06/20 17:02 18:01 18:16 WBC RBC Lymph % (Auto) Lymph # Seg Neutrophils % Seg Neuts % (Manual) Lymphocytes % (Manual) Seg Neutrophils # Seg Neutrophils # Man Lymphocytes # (Manual) D-Dimer VBG pH Sodium Potassium Chloride Carbon Dioxide BUN Creatinine Glucose POC Glucose 450 H Hemoglobin A1c Lactic Acid 2.20 H* 2.30 H* Calcium Phosphorus Ferritin AST ALT Lactate Dehydrogenase C-Reactive Protein NT-Pro-B Natriuret Pep Albumin Urine WBC (Auto) Coronavirus (PCR) 06/06/20 06/06/20 06/06/20 18:16 18:42 19:36 WBC RBC Lymph % (Auto) Lymph # Seg Neutrophils % Seg Neuts % (Manual) Lymphocytes % (Manual) Seg Neutrophils # Seg Neutrophils # Man Lymphocytes # (Manual) D-Dimer VBG pH Sodium 131 L 131 L Potassium 5.3 H Chloride 90.7 L 90.7 L Carbon Dioxide 12 L 16 L BUN Creatinine Glucose 525 H* 558 H* POC Glucose Hemoglobin A1c Lactic Acid Calcium Phosphorus Ferritin AST ALT Lactate Dehydrogenase C-Reactive Protein NT-Pro-B Natriuret Pep Albumin Urine WBC (Auto) 57.0 H Coronavirus (PCR) 06/06/20 06/06/20 06/06/20 21:21 22:26 23:33 WBC RBC Lymph % (Auto) Lymph # Seg Neutrophils % Seg Neuts % (Manual) Lymphocytes % (Manual) Seg Neutrophils # Seg Neutrophils # Man Lymphocytes # (Manual) D-Dimer VBG pH Sodium Potassium Chloride Carbon Dioxide BUN Creatinine Glucose POC Glucose 411 H 395 H 390 H Hemoglobin A1c Lactic Acid Calcium Phosphorus Ferritin AST ALT Lactate Dehydrogenase C-Reactive Protein NT-Pro-B Natriuret Pep Albumin Urine WBC (Auto) Coronavirus (PCR) 06/07/20 06/07/20 06/07/20 00:09 00:09 00:09 WBC RBC Lymph % (Auto) Lymph # Seg Neutrophils % Seg Neuts % (Manual) Lymphocytes % (Manual) Seg Neutrophils # Seg Neutrophils # Man Lymphocytes # (Manual) D-Dimer VBG pH Sodium 135 L Potassium Chloride 95.7 L Carbon Dioxide BUN Creatinine Glucose 419 H POC Glucose Hemoglobin A1c 17.4 H Lactic Acid 2.30 H* Calcium 8.3 L Phosphorus Ferritin AST ALT Lactate Dehydrogenase C-Reactive Protein NT-Pro-B Natriuret Pep Albumin Urine WBC (Auto) Coronavirus (PCR) 06/07/20 06/07/20 06/07/20 00:09 00:48 02:09 WBC RBC Lymph % (Auto) Lymph # Seg Neutrophils % Seg Neuts % (Manual) Lymphocytes % (Manual) Seg Neutrophils # Seg Neutrophils # Man Lymphocytes # (Manual) D-Dimer VBG pH Sodium Potassium Chloride Carbon Dioxide BUN Creatinine Glucose POC Glucose 335 H 340 H Hemoglobin A1c Lactic Acid Calcium Phosphorus 1.90 L D Ferritin AST ALT Lactate Dehydrogenase C-Reactive Protein NT-Pro-B Natriuret Pep Albumin Urine WBC (Auto) Coronavirus (PCR) 06/07/20 06/07/20 06/07/20 02:57 03:19 03:19 WBC RBC Lymph % (Auto) Lymph # Seg Neutrophils % Seg Neuts % (Manual) Lymphocytes % (Manual) Seg Neutrophils # Seg Neutrophils # Man Lymphocytes # (Manual) D-Dimer VBG pH Sodium 131 L Potassium Chloride 92.2 L Carbon Dioxide BUN Creatinine Glucose 407 H POC Glucose 416 H Hemoglobin A1c Lactic Acid 3.50 H* Calcium Phosphorus Ferritin AST ALT Lactate Dehydrogenase C-Reactive Protein NT-Pro-B Natriuret Pep Albumin Urine WBC (Auto) Coronavirus (PCR) 06/07/20 06/07/20 06/07/20 03:56 05:13 06:01 WBC RBC Lymph % (Auto) Lymph # Seg Neutrophils % Seg Neuts % (Manual) Lymphocytes % (Manual) Seg Neutrophils # Seg Neutrophils # Man Lymphocytes # (Manual) D-Dimer VBG pH Sodium Potassium Chloride Carbon Dioxide BUN Creatinine Glucose POC Glucose 341 H 323 H 299 H Hemoglobin A1c Lactic Acid Calcium Phosphorus Ferritin AST ALT Lactate Dehydrogenase C-Reactive Protein NT-Pro-B Natriuret Pep Albumin Urine WBC (Auto) Coronavirus (PCR) 06/07/20 06/07/20 06/07/20 07:07 07:48 07:48 WBC RBC Lymph % (Auto) Lymph # Seg Neutrophils % Seg Neuts % (Manual) Lymphocytes % (Manual) Seg Neutrophils # Seg Neutrophils # Man Lymphocytes # (Manual) D-Dimer VBG pH Sodium 136 L Potassium Chloride Carbon Dioxide BUN Creatinine Glucose 270 H POC Glucose 276 H Hemoglobin A1c Lactic Acid 2.50 H* Calcium Phosphorus Ferritin AST ALT Lactate Dehydrogenase C-Reactive Protein NT-Pro-B Natriuret Pep Albumin Urine WBC (Auto) Coronavirus (PCR) 06/07/20 06/07/20 06/07/20 08:11 09:12 10:11 WBC RBC Lymph % (Auto) Lymph # Seg Neutrophils % Seg Neuts % (Manual) Lymphocytes % (Manual) Seg Neutrophils # Seg Neutrophils # Man Lymphocytes # (Manual) D-Dimer VBG pH Sodium Potassium Chloride Carbon Dioxide BUN Creatinine Glucose POC Glucose 245 H 208 H 186 H Hemoglobin A1c Lactic Acid Calcium Phosphorus Ferritin AST ALT Lactate Dehydrogenase C-Reactive Protein NT-Pro-B Natriuret Pep Albumin Urine WBC (Auto) Coronavirus (PCR) 06/07/20 06/07/20 06/07/20 11:14 13:40 14:50 WBC RBC Lymph % (Auto) Lymph # Seg Neutrophils % Seg Neuts % (Manual) Lymphocytes % (Manual) Seg Neutrophils # Seg Neutrophils # Man Lymphocytes # (Manual) D-Dimer VBG pH Sodium Potassium Chloride Carbon Dioxide BUN Creatinine Glucose POC Glucose 189 H 223 H 194 H Hemoglobin A1c Lactic Acid Calcium Phosphorus Ferritin AST ALT Lactate Dehydrogenase C-Reactive Protein NT-Pro-B Natriuret Pep Albumin Urine WBC (Auto) Coronavirus (PCR) 06/07/20 06/07/20 06/07/20 14:53 14:53 14:53 WBC RBC Lymph % (Auto) Lymph # Seg Neutrophils % Seg Neuts % (Manual) Lymphocytes % (Manual) Seg Neutrophils # Seg Neutrophils # Man Lymphocytes # (Manual) D-Dimer 975.20 H VBG pH Sodium Potassium Chloride Carbon Dioxide BUN Creatinine 1.6 H Glucose 192 H POC Glucose Hemoglobin A1c Lactic Acid 2.20 H* Calcium Phosphorus Ferritin AST ALT Lactate Dehydrogenase C-Reactive Protein NT-Pro-B Natriuret Pep Albumin Urine WBC (Auto) Coronavirus (PCR) 06/07/20 06/07/20 06/07/20 14:53 14:53 18:18 WBC RBC Lymph % (Auto) Lymph # Seg Neutrophils % Seg Neuts % (Manual) Lymphocytes % (Manual) Seg Neutrophils # Seg Neutrophils # Man Lymphocytes # (Manual) D-Dimer VBG pH Sodium Potassium Chloride Carbon Dioxide BUN Creatinine Glucose POC Glucose 309 H Hemoglobin A1c Lactic Acid Calcium Phosphorus Ferritin > 2000.0 H AST ALT Lactate Dehydrogenase 517 H C-Reactive Protein 46.00 H NT-Pro-B Natriuret Pep Albumin Urine WBC (Auto) Coronavirus (PCR) 06/07/20 06/07/20 06/07/20 19:44 22:46 23:22 WBC RBC Lymph % (Auto) Lymph # Seg Neutrophils % Seg Neuts % (Manual) Lymphocytes % (Manual) Seg Neutrophils # Seg Neutrophils # Man Lymphocytes # (Manual) D-Dimer VBG pH Sodium 133 L 131 L Potassium 5.5 H D Chloride 95.5 L 92.6 L Carbon Dioxide 20 L 21 L BUN 25 H 28 H Creatinine 2.0 H 2.3 H Glucose 379 H 494 H POC Glucose 368 H Hemoglobin A1c Lactic Acid Calcium 8.2 L 8.0 L Phosphorus Ferritin AST ALT Lactate Dehydrogenase C-Reactive Protein NT-Pro-B Natriuret Pep Albumin Urine WBC (Auto) Coronavirus (PCR) 06/07/20 06/08/20 06/08/20 Unknown 06:08 10:56 WBC RBC Lymph % (Auto) Lymph # Seg Neutrophils % Seg Neuts % (Manual) Lymphocytes % (Manual) Seg Neutrophils # Seg Neutrophils # Man Lymphocytes # (Manual) D-Dimer VBG pH Sodium Potassium Chloride Carbon Dioxide BUN Creatinine Glucose POC Glucose 437 H 389 H Hemoglobin A1c Lactic Acid Calcium Phosphorus Ferritin AST ALT Lactate Dehydrogenase C-Reactive Protein NT-Pro-B Natriuret Pep Albumin Urine WBC (Auto) Coronavirus (PCR) Positive A 06/08/20 06/08/20 06/08/20 17:07 20:37 22:46 WBC RBC Lymph % (Auto) Lymph # Seg Neutrophils % Seg Neuts % (Manual) Lymphocytes % (Manual) Seg Neutrophils # Seg Neutrophils # Man Lymphocytes # (Manual) D-Dimer VBG pH Sodium Potassium Chloride Carbon Dioxide BUN Creatinine Glucose POC Glucose 395 H 394 H 394 H Hemoglobin A1c Lactic Acid Calcium Phosphorus Ferritin AST ALT Lactate Dehydrogenase C-Reactive Protein NT-Pro-B Natriuret Pep Albumin Urine WBC (Auto) Coronavirus (PCR) 06/09/20 06/09/20 06/09/20 05:57 11:42 17:32 WBC RBC Lymph % (Auto) Lymph # Seg Neutrophils % Seg Neuts % (Manual) Lymphocytes % (Manual) Seg Neutrophils # Seg Neutrophils # Man Lymphocytes # (Manual) D-Dimer VBG pH Sodium Potassium Chloride Carbon Dioxide BUN Creatinine Glucose POC Glucose 455 H 396 H 457 H Hemoglobin A1c Lactic Acid Calcium Phosphorus Ferritin AST ALT Lactate Dehydrogenase C-Reactive Protein NT-Pro-B Natriuret Pep Albumin Urine WBC (Auto) Coronavirus (PCR) 06/09/20 06/10/20 06/10/20 23:50 05:20 10:27 WBC RBC Lymph % (Auto) Lymph # Seg Neutrophils % Seg Neuts % (Manual) Lymphocytes % (Manual) Seg Neutrophils # Seg Neutrophils # Man Lymphocytes # (Manual) D-Dimer VBG pH Sodium 130 L Potassium Chloride Carbon Dioxide 17 L BUN 55 H Creatinine 2.7 H Glucose 452 H POC Glucose 428 H 405 H Hemoglobin A1c Lactic Acid Calcium 8.1 L Phosphorus Ferritin AST ALT Lactate Dehydrogenase C-Reactive Protein NT-Pro-B Natriuret Pep Albumin Urine WBC (Auto) Coronavirus (PCR) 06/10/20 06/10/20 06/10/20 11:49 16:25 23:02 WBC RBC Lymph % (Auto) Lymph # Seg Neutrophils % Seg Neuts % (Manual) Lymphocytes % (Manual) Seg Neutrophils # Seg Neutrophils # Man Lymphocytes # (Manual) D-Dimer VBG pH Sodium Potassium Chloride Carbon Dioxide BUN Creatinine Glucose POC Glucose 391 H 432 H 414 H Hemoglobin A1c Lactic Acid Calcium Phosphorus Ferritin AST ALT Lactate Dehydrogenase C-Reactive Protein NT-Pro-B Natriuret Pep Albumin Urine WBC (Auto) Coronavirus (PCR) 06/10/20 06/11/20 06/11/20 23:30 06:39 11:35 WBC RBC Lymph % (Auto) Lymph # Seg Neutrophils % Seg Neuts % (Manual) Lymphocytes % (Manual) Seg Neutrophils # Seg Neutrophils # Man Lymphocytes # (Manual) D-Dimer VBG pH Sodium Potassium Chloride Carbon Dioxide BUN Creatinine Glucose POC Glucose 402 H 438 H 338 H Hemoglobin A1c Lactic Acid Calcium Phosphorus Ferritin AST ALT Lactate Dehydrogenase C-Reactive Protein NT-Pro-B Natriuret Pep Albumin Urine WBC (Auto) Coronavirus (PCR) 06/11/20 06/11/20 06/12/20 17:23 23:39 05:25 WBC RBC Lymph % (Auto) Lymph # Seg Neutrophils % Seg Neuts % (Manual) Lymphocytes % (Manual) Seg Neutrophils # Seg Neutrophils # Man Lymphocytes # (Manual) D-Dimer VBG pH Sodium Potassium Chloride Carbon Dioxide BUN Creatinine Glucose POC Glucose 376 H 427 H 328 H Hemoglobin A1c Lactic Acid Calcium Phosphorus Ferritin AST ALT Lactate Dehydrogenase C-Reactive Protein NT-Pro-B Natriuret Pep Albumin Urine WBC (Auto) Coronavirus (PCR) 06/12/20 06/12/20 06/12/20 05:27 05:27 11:29 WBC 25.4 H RBC 5.06 H Lymph % (Auto) Lymph # Seg Neutrophils % Seg Neuts % (Manual) 84.0 H Lymphocytes % (Manual) 9.0 L Seg Neutrophils # Seg Neutrophils # Man 21.3 H Lymphocytes # (Manual) D-Dimer VBG pH Sodium 134 L Potassium Chloride Carbon Dioxide 16 L BUN 69 H Creatinine 2.7 H Glucose 375 H POC Glucose 379 H Hemoglobin A1c Lactic Acid Calcium 8.2 L Phosphorus Ferritin AST ALT Lactate Dehydrogenase C-Reactive Protein NT-Pro-B Natriuret Pep Albumin 2.1 L Urine WBC (Auto) Coronavirus (PCR) 06/12/20 06/12/20 06/13/20 17:04 23:05 03:59 WBC 23.7 H RBC 5.23 H Lymph % (Auto) Lymph # Seg Neutrophils % Seg Neuts % (Manual) 94.0 H Lymphocytes % (Manual) 3.0 L Seg Neutrophils # Seg Neutrophils # Man 22.3 H Lymphocytes # (Manual) 0.7 L D-Dimer VBG pH Sodium Potassium Chloride Carbon Dioxide BUN Creatinine Glucose POC Glucose 387 H 333 H Hemoglobin A1c Lactic Acid Calcium Phosphorus Ferritin AST ALT Lactate Dehydrogenase C-Reactive Protein NT-Pro-B Natriuret Pep Albumin Urine WBC (Auto) Coronavirus (PCR) 06/13/20 06/13/20 06/13/20 03:59 05:49 09:19 WBC RBC Lymph % (Auto) Lymph # Seg Neutrophils % Seg Neuts % (Manual) Lymphocytes % (Manual) Seg Neutrophils # Seg Neutrophils # Man Lymphocytes # (Manual) D-Dimer VBG pH Sodium 129 L Potassium Chloride 94.3 L Carbon Dioxide 17 L BUN 65 H Creatinine 2.6 H Glucose 375 H POC Glucose 280 H Hemoglobin A1c Lactic Acid Calcium 8.1 L Phosphorus Ferritin AST ALT Lactate Dehydrogenase 479 H C-Reactive Protein NT-Pro-B Natriuret Pep Albumin 2.5 L Urine WBC (Auto) Coronavirus (PCR) 06/13/20 12:21 WBC RBC Lymph % (Auto) Lymph # Seg Neutrophils % Seg Neuts % (Manual) Lymphocytes % (Manual) Seg Neutrophils # Seg Neutrophils # Man Lymphocytes # (Manual) D-Dimer VBG pH Sodium Potassium Chloride Carbon Dioxide BUN Creatinine Glucose POC Glucose 327 H Hemoglobin A1c Lactic Acid Calcium Phosphorus Ferritin AST ALT Lactate Dehydrogenase C-Reactive Protein NT-Pro-B Natriuret Pep Albumin Urine WBC (Auto) Coronavirus (PCR) Allied health notes reviewed: RT
--- NOTE | 2020-06-13 14:54 | Progress Note ---
Assessment and Plan Cultures: Blood culture: no growth COVID-19: Positive A/P: 39-year-old male with morbid obesity, diabetes mellitus: #Fever, bilateral pneumonia: secondary to COVID: s/p Actemra 06/09/2020 #Acute hypoxic respiratory failure: oxygen being weaned #Congestive heart failure #DKA #Morbid obesity #NA: monitor creatinine. Recs: continue IV Remdesivir D5 of 5 Continue steroids x 10 days total Tight glycemic control ambulatory sats prior to discharge Mahin Golden MD, FACP [facility], [facility] C: [phone] O: [phone] F: [phone] Subjective Date of service: 06/13/20 Interval history: No fever. Oxygen slowly being weaned. Objective - Exam Narrative Exam: Physical Exam (reviewed in chart due to PPE conservation) Constitutional: limited due to PPE conservation strategy Head, Ears, Nose: limited due to PPE conservation strategy Eyes: limited due to PPE conservation strategy Neck: limited due to PPE conservation strategy Oral: limited due to PPE conservation strategy Cardiovascular: limited due to PPE conservation strategy Respiratory: limited due to PPE conservation strategy GI: limited due to PPE conservation strategy Musculoskeletal: limited due to PPE conservation strategy Skin: limited due to PPE conservation strategy Hem/Lymphatic: limited due to PPE conservation strategy Psych: limited due to PPE conservation strategy Neurological: limited due to PPE conservation strategy - Constitutional Vitals: Vital Signs Temp Pulse Resp BP Pulse Ox 98.1 F 86 20 126/78 90 06/13/20 11:12 06/13/20 11:12 06/13/20 11:12 06/13/20 11:12 06/13/20 11:12 Temperature -Last 24 Hours Temperature 98.1 F Temperature 98.7 F Temperature 97.6 F Temperature 97.9 F - Labs CBC & Chem 7: 06/13/20 03:59 06/13/20 09:19 Labs: Abnormal lab results 06/12/20 06/12/20 06/13/20 Range/Units 17:04 23:05 03:59 WBC 23.7 H (4.5-11.0) K/mm3 RBC 5.23 H (3.65-5.03) M/mm3 Seg Neuts % (Manual) 94.0 H (40.0-70.0) % Lymphocytes % (Manual) 3.0 L (13.4-35.0) % Seg Neutrophils # Man 22.3 H (1.8-7.7) K/mm3 Lymphocytes # (Manual) 0.7 L (1.2-5.4) K/mm3 Sodium (137-145) mmol/L Chloride (98-107) mmol/L Carbon Dioxide (22-30) mmol/L BUN (9-20) mg/dL Creatinine (0.8-1.5) mg/dL Glucose (75-100) mg/dL POC Glucose 387 H 333 H (70-105) Calcium (8.4-10.2) mg/dL Lactate Dehydrogenase (91-180) units/L Albumin (3.9-5) g/dL 06/13/20 06/13/20 06/13/20 Range/Units 03:59 05:49 09:19 WBC (4.5-11.0) K/mm3 RBC (3.65-5.03) M/mm3 Seg Neuts % (Manual) (40.0-70.0) % Lymphocytes % (Manual) (13.4-35.0) % Seg Neutrophils # Man (1.8-7.7) K/mm3 Lymphocytes # (Manual) (1.2-5.4) K/mm3 Sodium 129 L (137-145) mmol/L Chloride 94.3 L (98-107) mmol/L Carbon Dioxide 17 L (22-30) mmol/L BUN 65 H (9-20) mg/dL Creatinine 2.6 H (0.8-1.5) mg/dL Glucose 375 H (75-100) mg/dL POC Glucose 280 H (70-105) Calcium 8.1 L (8.4-10.2) mg/dL Lactate Dehydrogenase 479 H (91-180) units/L Albumin 2.5 L (3.9-5) g/dL 06/13/20 Range/Units 12:21 WBC (4.5-11.0) K/mm3 RBC (3.65-5.03) M/mm3 Seg Neuts % (Manual) (40.0-70.0) % Lymphocytes % (Manual) (13.4-35.0) % Seg Neutrophils # Man (1.8-7.7) K/mm3 Lymphocytes # (Manual) (1.2-5.4) K/mm3 Sodium (137-145) mmol/L Chloride (98-107) mmol/L Carbon Dioxide (22-30) mmol/L BUN (9-20) mg/dL Creatinine (0.8-1.5) mg/dL Glucose (75-100) mg/dL POC Glucose 327 H (70-105) Calcium (8.4-10.2) mg/dL Lactate Dehydrogenase (91-180) units/L Albumin (3.9-5) g/dL
[2020-06-13] MEDS: REMDESIVIR 100 MG in SODIUM CHLORIDE 0.9% 250ML 250 ML IV SCH (18:07)
[2020-06-13] MEDS: SODIUM CHLORIDE 0.9% 50 ML IVPB IV SCH (18:08)
[2020-06-13] MEDS: INSULIN GLARGINE 100 UNITS/ML SUB-Q SCH (21:23)
[2020-06-14] MEDS: FUROSEMIDE 40 MG/4 ML INJ IV SCH (05:26)
[2020-06-14] MEDS: HEPARIN 5,000 UNIT/1 ML VIAL SUB-Q SCH ×3 (05:26→22:47)
[2020-06-14] MEDS ORDERED: INSULIN LISPRO 100 UNIT/ML SUB-Q ONE ×3 (06:00→06:44)
[2020-06-14] MEDS: INSULIN LISPRO 100 UNIT/ML SUB-Q SCH ×3 (06:40→19:21)
--- NOTE | 2020-06-14 08:52 | Progress Note ---
Assessment and Plan Assessment and plan: 39 YO Male with UTI, Obesity Hypoventilation Syndrome, Uncontrolled DM, MO, COVID 19 on Remdesivir Day 5 of 5, Systolic CHF, Excoriation of skin to perineum. Echo reveals EF of 15%. Pt is lying in bed. Patient is moving all extremities well. Patient states that he is feeling better today. Patient laney es pain. Patient sitting in bed. No reported nursing events. wound care daily. 06/14: This my first day seeing this patient. Extensive review of labs shows worsening renal function and continued Lasix. Will discontinue Lasix. Will obtain nephrology consultation for stat consult. Will hold all nephrotoxic medications. Patient continues on steroid. Patient still hypoxic with 5 L of oxygen with saturation of 90%. Will attempt to wean further today. Hyponatremia: sodium 129 will recheck today as this was yesterday's lab. Will adjust insulin Acute kidney injury with Azotemia (1) COVID-19 patient's infection Current Visit: Yes Status: Deleted Plan to address problem: Infectious disease consulted, COVID-19 protocol initiated. Coronavirus Posi tive, Remdesivir completed (2 )Pneumonia due to 2019-nCoV Current Visit: Yes Status: Acute Plan to address problem: Patient is on REMDESVIR, Dexamethasone, S/C Heparin and Fmotidine. Management as per infectious diseases. Patient is on O2 4 litres. (3) Acute exacerbation of CHF (congestive heart failure) Current Visit: Yes Status: Acute Qualifiers: Heart failure type: systolic Heart failure chronicity: acute Qualified Code(s): I50.21 - Acute systolic (congestive) heart failure Plan to address problem: Echocardiogram reveals ejection fraction of 15%, cardiology team consulted, strict I's/O, daily weight, monitor urine output every shift, afterload reduction, supportive care. (4) Acute kidney injury secondary to vasomotor nephropathy/diuresis. Consult nephrology discussed with the team. (5) Uncontrolled diabetes mellitus Current Visit: Yes Status: Acute Plan to address problem: Sliding scale insulin therapy, Accu-Chek, consistent carbohydrate diet, hypoglycemia protocol, Lantus QHS (6) Excoriation Current Visit: Yes Status: Acute Plan to address problem: Perineum: wound care consulted, absorbtive dressing as per wound care. Home Health/Wound care at discharge. (7) Obesity hypoventilation syndrome Current Visit: Yes Status: Acute Plan to address problem: Supplemental oxygen, nebulizer therapy, noninvasive positive pressure ventilation as clinically indicated, outpatient sleep study, pulmonary toilet, prone positioning while in bed, early ambulation, out of bed to chair 3 times daily and PRN. BIPAP during night time and PRN for sleepiness during day time Vapotherm when he is not on BIPAP. Recommend to loose weight. ABGs on room air. (8) DKA, type 2 resolved patient has underlying diabetes mellitus: we will continue management of same. Current Visit: Yes Status: Acute Qualifiers: Diabetes mellitus complication detail: without coma Qualified Code(s): E11.10 - Type 2 diabetes mellitus with ketoacidosis without coma Plan to address problem: Management as per primary care. (9) Hypertension Current Visit: Yes Status: Chronic Qualifiers: Hypertension type: essential hypertension Qualified Code(s): I10 - Essential (primary) hypertension Plan to address problem: Management as per primary care. (10) Morbid obesity Current Visit: Yes Status: Chronic Plan to address problem: BIPAP during night time and PRN for sleepiness during day time O2 4 litres o2. Recommend to loose weight. ABGs on room air. (11) Urinary tract infection Current Visit: Yes Status: Acute Qualifiers: Encounter type: initial encounter Plan to address problem: IV antibiotic therapy, supportive care, repeat CBC (12) DVT prophylaxis Current Visit: Yes Status: Acute Plan to address problem: SCD to bilateral lower extremities while in bed, prophylactic heparin History Interval history: Patient seen and examined, no new complaints, Hospitalist Physical - Physical exam Narrative exam: General appearance: Present: mild distress, well-nourished, obese - EENT Eyes: Present: PERRL, EOM intact - Respiratory Respiratory effort: normal Respiratory: bilateral: diminished - Cardiovascular Rhythm: regular Heart Sounds: Present: S1 & S2 - Extremities Extremities: no ischemia Peripheral Pulses: within normal limits - Abdominal General gastrointestinal: soft, non-tender, non-distended - Integumentary Integumentary: Present: clear, warm, dry - Psychiatric Psychiatric: appropriate mood/affect, cooperative - Neurologic Neurologic: CNII-XII intact - Constitutional Vitals: Temp Pulse Resp BP Pulse Ox 98.8 F 79 20 130/81 85 06/14/20 04:49 06/14/20 04:49 06/14/20 04:49 06/14/20 04:49 06/14/20 04:49 General appearance: Present: mild distress, well-nourished, obese HEART Score - HEART Score Risk factors: > 3 risk factors or hx of atherosclerotic disease Troponin: Troponin T < 0.010 ng/mL (0.00-0.029) 06/06/20 15:45 - Critical Actions Critical Actions: >7 pts:50-65% risk of adverse cardiac event. Early invasive measures Results - Labs CBC & Chem 7: 06/15/20 04:01 06/15/20 04:01 Labs: Laboratory Last Values WBC 23.7 K/mm3 (4.5-11.0) H 06/13/20 03:59 RBC 5.23 M/mm3 (3.65-5.03) H 06/13/20 03:59 Hgb 15.1 gm/dl (11.8-15.2) 06/13/20 03:59 Hct 45.5 % (35.5-45.6) 06/13/20 03:59 MCV 87 fl (84-94) 06/13/20 03:59 MCH 29 pg (28-32) 06/13/20 03:59 MCHC 33 % (32-34) 06/13/20 03:59 RDW 15.1 % (13.2-15.2) 06/13/20 03:59 Plt Count 349 K/mm3 (140-440) 06/13/20 03:59 Lymph % (Auto) 6.6 % (13.4-35.0) L 06/06/20 15:45 [place] % (Auto) 5.8 % (0.0-7.3) 06/06/20 15:45 Eos % (Auto) 0.0 % (0.0-4.3) 06/06/20 15:45 Baso % (Auto) 0.4 % (0.0-1.8) 06/06/20 15:45 Lymph # 0.6 K/mm3 (1.2-5.4) L 06/06/20 15:45 [place] # 0.6 K/mm3 (0.0-0.8) 06/06/20 15:45 Eos # 0.0 K/mm3 (0.0-0.4) 06/06/20 15:45 Baso # 0.0 K/mm3 (0.0-0.1) 06/06/20 15:45 Add Manual Diff Complete 06/13/20 03:59 Total Counted 100 06/13/20 03:59 Seg Neutrophils % Administrative Dietitian 06/13/20 03:59 Seg Neuts % (Manual) 94.0 % (40.0-70.0) H 06/13/20 03:59 Band Neutrophils % 0 % 06/13/20 03:59 Lymphocytes % (Manual) 3.0 % (13.4-35.0) L 06/13/20 03:59 Reactive Lymphs % (Man) 0 % 06/13/20 03:59 Monocytes % (Manual) 3.0 % (0.0-7.3) 06/13/20 03:59 Eosinophils % (Manual) 0 % (0.0-4.3) 06/13/20 03:59 Basophils % (Manual) 0 % (0.0-1.8) 06/13/20 03:59 Metamyelocytes % 0 % 06/13/20 03:59 Myelocytes % 0 % 06/13/20 03:59 Promyelocytes % 0 % 06/13/20 03:59 Blast Cells % 0 % 06/13/20 03:59 Nucleated RBC % Not Reportable 06/13/20 03:59 Seg Neutrophils # 8.4 K/mm3 (1.8-7.7) H 06/06/20 15:45 Seg Neutrophils # Man 22.3 K/mm3 (1.8-7.7) H 06/13/20 03:59 Band Neutrophils # 0.0 K/mm3 06/13/20 03:59 Lymphocytes # (Manual) 0.7 K/mm3 (1.2-5.4) L 06/13/20 03:59 Abs React Lymphs (Man) 0.0 K/mm3 06/13/20 03:59 Monocytes # (Manual) 0.7 K/mm3 (0.0-0.8) 06/13/20 03:59 Eosinophils # (Manual) 0.0 K/mm3 (0.0-0.4) 06/13/20 03:59 Basophils # (Manual) 0.0 K/mm3 (0.0-0.1) 06/13/20 03:59 Metamyelocytes # 0.0 K/mm3 06/13/20 03:59 Myelocytes # 0.0 K/mm3 06/13/20 03:59 Promyelocytes # 0.0 K/mm3 06/13/20 03:59 Blast Cells # 0.0 K/mm3 06/13/20 03:59 WBC Morphology Not Reportable 06/13/20 03:59 Hypersegmented Neuts Not Reportable 06/13/20 03:59 Hyposegmented Neuts Not Reportable 06/13/20 03:59 Hypogranular Neuts Not Reportable 06/13/20 03:59 Smudge Cells Not Reportable 06/13/20 03:59 Toxic Granulation Not Reportable 06/13/20 03:59 Toxic Vacuolation Not Reportable 06/13/20 03:59 Dohle Bodies Not Reportable 06/13/20 03:59 Pelger-Huet Anomaly Not Reportable 06/13/20 03:59 Jabari Rods Not Reportable 06/13/20 03:59 Platelet Estimate Consistent w auto 06/13/20 03:59 Clumped Platelets Not Reportable 06/13/20 03:59 Plt Clumps, EDTA Not Reportable 06/13/20 03:59 Large Platelets Not Reportable 06/13/20 03:59 Giant Platelets Not Reportable 06/13/20 03:59 Platelet Satelliting Not Reportable 06/13/20 03:59 Plt Morphology Comment Not Reportable 06/13/20 03:59 RBC Morphology Not Reportable 06/13/20 03:59 Dimorphic RBCs Not Reportable 06/13/20 03:59 Polychromasia Not Reportable 06/13/20 03:59 Hypochromasia Not Reportable 06/13/20 03:59 Poikilocytosis Not Reportable 06/13/20 03:59 Anisocytosis Not Reportable 06/13/20 03:59 Microcytosis Not Reportable 06/13/20 03:59 Macrocytosis Not Reportable 06/13/20 03:59 Spherocytes Not Reportable 06/13/20 03:59 Pappenheimer Bodies Not Reportable 06/13/20 03:59 Sickle Cells Not Reportable 06/13/20 03:59 Target Cells Not Reportable 06/13/20 03:59 Tear Drop Cells Not Reportable 06/13/20 03:59 Ovalocytes Not Reportable 06/13/20 03:59 Helmet Cells Not Reportable 06/13/20 03:59 [place] Bodies Not Reportable 06/13/20 03:59 Silex Rings Not Reportable 06/13/20 03:59 [place] Cells Not Reportable 06/13/20 03:59 Bite Cells Not Reportable 06/13/20 03:59 Crenated Cell Not Reportable 06/13/20 03:59 Elliptocytes Not Reportable 06/13/20 03:59 Acanthocytes (Spur) Not Reportable 06/13/20 03:59 Rouleaux Not Reportable 06/13/20 03:59 Hemoglobin C Crystals Not Reportable 06/13/20 03:59 Schistocytes Not Reportable 06/13/20 03:59 Malaria parasites Not Reportable 06/13/20 03:59 Chris Bodies Not Reportable 06/13/20 03:59 Hem Pathologist Commnt No 06/13/20 03:59 D-Dimer 975.20 ng/mlDDU (0-234) H 06/07/20 14:53 VBG pH 7.300 (7.320-7.420) L 06/06/20 15:45 Sodium 129 mmol/L (137-145) L 06/13/20 09:19 Potassium 5.0 mmol/L (3.6-5.0) 06/13/20 09:19 Chloride 94.3 mmol/L (98-107) L 06/13/20 09:19 Carbon Dioxide 17 mmol/L (22-30) L 06/13/20 09:19 Anion Gap 23 mmol/L 06/13/20 09:19 BUN 65 mg/dL (9-20) H 06/13/20 09:19 Creatinine 2.6 mg/dL (0.8-1.5) H 06/13/20 09:19 Estimated GFR 33 ml/min 06/13/20 09:19 BUN/Creatinine Ratio 25 % 06/13/20 09:19 Glucose 375 mg/dL (75-100) H 06/13/20 09:19 POC Glucose 270 (70-105) H 06/14/20 06:38 Hemoglobin A1c 17.4 % (4-6) H 06/07/20 00:09 Lactic Acid 2.20 mmol/L (0.7-2.0) H* 06/07/20 14:53 Calcium 8.1 mg/dL (8.4-10.2) L 06/13/20 09:19 Phosphorus 1.90 mg/dL (2.5-4.5) L D 06/07/20 00:09 Magnesium 2.20 mg/dL (1.7-2.3) 06/07/20 00:09 Ferritin 1048.0 ng/mL (13.0-400.0) H 06/13/20 03:59 Total Bilirubin 0.90 mg/dL (0.1-1.2) 06/13/20 09:19 AST 39 units/L (5-40) 06/13/20 09:19 ALT 33 units/L (7-56) 06/13/20 09:19 Alkaline Phosphatase 115 units/L (35-129) 06/13/20 09:19 Lactate Dehydrogenase 479 units/L (91-180) H 06/13/20 03:59 Troponin T < 0.010 ng/mL (0.00-0.029) 06/06/20 15:45 C-Reactive Protein 46.00 mg/dL (0.00-1.30) H 06/07/20 14:53 NT-Pro-B Natriuret Pep 5086 pg/mL (0-450) H 06/06/20 15:45 Total Protein 6.7 g/dL (6.3-8.2) 06/13/20 09:19 Albumin 2.5 g/dL (3.9-5) L 06/13/20 09:19 Albumin/Globulin Ratio 0.6 % 06/13/20 09:19 Procalcitonin 5.49 ng/mL (<0.15) 06/07/20 14:53 Urine Color Yellow (Yellow) 06/06/20 18:42 Urine Turbidity Slightly-cloudy (Clear) 06/06/20 18:42 Urine pH 5.0 (5.0-7.0) 06/06/20 18:42 Ur Specific [place] 1.013 (1.003-1.030) 06/06/20 18:42 Urine Protein 100 mg/dl mg/dL (Negative) 06/06/20 18:42 Urine Glucose (UA) >=500 mg/dL (Negative) 06/06/20 18:42 Urine Ketones 20 mg/dL (Negative) 06/06/20 18:42 Urine Blood Mod (Negative) 06/06/20 18:42 Urine Nitrite Neg (Negative) 06/06/20 18:42 Urine Bilirubin Neg (Negative) 06/06/20 18:42 Urine Urobilinogen < 2.0 mg/dL (<2.0) 06/06/20 18:42 Ur Leukocyte Esterase Sm (Negative) 06/06/20 18:42 Urine WBC (Auto) 57.0 /HPF (0.0-6.0) H 06/06/20 18:42 Urine RBC (Auto) 9.0 /HPF (0.0-6.0) 06/06/20 18:42 U Epithel Cells (Auto) < 1.0 /HPF (0-13.0) 06/06/20 18:42 Urine Bacteria (Auto) 1+ /HPF (Negative) 06/06/20 18:42 Urine Mucus Few /HPF 06/06/20 18:42 Urine Yeast (Budding) 1+ /HPF 06/06/20 18:42 Coronavirus (PCR) Positive (Negative) A 06/07/20 Unknown - Diagnostic Impressions Diagnostic Impressions: Echocardiogram 06/07/20 09:27 Transthoracic Echocardiogram Indication: SOB BP: 111/75 HR: 108 Conclusions *The left ventricular chamber size is severely dilated. *Mild concentric left ventricular hypertrophy is observed. *Global left ventricular systolic function is severely decreased. *The estimated ejection fraction is 15-20%. *The left atrium is moderately dilated. *There is mild to moderate mitral regurgitation. *There is trace-mild tricuspid regurgitation. *There is evidence of borderline pulmonary hypertension. Findings Left Ventricle: The left ventricular chamber size is severely dilated. Mild concentric left ventricular hypertrophy is observed. Global left ventricular systolic function is severely decreased. The estimated ejection fraction is 15-20%. Left Atrium: The left atrium is moderately dilated. Right Ventricle: The right ventricle is slightly dilated. The right ventricular global systolic function is normal. Right Atrium: The right atrium is mildly dilated. Aortic Valve: The aortic valve is trileaflet. The aortic valve leaflets are mildly thickened. There is no evidence of aortic regurgitation. There is no evidence of aortic stenosis. Mitral Valve: The mitral valve leaflets are mildly thickened. There is mild to moderate mitral regurgitation. There is no evidence of mitral stenosis. Tricuspid Valve: There is trace tricuspid regurgitation. The right ventricular systolic pressure is calculated at 25 mmHg. There is evidence of borderline pulmonary hypertension. Pulmonic Valve: There is mild pulmonic regurgitation. Pericardium: There is no pericardial effusion. Aorta: There is no dilatation of the ascending aorta. There is no dilatation of the aortic root. Venous: The inferior vena cava appears normal in size. Measurements Chambers 2D Name Value Normal Range IVSd (2D) 1.29 cm (0.6 - 1.1) LVPWd (2D) 1.26 cm (0.6 - 1.1) LVIDd (2D) 6.03 cm (3.7 - 5.6) LVIDs (2D) 5.02 cm (2 - 3.8) LV FS (2D) 16.83 % - EF Teichholz (2D) 34.6 % - Ao root diameter (2D) 3.06 cm (2 - 3.7) Volumes/Mass Name Value Normal Range LA ESV SP 4CH (A/L) 56.08 ml - LA ESV SP 2CH (A/L) 57.68 ml - LA ESV BP (A/L) 58.34 ml - LA ESV BP (A/L) index 20.19 ml/m2 - LA ESV SP 4CH (MOD) 50.86 ml - LA ESV SP 2CH (MOD) 55.46 ml - LA ESV BP (MOD) 54.34 ml - LA ESV BP (MOD) index 18.8 ml/m2 - Diastolic/Systolic Function Name Value Normal Range MV E-wave Vmax 0.64 m/sec - MV deceleration time 166.65 msec - MV A-wave Vmax 0.56 m/sec - MV E:A ratio 1.15 ratio - Aortic Valve Name Value Normal Range AV Vmax 1.37 m/sec - AV VTI 17.93 cm - AV peak gradient 7.55 mmHg - AV mean gradient 4.66 mmHg - LVOT diameter 2.06 cm - LVOT Vmax 1.24 m/sec - LVOT VTI 16.7 cm - LVOT peak gradient 6.17 mmHg - LVOT mean gradient 3.55 mmHg - SV LVOT 55.69 ml - CLAUDINE (continuity Vmax) 3.02 cm2 - CLAUDINE (continuity VTI) 3.11 cm2 - Ascending Ao 3.12 cm - Mitral Valve Name Value Normal Range MR Vmax 2.69 m/sec - Tricuspid Valve Name Value Normal Range TR Vmax 2.35 m/sec - TR peak gradient 22 mmHg - RAP 3 mmHg - RVSP 25 mmHg - IVC diameter 1.87 cm (1.2 - 2.3) Pulmonic Valve/Qp:Qs Name Value Normal Range PV Vmax 1.15 m/sec - PV peak gradient 5.32 mmHg - W[place] end-diastolic Vmax 1.19 m/sec - PV acceleration time 125.59 msec - [place]/IV: Voiding Method Indwelling Catheter IV Catheter Type [Right Hand] INT / Saline Lock IV Catheter Type [Left Hand] Peripheral IV IV Catheter Type [Right INT / Saline Lock Forearm] Active Medications - Current Medications Current Medications: Generic Name Dose Route Start Last Admin Trade Name Freq PRN Reason Stop Dose Admin Acetaminophen 650 mg 06/08/20 18:13 06/09/20 22:27 Tylenol PO 650 mg Q6H PRN Administration Pain, Mild (1-3) Ascorbic Acid 500 mg 06/07/20 22:00 06/13/20 21:22 Vitamin C PO 500 mg BID CAROLYN Administration Aspirin 81 mg 06/08/20 13:00 06/13/20 11:31 Halfprin Ec PO 81 mg QDAY CAROLYN Administration Carvedilol 6.25 mg 06/08/20 12:00 06/13/20 21:22 Coreg PO 6.25 mg BID CAROLYN Administration Dexamethasone 8 mg 06/08/20 15:00 06/13/20 11:31 Decadron PO 06/17/20 10:01 8 mg DAILY CAROLYN Administration Dextrose 50 ml 06/09/20 11:57 D50w (25gm) Syringe IV Q30MIN PRN Hypoglycemia Protocol Famotidine 20 mg 06/08/20 10:00 06/13/20 11:31 Pepcid PO 20 mg QDAY CAROLYN Administration Furosemide 40 mg 06/07/20 18:00 06/14/20 05:26 Lasix IV 40 mg 0600,1800 CAROLYN Administration Heparin Sodium (Porcine) 5,000 unit 06/07/20 15:00 06/14/20 05:26 Heparin SUB-Q 5,000 unit Q8HR CAROLYN Administration Hydralazine HCl 25 mg 06/08/20 22:00 06/13/20 21:22 Apresoline PO 25 mg Q12HR CAROLYN Administration Insulin Glargine 10 units 06/10/20 22:00 06/13/20 21:23 Lantus SUB-Q 10 units QHS CAROLYN Administration Insulin Human Lispro 0 unit 06/07/20 12:30 06/14/20 06:40 Humalog SUB-Q 10 unit Q6HR CAROLYN Administration Protocol Isosorbide Dinitrate 20 mg 06/08/20 13:00 06/13/20 21:22 Isordil PO 20 mg BID CAROLYN Administration Morphine Sulfate 2 mg 06/07/20 09:34 06/08/20 06:26 Morphine IV 2 mg Q4H PRN Administration Pain, Moderate (4-6) Zinc Sulfate 220 mg 06/07/20 22:00 06/13/20 21:22 Zinc Sulfate PO 220 mg BID CAROLYN Administration Nutrition/Malnutrition Assess - Dietary Evaluation Nutrition/Malnutrition Findings: Nutrition Notes Start: 06/07/20 08:57 Freq: Status: Active Protocol: Document 06/09/20 14:17 LM (Rec: 06/09/20 14:40 LM [id number]) Nutrition Notes Initial or Follow up Brief Note Current Diagnosis Acute Kidney Injury,Diabetes, Hypertension,Heart Failure Other Pertinent Diagnosis DKA, COVID-19 Current Diet consistent CHO Labs/Tests POC glu 396 Pertinent Medications Lasix Vitamin C Humalog Height 6 ft 1 in Weight 168.5 kg [place] Body Weight (kg) 83.63 BMI 49.0 Subjective/Other Information Pt stated he is eating well and unaware of wt loss. Provided pt with DM diet education. Pt is on fluid/Na restriction. Pt with 75% intakes in chart. #1 Nutrition Diagnosis Food and nutrition-related knowledge deficit Etiology pt with limited prior DM diet education As Evidenced by Signs and Symptoms POC glu 396 Nutrition Intervention Teaching Recipient Patient Learning Readiness Good Teaching Methods Discussion,Handout Response to Teaching Verbalize understanding, Reinforcement needed Education Handouts Provided Carbohydrate Counting for People with DM Barriers to Learning No Barriers RD phone number provided Yes Patient aware of follow up options Yes Revisit per MD consult or patient Sign Off request:
[2020-06-14] MEDS: INSULIN GLARGINE 100 UNITS/ML SUB-Q SCH (09:50)
[2020-06-14] MEDS: ZINC SULFATE 220 MG CAP PO SCH ×2 (10:07→22:46)
[2020-06-14] MEDS: ASPIRIN EC 81 MG TAB PO SCH (10:07)
[2020-06-14] MEDS: FAMOTIDINE 20 MG TAB PO SCH (10:07)
[2020-06-14] MEDS: carvediloL 6.25 MG TAB PO SCH ×2 (10:07→22:46)
[2020-06-14] MEDS: ISOSORBIDE DINITRATE 20 MG TAB PO SCH ×2 (10:07→22:51)
[2020-06-14] MEDS: ASCORBIC ACID 500 MG TAB PO SCH ×2 (10:08→22:49)
[2020-06-14] MEDS: DEXAMETHASONE 4 MG TAB PO SCH (10:08)
[2020-06-14] MEDS: hydrALAZINE 25 MG TAB PO SCH ×2 (10:08→22:45)
--- NOTE | 2020-06-14 10:14 | Progress Note ---
Assessment and Plan Systolic heart failure An echocardiogram showed a severely decreased systolic function, ejection fraction 15-20%. The duration of this cardiomyopathy is uncertain. COVID 19 viral pneumonia Diabetic ketoacidosis Acute renal failure Recommendations: Sodium and fluid restriction. Continue medical therapy for acute on chronic dilated cardiomyopathy as tolerated. Subjective Date of service: 06/14/20 Interval history: No cardiac issues reported. Stable sinus rhythm on telemetry. Objective Vital Signs Temp Pulse Resp BP Pulse Ox 06/14/20 04:49 98.8 F 79 20 130/81 85 06/13/20 22:36 98.7 F 77 22 113/49 89 06/13/20 22:00 77 18 06/13/20 20:38 90 06/13/20 16:10 99.0 F 84 20 122/86 100 06/13/20 11:12 98.1 F 86 20 126/78 90 - Physical Examination Narrative exam: Deferred due to coronavirus isolation protocol - Labs and Meds Cardiac Enzymes 06/13/20 Range/Units 09:19 AST 39 (5-40) units/L Comprehensive Metabolic Panel 06/13/20 Range/Units 09:19 Sodium 129 L (137-145) mmol/L Potassium 5.0 (3.6-5.0) mmol/L Chloride 94.3 L (98-107) mmol/L Carbon Dioxide 17 L (22-30) mmol/L BUN 65 H (9-20) mg/dL Creatinine 2.6 H (0.8-1.5) mg/dL Glucose 375 H (75-100) mg/dL Calcium 8.1 L (8.4-10.2) mg/dL AST 39 (5-40) units/L ALT 33 (7-56) units/L Alkaline Phosphatase 115 (35-129) units/L Total Protein 6.7 (6.3-8.2) g/dL Albumin 2.5 L (3.9-5) g/dL
--- NOTE | 2020-06-14 10:19 | Consultation ---
History of Present Illness - Reason for Consult Consult date: 06/14/20 acute renal failure - History of Present Illness patient was admitted on 06/06 for worsrning shortenss of breath was found to have +ve COVID-19 was evaluated by ID and wilda on Remdesivir Day 5 of 5, he also has CHF Echo reveals EF of 15% and was started on lasix, he was noted to have worsening renal function. lasix was held and renal consult was requested Medications and Allergies Allergies Allergy/AdvReac Type Severity Reaction Status Date / Time No Known Allergies Allergy Unverified 06/06/20 15:00 Active Meds: Active Medications Acetaminophen (Tylenol) 650 mg PO Q6H PRN PRN Reason: Pain, Mild (1-3) Last Admin: 06/09/20 22:27 Dose: 650 mg Documented by: Ascorbic Acid (Vitamin C) 500 mg PO BID [facility] Last Admin: 06/14/20 10:08 Dose: 500 mg Documented by: Aspirin (Halfprin Ec) 81 mg PO QDAY [facility] Last Admin: 06/14/20 10:07 Dose: 81 mg Documented by: Carvedilol (Coreg) 6.25 mg PO BID [facility] Last Admin: 06/14/20 10:07 Dose: 6.25 mg Documented by: Dexamethasone (Decadron) 8 mg PO DAILY [facility] Stop: 06/17/20 10:01 Last Admin: 06/14/20 10:08 Dose: 8 mg Documented by: Dextrose (D50w (25gm) Syringe) 50 ml IV Q30MIN PRN; Protocol PRN Reason: Hypoglycemia Famotidine (Pepcid) 20 mg PO QDAY [facility] Last Admin: 06/14/20 10:07 Dose: 20 mg Documented by: Heparin Sodium (Porcine) (Heparin) 5,000 unit SUB-Q Q8HR [facility] Last Admin: 06/14/20 05:26 Dose: 5,000 unit Documented by: Hydralazine HCl (Apresoline) 25 mg PO Q12HR [facility] Last Admin: 06/14/20 10:08 Dose: 25 mg Documented by: Insulin Glargine (Lantus) 30 units SUB-Q QHS [facility] Insulin Glargine (Lantus) 12 units SUB-Q QAMDIAB [facility] Last Admin: 06/14/20 09:50 Dose: 12 units Documented by: Insulin Human Lispro (Humalog) 0 unit SUB-Q Q6HR [facility]; Protocol Last Admin: 06/14/20 06:40 Dose: 10 unit Documented by: Isosorbide Dinitrate (Isordil) 20 mg PO BID [facility] Last Admin: 06/14/20 10:07 Dose: 20 mg Documented by: Morphine Sulfate (Morphine) 2 mg IV Q4H PRN PRN Reason: Pain, Moderate (4-6) Last Admin: 06/08/20 06:26 Dose: 2 mg Documented by: Zinc Sulfate (Zinc Sulfate) 220 mg PO BID [facility] Last Admin: 06/14/20 10:07 Dose: 220 mg Documented by: Exam - Vital Signs Vital signs: Vital Signs Temp Pulse Resp BP Pulse Ox 98.1 F 113 H 20 139/95 82 L 06/06/20 15:06 06/06/20 15:06 06/06/20 15:06 06/06/20 15:06 06/06/20 15:06 Results - Lab Results 06/13/20 03:59 06/13/20 09:19 Most recent lab results Calcium 8.1 mg/dL (8.4-10.2) L 06/13/20 09:19 Phosphorus 1.90 mg/dL (2.5-4.5) L D 06/07/20 00:09 Magnesium 2.20 mg/dL (1.7-2.3) 06/07/20 00:09 Assessment and Plan Acute renal failure, prerenal Azotemia vs. ATN Hyponatremia COVID-19 pneumonia CHF EF 15% DM type II lasix was held. 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
[2020-06-14 10:33] LABS: Calcium 8.1 mg/dL (8.4-10.2)
[2020-06-14 10:41] LABS: Hematocrit 46.2 % (35.5-45.6); Hemoglobin 14.7 gm/dl (11.8-15.2); Mean Corpuscular HGB Conc 32 % (32-34); Mean Corpuscular Volume 90 fl (84-94); Platelet Count 334 K/mm3 (140-440); Red Blood Count 5.15 M/mm3 (3.65-5.03); Red Cell Distribution Width 15.5 % (13.2-15.2)
[2020-06-14 11:53] LABS: Basophils % (Manual) 0 % (0.0-1.8); Eosinophils % (Manual) 0 % (0.0-4.3); Total Cells Counted 100
[2020-06-14 11:54] LABS: Anisocytosis 1+; Large Platelets Few; Platelet Estimate Consistent w Auto; Toxic Granulation 1+
[2020-06-14 11:57] LABS: Smear for Schistocytes None Seen
--- NOTE | 2020-06-14 13:42 | Progress Note ---
Assessment and Plan Patient alert, awake . Patient on O2, 5 litres via nasal canula. O2 saturation 90%. Some times he takes down O2. O2 saturation dropping to low 80s. Recommend to keep O2 all the time. Slight shortness of breath at rest. Patient COVID 19 po sitive.Patient afebrile but has leukocytosis. Patient received REMDESIVIR. Patient is on dexamethasone, S/C heaprin and famotidine. - Patient Problems (1) COVID-19 virus infection Current Visit: Yes Status: Acute Plan to address problem: Patient received REMDESVIR. Patient is on Dexamethasone, S/C Heparin and Fmotidine. Management as per infectious diseases. Patient is on O2 5 litres. (2) Pneumonia due to 2019-nCoV Current Visit: Yes Status: Acute Plan to address problem: Patient received REMDESVIR. Patient is on Dexamethasone, S/C Heparin and Fmotidine. Management as per infectious diseases. Patient is on O2 5 litres.. (3) Obesity hypoventilation syndrome Current Visit: Yes Status: Acute Plan to address problem: BIPAP during night time and PRN for sleepiness during day time Vapotherm when he is not on BIPAP. Recommend to loose weight. ABGs on room air. (4) Acute exacerbation of CHF (congestive heart failure) Current Visit: Yes Status: Acute Qualifiers: Heart failure type: combined systolic and diastolic Qualified Code(s): I50.43 - Acute on chronic combined systolic (congestive) and diastolic (congestive) heart failure Plan to address problem: Management as per cardiology. (5) DKA, type 2 Current Visit: Yes Status: Acute Qualifiers: Diabetes mellitus complication detail: without coma Qualified Code(s): E11.10 - Type 2 diabetes mellitus with ketoacidosis without coma Plan to address problem: Management as per primary care. (6) Hypertension Current Visit: Yes Status: Chronic Qualifiers: Hypertension type: essential hypertension Qualified Code(s): I10 - Essential (primary) hypertension Plan to address problem: Management as per primary care. (7) Morbid obesity Current Visit: Yes Status: Chronic Plan to address problem: BIPAP during night time and PRN for sleepiness during day time O2 5 litres o2. Recommend to loose weight. Subjective Date of service: 06/14/20 Interval history: Patient alert, awake . Patient on O2, 5 litres via nasal canula. O2 saturation 90%. Some times he takes down O2. O2 saturation dropping to low 80s. Recommend to keep O2 all the time. Slight shortness of breath at rest. Patient COVID 19 positive.Patient afebrile but has leukocytosis. Patient received REMDESIVIR. Patient is on dexamethasone, S/C heaprin and famotidine. Objective Vital Signs - 12hr 06/14/20 06/14/20 06/14/20 04:49 10:00 12:15 Temperature 98.8 F 97.3 F L Pulse Rate 79 79 Respiratory 20 20 Rate Blood Pressure 130/81 97/39 O2 Sat by Pulse 85 91 90 Oximetry Constitutional: no acute distress, alert, other (Morbidly Obese. ) Eyes: non-icteric ENT: oropharynx moist Neck: supple, no lymphadenopathy Effort: mildly labored Ascultation: Bilateral: diminished breath sounds, rales (basilar) Cardiovascular: regular rate and rhythm Gastrointestinal: normoactive bowel sounds, soft, non-tender, non-distended, other (León catheter in place, drainig clear urine) Integumentary: other (Stasis dermatitis both lower legs.) Extremities: edema, other (hyperpigmentation opf lower extremities) Neurologic: normal mental status, non-focal exam, pupils equal and round, unable to assess Psychiatric: anxious CBC and BMP: 06/14/20 09:37 06/14/20 09:37 ABG, PT/INR, D-dimer: PT/INR, D-dimer D-Dimer 975.20 ng/mlDDU (0-234) H 06/07/20 14:53 Abnormal lab findings: Abnormal Labs 06/06/20 06/06/20 06/06/20 15:45 15:45 15:45 WBC RBC Hct RDW Lymph % (Auto) 6.6 L Lymph # 0.6 L Seg Neutrophils % 87.2 H Seg Neuts % (Manual) Lymphocytes % (Manual) Seg Neutrophils # 8.4 H Seg Neutrophils # Man Lymphocytes # (Manual) Monocytes # (Manual) D-Dimer VBG pH 7.300 L Sodium 131 L Potassium Chloride 89.8 L Carbon Dioxide 16 L BUN Creatinine Glucose 509 H* POC Glucose Hemoglobin A1c Lactic Acid Calcium Phosphorus Ferritin AST 151 H ALT 157 H Lactate Dehydrogenase C-Reactive Protein NT-Pro-B Natriuret Pep 5086 H Albumin 3.0 L Urine WBC (Auto) Coronavirus (PCR) 06/06/20 06/06/20 06/06/20 17:02 18:01 18:16 WBC RBC Hct RDW Lymph % (Auto) Lymph # Seg Neutrophils % Seg Neuts % (Manual) Lymphocytes % (Manual) Seg Neutrophils # Seg Neutrophils # Man Lymphocytes # (Manual) Monocytes # (Manual) D-Dimer VBG pH Sodium Potassium Chloride Carbon Dioxide BUN Creatinine Glucose POC Glucose 450 H Hemoglobin A1c Lactic Acid 2.20 H* 2.30 H* Calcium Phosphorus Ferritin AST ALT Lactate Dehydrogenase C-Reactive Protein NT-Pro-B Natriuret Pep Albumin Urine WBC (Auto) Coronavirus (PCR) 06/06/20 06/06/20 06/06/20 18:16 18:42 19:36 WBC RBC Hct RDW Lymph % (Auto) Lymph # Seg Neutrophils % Seg Neuts % (Manual) Lymphocytes % (Manual) Seg Neutrophils # Seg Neutrophils # Man Lymphocytes # (Manual) Monocytes # (Manual) D-Dimer VBG pH Sodium 131 L 131 L Potassium 5.3 H Chloride 90.7 L 90.7 L Carbon Dioxide 12 L 16 L BUN Creatinine Glucose 525 H* 558 H* POC Glucose Hemoglobin A1c Lactic Acid Calcium Phosphorus Ferritin AST ALT Lactate Dehydrogenase C-Reactive Protein NT-Pro-B Natriuret Pep Albumin Urine WBC (Auto) 57.0 H Coronavirus (PCR) 06/06/20 06/06/20 06/06/20 21:21 22:26 23:33 WBC RBC Hct RDW Lymph % (Auto) Lymph # Seg Neutrophils % Seg Neuts % (Manual) Lymphocytes % (Manual) Seg Neutrophils # Seg Neutrophils # Man Lymphocytes # (Manual) Monocytes # (Manual) D-Dimer VBG pH Sodium Potassium Chloride Carbon Dioxide BUN Creatinine Glucose POC Glucose 411 H 395 H 390 H Hemoglobin A1c Lactic Acid Calcium Phosphorus Ferritin AST ALT Lactate Dehydrogenase C-Reactive Protein NT-Pro-B Natriuret Pep Albumin Urine WBC (Auto) Coronavirus (PCR) 06/07/20 06/07/20 06/07/20 00:09 00:09 00:09 WBC RBC Hct RDW Lymph % (Auto) Lymph # Seg Neutrophils % Seg Neuts % (Manual) Lymphocytes % (Manual) Seg Neutrophils # Seg Neutrophils # Man Lymphocytes # (Manual) Monocytes # (Manual) D-Dimer VBG pH Sodium 135 L Potassium Chloride 95.7 L Carbon Dioxide BUN Creatinine Glucose 419 H POC Glucose Hemoglobin A1c 17.4 H Lactic Acid 2.30 H* Calcium 8.3 L Phosphorus Ferritin AST ALT Lactate Dehydrogenase C-Reactive Protein NT-Pro-B Natriuret Pep Albumin Urine WBC (Auto) Coronavirus (PCR) 06/07/20 06/07/20 06/07/20 00:09 00:48 02:09 WBC RBC Hct RDW Lymph % (Auto) Lymph # Seg Neutrophils % Seg Neuts % (Manual) Lymphocytes % (Manual) Seg Neutrophils # Seg Neutrophils # Man Lymphocytes # (Manual) Monocytes # (Manual) D-Dimer VBG pH Sodium Potassium Chloride Carbon Dioxide BUN Creatinine Glucose POC Glucose 335 H 340 H Hemoglobin A1c Lactic Acid Calcium Phosphorus 1.90 L D Ferritin AST ALT Lactate Dehydrogenase C-Reactive Protein NT-Pro-B Natriuret Pep Albumin Urine WBC (Auto) Coronavirus (PCR) 06/07/20 06/07/20 06/07/20 02:57 03:19 03:19 WBC RBC Hct RDW Lymph % (Auto) Lymph # Seg Neutrophils % Seg Neuts % (Manual) Lymphocytes % (Manual) Seg Neutrophils # Seg Neutrophils # Man Lymphocytes # (Manual) Monocytes # (Manual) D-Dimer VBG pH Sodium 131 L Potassium Chloride 92.2 L Carbon Dioxide BUN Creatinine Glucose 407 H POC Glucose 416 H Hemoglobin A1c Lactic Acid 3.50 H* Calcium Phosphorus Ferritin AST ALT Lactate Dehydrogenase C-Reactive Protein NT-Pro-B Natriuret Pep Albumin Urine WBC (Auto) Coronavirus (PCR) 06/07/20 06/07/20 06/07/20 03:56 05:13 06:01 WBC RBC Hct RDW Lymph % (Auto) Lymph # Seg Neutrophils % Seg Neuts % (Manual) Lymphocytes % (Manual) Seg Neutrophils # Seg Neutrophils # Man Lymphocytes # (Manual) Monocytes # (Manual) D-Dimer VBG pH Sodium Potassium Chloride Carbon Dioxide BUN Creatinine Glucose POC Glucose 341 H 323 H 299 H Hemoglobin A1c Lactic Acid Calcium Phosphorus Ferritin AST ALT Lactate Dehydrogenase C-Reactive Protein NT-Pro-B Natriuret Pep Albumin Urine WBC (Auto) Coronavirus (PCR) 06/07/20 06/07/20 06/07/20 07:07 07:48 07:48 WBC RBC Hct RDW Lymph % (Auto) Lymph # Seg Neutrophils % Seg Neuts % (Manual) Lymphocytes % (Manual) Seg Neutrophils # Seg Neutrophils # Man Lymphocytes # (Manual) Monocytes # (Manual) D-Dimer VBG pH Sodium 136 L Potassium Chloride Carbon Dioxide BUN Creatinine Glucose 270 H POC Glucose 276 H Hemoglobin A1c Lactic Acid 2.50 H* Calcium Phosphorus Ferritin AST ALT Lactate Dehydrogenase C-Reactive Protein NT-Pro-B Natriuret Pep Albumin Urine WBC (Auto) Coronavirus (PCR) 06/07/20 06/07/20 06/07/20 08:11 09:12 10:11 WBC RBC Hct RDW Lymph % (Auto) Lymph # Seg Neutrophils % Seg Neuts % (Manual) Lymphocytes % (Manual) Seg Neutrophils # Seg Neutrophils # Man Lymphocytes # (Manual) Monocytes # (Manual) D-Dimer VBG pH Sodium Potassium Chloride Carbon Dioxide BUN Creatinine Glucose POC Glucose 245 H 208 H 186 H Hemoglobin A1c Lactic Acid Calcium Phosphorus Ferritin AST ALT Lactate Dehydrogenase C-Reactive Protein NT-Pro-B Natriuret Pep Albumin Urine WBC (Auto) Coronavirus (PCR) 06/07/20 06/07/20 06/07/20 11:14 13:40 14:50 WBC RBC Hct RDW Lymph % (Auto) Lymph # Seg Neutrophils % Seg Neuts % (Manual) Lymphocytes % (Manual) Seg Neutrophils # Seg Neutrophils # Man Lymphocytes # (Manual) Monocytes # (Manual) D-Dimer VBG pH Sodium Potassium Chloride Carbon Dioxide BUN Creatinine Glucose POC Glucose 189 H 223 H 194 H Hemoglobin A1c Lactic Acid Calcium Phosphorus Ferritin AST ALT Lactate Dehydrogenase C-Reactive Protein NT-Pro-B Natriuret Pep Albumin Urine WBC (Auto) Coronavirus (PCR) 06/07/20 06/07/20 06/07/20 14:53 14:53 14:53 WBC RBC Hct RDW Lymph % (Auto) Lymph # Seg Neutrophils % Seg Neuts % (Manual) Lymphocytes % (Manual) Seg Neutrophils # Seg Neutrophils # Man Lymphocytes # (Manual) Monocytes # (Manual) D-Dimer 975.20 H VBG pH Sodium Potassium Chloride Carbon Dioxide BUN Creatinine 1.6 H Glucose 192 H POC Glucose Hemoglobin A1c Lactic Acid 2.20 H* Calcium Phosphorus Ferritin AST ALT Lactate Dehydrogenase C-Reactive Protein NT-Pro-B Natriuret Pep Albumin Urine WBC (Auto) Coronavirus (PCR) 06/07/20 06/07/20 06/07/20 14:53 14:53 18:18 WBC RBC Hct RDW Lymph % (Auto) Lymph # Seg Neutrophils % Seg Neuts % (Manual) Lymphocytes % (Manual) Seg Neutrophils # Seg Neutrophils # Man Lymphocytes # (Manual) Monocytes # (Manual) D-Dimer VBG pH Sodium Potassium Chloride Carbon Dioxide BUN Creatinine Glucose POC Glucose 309 H Hemoglobin A1c Lactic Acid Calcium Phosphorus Ferritin > 2000.0 H AST ALT Lactate Dehydrogenase 517 H C-Reactive Protein 46.00 H NT-Pro-B Natriuret Pep Albumin Urine WBC (Auto) Coronavirus (PCR) 06/07/20 06/07/20 06/07/20 19:44 22:46 23:22 WBC RBC Hct RDW Lymph % (Auto) Lymph # Seg Neutrophils % Seg Neuts % (Manual) Lymphocytes % (Manual) Seg Neutrophils # Seg Neutrophils # Man Lymphocytes # (Manual) Monocytes # (Manual) D-Dimer VBG pH Sodium 133 L 131 L Potassium 5.5 H D Chloride 95.5 L 92.6 L Carbon Dioxide 20 L 21 L BUN 25 H 28 H Creatinine 2.0 H 2.3 H Glucose 379 H 494 H POC Glucose 368 H Hemoglobin A1c Lactic Acid Calcium 8.2 L 8.0 L Phosphorus Ferritin AST ALT Lactate Dehydrogenase C-Reactive Protein NT-Pro-B Natriuret Pep Albumin Urine WBC (Auto) Coronavirus (PCR) 06/07/20 06/08/20 06/08/20 Unknown 06:08 10:56 WBC RBC Hct RDW Lymph % (Auto) Lymph # Seg Neutrophils % Seg Neuts % (Manual) Lymphocytes % (Manual) Seg Neutrophils # Seg Neutrophils # Man Lymphocytes # (Manual) Monocytes # (Manual) D-Dimer VBG pH Sodium Potassium Chloride Carbon Dioxide BUN Creatinine Glucose POC Glucose 437 H 389 H Hemoglobin A1c Lactic Acid Calcium Phosphorus Ferritin AST ALT Lactate Dehydrogenase C-Reactive Protein NT-Pro-B Natriuret Pep Albumin Urine WBC (Auto) Coronavirus (PCR) Positive A 06/08/20 06/08/20 06/08/20 17:07 20:37 22:46 WBC RBC Hct RDW Lymph % (Auto) Lymph # Seg Neutrophils % Seg Neuts % (Manual) Lymphocytes % (Manual) Seg Neutrophils # Seg Neutrophils # Man Lymphocytes # (Manual) Monocytes # (Manual) D-Dimer VBG pH Sodium Potassium Chloride Carbon Dioxide BUN Creatinine Glucose POC Glucose 395 H 394 H 394 H Hemoglobin A1c Lactic Acid Calcium Phosphorus Ferritin AST ALT Lactate Dehydrogenase C-Reactive Protein NT-Pro-B Natriuret Pep Albumin Urine WBC (Auto) Coronavirus (PCR) 06/09/20 06/09/20 06/09/20 05:57 11:42 17:32 WBC RBC Hct RDW Lymph % (Auto) Lymph # Seg Neutrophils % Seg Neuts % (Manual) Lymphocytes % (Manual) Seg Neutrophils # Seg Neutrophils # Man Lymphocytes # (Manual) Monocytes # (Manual) D-Dimer VBG pH Sodium Potassium Chloride Carbon Dioxide BUN Creatinine Glucose POC Glucose 455 H 396 H 457 H Hemoglobin A1c Lactic Acid Calcium Phosphorus Ferritin AST ALT Lactate Dehydrogenase C-Reactive Protein NT-Pro-B Natriuret Pep Albumin Urine WBC (Auto) Coronavirus (PCR) 06/09/20 06/10/20 06/10/20 23:50 05:20 10:27 WBC RBC Hct RDW Lymph % (Auto) Lymph # Seg Neutrophils % Seg Neuts % (Manual) Lymphocytes % (Manual) Seg Neutrophils # Seg Neutrophils # Man Lymphocytes # (Manual) Monocytes # (Manual) D-Dimer VBG pH Sodium 130 L Potassium Chloride Carbon Dioxide 17 L BUN 55 H Creatinine 2.7 H Glucose 452 H POC Glucose 428 H 405 H Hemoglobin A1c Lactic Acid Calcium 8.1 L Phosphorus Ferritin AST ALT Lactate Dehydrogenase C-Reactive Protein NT-Pro-B Natriuret Pep Albumin Urine WBC (Auto) Coronavirus (PCR) 06/10/20 06/10/20 06/10/20 11:49 16:25 23:02 WBC RBC Hct RDW Lymph % (Auto) Lymph # Seg Neutrophils % Seg Neuts % (Manual) Lymphocytes % (Manual) Seg Neutrophils # Seg Neutrophils # Man Lymphocytes # (Manual) Monocytes # (Manual) D-Dimer VBG pH Sodium Potassium Chloride Carbon Dioxide BUN Creatinine Glucose POC Glucose 391 H 432 H 414 H Hemoglobin A1c Lactic Acid Calcium Phosphorus Ferritin AST ALT Lactate Dehydrogenase C-Reactive Protein NT-Pro-B Natriuret Pep Albumin Urine WBC (Auto) Coronavirus (PCR) 06/10/20 06/11/20 06/11/20 23:30 06:39 11:35 WBC RBC Hct RDW Lymph % (Auto) Lymph # Seg Neutrophils % Seg Neuts % (Manual) Lymphocytes % (Manual) Seg Neutrophils # Seg Neutrophils # Man Lymphocytes # (Manual) Monocytes # (Manual) D-Dimer VBG pH Sodium Potassium Chloride Carbon Dioxide BUN Creatinine Glucose POC Glucose 402 H 438 H 338 H Hemoglobin A1c Lactic Acid Calcium Phosphorus Ferritin AST ALT Lactate Dehydrogenase C-Reactive Protein NT-Pro-B Natriuret Pep Albumin Urine WBC (Auto) Coronavirus (PCR) 06/11/20 06/11/20 06/12/20 17:23 23:39 05:25 WBC RBC Hct RDW Lymph % (Auto) Lymph # Seg Neutrophils % Seg Neuts % (Manual) Lymphocytes % (Manual) Seg Neutrophils # Seg Neutrophils # Man Lymphocytes # (Manual) Monocytes # (Manual) D-Dimer VBG pH Sodium Potassium Chloride Carbon Dioxide BUN Creatinine Glucose POC Glucose 376 H 427 H 328 H Hemoglobin A1c Lactic Acid Calcium Phosphorus Ferritin AST ALT Lactate Dehydrogenase C-Reactive Protein NT-Pro-B Natriuret Pep Albumin Urine WBC (Auto) Coronavirus (PCR) 06/12/20 06/12/20 06/12/20 05:27 05:27 11:29 WBC 25.4 H RBC 5.06 H Hct RDW Lymph % (Auto) Lymph # Seg Neutrophils % Seg Neuts % (Manual) 84.0 H Lymphocytes % (Manual) 9.0 L Seg Neutrophils # Seg Neutrophils # Man 21.3 H Lymphocytes # (Manual) Monocytes # (Manual) D-Dimer VBG pH Sodium 134 L Potassium Chloride Carbon Dioxide 16 L BUN 69 H Creatinine 2.7 H Glucose 375 H POC Glucose 379 H Hemoglobin A1c Lactic Acid Calcium 8.2 L Phosphorus Ferritin AST ALT Lactate Dehydrogenase C-Reactive Protein NT-Pro-B Natriuret Pep Albumin 2.1 L Urine WBC (Auto) Coronavirus (PCR) 06/12/20 06/12/20 06/13/20 17:04 23:05 03:59 WBC 23.7 H RBC 5.23 H Hct RDW Lymph % (Auto) Lymph # Seg Neutrophils % Seg Neuts % (Manual) 94.0 H Lymphocytes % (Manual) 3.0 L Seg Neutrophils # Seg Neutrophils # Man 22.3 H Lymphocytes # (Manual) 0.7 L Monocytes # (Manual) D-Dimer VBG pH Sodium Potassium Chloride Carbon Dioxide BUN Creatinine Glucose POC Glucose 387 H 333 H Hemoglobin A1c Lactic Acid Calcium Phosphorus Ferritin AST ALT Lactate Dehydrogenase C-Reactive Protein NT-Pro-B Natriuret Pep Albumin Urine WBC (Auto) Coronavirus (PCR) 06/13/20 06/13/20 06/13/20 03:59 03:59 05:49 WBC RBC Hct RDW Lymph % (Auto) Lymph # Seg Neutrophils % Seg Neuts % (Manual) Lymphocytes % (Manual) Seg Neutrophils # Seg Neutrophils # Man Lymphocytes # (Manual) Monocytes # (Manual) D-Dimer VBG pH Sodium Potassium Chloride Carbon Dioxide BUN Creatinine Glucose POC Glucose 280 H Hemoglobin A1c Lactic Acid Calcium Phosphorus Ferritin 1048.0 H AST ALT Lactate Dehydrogenase 479 H C-Reactive Protein NT-Pro-B Natriuret Pep Albumin Urine WBC (Auto) Coronavirus (PCR) 06/13/20 06/13/20 06/13/20 09:19 12:21 18:37 WBC RBC Hct RDW Lymph % (Auto) Lymph # Seg Neutrophils % Seg Neuts % (Manual) Lymphocytes % (Manual) Seg Neutrophils # Seg Neutrophils # Man Lymphocytes # (Manual) Monocytes # (Manual) D-Dimer VBG pH Sodium 129 L Potassium Chloride 94.3 L Carbon Dioxide 17 L BUN 65 H Creatinine 2.6 H Glucose 375 H POC Glucose 327 H 319 H Hemoglobin A1c Lactic Acid Calcium 8.1 L Phosphorus Ferritin AST ALT Lactate Dehydrogenase C-Reactive Protein NT-Pro-B Natriuret Pep Albumin 2.5 L Urine WBC (Auto) Coronavirus (PCR) 06/13/20 06/14/20 06/14/20 23:15 06:38 09:37 WBC 26.1 H RBC 5.15 H Hct 46.2 H RDW 15.5 H Lymph % (Auto) Lymph # Seg Neutrophils % Seg Neuts % (Manual) 95.0 H Lymphocytes % (Manual) 0 L Seg Neutrophils # Seg Neutrophils # Man 24.8 H Lymphocytes # (Manual) 0.0 L Monocytes # (Manual) 1.0 H D-Dimer VBG pH Sodium Potassium Chloride Carbon Dioxide BUN Creatinine Glucose POC Glucose 368 H 270 H Hemoglobin A1c Lactic Acid Calcium Phosphorus Ferritin AST ALT Lactate Dehydrogenase C-Reactive Protein NT-Pro-B Natriuret Pep Albumin Urine WBC (Auto) Coronavirus (PCR) 06/14/20 09:37 WBC RBC Hct RDW Lymph % (Auto) Lymph # Seg Neutrophils % Seg Neuts % (Manual) Lymphocytes % (Manual) Seg Neutrophils # Seg Neutrophils # Man Lymphocytes # (Manual) Monocytes # (Manual) D-Dimer VBG pH Sodium 129 L Potassium Chloride 94.5 L Carbon Dioxide 17 L BUN 62 H Creatinine 2.2 H Glucose 333 H POC Glucose Hemoglobin A1c Lactic Acid Calcium 8.1 L Phosphorus Ferritin AST ALT Lactate Dehydrogenase C-Reactive Protein NT-Pro-B Natriuret Pep Albumin Urine WBC (Auto) Coronavirus (PCR) Allied health notes reviewed: RT
[2020-06-14 19:02] LABS: Creatinine,Urine 68.4 mg/dL (0.1-20.0)
[2020-06-14 19:07] LABS: Bacteria,Urine 1+ /HPF (Negative); Bilirubin,Urine NEG (Negative); Blood,Urine NEG (Negative); Color,Urine Yellow (Yellow); Mucus,Urine 1+ /HPF; Protein,Urine <15 mg/dL mg/dL (Negative); Urobilinogen,Urine < 2.0 mg/dL (<2.0)
[2020-06-14 19:08] LABS: Creatinine,Urine 71.2 mg/dL (0.1-20.0); Protein/Creatinine Ratio,Urine 0.31
[2020-06-14] MEDS ORDERED: INSULIN GLARGINE 100 UNITS/ML SUB-Q SCH (22:00)
[2020-06-15] MEDS: INSULIN LISPRO 100 UNIT/ML SUB-Q SCH ×4 (00:46→19:47)
[2020-06-15 04:21] LABS: Hematocrit 39.5 % (35.5-45.6); Hemoglobin 12.8 gm/dl (11.8-15.2); Mean Corpuscular HGB Conc 33 % (32-34); Mean Corpuscular Volume 87 fl (84-94); Platelet Count 350 K/mm3 (140-440); Red Blood Count 4.51 M/mm3 (3.65-5.03); Red Cell Distribution Width 14.8 % (13.2-15.2)
[2020-06-15 04:46] LABS: Calcium 7.9 mg/dL (8.4-10.2)
[2020-06-15] MEDS ORDERED: INSULIN LISPRO 100 UNIT/ML SUB-Q ONE ×2 (06:00)
[2020-06-15] MEDS: HEPARIN 5,000 UNIT/1 ML VIAL SUB-Q SCH ×2 (06:18→13:42)
[2020-06-15] MEDS: INSULIN GLARGINE 100 UNITS/ML SUB-Q SCH (08:00)
--- NOTE | 2020-06-15 08:21 | Progress Note ---
Assessment and Plan Assessment and plan: 39 YO Male with UTI, Obesity Hypoventilation Syndrome, Uncontrolled DM, MO, COVID 19 on Remdesivir Day 5 of 5, Systolic CHF, Excoriation of skin to perineum. Echo reveals EF of 15%. Pt is lying in bed. Patient is moving all extremities well. Patient states that he is feeling better today. Patient laney es pain. Patient sitting in bed. No reported nursing events. wound care daily. 06/14: This my first day seeing this patient. Extensive review of labs shows worsening renal function and continued Lasix. Will discontinue Lasix. Will obtain nephrology consultation for stat consult. Will hold all nephrotoxic medications. Patient continues on steroid. Patient still hypoxic with 5 L of oxygen with saturation of 90%. Will attempt to wean further today. Hyponatremia: sodium 129 will recheck today as this was yesterday's lab. Will adjust insulin Acute kidney injury with Azotemia 06/15: Concern for scrotal abscess/soft tissue gangrene/ forniers. (1) COVID-19 patient's infection Current Visit: Yes Status: Deleted Plan to address problem: Infectious disease consulted, COVID-19 protocol initiated. Coronavirus Positive, Remdesivir completed (2 )Pneumonia due to 2019-nCoV Current Visit: Yes Status: Acute Plan to address problem: Patient is on REMDESVIR, Dexamethasone, S/C Heparin and Fmotidine. Management as per infectious diseases. Patient is on O2 4 litres. (3) Acute exacerbation of CHF (congestive heart failure) Current Visit: Yes Status: Acute Qualifiers: Heart failure type: systolic Heart failure chronicity: acute Qualified Code(s): I50.21 - Acute systolic (congestive) heart failure Plan to address problem: Echocardiogram reveals ejection fraction of 15%, cardiology team consulted, strict I's/O, daily weight, monitor urine output every shift, afterload reduction, supportive care. (4) Acute kidney injury secondary to vasomotor nephropathy/diuresis. Consult nephrology discussed with the team. (5) Uncontrolled diabetes mellitus Current Visit: Yes Status: Acute Plan to address problem: Sliding scale insulin therapy, Accu-Chek, consistent carbohydrate diet, hypoglycemia protocol, Lantus QHS (6) Excoriation Current Visit: Yes Status: Acute Plan to address problem: Perineum: wound care consulted, absorbtive dressing as per wound care. Home Health/Wound care at discharge. (7) Obesity hypoventilation syndrome Current Visit: Yes Status: Acute Plan to address problem: Supplemental oxygen, nebulizer therapy, noninvasive positive pressure ventilation as clinically indicated, outpatient sleep study, pulmonary toilet, prone positioning while in bed, early ambulation, out of bed to chair 3 times daily and PRN. BIPAP during night time and PRN for sleepiness during day time Vapotherm when he is not on BIPAP. Recommend to loose weight. ABGs on room air. (8) DKA, type 2 resolved patient has underlying diabetes mellitus: we will continue management of same. Current Visit: Yes Status: Acute Qualifiers: Diabetes mellitus complication detail: without coma Qualified Code(s): E11.10 - Type 2 diabetes mellitus with ketoacidosis without coma Plan to address problem: Management as per primary care. (9) Hypertension Current Visit: Yes Status: Chronic Qualifiers: Hypertension type: essential hypertension Qualified Code(s): I10 - Essential (primary) hypertension Plan to address problem: Management as per primary care. (10) Morbid obesity Current Visit: Yes Status: Chronic Plan to address problem: BIPAP during night time and PRN for sleepiness during day time O2 4 litres o2. Recommend to loose weight. ABGs on room air. (11) Urinary tract infection Current Visit: Yes Status: Acute Qualifiers: Encounter type: initial encounter Plan to address problem: IV antibiotic therapy, supportive care, repeat CBC (12) DVT prophylaxis Current Visit: Yes Status: Acute Plan to address problem: SCD to bilateral lower extremities while in bed, prophylactic heparin History Interval history: Patient seen and examined, no new complaints, Discussed the intense ordor with nursing staff, wound reviewed Hospitalist Physical - Physical exam Narrative exam: General appearance: Present: mild distress, well-nourished, obese, malodorous in the room - EENT Eyes: Present: PERRL, EOM intact - Respiratory Respiratory effort: normal Respiratory: bilateral: diminished - Cardiovascular Rhythm: regular Heart Sounds: Present: S1 & S2 - Extremities Extremities: no ischemia Peripheral Pulses: within normal limits - Abdominal General gastrointestinal: soft, non-tender, non-distended - Integumentary Integumentary: Present: scrotal abscess - Psychiatric Psychiatric: appropriate mood/affect, cooperative - Neurologic Neurologic: CNII-XII intact - Constitutional Vitals: Temp Pulse Resp BP Pulse Ox 98.4 F 73 20 104/72 92 06/15/20 05:03 06/15/20 05:03 06/15/20 05:03 06/15/20 05:03 06/15/20 05:03 General appearance: Present: mild distress, well-nourished, obese HEART Score - HEART Score Risk factors: > 3 risk factors or hx of atherosclerotic disease Troponin: Troponin T < 0.010 ng/mL (0.00-0.029) 06/06/20 15:45 - Critical Actions Critical Actions: >7 pts:50-65% risk of adverse cardiac event. Early invasive measures Results - Labs CBC & Chem 7: 06/15/20 04:01 06/15/20 17:11 Labs: Laboratory Last Values WBC 27.0 K/mm3 (4.5-11.0) H 06/15/20 04:01 RBC 4.51 M/mm3 (3.65-5.03) 06/15/20 04:01 Hgb 12.8 gm/dl (11.8-15.2) 06/15/20 04:01 Hct 39.5 % (35.5-45.6) D 06/15/20 04:01 MCV 87 fl (84-94) 06/15/20 04:01 MCH 28 pg (28-32) 06/15/20 04:01 MCHC 33 % (32-34) 06/15/20 04:01 RDW 14.8 % (13.2-15.2) 06/15/20 04:01 Plt Count 350 K/mm3 (140-440) 06/15/20 04:01 Lymph % (Auto) Java Lead Developer 06/14/20 09:37 [place] % (Auto) Java Lead Developer 06/14/20 09:37 Eos % (Auto) Java Lead Developer 06/14/20 09:37 Baso % (Auto) Java Lead Developer 06/14/20 09:37 Lymph # Java Lead Developer 06/14/20 09:37 [place] # Java Lead Developer 06/14/20 09:37 Eos # Java Lead Developer 06/14/20 09:37 Baso # Java Lead Developer 06/14/20 09:37 Add Manual Diff Complete 06/14/20 09:37 Total Counted 100 06/14/20 09:37 Seg Neutrophils % Java Lead Developer 06/14/20 09:37 Seg Neuts % (Manual) 95.0 % (40.0-70.0) H 06/14/20 09:37 Band Neutrophils % 0 % 06/14/20 09:37 Lymphocytes % (Manual) 0 % (13.4-35.0) L 06/14/20 09:37 Reactive Lymphs % (Man) 0 % 06/14/20 09:37 Monocytes % (Manual) 4.0 % (0.0-7.3) 06/14/20 09:37 Eosinophils % (Manual) 0 % (0.0-4.3) 06/14/20 09:37 Basophils % (Manual) 0 % (0.0-1.8) 06/14/20 09:37 Metamyelocytes % 1.0 % 06/14/20 09:37 Myelocytes % 0 % 06/14/20 09:37 Promyelocytes % 0 % 06/14/20 09:37 Blast Cells % 0 % 06/14/20 09:37 Nucleated RBC % Not Reportable 06/14/20 09:37 Seg Neutrophils # Java Lead Developer 06/14/20 09:37 Seg Neutrophils # Man 24.8 K/mm3 (1.8-7.7) H 06/14/20 09:37 Band Neutrophils # 0.0 K/mm3 06/14/20 09:37 Lymphocytes # (Manual) 0.0 K/mm3 (1.2-5.4) L 06/14/20 09:37 Abs React Lymphs (Man) 0.0 K/mm3 06/14/20 09:37 Monocytes # (Manual) 1.0 K/mm3 (0.0-0.8) H 06/14/20 09:37 Eosinophils # (Manual) 0.0 K/mm3 (0.0-0.4) 06/14/20 09:37 Basophils # (Manual) 0.0 K/mm3 (0.0-0.1) 06/14/20 09:37 Metamyelocytes # 0.3 K/mm3 06/14/20 09:37 Myelocytes # 0.0 K/mm3 06/14/20 09:37 Promyelocytes # 0.0 K/mm3 06/14/20 09:37 Blast Cells # 0.0 K/mm3 06/14/20 09:37 WBC Morphology Not Reportable 06/14/20 09:37 Hypersegmented Neuts Not Reportable 06/14/20 09:37 Hyposegmented Neuts Not Reportable 06/14/20 09:37 Hypogranular Neuts Not Reportable 06/14/20 09:37 Smudge Cells Not Reportable 06/14/20 09:37 Toxic Granulation 1+ 06/14/20 09:37 Toxic Vacuolation Not Reportable 06/14/20 09:37 Dohle Bodies Not Reportable 06/14/20 09:37 Pelger-Huet Anomaly Not Reportable 06/14/20 09:37 Jabari Rods Not Reportable 06/14/20 09:37 Platelet Estimate Consistent w auto 06/14/20 09:37 Clumped Platelets Not Reportable 06/14/20 09:37 Plt Clumps, EDTA Not Reportable 06/14/20 09:37 Large Platelets Few 06/14/20 09:37 Giant Platelets Not Reportable 06/14/20 09:37 Platelet Satelliting Not Reportable 06/14/20 09:37 Plt Morphology Comment Not Reportable 06/14/20 09:37 RBC Morphology Not Reportable 06/14/20 09:37 Dimorphic RBCs Not Reportable 06/14/20 09:37 Polychromasia Not Reportable 06/14/20 09:37 Hypochromasia Not Reportable 06/14/20 09:37 Poikilocytosis Not Reportable 06/14/20 09:37 Anisocytosis 1+ 06/14/20 09:37 Microcytosis Not Reportable 06/14/20 09:37 Macrocytosis Not Reportable 06/14/20 09:37 Spherocytes Not Reportable 06/14/20 09:37 Pappenheimer Bodies Not Reportable 06/14/20 09:37 Sickle Cells Not Reportable 06/14/20 09:37 Target Cells Not Reportable 06/14/20 09:37 Tear Drop Cells Not Reportable 06/14/20 09:37 Ovalocytes Not Reportable 06/14/20 09:37 Helmet Cells Not Reportable 06/14/20 09:37 Campbell-Rough And Ready Bodies Not Reportable 06/14/20 09:37 [place] Rings Not Reportable 06/14/20 09:37 [place] Cells Not Reportable 06/14/20 09:37 Bite Cells Not Reportable 06/14/20 09:37 Crenated Cell Not Reportable 06/14/20 09:37 Elliptocytes Not Reportable 06/14/20 09:37 Acanthocytes (Spur) Not Reportable 06/14/20 09:37 Rouleaux Not Reportable 06/14/20 09:37 Hemoglobin C Crystals Not Reportable 06/14/20 09:37 Schistocytes Not Reportable 06/14/20 09:37 Malaria parasites Not Reportable 06/14/20 09:37 Chris Bodies Not Reportable 06/14/20 09:37 Hem Pathologist Commnt No 06/14/20 09:37 D-Dimer 975.20 ng/mlDDU (0-234) H 06/07/20 14:53 VBG pH 7.300 (7.320-7.420) L 06/06/20 15:45 Sodium 132 mmol/L (137-145) L 06/15/20 04:01 Sodium 132 mmol/L (137-145) L 06/15/20 04:01 Potassium 4.9 mmol/L (3.6-5.0) 06/15/20 04:01 Potassium 4.9 mmol/L (3.6-5.0) 06/15/20 04:01 Chloride 99.6 mmol/L (98-107) 06/15/20 04:01 Chloride 100.8 mmol/L (98-107) 06/15/20 04:01 Carbon Dioxide 17 mmol/L (22-30) L 06/15/20 04:01 Carbon Dioxide 19 mmol/L (22-30) L 06/15/20 04:01 Anion Gap 18 mmol/L 06/15/20 04:01 Anion Gap 19 mmol/L 06/15/20 04:01 BUN 60 mg/dL (9-20) H 06/15/20 04:01 BUN 60 mg/dL (9-20) H 06/15/20 04:01 Creatinine 2.0 mg/dL (0.8-1.5) H 06/15/20 04:01 Creatinine 2.1 mg/dL (0.8-1.5) H 06/15/20 04:01 Estimated GFR 43 ml/min 06/15/20 04:01 Estimated GFR 45 ml/min 06/15/20 04:01 BUN/Creatinine Ratio 29 % 06/15/20 04:01 BUN/Creatinine Ratio 30 % 06/15/20 04:01 Glucose 378 mg/dL (75-100) H 06/15/20 04:01 Glucose 383 mg/dL (75-100) H 06/15/20 04:01 POC Glucose 286 (70-105) H 06/15/20 06:40 Hemoglobin A1c 17.4 % (4-6) H 06/07/20 00:09 Lactic Acid 2.20 mmol/L (0.7-2.0) H* 06/07/20 14:53 Calcium 7.9 mg/dL (8.4-10.2) L 06/15/20 04:01 Calcium 7.9 mg/dL (8.4-10.2) L 06/15/20 04:01 Phosphorus 4.90 mg/dL (2.5-4.5) H 06/15/20 04:01 Magnesium 2.20 mg/dL (1.7-2.3) 06/07/20 00:09 Ferritin 1048.0 ng/mL (13.0-400.0) H 06/13/20 03:59 Total Bilirubin 0.80 mg/dL (0.1-1.2) 06/15/20 04:01 AST 12 units/L (5-40) 06/15/20 04:01 ALT 21 units/L (7-56) 06/15/20 04:01 Alkaline Phosphatase 106 units/L (35-129) 06/15/20 04:01 Lactate Dehydrogenase 479 units/L (91-180) H 06/13/20 03:59 Troponin T < 0.010 ng/mL (0.00-0.029) 06/06/20 15:45 C-Reactive Protein 46.00 mg/dL (0.00-1.30) H 06/07/20 14:53 NT-Pro-B Natriuret Pep 5086 pg/mL (0-450) H 06/06/20 15:45 Total Protein 6.2 g/dL (6.3-8.2) L 06/15/20 04:01 Albumin 2.0 g/dL (3.9-5) L 06/15/20 04:01 Albumin/Globulin Ratio 0.5 % 06/15/20 04:01 Procalcitonin 5.49 ng/mL (<0.15) 06/07/20 14:53 Urine Color Yellow (Yellow) 06/14/20 18:00 Urine Turbidity Cloudy (Clear) 06/14/20 18:00 Urine pH 5.0 (5.0-7.0) 06/14/20 18:00 Ur Specific [place] 1.014 (1.003-1.030) 06/14/20 18:00 Urine Protein <15 mg/dl mg/dL (Negative) 06/14/20 18:00 Urine Glucose (UA) >=500 mg/dL (Negative) 06/14/20 18:00 Urine Ketones Neg mg/dL (Negative) 06/14/20 18:00 Urine Blood Neg (Negative) 06/14/20 18:00 Urine Nitrite Neg (Negative) 06/14/20 18:00 Urine Bilirubin Neg (Negative) 06/14/20 18:00 Urine Urobilinogen < 2.0 mg/dL (<2.0) 06/14/20 18:00 Ur Leukocyte Esterase Sm (Negative) 06/14/20 18:00 Urine WBC (Auto) 48.0 /HPF (0.0-6.0) H 06/14/20 18:00 Urine RBC (Auto) 71.0 /HPF (0.0-6.0) 06/14/20 18:00 U Epithel Cells (Auto) 1.0 /HPF (0-13.0) 06/14/20 18:00 Urine Bacteria (Auto) 1+ /HPF (Negative) 06/14/20 18:00 Urine Mucus 1+ /HPF 06/14/20 18:00 Urine Yeast (Budding) 3+ /HPF 06/14/20 18:00 Urine Eosinophils None seen (None Seen) 06/14/20 18:00 Urine Osmolality 585 Mosm/kg 06/14/20 18:00 Urine Creatinine 68.4 mg/dL (0.1-20.0) H 06/14/20 18:00 Urine Creatinine 71.2 mg/dL (0.1-20.0) H 06/14/20 18:00 Protein/Creatinin Ratio 0.31 06/14/20 18:00 Urine Sodium 31 mmol/L 06/14/20 18:00 Urine Urea Nitrogen 1043 06/14/20 18:00 Urine Total Protein 22 mg/dL (5-11.8) H 06/14/20 18:00 Coronavirus (PCR) Positive (Negative) A 06/07/20 Unknown Schistocytes Smear None seen 06/14/20 09:37 - Diagnostic Impressions Diagnostic Impressions: Echocardiogram 06/07/20 09:27 Transthoracic Echocardiogram Indication: SOB BP: 111/75 HR: 108 Conclusions *The left ventricular chamber size is severely dilated. *Mild concentric left ventricular hypertrophy is observed. *Global left ventricular systolic function is severely decreased. *The estimated ejection fraction is 15-20%. *The left atrium is moderately dilated. *There is mild to moderate mitral regurgitation. *There is trace-mild tricuspid regurgitation. *There is evidence of borderline pulmonary hypertension. Findings Left Ventricle: The left ventricular chamber size is severely dilated. Mild concentric left ventricular hypertrophy is observed. Global left ventricular systolic function is severely decreased. The estimated ejection fraction is 15-20%. Left Atrium: The left atrium is moderately dilated. Right Ventricle: The right ventricle is slightly dilated. The right ventricular global systolic function is normal. Right Atrium: The right atrium is mildly dilated. Aortic Valve: The aortic valve is trileaflet. The aortic valve leaflets are mildly thickened. There is no evidence of aortic regurgitation. There is no evidence of aortic stenosis. Mitral Valve: The mitral valve leaflets are mildly thickened. There is mild to moderate mitral regurgitation. There is no evidence of mitral stenosis. Tricuspid Valve: There is trace tricuspid regurgitation. The right ventricular systolic pressure is calculated at 25 mmHg. There is evidence of borderline pulmonary hypertension. Pulmonic Valve: There is mild pulmonic regurgitation. Pericardium: There is no pericardial effusion. Aorta: There is no dilatation of the ascending aorta. There is no dilatation of the aortic root. Venous: The inferior vena cava appears normal in size. Measurements Chambers 2D Name Value Normal Range IVSd (2D) 1.29 cm (0.6 - 1.1) LVPWd (2D) 1.26 cm (0.6 - 1.1) LVIDd (2D) 6.03 cm (3.7 - 5.6) LVIDs (2D) 5.02 cm (2 - 3.8) LV FS (2D) 16.83 % - EF Teichholz (2D) 34.6 % - Ao root diameter (2D) 3.06 cm (2 - 3.7) Volumes/Mass Name Value Normal Range LA ESV SP 4CH (A/L) 56.08 ml - LA ESV SP 2CH (A/L) 57.68 ml - LA ESV BP (A/L) 58.34 ml - LA ESV BP (A/L) index 20.19 ml/m2 - LA ESV SP 4CH (MOD) 50.86 ml - LA ESV SP 2CH (MOD) 55.46 ml - LA ESV BP (MOD) 54.34 ml - LA ESV BP (MOD) index 18.8 ml/m2 - Diastolic/Systolic Function Name Value Normal Range MV E-wave Vmax 0.64 m/sec - MV deceleration time 166.65 msec - MV A-wave Vmax 0.56 m/sec - MV E:A ratio 1.15 ratio - Aortic Valve Name Value Normal Range AV Vmax 1.37 m/sec - AV VTI 17.93 cm - AV peak gradient 7.55 mmHg - AV mean gradient 4.66 mmHg - LVOT diameter 2.06 cm - LVOT Vmax 1.24 m/sec - LVOT VTI 16.7 cm - LVOT peak gradient 6.17 mmHg - LVOT mean gradient 3.55 mmHg - SV LVOT 55.69 ml - CLAUDINE (continuity Vmax) 3.02 cm2 - CLAUDINE (continuity VTI) 3.11 cm2 - Ascending Ao 3.12 cm - Mitral Valve Name Value Normal Range MR Vmax 2.69 m/sec - Tricuspid Valve Name Value Normal Range TR Vmax 2.35 m/sec - TR peak gradient 22 mmHg - RAP 3 mmHg - RVSP 25 mmHg - IVC diameter 1.87 cm (1.2 - 2.3) Pulmonic Valve/Qp:Qs Name Value Normal Range PV Vmax 1.15 m/sec - PV peak gradient 5.32 mmHg - [place] end-diastolic Vmax 1.19 m/sec - PV acceleration time 125.59 msec - Le[place]/IV: Voiding Method Indwelling Catheter IV Catheter Type [Right Hand] INT / Saline Lock IV Catheter Type [Left Hand] Peripheral IV IV Catheter Type [Right INT / Saline Lock Forearm] Active Medications - Current Medications Current Medications: Generic Name Dose Route Start Last Admin Trade Name Freq PRN Reason Stop Dose Admin Acetaminophen 650 mg 06/08/20 18:13 06/09/20 22:27 Tylenol PO 650 mg Q6H PRN Administration Pain, Mild (1-3) Ascorbic Acid 500 mg 06/07/20 22:00 06/14/20 22:49 Vitamin C PO 500 mg BID CAROLYN Administration Aspirin 81 mg 06/08/20 13:00 06/14/20 10:07 Halfprin Ec PO 81 mg QDAY CAROLYN Administration Carvedilol 6.25 mg 06/08/20 12:00 06/14/20 22:46 Coreg PO 6.25 mg BID CAROLYN Administration Dexamethasone 8 mg 06/08/20 15:00 06/14/20 10:08 Decadron PO 06/17/20 10:01 8 mg DAILY CAROLYN Administration Dextrose 50 ml 06/09/20 11:57 D50w (25gm) Syringe IV Q30MIN PRN Hypoglycemia Protocol Famotidine 20 mg 06/08/20 10:00 06/14/20 10:07 Pepcid PO 20 mg QDAY CAROLYN Administration Heparin Sodium (Porcine) 5,000 unit 06/07/20 15:00 06/15/20 06:18 Heparin SUB-Q 5,000 unit Q8HR CAROLYN Administration Hydralazine HCl 25 mg 06/08/20 22:00 06/14/20 22:45 Apresoline PO 25 mg Q12HR CAROLYN Administration Insulin Glargine 30 units 06/14/20 22:00 06/14/20 22:43 Lantus SUB-Q 30 units QHS CAROLYN Administration Insulin Glargine 12 units 06/14/20 10:00 06/14/20 09:50 Lantus SUB-Q 12 units QAMDIAB CAROLYN Administration Insulin Human Lispro 0 unit 06/07/20 12:30 06/15/20 06:35 Humalog SUB-Q 10 unit Q6HR CAROLYN Administration Protocol Isosorbide Dinitrate 20 mg 06/08/20 13:00 06/14/20 22:51 Isordil PO 20 mg BID CAROLYN Administration Morphine Sulfate 2 mg 06/07/20 09:34 06/08/20 06:26 Morphine IV 2 mg Q4H PRN Administration Pain, Moderate (4-6) Zinc Sulfate 220 mg 06/07/20 22:00 06/14/20 22:46 Zinc Sulfate PO 220 mg BID CAROLYN Administration Nutrition/Malnutrition Assess - Dietary Evaluation Nutrition/Malnutrition Findings: Nutrition Notes Start: 06/07/20 08:57 Freq: Status: Active Protocol: Document 06/09/20 14:17 LM (Rec: 06/09/20 14:40 LM [email or web address]) Nutrition Notes Initial or Follow up Brief Note Current Diagnosis Acute Kidney Injury,Diabetes, Hypertension,Heart Failure Other Pertinent Diagnosis DKA, COVID-19 Current Diet consistent CHO Labs/Tests POC glu 396 Pertinent Medications Lasix Vitamin C Humalog Height 6 ft 1 in Weight 168.5 kg [place] Body Weight (kg) 83.63 BMI 49.0 Subjective/Other Information Pt stated he is eating well and unaware of wt loss. Provided pt with DM diet education. Pt is on fluid/Na restriction. Pt with 75% intakes in chart. #1 Nutrition Diagnosis Food and nutrition-related knowledge deficit Etiology pt with limited prior DM diet education As Evidenced by Signs and Symptoms POC glu 396 Nutrition Intervention Teaching Recipient Patient Learning Readiness Good Teaching Methods Discussion,Handout Response to Teaching Verbalize understanding, Reinforcement needed Education Handouts Provided Carbohydrate Counting for People with DM Barriers to Learning No Barriers RD phone number provided Yes Patient aware of follow up options Yes Revisit per MD consult or patient Sign Off request:
[2020-06-15] MEDS ORDERED: INSULIN GLARGINE 100 UNITS/ML SUB-Q SCH (09:00)
[2020-06-15] MEDS: ISOSORBIDE DINITRATE 20 MG TAB PO SCH (10:00)
[2020-06-15] MEDS: hydrALAZINE 25 MG TAB PO SCH (10:22)
[2020-06-15] MEDS: ASCORBIC ACID 500 MG TAB PO SCH (10:22)
[2020-06-15] MEDS: carvediloL 6.25 MG TAB PO SCH (10:22)
[2020-06-15] MEDS: FAMOTIDINE 20 MG TAB PO SCH (10:22)
[2020-06-15] MEDS: ASPIRIN EC 81 MG TAB PO SCH (10:22)
--- NOTE | 2020-06-15 10:50 | Progress Note ---
Assessment and Plan Systolic heart failure An echocardiogram showed a severely decreased systolic function, ejection fraction 15-20%. The duration of this cardiomyopathy is uncertain. COVID 19 viral pneumonia Diabetic ketoacidosis Acute renal failure Recommendations: Sodium and fluid restriction. Continue medical therapy for acute on chronic dilated cardiomyopathy as tolerated. Subjective Date of service: 06/15/20 Interval history: No cardiac event reported overnight. Objective Vital Signs Temp Pulse Resp BP Pulse Ox 06/15/20 10:22 73 06/15/20 05:03 98.4 F 73 20 104/72 92 06/14/20 22:46 97 06/14/20 22:45 73 146/87 06/14/20 22:18 98.1 F 06/14/20 22:12 75 20 138/94 91 06/14/20 22:00 73 20 94 06/14/20 12:15 97.3 F L 79 20 97/39 90 - Physical Examination Narrative exam: Deferred due to coronavirus isolation protocol Cardiac: Positive: Reg Rate and Rhythm - Labs and Meds Cardiac Enzymes 06/15/20 Range/Units 04:01 AST 12 (5-40) units/L CBC 06/15/20 Range/Units 04:01 WBC 27.0 H (4.5-11.0) K/mm3 RBC 4.51 (3.65-5.03) M/mm3 Hgb 12.8 (11.8-15.2) gm/dl Hct 39.5 D (35.5-45.6) % Plt Count 350 (140-440) K/mm3 Comprehensive Metabolic Panel 06/15/20 06/15/20 Range/Units 04:01 04:01 Sodium 132 L 132 L (137-145) mmol/L Potassium 4.9 4.9 (3.6-5.0) mmol/L Chloride 99.6 100.8 (98-107) mmol/L Carbon Dioxide 19 L 17 L (22-30) mmol/L BUN 60 H 60 H (9-20) mg/dL Creatinine 2.1 H 2.0 H (0.8-1.5) mg/dL Glucose 378 H 383 H (75-100) mg/dL Calcium 7.9 L 7.9 L (8.4-10.2) mg/dL AST 12 (5-40) units/L ALT 21 (7-56) units/L Alkaline Phosphatase 106 (35-129) units/L Total Protein 6.2 L (6.3-8.2) g/dL Albumin 2.0 L (3.9-5) g/dL
[2020-06-15] MEDS ORDERED: VANCOMYCIN PHARMACY TO DOSE IV SCH (12:00)
[2020-06-15] MEDS ORDERED: SODIUM HYPOCHLORITE, DAKIN'S 1/2 STRENGTH (0.25%) 473 ML TOPICAL SOLN TP SCH (12:05)
[2020-06-15] MEDS ORDERED: CEFEPIME/NS 2 GM/100 ML 2 GM/100 ML BAG IV SCH (13:00)
[2020-06-15] MEDS ORDERED: VANCOMYCIN 2,000 MG in SODIUM CHLORIDE 0.9% 500 ML 500 ML IV ONE (13:00)
--- NOTE | 2020-06-15 13:06 | Consultation ---
History of Present Illness Consult date: 06/15/20 Chief complaint: wound - History of present illness History of present illness: 39 yo M who was admitted to hospital on 06/06/20. Pt has hx of HTN and DM who presented to ER with swelling in his legs, scrotum, SOB x1 weeks. He was found to have COVID PNA, DKA. He was also found to have scrotal cellulitis with likely developing abscess on w/u. The patient is being treated with abx, IV steroids, supplemental O2. He was febrile on admission but has been afebrile for the last several days. He was seen by subpoena server and noted to have worsening of scrotal infections. Patient is a poor historian. Past History Past Medical History: diabetes, hypertension, other (obesity) Past Surgical History: Other (unknown) Social history: no significant social history Family history: no significant family history Medications and Allergies Allergies Allergy/AdvReac Type Severity Reaction Status Date / Time No Known Allergies Allergy Unverified 06/06/20 15:00 Home Medications Medication Instructions Recorded Confirmed Last Taken Type No Known Home Medications [No 06/15/20 06/15/20 Unknown History Reported Home Medications] Active Meds: Active Medications Acetaminophen (Tylenol) 650 mg PO Q6H PRN PRN Reason: Pain, Mild (1-3) Last Admin: 06/09/20 22:27 Dose: 650 mg Documented by: Ascorbic Acid (Vitamin C) 500 mg PO BID [facility] Last Admin: 06/15/20 10:22 Dose: 500 mg Documented by: Aspirin (Halfprin Ec) 81 mg PO QDAY [facility] Last Admin: 06/15/20 10:22 Dose: 81 mg Documented by: Carvedilol (Coreg) 6.25 mg PO BID [facility] Last Admin: 06/15/20 10:22 Dose: 6.25 mg Documented by: Dexamethasone (Decadron) 8 mg PO DAILY [facility] Stop: 06/17/20 10:01 Last Admin: 06/14/20 10:08 Dose: 8 mg Documented by: Dextrose (D50w (25gm) Syringe) 50 ml IV Q30MIN PRN; Protocol PRN Reason: Hypoglycemia Famotidine (Pepcid) 20 mg PO QDAY [facility] Last Admin: 06/15/20 10:22 Dose: 20 mg Documented by: Heparin Sodium (Porcine) (Heparin) 5,000 unit SUB-Q Q8HR [facility] Last Admin: 06/15/20 06:18 Dose: 5,000 unit Documented by: Hydralazine HCl (Apresoline) 25 mg PO Q12HR [facility] Last Admin: 06/15/20 10:22 Dose: 25 mg Documented by: Metronidazole (Flagyl 500 Mg/100 Ml) 500 mg in 100 mls @ 100 mls/hr IV Q8HR [facility]; Protocol Vancomycin HCl 2,000 mg/ (Sodium Chloride) 540 mls @ 250 mls/hr IV ONCE ONE Stop: 06/15/20 15:09 Cefepime HCl (Cefepime/Ns 2 Gm/100 Ml) 2 gm in 100 mls @ 200 mls/hr IV Q12HR [facility] Insulin Glargine (Lantus) 30 units SUB-Q QHS [facility] Last Admin: 06/14/20 22:43 Dose: 30 units Documented by: Insulin Glargine (Lantus) 25 units SUB-Q QAMDIAB [facility] Last Admin: 06/15/20 10:23 Dose: 25 units Documented by: Insulin Human Lispro (Humalog) 0 unit SUB-Q Q6HR [facility]; Protocol Last Admin: 06/15/20 06:35 Dose: 10 unit Documented by: Isosorbide Dinitrate (Isordil) 20 mg PO BID [facility] Last Admin: 06/14/20 22:51 Dose: 20 mg Documented by: Morphine Sulfate (Morphine) 2 mg IV Q4H PRN PRN Reason: Pain, Moderate (4-6) Last Admin: 06/08/20 06:26 Dose: 2 mg Documented by: Sodium Hypochlorite (Dakin's Half Strength) 1 applic TP BID [facility] Zinc Sulfate (Zinc Sulfate) 220 mg PO BID [facility] Last Admin: 06/14/20 22:46 Dose: 220 mg Documented by: Review of Systems All systems: negative (that listed in HPI) Exam Vital Signs Temp Pulse Resp BP Pulse Ox 98.1 F 113 H 20 139/95 82 L 06/06/20 15:06 06/06/20 15:06 06/06/20 15:06 06/06/20 15:06 06/06/20 15:06 Narrative exam: Gen: Awake and alert. Moderate distress due to pain ENT: no scleral icterus or conjunctival pallor CV: s1, S2+ Resp; even and unlabored Abd: soft, NT, ND. obese Ext: +edema : necrosis of majority of scrotum with foul smelling purulent drainage. + induration, fluctuance, edema, TTP. There is a small opening in the right upper thigh with surrounding edema, likely satellite lesion from nec fasc of scrotum. Results - Labs 06/15/20 04:01 06/15/20 04:01 Abnormal lab results 06/14/20 06/14/20 06/14/20 Range/Units 12:33 17:28 18:00 WBC (4.5-11.0) K/mm3 Sodium (137-145) mmol/L Carbon Dioxide (22-30) mmol/L BUN (9-20) mg/dL Creatinine (0.8-1.5) mg/dL Glucose (75-100) mg/dL POC Glucose 248 H 323 H (70-105) Calcium (8.4-10.2) mg/dL Phosphorus (2.5-4.5) mg/dL Total Protein (6.3-8.2) g/dL Albumin (3.9-5) g/dL Urine WBC (Auto) 48.0 H (0.0-6.0) /HPF Urine Creatinine (0.1-20.0) mg/dL Urine Total Protein (5-11.8) mg/dL 06/14/20 06/14/20 06/15/20 Range/Units 18:00 18:00 00:44 WBC (4.5-11.0) K/mm3 Sodium (137-145) mmol/L Carbon Dioxide (22-30) mmol/L BUN (9-20) mg/dL Creatinine (0.8-1.5) mg/dL Glucose (75-100) mg/dL POC Glucose 387 H (70-105) Calcium (8.4-10.2) mg/dL Phosphorus (2.5-4.5) mg/dL Total Protein (6.3-8.2) g/dL Albumin (3.9-5) g/dL Urine WBC (Auto) (0.0-6.0) /HPF Urine Creatinine 68.4 H 71.2 H (0.1-20.0) mg/dL Urine Total Protein 22 H (5-11.8) mg/dL 06/15/20 06/15/2020 Range/Units 04:01 04:01 04:01 WBC 27.0 H (4.5-11.0) K/mm3 Sodium 132 L 132 L (137-145) mmol/L Carbon Dioxide 19 L 17 L (22-30) mmol/L BUN 60 H 60 H (9-20) mg/dL Creatinine 2.1 H 2.0 H (0.8-1.5) mg/dL Glucose 378 H 383 H (75-100) mg/dL POC Glucose (70-105) Calcium 7.9 L 7.9 L (8.4-10.2) mg/dL Phosphorus 4.90 H (2.5-4.5) mg/dL Total Protein 6.2 L (6.3-8.2) g/dL Albumin 2.0 L (3.9-5) g/dL Urine WBC (Auto) (0.0-6.0) /HPF Urine Creatinine (0.1-20.0) mg/dL Urine Total Protein (5-11.8) mg/dL 06/15/20 06/15/20 06/15/20 Range/Units 06:40 08:35 11:41 WBC (4.5-11.0) K/mm3 Sodium (137-145) mmol/L Carbon Dioxide (22-30) mmol/L BUN (9-20) mg/dL Creatinine (0.8-1.5) mg/dL Glucose (75-100) mg/dL POC Glucose 286 H 293 H 284 H (70-105) Calcium (8.4-10.2) mg/dL Phosphorus (2.5-4.5) mg/dL Total Protein (6.3-8.2) g/dL Albumin (3.9-5) g/dL Urine WBC (Auto) (0.0-6.0) /HPF Urine Creatinine (0.1-20.0) mg/dL Urine Total Protein (5-11.8) mg/dL Diabetes panel 06/15/20 06/15/20 Range/Units 04:01 04:01 Sodium 132 L 132 L (137-145) mmol/L Potassium 4.9 4.9 (3.6-5.0) mmol/L Chloride 99.6 100.8 (98-107) mmol/L Carbon Dioxide 19 L 17 L (22-30) mmol/L BUN 60 H 60 H (9-20) mg/dL Creatinine 2.1 H 2.0 H (0.8-1.5) mg/dL Glucose 378 H 383 H (75-100) mg/dL Calcium 7.9 L 7.9 L (8.4-10.2) mg/dL AST 12 (5-40) units/L ALT 21 (7-56) units/L Alkaline Phosphatase 106 (35-129) units/L Total Protein 6.2 L (6.3-8.2) g/dL Albumin 2.0 L (3.9-5) g/dL Calcium panel 06/15/20 06/15/20 Range/Units 04:01 04:01 Calcium 7.9 L 7.9 L (8.4-10.2) mg/dL Phosphorus 4.90 H (2.5-4.5) mg/dL Albumin 2.0 L (3.9-5) g/dL Pituitary panel 06/15/20 06/15/20 Range/Units 04:01 04:01 Sodium 132 L 132 L (137-145) mmol/L Potassium 4.9 4.9 (3.6-5.0) mmol/L Chloride 99.6 100.8 (98-107) mmol/L Carbon Dioxide 19 L 17 L (22-30) mmol/L BUN 60 H 60 H (9-20) mg/dL Creatinine 2.1 H 2.0 H (0.8-1.5) mg/dL Glucose 378 H 383 H (75-100) mg/dL Calcium 7.9 L 7.9 L (8.4-10.2) mg/dL Adrenal panel 06/15/20 06/15/20 Range/Units 04:01 04:01 Sodium 132 L 132 L (137-145) mmol/L Potassium 4.9 4.9 (3.6-5.0) mmol/L Chloride 99.6 100.8 (98-107) mmol/L Carbon Dioxide 19 L 17 L (22-30) mmol/L BUN 60 H 60 H (9-20) mg/dL Creatinine 2.1 H 2.0 H (0.8-1.5) mg/dL Glucose 378 H 383 H (75-100) mg/dL Calcium 7.9 L 7.9 L (8.4-10.2) mg/dL Total Bilirubin 0.80 (0.1-1.2) mg/dL AST 12 (5-40) units/L ALT 21 (7-56) units/L Alkaline Phosphatase 106 (35-129) units/L Total Protein 6.2 L (6.3-8.2) g/dL Albumin 2.0 L (3.9-5) g/dL - Imaging Additional studies: Testicular u/s 06/06/20 Assessment and Plan 39 yo M with 1. necrotizing fasciitis of scrotum 2. sepsis 3. COVID+ 4. PNA 5. poorly controlled DM 6. malnutrition - albumin 2 Plan: 1. As the scrotum is the primary area involved, recommend stat Urology consult for debridement. Make NPO 2. IV abx - currently on vanco, cefepime, and flagyl IV per ID 3. prn pain control 4. glucose control 5. optimize nutrition - spa experience coordinator on board 6. would have low threshold to transfer patient to IMCU or ICU 7. General surgery can be available if assistance is needed in OR. Discussed with Dr. Palmer who has contacted urology Thank you, please call with questions. Evaluation and treatment of this patient was during the time of the national and state emergency arising from COVID19 coronavirus pandemic. Treatment and procedures performed meet the current and available best practice and guidelines for patient during the COVID pandemic.
[2020-06-15] MEDS: ZINC SULFATE 220 MG CAP PO SCH (13:40)
[2020-06-15] MEDS: DEXAMETHASONE 4 MG TAB PO SCH (13:42)
[2020-06-15] MEDS ORDERED: metroNIDAZOLE/NS 500 MG/100 ML 500 MG/100 ML BAG IV SCH (14:00)
[2020-06-15] MEDS ORDERED: CEFEPIME/NS 1 GM/100 ML 1 GM/100 ML BAG IV SCH (14:00)
--- NOTE | 2020-06-15 14:25 | Progress Note ---
Assessment and Plan Acute Renal Failure, Prerenal Azotemia vs. ATN Hyponatremia COVID-19 pneumonia CHF EF 15% DM type II -Renal labs reviewed. Serum creatinine noted to be 2.0 today, yesterday's was 2.2, has good UOP- 3300 ml noted -Lasix was held. Serum creatinine slowly improving -Urine lytes, eos and protein lab reviewed, no significant proteinuria and no urine eosinophils seen -Renal Ultrasound-pending -Renally dose medications -Avoid nephrotoxic agents -Recommend renal diet -No indication for [employer]LECT[employer]IAN [employer] at this time -Recheck BMP level in a.m -Plan of care reviewed with Dr. Pool Subjective Date of service: 06/15/20 Principal diagnosis: COVID positive, Renal Failure Interval history: Patient not examined due to being COVID positive, to conserve PPE in this pandemic and to reduce risk of exposure and or transmission. Objective - Vital Signs Vital signs: Vital Signs - 12hr 06/15/20 06/15/20 06/15/20 05:03 10:22 13:34 Temperature 98.4 F Pulse Rate 73 73 Respiratory 20 Rate Blood Pressure 104/72 O2 Sat by Pulse 92 91 Oximetry - Lab 06/15/20 04:01 06/15/20 04:01 Most recent lab results Calcium 7.9 mg/dL (8.4-10.2) L 06/15/20 04:01 Calcium 7.9 mg/dL (8.4-10.2) L 06/15/20 04:01 Phosphorus 4.90 mg/dL (2.5-4.5) H 06/15/20 04:01 Magnesium 2.20 mg/dL (1.7-2.3) 06/07/20 00:09 Urine Creatinine 68.4 mg/dL (0.1-20.0) H 06/14/20 18:00 Urine Creatinine 71.2 mg/dL (0.1-20.0) H 06/14/20 18:00 Urine Sodium 31 mmol/L 06/14/20 18:00 Urine Total Protein 22 mg/dL (5-11.8) H 06/14/20 18:00 Medications & Allergies - Medications Allergies/Adverse Reactions: Allergies No Known Allergies Allergy (Unverified 06/06/20 15:00) Home Medications: Home Medications Medication Instructions Recorded Confirmed Last Taken Type No Known Home Medications [No 06/15/20 06/15/20 Unknown History Reported Home Medications] Active Medications: Generic Name Dose Route Start Last Admin Trade Name Frearcelia PRN Reason Stop Dose Admin Acetaminophen 650 mg 06/08/20 18:13 06/09/20 22:27 Tylenol PO 650 mg Q6H PRN Administration Pain, Mild (1-3) Ascorbic Acid 500 mg 06/07/20 22:00 06/15/20 10:22 Vitamin C PO 500 mg BID [facility] Administration Aspirin 81 mg 06/08/20 13:00 06/15/20 10:22 Halfprin Ec PO 81 mg QDAY [facility] Administration Carvedilol 6.25 mg 06/08/20 12:00 06/15/20 10:22 Coreg PO 6.25 mg BID [facility] Administration Dexamethasone 8 mg 06/08/20 15:00 06/15/20 13:42 Decadron PO 06/17/20 10:01 8 mg DAILY [facility] Administration Dextrose 50 ml 06/09/20 11:57 D50w (25gm) Syringe IV Q30MIN PRN Hypoglycemia Protocol Famotidine 20 mg 06/08/20 10:00 06/15/20 10:22 Pepcid PO 20 mg QDAY [facility] Administration Heparin Sodium (Porcine) 5,000 unit 06/07/20 15:00 06/15/20 13:42 Heparin SUB-Q 5,000 unit Q8HR [facility] Administration Hydralazine HCl 25 mg 06/08/20 22:00 06/15/20 10:22 Apresoline PO 25 mg Q12HR [facility] Administration Metronidazole 500 mg in 100 mls @ 100 mls/hr 06/15/20 14:00 Flagyl 500 Mg/100 Ml IV Q8HR [facility] Protocol Vancomycin HCl 2,000 mg/ 540 mls @ 250 mls/hr 06/15/20 13:00 06/15/20 13:39 Sodium Chloride IV 06/15/20 15:09 250 mls/hr ONCE ONE Administration Cefepime HCl 2 gm in 100 mls @ 200 mls/hr 06/15/20 13:00 Cefepime/Ns 2 Gm/100 Ml IV Q12HR [facility] Insulin Glargine 30 units 06/14/20 22:00 06/14/20 22:43 Lantus SUB-Q 30 units QHS [facility] Administration Insulin Glargine 25 units 06/15/20 09:00 06/15/20 10:23 Lantus SUB-Q 25 units QAMDIAB [facility] Administration Insulin Human Lispro 0 unit 06/07/20 12:30 06/15/20 13:41 Humalog SUB-Q 10 unit Q6HR [facility] Administration Protocol Isosorbide Dinitrate 20 mg 06/08/20 13:00 06/14/20 22:51 Isordil PO 20 mg BID [facility] Administration Morphine Sulfate 2 mg 06/07/20 09:34 06/08/20 06:26 Morphine IV 2 mg Q4H PRN Administration Pain, Moderate (4-6) Sodium Hypochlorite 1 applic 06/15/20 12:05 06/15/20 13:37 Dakin's Half Strength TP 1 dispenser BID [facility] Administration Zinc Sulfate 220 mg 06/07/20 22:00 06/15/20 13:40 Zinc Sulfate PO 220 mg BID [facility] Administration
--- NOTE | 2020-06-15 16:59 | Discharge Summary ---
Providers - Providers Date of Admission: 06/06/20 18:29 Attending physician: KELLI FLOWERS MD 06/06/20 18:04 Consult to Dietitian/Nutrition [CONS] Routine Physician Instructions: Reason For Exam: DKA Reason for Consult: Nutrition Recommendations Reason for Consult: Diet education 06/06/20 22:57 Consult to Physician [CONS] Routine Comment: Spoke with Dr. Dee @ [id number] Consulting Provider: MISBAH DEE Physician Instructions: [email or web address] Reason For Exam: icu 06/07/20 09:27 Consult to Physician [CONS] Routine Comment: Consulting Provider: ROM DUNLAP Physician Instructions: Reason For Exam: CHF 06/07/20 14:08 Consult to Physician [CONS] Urgent Comment: Consulting Provider: WHIT CRAIG Physician Instructions: Reason For Exam: Possible COVID-19 06/09/20 19:57 Consult to Wound/ET Nurse [CONS] Routine Reason For Exam: wound eval 06/11/20 14:16 Physical Therapy Evaluation and Treat [CONS] Routine Comment: Reason For Exam: Assess for ambulation 06/14/20 09:02 Consult to Physician [CONS] Urgent Comment: Consulting Provider: BATOOL LOVE Physician Instructions: Reason For Exam: NA 06/15/20 10:55 Consult to Wound/ET Nurse [CONS] Routine Reason For Exam: wound eval 06/15/20 10:56 Consult to Physician [CONS] Routine Comment: Consulting Provider: SERAFIN WILLIS Physician Instructions: Reason For Exam: scrotal abscess 06/15/20 11:44 Consult to Physician [CONS] Routine Comment: Consulting Provider: EDWARD DAO Physician Instructions: Reason For Exam: scrotal abscess 06/15/20 11:46 Consult to Physician [CONS] Routine Comment: Consulting Provider: WHIT CRAIG Physician Instructions: 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 Echo reveals EF of 15%. Pt is lying in bed. Patient is moving all extremities well. Patient states that he is feeling better today. Patient denies pain. Patient sitting in bed. No reported nursing events. wound care daily. 06/14: This my first day seeing this patient. Extensive review of labs shows worsening renal function and continued Lasix. Will discontinue Lasix. Will obtain nephrology consultation for stat consult. Will hold all nephrotoxic medications. Patient continues on steroid. Patient still hypoxic with 5 L of oxygen with saturation of 90%. Will attempt to wean further today. Hyponatremia: sodium 129 will recheck today as this was yesterday's lab. Will adjust insulin Acute kidney injury with Azotemia 06/15: Concern for scrotal abscess/soft tissue gangrene/ Necrotizing Fasciitis of scrotum. Sepsis secondary to the same Protein calorie malnutrition IV abx - currently on vanco, cefepime, and flagyl IV per ID (1) COVID-19 patient's infection Current Visit: Yes Status: Deleted Plan to address problem: Infectious disease consulted, COVID-19 protocol initiated. Coronavirus Positive, Remdesivir completed (2 )Pneumonia due to 2019-nCoV Current Visit: Yes Status: Acute Plan to address problem: Patient is on REMDESVIR, Dexamethasone, S/C Heparin and Fmotidine. Management as per infectious diseases. Patient is on O2 4 litres. (3) Acute exacerbation of CHF (congestive heart failure) Current Visit: Yes Status: Acute Qualifiers: Heart failure type: systolic Heart failure chronicity: acute Qualified Code(s): I50.21 - Acute systolic (congestive) heart failure Plan to address problem: Echocardiogram reveals ejection fraction of 15%, cardiology team consulted, strict I's/O, daily weight, monitor urine output every shift, afterload reduction, supportive care. (4) Acute kidney injury secondary to vasomotor nephropathy/diuresis. Consult nephrology discussed with the team. (5) Uncontrolled diabetes mellitus Current Visit: Yes Status: Acute Plan to address problem: Sliding scale insulin therapy, Accu-Chek, consistent carbohydrate diet, hypoglycemia protocol, Lantus QHS (6) SCROTAL ABSCESS (7) Obesity hypoventilation syndrome Current Visit: Yes Status: Acute Plan to address problem: Supplemental oxygen, nebulizer therapy, noninvasive positive pressure ventilation as clinically indicated, outpatient sleep study, pulmonary toilet, prone positioning while in bed, early ambulation, out of bed to chair 3 times daily and PRN. BIPAP during night time and PRN for sleepiness during day time Vapotherm when he is not on BIPAP. Recommend to loose weight. ABGs on room air. (8) DKA, type 2 resolved patient has underlying diabetes mellitus: we will continue management of same. Current Visit: Yes Status: Acute Qualifiers: Diabetes mellitus complication detail: without coma Qualified Code(s): E11.10 - Type 2 diabetes mellitus with ketoacidosis without coma Plan to address problem: Management as per primary care. (9) Hypertension Current Visit: Yes Status: Chronic Qualifiers: Hypertension type: essential hypertension Qualified Code(s): I10 - Essential (primary) hypertension Plan to address problem: Management as per primary care. (10) Morbid obesity Current Visit: Yes Status: Chronic Plan to address problem: BIPAP during night time and PRN for sleepiness during day time O2 4 litres o2. Recommend to loose weight. ABGs on room air. (11) Urinary tract infection Current Visit: Yes Status: Acute Qualifiers: Encounter type: initial encounter Plan to address problem: IV antibiotic therapy, supportive care, repeat CBC (12) DVT prophylaxis Current Visit: Yes Status: Acute Plan to address problem: SCD to bilateral lower extremities while in bed, prophylactic heparin Disposition: DC/TX-70 ANOTHER TYPE HLTHCARE Time spent for discharge: 35 mins Exam - Physical Exam Narrative exam: General appearance: Present: mild distress secondary to pain, well-nourished, obese, malodorous in the room - EENT Eyes: Present: PERRL, EOM intact - Respiratory Respiratory effort: normal Respiratory: bilateral: diminished - Cardiovascular Rhythm: regular Heart Sounds: Present: S1 & S2 - Extremities Extremities: no ischemia, bilateral chronic changes, chronic venous stasis Peripheral Pulses: within normal limits - Abdominal General gastrointestinal: soft, non-tender, non-distended - Integumentary Integumentary: Present: scrotal abscess, necrosis of majority of scrotum with foul smelling purulent drainage. + induration, fluctuance, edema, TTP. There is a small opening in the right upper thigh with surrounding edema, likely satellite lesion from nec fasc of scrotum. - Psychiatric Psychiatric: appropriate mood/affect, cooperative - Neurologic Neurologic: CNII-XII intact - Constitutional Vitals: Temp Pulse Resp BP Pulse Ox 98.4 F 73 20 104/72 91 06/15/20 05:03 06/15/20 10:22 06/15/20 10:00 06/15/20 05:03 06/15/20 13:34 Plan Follow up with: KASSIE PHAM MD [Primary Care Provider] - 7 Days Other Discharge Orders: Home Health Care (Amb) Location: None Selected
[2020-06-15 17:59] LABS: C-Reactive Protein 3.9 mg/dL (0.00-1.30)
--- NOTE | 2020-06-15 20:30 | Progress Note ---
Assessment and Plan Patient alert, awake . Patient on O2, 6 litres via nasal canula. O2 saturation 95%. Some times he takes down O2. O2 saturation dropping to low 80s. Recommend to keep O2 all the time. Slight shortness of breath at rest. Patient COVID 19 po sitive.Patient afebrile but has leukocytosis. Patient received REMDESIVIR. Patient is on dexamethasone, S/C heaprin and famotidine, cefepime and metronidazole. - Patient Problems (1) COVID-19 virus infection Current Visit: Yes Status: Acute Plan to address problem: Patient received REMDESVIR. Patient is on Dexamethasone, S/C Heparin and Fmotidine. Management as per infectious diseases. Patient is on O2 6 litres. (2) Pneumonia due to 2019-nCoV Current Visit: Yes Status: Acute Plan to address problem: Patient received REMDESVIR. Patient is on Dexamethasone, Cefepime and Metronidazole. Management as per infectious diseases. Patient is on O2 6 litres.. (3) Obesity hypoventilation syndrome Current Visit: Yes Status: Acute Plan to address problem: BIPAP during night time and PRN for sleepiness during day time Vapotherm when he is not on BIPAP. Recommend to loose weight. ABGs on room air. (4) Acute exacerbation of CHF (congestive heart failure) Current Visit: Yes Status: Acute Qualifiers: Heart failure type: combined systolic and diastolic Qualified Code(s): I50.43 - Acute on chronic combined systolic (congestive) and diastolic (congestive) heart failure Plan to address problem: Management as per cardiology. (5) DKA, type 2 Current Visit: Yes Status: Acute Qualifiers: Diabetes mellitus complication detail: without coma Qualified Code(s): E11.10 - Type 2 diabetes mellitus with ketoacidosis without coma Plan to address problem: Management as per primary care. (6) Hypertension Current Visit: Yes Status: Chronic Qualifiers: Hypertension type: essential hypertension Qualified Code(s): I10 - Essential (primary) hypertension Plan to address problem: Management as per primary care. (7) Morbid obesity Current Visit: Yes Status: Chronic Plan to address problem: BIPAP during night time and PRN for sleepiness during day time O2 6 litres o2. Recommend to loose weight. Subjective Date of service: 06/15/20 Principal diagnosis: COVID positive, Renal Failure Interval history: Patient alert, awake . Patient on O2, 6 litres via nasal canula. O2 saturation 95%. Some times he takes down O2. O2 saturation dropping to low 80s. Recommend to keep O2 all the time. Slight shortness of breath at rest. Patient COVID 19 positive.Patient afebrile but has leukocytosis. Patient received REMDESIVIR. Patient is on dexamethasone, S/C heaprin and famotidine, cefepime and metronidazole. Objective Vital Signs - 12hr 06/15/20 06/15/20 06/15/20 10:00 10:22 12:18 Temperature 97.6 F Pulse Rate 73 69 Respiratory 20 20 Rate Blood Pressure 114/67 O2 Sat by Pulse 94 93 Oximetry 06/15/20 06/15/20 06/15/20 13:34 16:38 16:42 Temperature 98.3 F Pulse Rate 76 94 H Respiratory 20 Rate Blood Pressure 106/66 86/50 O2 Sat by Pulse 91 95 98 Oximetry Constitutional: no acute distress, alert, other (Morbidly Obese. ) Eyes: non-icteric ENT: oropharynx moist Neck: supple, no lymphadenopathy Effort: mildly labored Ascultation: Bilateral: diminished breath sounds, rales (basilar) Cardiovascular: regular rate and rhythm Gastrointestinal: normoactive bowel sounds, soft, non-tender, non-distended, other ([place]ón catheter in place, drainig clear urine) Integumentary: other (Stasis dermatitis both lower legs.) Extremities: edema, other (hyperpigmentation opf lower extremities) Neurologic: normal mental status, non-focal exam, pupils equal and round, unable to assess Psychiatric: anxious CBC and BMP: 06/15/20 04:01 06/15/20 17:11 ABG, PT/INR, D-dimer: PT/INR, D-dimer D-Dimer 1112.05 ng/mlDDU (0-234) H 06/15/20 17:11 Abnormal lab findings: Abnormal Labs 06/06/20 06/06/20 06/06/20 15:45 15:45 15:45 WBC RBC Hct RDW Lymph % (Auto) 6.6 L Lymph # 0.6 L Seg Neutrophils % 87.2 H Seg Neuts % (Manual) Lymphocytes % (Manual) Seg Neutrophils # 8.4 H Seg Neutrophils # Man Lymphocytes # (Manual) Monocytes # (Manual) D-Dimer VBG pH 7.300 L Sodium 131 L Potassium Chloride 89.8 L Carbon Dioxide 16 L BUN Creatinine Glucose 509 H* POC Glucose Hemoglobin A1c Lactic Acid Calcium Phosphorus Ferritin AST 151 H ALT 157 H Lactate Dehydrogenase C-Reactive Protein NT-Pro-B Natriuret Pep 5086 H Total Protein Albumin 3.0 L Urine WBC (Auto) Urine Creatinine Urine Total Protein Coronavirus (PCR) 06/06/20 06/06/20 06/06/20 17:02 18:01 18:16 WBC RBC Hct RDW Lymph % (Auto) Lymph # Seg Neutrophils % Seg Neuts % (Manual) Lymphocytes % (Manual) Seg Neutrophils # Seg Neutrophils # Man Lymphocytes # (Manual) Monocytes # (Manual) D-Dimer VBG pH Sodium Potassium Chloride Carbon Dioxide BUN Creatinine Glucose POC Glucose 450 H Hemoglobin A1c Lactic Acid 2.20 H* 2.30 H* Calcium Phosphorus Ferritin AST ALT Lactate Dehydrogenase C-Reactive Protein NT-Pro-B Natriuret Pep Total Protein Albumin Urine WBC (Auto) Urine Creatinine Urine Total Protein Coronavirus (PCR) 06/06/20 06/06/20 06/06/20 18:16 18:42 19:36 WBC RBC Hct RDW Lymph % (Auto) Lymph # Seg Neutrophils % Seg Neuts % (Manual) Lymphocytes % (Manual) Seg Neutrophils # Seg Neutrophils # Man Lymphocytes # (Manual) Monocytes # (Manual) D-Dimer VBG pH Sodium 131 L 131 L Potassium 5.3 H Chloride 90.7 L 90.7 L Carbon Dioxide 12 L 16 L BUN Creatinine Glucose 525 H* 558 H* POC Glucose Hemoglobin A1c Lactic Acid Calcium Phosphorus Ferritin AST ALT Lactate Dehydrogenase C-Reactive Protein NT-Pro-B Natriuret Pep Total Protein Albumin Urine WBC (Auto) 57.0 H Urine Creatinine Urine Total Protein Coronavirus (PCR) 06/06/20 06/06/20 06/06/20 21:21 22:26 23:33 WBC RBC Hct RDW Lymph % (Auto) Lymph # Seg Neutrophils % Seg Neuts % (Manual) Lymphocytes % (Manual) Seg Neutrophils # Seg Neutrophils # Man Lymphocytes # (Manual) Monocytes # (Manual) D-Dimer VBG pH Sodium Potassium Chloride Carbon Dioxide BUN Creatinine Glucose POC Glucose 411 H 395 H 390 H Hemoglobin A1c Lactic Acid Calcium Phosphorus Ferritin AST ALT Lactate Dehydrogenase C-Reactive Protein NT-Pro-B Natriuret Pep Total Protein Albumin Urine WBC (Auto) Urine Creatinine Urine Total Protein Coronavirus (PCR) 06/07/20 06/07/20 06/07/20 00:09 00:09 00:09 WBC RBC Hct RDW Lymph % (Auto) Lymph # Seg Neutrophils % Seg Neuts % (Manual) Lymphocytes % (Manual) Seg Neutrophils # Seg Neutrophils # Man Lymphocytes # (Manual) Monocytes # (Manual) D-Dimer VBG pH Sodium 135 L Potassium Chloride 95.7 L Carbon Dioxide BUN Creatinine Glucose 419 H POC Glucose Hemoglobin A1c 17.4 H Lactic Acid 2.30 H* Calcium 8.3 L Phosphorus Ferritin AST ALT Lactate Dehydrogenase C-Reactive Protein NT-Pro-B Natriuret Pep Total Protein Albumin Urine WBC (Auto) Urine Creatinine Urine Total Protein Coronavirus (PCR) 06/07/20 06/07/20 06/07/20 00:09 00:48 02:09 WBC RBC Hct RDW Lymph % (Auto) Lymph # Seg Neutrophils % Seg Neuts % (Manual) Lymphocytes % (Manual) Seg Neutrophils # Seg Neutrophils # Man Lymphocytes # (Manual) Monocytes # (Manual) D-Dimer VBG pH Sodium Potassium Chloride Carbon Dioxide BUN Creatinine Glucose POC Glucose 335 H 340 H Hemoglobin A1c Lactic Acid Calcium Phosphorus 1.90 L D Ferritin AST ALT Lactate Dehydrogenase C-Reactive Protein NT-Pro-B Natriuret Pep Total Protein Albumin Urine WBC (Auto) Urine Creatinine Urine Total Protein Coronavirus (PCR) 06/07/20 06/07/20 06/07/20 02:57 03:19 03:19 WBC RBC Hct RDW Lymph % (Auto) Lymph # Seg Neutrophils % Seg Neuts % (Manual) Lymphocytes % (Manual) Seg Neutrophils # Seg Neutrophils # Man Lymphocytes # (Manual) Monocytes # (Manual) D-Dimer VBG pH Sodium 131 L Potassium Chloride 92.2 L Carbon Dioxide BUN Creatinine Glucose 407 H POC Glucose 416 H Hemoglobin A1c Lactic Acid 3.50 H* Calcium Phosphorus Ferritin AST ALT Lactate Dehydrogenase C-Reactive Protein NT-Pro-B Natriuret Pep Total Protein Albumin Urine WBC (Auto) Urine Creatinine Urine Total Protein Coronavirus (PCR) 06/07/20 06/07/20 06/07/20 03:56 05:13 06:01 WBC RBC Hct RDW Lymph % (Auto) Lymph # Seg Neutrophils % Seg Neuts % (Manual) Lymphocytes % (Manual) Seg Neutrophils # Seg Neutrophils # Man Lymphocytes # (Manual) Monocytes # (Manual) D-Dimer VBG pH Sodium Potassium Chloride Carbon Dioxide BUN Creatinine Glucose POC Glucose 341 H 323 H 299 H Hemoglobin A1c Lactic Acid Calcium Phosphorus Ferritin AST ALT Lactate Dehydrogenase C-Reactive Protein NT-Pro-B Natriuret Pep Total Protein Albumin Urine WBC (Auto) Urine Creatinine Urine Total Protein Coronavirus (PCR) 06/07/20 06/07/20 06/07/20 07:07 07:48 07:48 WBC RBC Hct RDW Lymph % (Auto) Lymph # Seg Neutrophils % Seg Neuts % (Manual) Lymphocytes % (Manual) Seg Neutrophils # Seg Neutrophils # Man Lymphocytes # (Manual) Monocytes # (Manual) D-Dimer VBG pH Sodium 136 L Potassium Chloride Carbon Dioxide BUN Creatinine Glucose 270 H POC Glucose 276 H Hemoglobin A1c Lactic Acid 2.50 H* Calcium Phosphorus Ferritin AST ALT Lactate Dehydrogenase C-Reactive Protein NT-Pro-B Natriuret Pep Total Protein Albumin Urine WBC (Auto) Urine Creatinine Urine Total Protein Coronavirus (PCR) 06/07/20 06/07/20 06/07/20 08:11 09:12 10:11 WBC RBC Hct RDW Lymph % (Auto) Lymph # Seg Neutrophils % Seg Neuts % (Manual) Lymphocytes % (Manual) Seg Neutrophils # Seg Neutrophils # Man Lymphocytes # (Manual) Monocytes # (Manual) D-Dimer VBG pH Sodium Potassium Chloride Carbon Dioxide BUN Creatinine Glucose POC Glucose 245 H 208 H 186 H Hemoglobin A1c Lactic Acid Calcium Phosphorus Ferritin AST ALT Lactate Dehydrogenase C-Reactive Protein NT-Pro-B Natriuret Pep Total Protein Albumin Urine WBC (Auto) Urine Creatinine Urine Total Protein Coronavirus (PCR) 06/07/20 06/07/20 06/07/20 11:14 13:40 14:50 WBC RBC Hct RDW Lymph % (Auto) Lymph # Seg Neutrophils % Seg Neuts % (Manual) Lymphocytes % (Manual) Seg Neutrophils # Seg Neutrophils # Man Lymphocytes # (Manual) Monocytes # (Manual) D-Dimer VBG pH Sodium Potassium Chloride Carbon Dioxide BUN Creatinine Glucose POC Glucose 189 H 223 H 194 H Hemoglobin A1c Lactic Acid Calcium Phosphorus Ferritin AST ALT Lactate Dehydrogenase C-Reactive Protein NT-Pro-B Natriuret Pep Total Protein Albumin Urine WBC (Auto) Urine Creatinine Urine Total Protein Coronavirus (PCR) 06/07/20 06/07/20 06/07/20 14:53 14:53 14:53 WBC RBC Hct RDW Lymph % (Auto) Lymph # Seg Neutrophils % Seg Neuts % (Manual) Lymphocytes % (Manual) Seg Neutrophils # Seg Neutrophils # Man Lymphocytes # (Manual) Monocytes # (Manual) D-Dimer 975.20 H VBG pH Sodium Potassium Chloride Carbon Dioxide BUN Creatinine 1.6 H Glucose 192 H POC Glucose Hemoglobin A1c Lactic Acid 2.20 H* Calcium Phosphorus Ferritin AST ALT Lactate Dehydrogenase C-Reactive Protein NT-Pro-B Natriuret Pep Total Protein Albumin Urine WBC (Auto) Urine Creatinine Urine Total Protein Coronavirus (PCR) 06/07/20 06/07/20 06/07/20 14:53 14:53 18:18 WBC RBC Hct RDW Lymph % (Auto) Lymph # Seg Neutrophils % Seg Neuts % (Manual) Lymphocytes % (Manual) Seg Neutrophils # Seg Neutrophils # Man Lymphocytes # (Manual) Monocytes # (Manual) D-Dimer VBG pH Sodium Potassium Chloride Carbon Dioxide BUN Creatinine Glucose POC Glucose 309 H Hemoglobin A1c Lactic Acid Calcium Phosphorus Ferritin > 2000.0 H AST ALT Lactate Dehydrogenase 517 H C-Reactive Protein 46.00 H NT-Pro-B Natriuret Pep Total Protein Albumin Urine WBC (Auto) Urine Creatinine Urine Total Protein Coronavirus (PCR) 06/07/20 06/07/20 06/07/20 19:44 22:46 23:22 WBC RBC Hct RDW Lymph % (Auto) Lymph # Seg Neutrophils % Seg Neuts % (Manual) Lymphocytes % (Manual) Seg Neutrophils # Seg Neutrophils # Man Lymphocytes # (Manual) Monocytes # (Manual) D-Dimer VBG pH Sodium 133 L 131 L Potassium 5.5 H D Chloride 95.5 L 92.6 L Carbon Dioxide 20 L 21 L BUN 25 H 28 H Creatinine 2.0 H 2.3 H Glucose 379 H 494 H POC Glucose 368 H Hemoglobin A1c Lactic Acid Calcium 8.2 L 8.0 L Phosphorus Ferritin AST ALT Lactate Dehydrogenase C-Reactive Protein NT-Pro-B Natriuret Pep Total Protein Albumin Urine WBC (Auto) Urine Creatinine Urine Total Protein Coronavirus (PCR) 06/07/20 06/08/20 06/08/20 Unknown 06:08 10:56 WBC RBC Hct RDW Lymph % (Auto) Lymph # Seg Neutrophils % Seg Neuts % (Manual) Lymphocytes % (Manual) Seg Neutrophils # Seg Neutrophils # Man Lymphocytes # (Manual) Monocytes # (Manual) D-Dimer VBG pH Sodium Potassium Chloride Carbon Dioxide BUN Creatinine Glucose POC Glucose 437 H 389 H Hemoglobin A1c Lactic Acid Calcium Phosphorus Ferritin AST ALT Lactate Dehydrogenase C-Reactive Protein NT-Pro-B Natriuret Pep Total Protein Albumin Urine WBC (Auto) Urine Creatinine Urine Total Protein Coronavirus (PCR) Positive A 06/08/20 06/08/20 06/08/20 17:07 20:37 22:46 WBC RBC Hct RDW Lymph % (Auto) Lymph # Seg Neutrophils % Seg Neuts % (Manual) Lymphocytes % (Manual) Seg Neutrophils # Seg Neutrophils # Man Lymphocytes # (Manual) Monocytes # (Manual) D-Dimer VBG pH Sodium Potassium Chloride Carbon Dioxide BUN Creatinine Glucose POC Glucose 395 H 394 H 394 H Hemoglobin A1c Lactic Acid Calcium Phosphorus Ferritin AST ALT Lactate Dehydrogenase C-Reactive Protein NT-Pro-B Natriuret Pep Total Protein Albumin Urine WBC (Auto) Urine Creatinine Urine Total Protein Coronavirus (PCR) 06/09/20 06/09/20 06/09/20 05:57 11:42 17:32 WBC RBC Hct RDW Lymph % (Auto) Lymph # Seg Neutrophils % Seg Neuts % (Manual) Lymphocytes % (Manual) Seg Neutrophils # Seg Neutrophils # Man Lymphocytes # (Manual) Monocytes # (Manual) D-Dimer VBG pH Sodium Potassium Chloride Carbon Dioxide BUN Creatinine Glucose POC Glucose 455 H 396 H 457 H Hemoglobin A1c Lactic Acid Calcium Phosphorus Ferritin AST ALT Lactate Dehydrogenase C-Reactive Protein NT-Pro-B Natriuret Pep Total Protein Albumin Urine WBC (Auto) Urine Creatinine Urine Total Protein Coronavirus (PCR) 06/09/20 06/10/20 06/10/20 23:50 05:20 10:27 WBC RBC Hct RDW Lymph % (Auto) Lymph # Seg Neutrophils % Seg Neuts % (Manual) Lymphocytes % (Manual) Seg Neutrophils # Seg Neutrophils # Man Lymphocytes # (Manual) Monocytes # (Manual) D-Dimer VBG pH Sodium 130 L Potassium Chloride Carbon Dioxide 17 L BUN 55 H Creatinine 2.7 H Glucose 452 H POC Glucose 428 H 405 H Hemoglobin A1c Lactic Acid Calcium 8.1 L Phosphorus Ferritin AST ALT Lactate Dehydrogenase C-Reactive Protein NT-Pro-B Natriuret Pep Total Protein Albumin Urine WBC (Auto) Urine Creatinine Urine Total Protein Coronavirus (PCR) 06/10/20 06/10/20 06/10/20 11:49 16:25 23:02 WBC RBC Hct RDW Lymph % (Auto) Lymph # Seg Neutrophils % Seg Neuts % (Manual) Lymphocytes % (Manual) Seg Neutrophils # Seg Neutrophils # Man Lymphocytes # (Manual) Monocytes # (Manual) D-Dimer VBG pH Sodium Potassium Chloride Carbon Dioxide BUN Creatinine Glucose POC Glucose 391 H 432 H 414 H Hemoglobin A1c Lactic Acid Calcium Phosphorus Ferritin AST ALT Lactate Dehydrogenase C-Reactive Protein NT-Pro-B Natriuret Pep Total Protein Albumin Urine WBC (Auto) Urine Creatinine Urine Total Protein Coronavirus (PCR) 06/10/20 06/11/20 06/11/20 23:30 06:39 11:35 WBC RBC Hct RDW Lymph % (Auto) Lymph # Seg Neutrophils % Seg Neuts % (Manual) Lymphocytes % (Manual) Seg Neutrophils # Seg Neutrophils # Man Lymphocytes # (Manual) Monocytes # (Manual) D-Dimer VBG pH Sodium Potassium Chloride Carbon Dioxide BUN Creatinine Glucose POC Glucose 402 H 438 H 338 H Hemoglobin A1c Lactic Acid Calcium Phosphorus Ferritin AST ALT Lactate Dehydrogenase C-Reactive Protein NT-Pro-B Natriuret Pep Total Protein Albumin Urine WBC (Auto) Urine Creatinine Urine Total Protein Coronavirus (PCR) 06/11/20 06/11/20 06/12/20 17:23 23:39 05:25 WBC RBC Hct RDW Lymph % (Auto) Lymph # Seg Neutrophils % Seg Neuts % (Manual) Lymphocytes % (Manual) Seg Neutrophils # Seg Neutrophils # Man Lymphocytes # (Manual) Monocytes # (Manual) D-Dimer VBG pH Sodium Potassium Chloride Carbon Dioxide BUN Creatinine Glucose POC Glucose 376 H 427 H 328 H Hemoglobin A1c Lactic Acid Calcium Phosphorus Ferritin AST ALT Lactate Dehydrogenase C-Reactive Protein NT-Pro-B Natriuret Pep Total Protein Albumin Urine WBC (Auto) Urine Creatinine Urine Total Protein Coronavirus (PCR) 06/12/20 06/12/20 06/12/20 05:27 05:27 11:29 WBC 25.4 H RBC 5.06 H Hct RDW Lymph % (Auto) Lymph # Seg Neutrophils % Seg Neuts % (Manual) 84.0 H Lymphocytes % (Manual) 9.0 L Seg Neutrophils # Seg Neutrophils # Man 21.3 H Lymphocytes # (Manual) Monocytes # (Manual) D-Dimer VBG pH Sodium 134 L Potassium Chloride Carbon Dioxide 16 L BUN 69 H Creatinine 2.7 H Glucose 375 H POC Glucose 379 H Hemoglobin A1c Lactic Acid Calcium 8.2 L Phosphorus Ferritin AST ALT Lactate Dehydrogenase C-Reactive Protein NT-Pro-B Natriuret Pep Total Protein Albumin 2.1 L Urine WBC (Auto) Urine Creatinine Urine Total Protein Coronavirus (PCR) 06/12/20 06/12/20 06/13/20 17:04 23:05 03:59 WBC 23.7 H RBC 5.23 H Hct RDW Lymph % (Auto) Lymph # Seg Neutrophils % Seg Neuts % (Manual) 94.0 H Lymphocytes % (Manual) 3.0 L Seg Neutrophils # Seg Neutrophils # Man 22.3 H Lymphocytes # (Manual) 0.7 L Monocytes # (Manual) D-Dimer VBG pH Sodium Potassium Chloride Carbon Dioxide BUN Creatinine Glucose POC Glucose 387 H 333 H Hemoglobin A1c Lactic Acid Calcium Phosphorus Ferritin AST ALT Lactate Dehydrogenase C-Reactive Protein NT-Pro-B Natriuret Pep Total Protein Albumin Urine WBC (Auto) Urine Creatinine Urine Total Protein Coronavirus (PCR) 06/13/20 06/13/20 06/13/20 03:59 03:59 05:49 WBC RBC Hct RDW Lymph % (Auto) Lymph # Seg Neutrophils % Seg Neuts % (Manual) Lymphocytes % (Manual) Seg Neutrophils # Seg Neutrophils # Man Lymphocytes # (Manual) Monocytes # (Manual) D-Dimer VBG pH Sodium Potassium Chloride Carbon Dioxide BUN Creatinine Glucose POC Glucose 280 H Hemoglobin A1c Lactic Acid Calcium Phosphorus Ferritin 1048.0 H AST ALT Lactate Dehydrogenase 479 H C-Reactive Protein NT-Pro-B Natriuret Pep Total Protein Albumin Urine WBC (Auto) Urine Creatinine Urine Total Protein Coronavirus (PCR) 06/13/20 06/13/20 06/13/20 09:19 12:21 18:37 WBC RBC Hct RDW Lymph % (Auto) Lymph # Seg Neutrophils % Seg Neuts % (Manual) Lymphocytes % (Manual) Seg Neutrophils # Seg Neutrophils # Man Lymphocytes # (Manual) Monocytes # (Manual) D-Dimer VBG pH Sodium 129 L Potassium Chloride 94.3 L Carbon Dioxide 17 L BUN 65 H Creatinine 2.6 H Glucose 375 H POC Glucose 327 H 319 H Hemoglobin A1c Lactic Acid Calcium 8.1 L Phosphorus Ferritin AST ALT Lactate Dehydrogenase C-Reactive Protein NT-Pro-B Natriuret Pep Total Protein Albumin 2.5 L Urine WBC (Auto) Urine Creatinine Urine Total Protein Coronavirus (PCR) 06/13/20 06/14/20 06/14/20 23:15 06:38 09:37 WBC 26.1 H RBC 5.15 H Hct 46.2 H RDW 15.5 H Lymph % (Auto) Lymph # Seg Neutrophils % Seg Neuts % (Manual) 95.0 H Lymphocytes % (Manual) 0 L Seg Neutrophils # Seg Neutrophils # Man 24.8 H Lymphocytes # (Manual) 0.0 L Monocytes # (Manual) 1.0 H D-Dimer VBG pH Sodium Potassium Chloride Carbon Dioxide BUN Creatinine Glucose POC Glucose 368 H 270 H Hemoglobin A1c Lactic Acid Calcium Phosphorus Ferritin AST ALT Lactate Dehydrogenase C-Reactive Protein NT-Pro-B Natriuret Pep Total Protein Albumin Urine WBC (Auto) Urine Creatinine Urine Total Protein Coronavirus (PCR) 06/14/20 06/14/20 06/14/20 09:37 12:33 17:28 WBC RBC Hct RDW Lymph % (Auto) Lymph # Seg Neutrophils % Seg Neuts % (Manual) Lymphocytes % (Manual) Seg Neutrophils # Seg Neutrophils # Man Lymphocytes # (Manual) Monocytes # (Manual) D-Dimer VBG pH Sodium 129 L Potassium Chloride 94.5 L Carbon Dioxide 17 L BUN 62 H Creatinine 2.2 H Glucose 333 H POC Glucose 248 H 323 H Hemoglobin A1c Lactic Acid Calcium 8.1 L Phosphorus Ferritin AST ALT Lactate Dehydrogenase C-Reactive Protein NT-Pro-B Natriuret Pep Total Protein Albumin Urine WBC (Auto) Urine Creatinine Urine Total Protein Coronavirus (PCR) 06/14/20 06/14/20 06/14/20 18:00 18:00 18:00 WBC RBC Hct RDW Lymph % (Auto) Lymph # Seg Neutrophils % Seg Neuts % (Manual) Lymphocytes % (Manual) Seg Neutrophils # Seg Neutrophils # Man Lymphocytes # (Manual) Monocytes # (Manual) D-Dimer VBG pH Sodium Potassium Chloride Carbon Dioxide BUN Creatinine Glucose POC Glucose Hemoglobin A1c Lactic Acid Calcium Phosphorus Ferritin AST ALT Lactate Dehydrogenase C-Reactive Protein NT-Pro-B Natriuret Pep Total Protein Albumin Urine WBC (Auto) 48.0 H Urine Creatinine 68.4 H 71.2 H Urine Total Protein 22 H Coronavirus (PCR) 06/15/20 06/15/20 06/15/20 00:44 04:01 04:01 WBC 27.0 H RBC Hct RDW Lymph % (Auto) Lymph # Seg Neutrophils % Seg Neuts % (Manual) Lymphocytes % (Manual) Seg Neutrophils # Seg Neutrophils # Man Lymphocytes # (Manual) Monocytes # (Manual) D-Dimer VBG pH Sodium 132 L Potassium Chloride Carbon Dioxide 19 L BUN 60 H Creatinine 2.1 H Glucose 378 H POC Glucose 387 H Hemoglobin A1c Lactic Acid Calcium 7.9 L Phosphorus Ferritin AST ALT Lactate Dehydrogenase C-Reactive Protein NT-Pro-B Natriuret Pep Total Protein 6.2 L Albumin 2.0 L Urine WBC (Auto) Urine Creatinine Urine Total Protein Coronavirus (PCR) 06/15/20 06/15/20 06/15/20 04:01 06:40 08:35 WBC RBC Hct RDW Lymph % (Auto) Lymph # Seg Neutrophils % Seg Neuts % (Manual) Lymphocytes % (Manual) Seg Neutrophils # Seg Neutrophils # Man Lymphocytes # (Manual) Monocytes # (Manual) D-Dimer VBG pH Sodium 132 L Potassium Chloride Carbon Dioxide 17 L BUN 60 H Creatinine 2.0 H Glucose 383 H POC Glucose 286 H 293 H Hemoglobin A1c Lactic Acid Calcium 7.9 L Phosphorus 4.90 H Ferritin AST ALT Lactate Dehydrogenase C-Reactive Protein NT-Pro-B Natriuret Pep Total Protein Albumin Urine WBC (Auto) Urine Creatinine Urine Total Protein Coronavirus (PCR) 06/15/20 06/15/20 06/15/20 11:41 16:46 17:11 WBC RBC Hct RDW Lymph % (Auto) Lymph # Seg Neutrophils % Seg Neuts % (Manual) Lymphocytes % (Manual) Seg Neutrophils # Seg Neutrophils # Man Lymphocytes # (Manual) Monocytes # (Manual) D-Dimer 1112.05 H VBG pH Sodium Potassium Chloride Carbon Dioxide BUN Creatinine Glucose POC Glucose 284 H 278 H Hemoglobin A1c Lactic Acid Calcium Phosphorus Ferritin AST ALT Lactate Dehydrogenase C-Reactive Protein NT-Pro-B Natriuret Pep Total Protein Albumin Urine WBC (Auto) Urine Creatinine Urine Total Protein Coronavirus (PCR) 06/15/20 06/15/20 17:11 17:11 WBC RBC Hct RDW Lymph % (Auto) Lymph # Seg Neutrophils % Seg Neuts % (Manual) Lymphocytes % (Manual) Seg Neutrophils # Seg Neutrophils # Man Lymphocytes # (Manual) Monocytes # (Manual) D-Dimer VBG pH Sodium Potassium Chloride Carbon Dioxide BUN Creatinine Glucose 278 H POC Glucose Hemoglobin A1c Lactic Acid Calcium Phosphorus Ferritin 890.6 H AST ALT Lactate Dehydrogenase 288 H C-Reactive Protein 3.90 H NT-Pro-B Natriuret Pep Total Protein Albumin Urine WBC (Auto) Urine Creatinine Urine Total Protein Coronavirus (PCR) Allied health notes reviewed: RT
[2020-06-15 22:10] VITALS: BP 128/80
== END 2020-06-15 22:20 | disposition short-term general hospital (02) | DRG 871 ==
LOC: ED 14:24 → 4A 18:29 → IMCU 19:15 → CC1 22:30 → 3A 06-07 13:40
PROVIDERS: ADMIT Internal Medicine; ATTEND Internal Medicine
PROC: 4A033R1 Measurement of Arterial Saturation, Peripheral, Percutaneous Approach (ICD-10-PCS; principal; 2020-06-09)
DX: A41.89 Other specified sepsis (principal); U07.1 COVID-19; J12.89 Other viral pneumonia; E11.10 Type 2 diabetes mellitus with ketoacidosis without coma; I50.43 Acute on chronic combined systolic (congestive) and diastolic (congestive) heart failure; N17.0 Acute kidney failure with tubular necrosis; J96.01 Acute respiratory failure with hypoxia; M72.6 Necrotizing fasciitis; Z68.42 Body mass index [BMI] 45.0-49.9, adult; N39.0 Urinary tract infection, site not specified; E66.2 Morbid (severe) obesity with alveolar hypoventilation; I42.0 Dilated cardiomyopathy; E87.1 Hypo-osmolality and hyponatremia; E46 Unspecified protein-calorie malnutrition; N49.2 Inflammatory disorders of scrotum; I11.0 Hypertensive heart disease with heart failure; Z91.14 Patient's other noncompliance with medication regimen; Z71.3 Dietary counseling and surveillance; E11.65 Type 2 diabetes mellitus with hyperglycemia; Z82.49 Family history of ischemic heart disease and other diseases of the circulatory system
CPT/HCPCS: 36415; 71045; 71046; 80048; 80053; 81001; 82140; 82570; 82728; 82805; 82947; 82962; 83036; 83615; 83735; 83880; 83935; 84100; 84145; 84156; 84300; 84484; 84520; 85007; 85025; 85027; 85379; 86140; 87040; 87086; 89050; 93005; 93306; 93970; 93975; 94760; G0378; A6260; J0692; J0696; J1644; J1815; J1940; J2270; J3370; J7030; J7040; J8540; U0003-CS